=== PATIENT | male | born 1950 | race Caucasian/White ===

== ENCOUNTER → 2016-08-03 | Outpatient (CLI) | payer OTHER ==
[~2016-08-03] MED LIST: AMLO5TAB4 PO; ASCA500 PO; ASPI81TA28 PO; CEPH500C2 PO; CHOL1CAP57 PO; CHOLTAB3 PO; CITA-112 PO; COLE1TAB5 PO; FERR1TAB23 PO; HYDR25TA4 PO; INSPMPNVLG; METO-217 PO; MULT-506 PO; OMEP20TA PO; PRAV20TA PO
[2016-08-04 07:27] LABS: ESTIMATED AVERAGE GLUCOSE 163 mg/dl; HA1C FLAG Normal (Normal)
--- NOTE | 2016-08-07 08:46 | CODING QUERY MEDICAL NECESSITY ---
SUPPORTING DIAGNOSIS NEEDED A supporting diagnosis is required for the test/procedure performed on this patient in order for us to be reimbursed by the patient's insurance. Please provide a supporting diagnosis for the following test/procedure listed below next to the test name along with your signature. *If there is no additional diagnosis for this patient that would support the following test/procedure please document that below next to the test/procedure. Test(s)/Procedure(s) that require a supporting diagnosis: * GLYCATED HEMOGLOBIN DIAGNOSIS: * DOS: 08/03/16 Provider Signature: Date: Thank you Sophia Helms Health Information Management Once completed, please kindly fax back to [phone] For questions please call [phone]
== END | disposition home or self-care (01) ==
LOC: C.LAB1850 14:23
PROVIDERS: ATTEND Nurse Practitioner Adult Health
DX: K22.70 Barrett's esophagus without dysplasia (principal); E11.29 Type 2 diabetes mellitus with other diabetic kidney complication

== ENCOUNTER → 2016-08-31 | Outpatient (CLI) | payer OTHER ==
[2016-08-31 17:51] LABS: HEMATOCRIT 40.8 % (42-52); MEAN CELL VOLUME 88.7 fL (80-100); MEAN CORPUSCULAR HEMOGLOBIN 31.3 pg (25-34); MEAN CORPUSCULAR HGB CONC 35.3 g/dl (32-36); MEAN PLATELET VOLUME 10.1 fL (7.4-10.4); PLATELET COUNT 173 K/uL (130-400); WHITE BLOOD COUNT 7.41 K/uL (4.8-10.8)
[2016-08-31 18:02] LABS: URINE APPEARANCE CLEAR (CLEAR); URINE BILIRUBIN NEG (NEG); URINE COLOR YELLOW; URINE NITRITE NEG (NEG); URINE PH 6.5 (4.5-7.5); URINE SPECIFIC GRAVITY 1.016 (1.000-1.030); UROBILINOGEN NEG (NEG)
[2016-08-31 18:04] LABS: MANUAL MICROSCOPIC REQUIRED? NO; REVIEW REQ? NO
[2016-08-31 18:11] LABS: BLOOD UREA NITROGEN 39 mg/dl (7-18); BUN/CREATININE RATIO 12.5 (10-20); CALCIUM 8.9 mg/dl (8.5-10.1); CARBON DIOXIDE 24 mmol/L (21-32); CHLORIDE 110 mmol/L (98-107); GLUCOSE 89 mg/dl (70-99); PHOSPHORUS 3.1 mg/dl (2.5-4.9); POTASSIUM 4.8 mmol/L (3.5-5.1); SODIUM 143 mmol/L (136-145)
[2016-08-31 18:18] LABS: URINE PROTIEN/CREAT RATIO 1.4 (0-0.2); URINE TOTAL PROTEIN 162.6 mg/dl (0-11.9)
== END | disposition home or self-care (01) ==
LOC: C.LAB1850 17:08
PROVIDERS: ATTEND Internal Medicine Nephrology
DX: R80.9 Proteinuria, unspecified (principal); I12.9 Hypertensive chronic kidney disease with stage 1 through stage 4 chronic kidney disease, or unspecified chronic kidney disease; N18.3 Chronic kidney disease, stage 3 (moderate); N25.81 Secondary hyperparathyroidism of renal origin; D64.9 Anemia, unspecified

== ENCOUNTER → 2016-10-19 | Outpatient (CLI) | payer OTHER ==
[~2016-10-19] MED LIST changes: +ASCO1CAP3 PO; +CHOL20007 PO; +CITA40TA4 PO; +COLE1TAB PO; +ERGO500011 PO; +FLUO0.059 TOP; +FURO-85 PO; +MOME0.1O TOP; +RANI300T2 PO; +TPRSR25 PO
--- NOTE | 2016-10-19 19:55 | DIAGNOSTIC IMAGING REPORT ---
TWO VIEW CHEST CLINICAL HISTORY: Cough. FINDINGS: PA and lateral chest radiographs are compared to study dated 03/30/2013. Correlation is made with chest CT dated 01/15/2014. The patient is status post midline sternotomy. The heart is mildly enlarged and there is atherosclerotic calcification of the thoracic aorta. The lungs and pleural spaces are clear. There is no pneumothorax. The bony thorax appears intact. IMPRESSION: No active disease in the chest. Electronically signed by: Parth Davis M.D. 10/19/2016 7:53 PM Dictated Date/Time: 10/19/2016 7:52 PM
== END | disposition home or self-care (01) ==
LOC: C.RAD 17:28
PROVIDERS: ATTEND Internal Medicine
DX: R05 Cough (principal); Z11.59 Encounter for screening for other viral diseases

== ENCOUNTER → 2016-10-23 | Outpatient (CLI) | payer OTHER ==
--- NOTE | 2016-10-23 09:56 | DIAGNOSTIC IMAGING REPORT ---
MRI OF THE BRAIN WITHOUT CONTRAST CLINICAL HISTORY: Dizziness. Gait disturbance. Hypertension. COMPARISON STUDY: None. TECHNIQUE: Utilizing a 1.5 Mabel magnet and dedicated coil, multiplanar, multiecho imaging of the brain was performed without IV contrast. FINDINGS: There are no areas of restricted diffusion. No acute intracranial hemorrhage, midline shift or mass effect is present. Ventricular system is normal for age. Basilar cisterns are patent. There are no extra-axial collections. Flow-voids for the major intracranial vessels are present. No intracranial masses are identified on this unenhanced exam. There is mild atrophy. White matter T2 hyperintense foci suggest moderate small vessel disease. There is a suspected old lacunar infarct within the right cerebellar hemisphere. Calvarial signal is normal. There is mucosal thickening with secretions and a suspected air-fluid level within the right maxillary sinus. IMPRESSION: 1. No acute intracranial findings. 2. Mild atrophy and moderate small vessel disease. Old lacunar infarct within the right cerebellar hemisphere. 3. No intracranial mass on unenhanced exam. 4. Right maxillary sinusitis, possibly acute. Electronically signed by: Henri Mcclellan M.D. 10/23/2016 9:55 AM Dictated Date/Time: 10/23/2016 9:51 AM
== END | disposition home or self-care (01) ==
LOC: C.MRIBC 09:00
PROVIDERS: ATTEND Internal Medicine
DX: I10 Essential (primary) hypertension (principal); I25.10 Atherosclerotic heart disease of native coronary artery without angina pectoris; R55 Syncope and collapse; R42 Dizziness and giddiness; R26.9 Unspecified abnormalities of gait and mobility

== ENCOUNTER → 2017-03-11 | Outpatient (CLI) | payer OTHER ==
[~2017-03-11] MED LIST changes: -ASCO1CAP3 PO; -CHOL20007 PO; -CITA40TA4 PO; -COLE1TAB PO; -ERGO500011 PO; -FLUO0.059 TOP; -FURO-85 PO; -MOME0.1O TOP; -RANI300T2 PO; -TPRSR25 PO
--- NOTE | 2017-03-11 14:46 | DIAGNOSTIC IMAGING REPORT ---
MRI LUMBAR SPINE W/O CONTRAST CLINICAL HISTORY: M48.06 LOW BACK PAIN TECHNIQUE: Sagittal and axial T1, T2 and STIR images were obtained. COMPARISON STUDY: No previous studies for comparison. OBSERVATIONS: The vertebral bodies and posterior elements appear intact. There is no abnormal bony signal present to suggest a marrow replacement process. L1-2: No disc protrusions or extrusions. No evidence of spinal canal or neural foraminal compromise. L2-3: There is a mild circumferential disc bulge. There is no significant spinal or foraminal stenosis L3-4: There is a mild circumferential disc bulge. There is no significant spinal or foraminal stenosis L4-5: There is a mild circumferential disc bulge. There is no significant spinal or foraminal stenosis L5-S1: There is a right posterior lateral annular fissure with associated tiny disc protrusion. There is no significant spinal or foraminal stenosis. The conus medullaris and cauda equina appear normal. IMPRESSION: Annular fissure and tiny right posterior lateral disc protrusion at the L5-S1 level. Electronically signed by: Chris Estrada M.D. 03/11/2017 2:44 PM Dictated Date/Time: 03/11/2017 2:41 PM
== END | disposition home or self-care (01) ==
PROVIDERS: ATTEND Orthopaedic Surgery Orthopaedic Surgery of the Spine
DX: M48.06 Spinal stenosis, lumbar region (principal); M51.36 Other intervertebral disc degeneration, lumbar region; M51.27 Other intervertebral disc displacement, lumbosacral region

== ENCOUNTER → 2017-05-28 | Outpatient (CLI) | payer OTHER ==
[~2017-05-28] MED LIST changes: -AMLO5TAB4 PO; -ASCA500 PO; +ASCO1CAP3 PO; -CEPH500C2 PO; -CHOL1CAP57 PO; +CHOL20007 PO; -CHOLTAB3 PO; -CITA-112 PO; +CITA40TA4 PO; +COLE1TAB PO; -COLE1TAB5 PO; +ERGO500011 PO; +FLUO0.059 TOP; +FURO-85 PO; -HYDR25TA4 PO; -METO-217 PO; +MOME0.1O TOP; -MULT-506 PO; +RANI300T2 PO; +TPRSR25 PO
[2017-05-28 13:12] LABS: HEMATOCRIT 42.6 % (42-52); MEAN CELL VOLUME 91.8 fL (80-100); MEAN CORPUSCULAR HEMOGLOBIN 31.9 pg (25-34); MEAN CORPUSCULAR HGB CONC 34.7 g/dl (32-36); MEAN PLATELET VOLUME 10.1 fL (7.4-10.4); PLATELET COUNT 164 K/uL (130-400); RED BLOOD COUNT 4.64 M/uL (4.7-6.1)
[2017-05-28 13:14] LABS: URINE APPEARANCE CLEAR (CLEAR); URINE BILIRUBIN NEG (NEG); URINE COLOR YELLOW; URINE NITRITE NEG (NEG); URINE PH 5.5 (4.5-7.5); URINE SPECIFIC GRAVITY 1.018 (1.000-1.030); UROBILINOGEN NEG (NEG)
[2017-05-28 13:15] LABS: MANUAL MICROSCOPIC REQUIRED? NO; REVIEW REQ? NO
[2017-05-28 13:32] LABS: URINE PROTIEN/CREAT RATIO 1.3 (0-0.2)
[2017-05-28 13:33] LABS: ESTIMATED AVERAGE GLUCOSE 148 mg/dl; HA1C FLAG Normal (Normal)
[2017-05-28 13:38] LABS: ALT/SGPT 19 U/L (12-78); AST/SGOT 16 U/L (15-37); BLOOD UREA NITROGEN 38 mg/dl (7-18); CARBON DIOXIDE 26 mmol/L (21-32); CHLORIDE 110 mmol/L (98-107); CREATININE 2.93 mg/dl (0.60-1.40); GLUCOSE 59 mg/dl (70-99); POTASSIUM 4.5 mmol/L (3.5-5.1); SODIUM 139 mmol/L (136-145)
[2017-05-28 13:41] LABS: ALKALINE PHOSPHATASE 95 U/L (45-117)
== END | disposition home or self-care (01) ==
LOC: C.LAB1850 12:15
PROVIDERS: ATTEND Internal Medicine Nephrology
DX: R80.9 Proteinuria, unspecified (principal); I12.9 Hypertensive chronic kidney disease with stage 1 through stage 4 chronic kidney disease, or unspecified chronic kidney disease; R60.0 Localized edema; D64.9 Anemia, unspecified; E55.9 Vitamin D deficiency, unspecified; E11.22 Type 2 diabetes mellitus with diabetic chronic kidney disease; N18.4 Chronic kidney disease, stage 4 (severe); E11.49 Type 2 diabetes mellitus with other diabetic neurological complication

== ENCOUNTER → 2017-06-07 | Day surgery (SDC) | payer OTHER ==
[2017-05-27 13:26] VITALS: BMI 35.0
[~2017-06-07] VITALS: Ht 182.9 cm; Wt 118.2 kg
[~2017-06-07] MED LIST changes: +LIDOCAINE HCL 2% 2 ML VIAL (20MG/ML) ONE; +MIDAZOLAM HCL 1 MG/ML 2ML VIAL ONE; +ONDANSETRON INJ 2 MG/ML 2 ML VIAL ONE; +PROPOFOL IV EMULSION 10 MG/ML 20 ML VIAL IV ONE; +SODIUM CHLORIDE 0.9% 500ML 500 ML IV ONE
[2017-06-07 14:34] VITALS: Ht 182.9 cm; Wt 118.2 kg
--- NOTE | 2017-06-07 15:41 | Endo History and Physical ---
History & Physical Date of Service: Jun 07, 2017. Chief Complaint: BARRETTS Referring Physician: JAMIN History of Present Illness 66 yo CM who presents for EGD secondary to Lyons's Esophagus. Past Surgical History Hx Cardiac Surgery: Yes (CABG X 5 (2009)) Hx Internal Defibrillator: No Hx Pacemaker: No Hx Abdominal Surgery: No Hx of Implantable Prosthesis: No Hx Post-Op Nausea and Vomiting: No (DENIES ANY COMPLICATIONS WITH ANESTHESIA.) Hx Cancer Surgery: No Hx Thoracic Surgery: No Hx Orthopedic: Yes (LUMBAR LAMINECTOMY AND DECOMPRESSION (07/2013)) Hx Urinary Tract Surgery: No Family History None Social History Smoking Status: Never Smoker Hx Substance Use: No Hx Alcohol Use: No Allergies Coded Allergies: Adhesives (Verified Allergy, Unknown, itchy and rash, 06/07/17) NO KNOWN DRUG ALLERGIES (Verified Allergy, Unknown, NONE, 06/07/17) Current Medications Reported Home Medications Medications Dose Route/Sig Max Daily Dose Days Date Category Elocon (Mometasone Furoate) 0.1 % Oin 1 Appln TOP BID PRN 10 05/27/17 Reported Fluocinonide 0.05 % Gel 1 Dose TOP PRN 05/27/17 Reported Colestid (Colestipol Hcl) 1 Gm Tab 1 Gm PO QAM 05/27/17 Reported Vitamin D3 (Cholecalciferol) 2,000 Unit Tab 1 Tab PO QAM 90 05/27/17 Reported Vitamin D 15758 Unit (Ergocalciferol) 50,000 Unit Cap 1 Tab PO MONTHLY 05/27/17 Reported Vitamin C (Ascorbic Acid) 500 Mg Cap 500 Mg PO QAM 05/27/17 Reported Zantac (Ranitidine HCl) 300 Mg Tab 300 Mg PO HS 05/27/17 Reported Metoprolol Succinate ER (Metoprolol Succinate) 25 Mg Tabcr 12.5 Mg PO QAM 05/27/17 Reported Lasix (Furosemide) 20 Mg Tab 20 Mg PO QAM 05/27/17 Reported Citalopram Hydrobromide (Citalopram) 40 Mg Tab 1 Tab PO HS 90 05/27/17 Reported novoLOG INSULIN PUMP (Insulin Aspart) 1 Ea Inj 1 Ea N/A UD 06/06/13 Reported Aspirin Ec (Aspirin) 81 Mg Tab 81 Mg PO QAM 03/30/13 Reported Omeprazole 20 Mg Tab 20 Mg PO QAM 02/09/13 Reported Pravachol (Pravastatin Sodium) 20 Mg Tab 40 Mg PO HS 02/09/13 Reported Iron (Ferrous Sulfate) 325 Mg Tab 325 Mg PO QPM 02/09/13 Reported Vital Signs Weight (Kilograms): 118.18 Height (Feet): 6 Height (Inches): 0 Date Time Temp Pulse Resp B/P (MAP) Pulse Ox O2 Delivery O2 Flow Rate FiO2 06/07/17 14:42 36.4 67 20 167/72 (103) 97 Room Air Physical Exam General Appearance: WD/WN, no apparent distress Respiratory/Chest: Auscultation: breath sounds normal Cardiovascular: Heart Auscultation: RRR Abdomen: Bowel Sounds: normal Inspection & Palpation: soft, non-distended, no tenderness, guarding & rebound Assessment and Plan Assessment: 66 yo CM who presents for EGD secondary to Lyons's Esophagus. Plan: Proceed with EGD.
--- NOTE | 2017-06-07 16:33 | GI REPORT ---
Procedure Date: 06/07/2017 3:52 PM Procedure: Upper GI endoscopy Indications: Follow-up of Lyons's esophagus Medicines: Monitored Anesthesia Care Complications: No immediate complications. Estimated Blood Loss: Estimated blood loss: none. Procedure: Pre-Anesthesia Assessment: - Prior to the procedure, a History and Physical was performed, and patient medications and allergies were reviewed. The patient's tolerance of previous anesthesia was also reviewed. The risks and benefits of the procedure and the sedation options and risks were discussed with the patient. All questions were answered, and informed consent was obtained. Prior Anticoagulants: The patient has taken aspirin, last dose was 1 day prior to procedure. ASA Grade Assessment: III - A patient with severe systemic disease. After reviewing the risks and benefits, the patient was deemed in satisfactory condition to undergo the procedure. After obtaining informed consent, the endoscope was passed under direct vision. Throughout the procedure, the patient's blood pressure, pulse, and oxygen saturations were monitored continuously. The scope was introduced through the mouth, and advanced to the second part of duodenum. The upper GI endoscopy was accomplished without difficulty. The patient tolerated the procedure well. Findings: There were esophageal mucosal changes consistent with long-segment Lyons's esophagus present at the gastroesophageal junction. The maximum longitudinal extent of these mucosal changes was 4 cm in length. Mucosa was biopsied with a cold forceps for histology. One specimen bottle was sent to pathology. A small hiatus hernia was present. The examined duodenum was normal. Impression: - Esophageal mucosal changes consistent with long-segment Lyons's esophagus. Biopsied. - Small hiatus hernia. - Normal examined duodenum. Recommendation: - Resume previous diet. - Continue present medications. - Await pathology results. - Return to primary care physician as previously scheduled. Inocencio Salazar DO 06/07/2017 4:33:11 PM This report has been signed electronically. Note Initiated On: 06/07/2017 3:52 PM I attest to the content of the Intraoperative Record and orders documented therein, exceptions below
--- NOTE | 2017-06-07 16:40 | Anesthesiology Progress Note ---
Anesthesia Post Op Note Date & Time Jun 07, 2017 at 16:40 Vital Signs Pain Intensity: 0 Vital Signs Past 12 Hours Date Time Temp Pulse Resp B/P (MAP) Pulse Ox O2 Delivery O2 Flow Rate FiO2 06/07/17 16:30 49 12 130/52 (78) 99 Room Air 06/07/17 14:42 36.4 67 20 167/72 (103) 97 Room Air Notes Mental Status: alert / awake / arousable, participated in evaluation Pt Amnestic to Procedure: Yes Nausea / Vomiting: adequately controlled Pain: adequately controlled Airway Patency, RR, SpO2: stable & adequate BP & HR: stable & adequate Hydration State: stable & adequate Anesthetic Complications: no major complications apparent
[2017-06-07 17:00] VITALS: BP 156/72; PULSE 56; O2SAT 98
--- NOTE | 2017-06-07 17:29 | Discharge Instructions ---
Endoscopy Patient Instructions Date / Procedure(s) Performed Jun 07, 2017. EGD Allergy Information Coded Allergies: Adhesives (Verified Allergy, Unknown, itchy and rash, 06/07/17) NO KNOWN DRUG ALLERGIES (Verified Allergy, Unknown, NONE, 06/07/17) Discharge Date / Findings Jun 07, 2017. 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 today as prescribed Reported Home Medications Medications Dose Route/Sig Max Daily Dose Days Date Category Elocon (Mometasone Furoate) 0.1 % Oin 1 Appln TOP BID PRN 10 05/27/17 Reported Fluocinonide 0.05 % Gel 1 Dose TOP PRN 05/27/17 Reported Colestid (Colestipol Hcl) 1 Gm Tab 1 Gm PO QAM 05/27/17 Reported Vitamin D3 (Cholecalciferol) 2,000 Unit Tab 1 Tab PO QAM 90 05/27/17 Reported Vitamin D 64591 Unit (Ergocalciferol) 50,000 Unit Cap 1 Tab PO MONTHLY 05/27/17 Reported Vitamin C (Ascorbic Acid) 500 Mg Cap 500 Mg PO QAM 05/27/17 Reported Zantac (Ranitidine HCl) 300 Mg Tab 300 Mg PO HS 05/27/17 Reported Metoprolol Succinate ER (Metoprolol Succinate) 25 Mg Tabcr 12.5 Mg PO QAM 05/27/17 Reported Lasix (Furosemide) 20 Mg Tab 20 Mg PO QAM 05/27/17 Reported Citalopram Hydrobromide (Citalopram) 40 Mg Tab 1 Tab PO HS 90 05/27/17 Reported novoLOG INSULIN PUMP (Insulin Aspart) 1 Ea Inj 1 Ea N/A UD 06/06/13 Reported Aspirin Ec (Aspirin) 81 Mg Tab 81 Mg PO QAM 03/30/13 Reported Omeprazole 20 Mg Tab 20 Mg PO QAM 02/09/13 Reported Pravachol (Pravastatin Sodium) 20 Mg Tab 40 Mg PO HS 02/09/13 Reported Iron (Ferrous Sulfate) 325 Mg Tab 325 Mg PO QPM 02/09/13 Reported Provider Instructions Activity Restrictions - No exercising or heavy lifting for 24 hours. - Do not drink alcohol the day of the procedure. - Do not drive a car or operate machinery until the day after the procedure. - Do not make any important decisions or sign important papers in 24 hours after the procedure. Following Day: - Return to full activity which may include returning to work/school. Diet Start your diet with liquids and light foods (jello, soup, juice, toast). Then eat your usual diet if not nauseated. Treatment For Common After Affects For mild abdominal pain, bloating, or excessive gas: - Rest - Eat lightly - Lie on right side Follow-Up Information Follow-up with JAMIN as scheduled Anesthesia Information What You Should Know You have had a procedure that required some medicine to reduce anxiety and discomfort. This treatment is called moderate sedation. After receiving the treatment, you may be sleepy, but you will be able to breathe on your own. The effects of the treatment may last for several hours. Follow these instructions along with Activity/Diet recommendations noted above: * Do NOT do anything where dizziness or clumsiness would be dangerous. * Rest quietly at home today, then you can be up and about tomorrow. * Have a responsible person stay with you the rest of today. * You may have had an I.V. today. If so, you may take the dressing off later today. Recommendations Call your doctor if: * Trouble breathing * Continuous vomiting for more than 24 hours * Temperature above 101 degrees * Severe abdominal pain or bloating * Pain not relieved by pain medicine ordered * There is increased drainage or redness from any incision * A large amount of rectal bleeding greater than 2-3 tablespoons. (If you had a polyp/s removed or have hemorrhoids, a small amount of blood - from the rectum is to be expected.) * You have any unanswered questions or concerns. IN THE EVENT OF A SERIOUS EMERGENCY, GO TO THE NEAREST EMERGENCY ROOM Your discharge instructions were prepared by provider Inocencio Salazar. Patient Instructions Signature Page Yousif Walker Patient (or Guardian) Signature/Date: I have read and understand the instructions given to me by my caregivers. Caregiver/RN/Doctor Signature/Date: The above-named patient and/or guardian has received patient instructions on this date. + Original Patient Signature Page (only) stays with chart. Please make copy for patient.
== END | disposition home or self-care (01) ==
LOC: C.GI 13:40
PROVIDERS: ATTEND Internal Medicine
DX: Z09 Encounter for follow-up examination after completed treatment for conditions other than malignant neoplasm (principal); K44.9 Diaphragmatic hernia without obstruction or gangrene; K20.9 Esophagitis, unspecified; N18.3 Chronic kidney disease, stage 3 (moderate); E11.22 Type 2 diabetes mellitus with diabetic chronic kidney disease; M19.90 Unspecified osteoarthritis, unspecified site; G47.33 Obstructive sleep apnea (adult) (pediatric); Z98.890 Other specified postprocedural states; Z79.82 Long term (current) use of aspirin; Z79.4 Long term (current) use of insulin

== ENCOUNTER → 2017-09-17 | Outpatient (CLI) | payer OTHER ==
[~2017-09-17] MED LIST changes: -LIDOCAINE HCL 2% 2 ML VIAL (20MG/ML) ONE; -MIDAZOLAM HCL 1 MG/ML 2ML VIAL ONE; -ONDANSETRON INJ 2 MG/ML 2 ML VIAL ONE; -PROPOFOL IV EMULSION 10 MG/ML 20 ML VIAL IV ONE; -SODIUM CHLORIDE 0.9% 500ML 500 ML IV ONE
[2017-09-17 14:56] LABS: HEMATOCRIT 40.4 % (42-52); HEMOGLOBIN 13.5 g/dL (14.0-18.0); MEAN CELL VOLUME 92.2 fL (80-100); MEAN CORPUSCULAR HEMOGLOBIN 30.8 pg (25-34); MEAN CORPUSCULAR HGB CONC 33.4 g/dl (32-36); MEAN PLATELET VOLUME 9.9 fL (7.4-10.4); PLATELET COUNT 164 K/uL (130-400); RED CELL DISTRIBUTION WIDTH CV 12.4 % (11.5-14.5); RED CELL DISTRIBUTION WIDTH SD 42.1 fL (36.4-46.3); WHITE BLOOD COUNT 6.82 K/uL (4.8-10.8)
[2017-09-17 15:19] LABS: ALBUMIN 3.2 gm/dl (3.4-5.0); ALT/SGPT 17 U/L (12-78); BLOOD UREA NITROGEN 46 mg/dl (7-18); CARBON DIOXIDE 24 mmol/L (21-32); CHOLESTEROL 109 mg/dl (0-200); CREATININE 2.98 mg/dl (0.60-1.40); GLUCOSE 79 mg/dl (70-99); POTASSIUM 5.1 mmol/L (3.5-5.1); SODIUM 140 mmol/L (136-145)
[2017-09-17 15:22] LABS: ALKALINE PHOSPHATASE 115 U/L (45-117); AST/SGOT 14 U/L (15-37); LDL CHOLESTEROL CALCULATED 55 mg/dl; TOTAL PROTEIN 6.2 gm/dl (6.4-8.2)
[2017-09-18 07:28] LABS: HEMOGLOBIN A1C 6.5 % (4.5-5.6)
== END | disposition home or self-care (01) ==
LOC: C.LAB1850 14:02
PROVIDERS: ATTEND Internal Medicine Nephrology
DX: R80.9 Proteinuria, unspecified (principal); I12.9 Hypertensive chronic kidney disease with stage 1 through stage 4 chronic kidney disease, or unspecified chronic kidney disease; N25.81 Secondary hyperparathyroidism of renal origin; D64.9 Anemia, unspecified; E55.9 Vitamin D deficiency, unspecified; N18.4 Chronic kidney disease, stage 4 (severe); E11.21 Type 2 diabetes mellitus with diabetic nephropathy; Z79.4 Long term (current) use of insulin

== ENCOUNTER → 2017-09-21 | Outpatient (CLI) | payer OTHER ==
--- NOTE | 2017-09-21 11:56 | DIAGNOSTIC IMAGING REPORT ---
ANTERIOR ABDOMINAL WALL ULTRASOUND CLINICAL HISTORY: K42.9 Umbilical [id number] COMPARISON STUDY: No previous studies for comparison. FINDINGS: There is a fat-containing umbilical ultrasound. The neck measures 28 mm. The hernia was partially reducible. IMPRESSION: Partially reducible fat-containing umbilical hernia. The neck measured 28 mm. Electronically signed by: Chris Estrada M.D. 09/21/2017 11:54 AM Dictated Date/Time: 09/21/2017 11:53 AM
== END | disposition home or self-care (01) ==
LOC: C.ULTR 11:18
PROVIDERS: ATTEND Internal Medicine
DX: K42.9 Umbilical hernia without obstruction or gangrene (principal)

== ENCOUNTER → 2017-11-10 | Outpatient (CLI) | payer OTHER ==
[~2017-11-10] MED LIST changes: +CHOL100041 PO; -CHOL20007 PO; -PRAV20TA PO; +PRVC40 PO
--- NOTE | 2017-11-10 15:51 | DIAGNOSTIC IMAGING REPORT ---
CHEST 2 VIEWS ROUTINE HISTORY: 67 years-old Male UMBILICAL HERNIA preoperative exam. No acute chest complaints. COMPARISON: Chest radiograph 10/19/2016 TECHNIQUE: PA and lateral views of the chest FINDINGS: Cardiomediastinal and hilar silhouettes are within normal limits. Prior median sternotomy. There is no pneumothorax, pleural effusion, focal airspace consolidation or overt pulmonary edema. Degenerative changes of the spine and shoulders. IMPRESSION: No acute process. The above report was generated using voice recognition software. It may contain grammatical, syntax or spelling errors. Electronically signed by: Ezequiel Cevallos M.D. 11/10/2017 3:49 PM Dictated Date/Time: 11/10/2017 3:48 PM
[2017-11-10 16:33] LABS: BASO % 0.6 %; BASO ABS # 0.04 K/uL (0-0.2); EOS % 3.3 %; EOS ABS # 0.23 K/uL (0-0.5); HEMATOCRIT 39.6 % (42-52); HEMOGLOBIN 14.1 g/dL (14.0-18.0); IG# 0.03 K/uL (0.00-0.02); LYMPH % 23.9 %; LYMPH ABS # 1.66 K/uL (1.2-3.4); MEAN CELL VOLUME 92.5 fL (80-100); MEAN CORPUSCULAR HEMOGLOBIN 32.9 pg (25-34); MEAN CORPUSCULAR HGB CONC 35.6 g/dl (32-36); MEAN PLATELET VOLUME 10.3 fL (7.4-10.4); MONO % 6.8 %; MONO ABS # 0.47 K/uL (0.11-0.59); NEUT ABS # 4.53 K/uL (1.4-6.5); PLATELET COUNT 165 K/uL (130-400); RED CELL DISTRIBUTION WIDTH CV 12.8 % (11.5-14.5); RED CELL DISTRIBUTION WIDTH SD 43.3 fL (36.4-46.3); WHITE BLOOD COUNT 6.96 K/uL (4.8-10.8)
[2017-11-10 17:23] LABS: BLOOD UREA NITROGEN 51 mg/dl (7-18); CARBON DIOXIDE 26 mmol/L (21-32); CREATININE 3.64 mg/dl (0.60-1.40); GLUCOSE 38 mg/dl (70-99); POTASSIUM 4.9 mmol/L (3.5-5.1); SODIUM 141 mmol/L (136-145)
== END | disposition home or self-care (01) ==
LOC: C.RAD 14:57
PROVIDERS: ATTEND Surgery
DX: K42.9 Umbilical hernia without obstruction or gangrene (principal); I44.7 Left bundle-branch block, unspecified

== ENCOUNTER 2019-07-16 21:39 | Inpatient (IN) ==
[2019-07-16 22:11] LABS: Basophils # (auto) 0.04 K/uL (0-0.2); Basophils % (auto) 0.4 %; Eosinophils % (auto) 2.9 %; Hematocrit (blood only) 33.8 % (42-52); Hemoglobin 11.7 g/dL (14.0-18.0); Immature Granulocytes # (auto) 0.04 K/uL (0.00-0.02); Immature Granulocytes % (auto) 0.4 %; Lymphocytes # (auto) 1.46 K/uL (1.2-3.4); Mean Corpuscular Hemoglobin 32.6 pg (25-34); Mean Corpuscular Hgb Conc 34.6 g/dL (32-36); Mean Corpuscular Volume 94.2 fL (80-100); Mean Platelet Volume 9.8 fL (7.4-10.4); Monocytes # (auto) 0.65 K/uL (0.11-0.59); Monocytes % (auto) 6.2 %; Neutrophils # (auto) 7.93 K/uL (1.4-6.5); Neutrophils % (auto) 76.1 %; Platelet Count 160 K/uL (130-400); RDW Standard Deviation 44.7 fL (36.4-46.3); Red Blood Count 3.59 M/uL (4.7-6.1); White Blood Count 10.42 K/uL (4.8-10.8)
--- NOTE | 2019-07-16 22:15 | XRay Report ---
XR chest 1V portable HISTORY: 68 years-old Male Chest Pain acute atypical chest pain COMPARISON: Chest radiograph 07/10/2019 TECHNIQUE: Portable AP view of the chest FINDINGS: Cardiac silhouette is enlarged. Pulmonary vascular congestion. Prior median sternotomy. No pneumothor ax or large pleural effusion. Unchanged blunting of the costophrenic angles may reflect trace effusio ns. There are new right perihilar and medial right lung base airspace opacities. Linear left basilar densities suggest atelectasis/scarring. There is no pneumothorax. Degenerative changes of the shoulde rs and spine. IMPRESSION: 1. New right perihilar and medial right lung base airspace opacities are suggestive of pneumonia or a spiration pneumonitis. 2. Cardiomegaly with pulmonary vascular congestion. ACT 112: Negative or not required by law. The above report was generated using voice recognition software. It may contain grammatical, syntax o r spelling errors. Electronically signed by: Ezequiel Cevallos M.D. 07/16/2019 10:14 PM
[2019-07-16 22:23] LABS: Partial Thromboplastin Ratio 1.5; Partial Thromboplastin Time 41.3 Seconds (21.0-31.0); Prothrombin Time 10.7 Seconds (9.0-12.0)
[2019-07-16 22:40] LABS: Albumin Globulin Ratio 0.9 (0.9-2); Albumin Level 2.8 gm/dl (3.4-5.0); BUN Creatinine Ratio 10.7 (10-20); Bilirubin,Total 0.4 mg/dl (0.2-1); Calcium 7.6 mg/dl (8.5-10.1); Creatinine Clr Calc Pharmacy 14.1 ml/min; Est GFR (African American) 9.5; Est GFR (Non-African American) 8.2; Potassium 4.9 mmol/L (3.5-5.1); Total Protein 5.8 gm/dl (6.4-8.2); Troponin I 0.09 ng/ml (0-0.045)
[2019-07-16] MEDS ORDERED: cefTRIAXone SODIUM 2,000 MG/70 ML BAG IV STA (23:05)
[2019-07-16] MEDS ORDERED: AZITHROMYCIN 250 MG TAB PO STA (23:05)
[2019-07-16] MEDS ORDERED: METOCLOPRAMIDE HCL INJ 5 MG/ML 2 ML VIAL IV ONE (23:14)
[2019-07-16] MEDS ORDERED: ACETAMINOPHEN 325 MG TAB PO STA (23:14)
[2019-07-16] MEDS ORDERED: METOCLOPRAMIDE HCL INJ 5 MG/ML 2 ML VIAL ONE (23:14)
[2019-07-16] MEDS ORDERED: NITROGLYCERIN SL 0.4 MG/TAB TAB SL PRN (23:14)
[2019-07-17] MEDS ORDERED: ALBUT/IPRATROP 3MG/0.5MG NEB 3 ML VIAL NEB PRN (01:13)
[2019-07-17] MEDS ORDERED: DEXTROSE 50% 50 ML SYRINGE IV PRN (01:13)
[2019-07-17] MEDS ORDERED: GLUCAGON FOR INJ 1 MG VIAL SQ PRN (01:13)
[2019-07-17] MEDS ORDERED: PHARMACY GLYCEMIC MGMT CONSULT STA (01:13)
[2019-07-17] MEDS ORDERED: CARBOHYDRATES FOR HYPOGLYCEMIA PO PRN (01:13)
[2019-07-17] MEDS ORDERED: GLUCOSE 10 TABS/TUBE PO PRN (01:13)
[2019-07-17] MEDS ORDERED: GLUCOSE 40% GEL 15 GM TUBE PO PRN (01:13)
--- NOTE | 2019-07-17 01:19 | Emergency Department Note ---
Entered by Cha Mcgarry acting as a scribe for Fredy Tracey MD History of Present Illness General Chief complaint: Cardiac Assessment Stated complaint: SPITTING UP BLOOD, HEART RACING, HEAD PAIN Time Seen by Provider: 07/16/19 21:55 Source: patient History of Present Illness Onset (ago): hour(s) 4 Location: chest Pain Consistency: + constant Maximum Pain Intensity: 3 Current Pain Intensity: 3 Quality: + other (tightness) Relieved By: + none Exacerbated By: + none Associated symptoms: + chest pain and + cough; no diaphoresis and no nausea/vomiting Treatments prior to arrival: none The patient is a 68 year old male w/ PMHx of CABG who presents to the ED w/ CC of chest tightness beginning around 18:00 tonight. He also complains of coughing up blood. The patient had an ultrasound done last week at his cardiologists office which was normal. The patient complains of burping and coughing up yellow mucus. The patients notes that he wheezes a lot at bedtime. He takes baby aspirin regularly. The patient denies nausea, vomiting, and diaphoresis. He did not take any pain medication prior to arrival. The patient has a history of CABG and fistula. The fistula has been present for 8 months. The patient is scheduled to get dialysis in the near future. He denies a history of smoking. Home Medications Home Medications Medication Instructions Recorded Confirmed Type aspirin 81 mg tablet,delayed 81 mg PO DAILY 05/20/18 07/16/19 History release fluocinolone 0.025 % topical cream 1 appln TOP BID 05/20/18 07/16/19 History furosemide 20 mg tablet 20 mg PO DAILY 05/20/18 07/16/19 History ascorbic acid (vitamin C) 500 mg 500 mg PO DAILY cap 01/23/19 07/16/19 History capsule citalopram 40 mg tablet 40 mg PO DAILY tab 01/23/19 07/16/19 History ferrous sulfate 325 mg (65 mg 325 mg PO DAILY tab 01/23/19 07/16/19 History iron) tablet mometasone 0.1 % topical ointment 1 appln TOPICAL BID #1 gm 01/23/19 07/16/19 History cholecalciferol (vitamin D3) 1,250 50,000 units PO MONTHLY #3 cap 03/23/19 07/16/19 Rx mcg (50,000 unit) capsule famotidine 20 mg tablet 40 mg PO DAILY 42 Days #84 tab 03/28/19 07/16/19 Rx Novolog U-100 Insulin aspart 100 80 units SQ .COMPLEX #30 ml NS 04/19/19 07/16/19 Rx unit/mL subcutaneous solution blood sugar diagnostic #400 ea 04/19/19 07/10/19 Rx insulin syringe-needle U-100 0.3 #10 ea 04/19/19 07/10/19 Rx mL 31 gauge x 5/16" colestipol 1 gram tablet 1 gm PO Q2D tab 05/29/19 07/16/19 History glucagon (human recombinant) 1 mg 1 mg IM UD PRN ea 05/29/19 07/16/19 History solution for injection metoprolol succinate 25 mg 12.5 mg PO DAILY #45 tab 06/26/19 07/16/19 Rx tablet,extended release 24 hr pravastatin 40 mg tablet 40 mg PO DAILY #90 tab 07/10/19 07/16/19 Rx Allergies Allergy/AdvReac Type Severity Reaction Status Date / Time adhesive Allergy Mild itchy and Verified 07/16/19 22:13 rash Past Med/Surg History Medical History Acquired claw toe of left foot (Acute) Acquired claw toe of right foot (Acute) Acquired hallux valgus of right foot (Acute) Acquired hammer toe of right foot (Acute) Anemia (Chronic) Arteriosclerosis of carotid artery (Acute) Arthritis (Acute) Lyons's esophagus (Acute) CAD (coronary artery disease) Central sleep apnea (Acute) Cerebrovascular disease (Acute) Chronic kidney disease (Acute) Chronic kidney disease, stage IV (severe) (Chronic) Chronic reflux esophagitis (Acute) Controlled diabetes mellitus with neurologic complication, with long-term current use of insulin (Acute) Controlled diabetes mellitus with retinopathy, with long-term current use of insulin (Acute) Coronary artery disease (Acute) Depression (Acute) Diabetes (Chronic) Diabetic nephropathy (Acute) Diabetic neuropathy (Acute) GERD (gastroesophageal reflux disease) (Acute) H/O retinal detachment (Acute) Hallux valgus (acquired), left foot (Acute) Hammertoe of left foot (Acute) Hearing loss (Acute) Hiatal hernia (Acute) History of basal cell carcinoma (Resolved) Hypertension (Chronic) Left bundle-branch block (Acute) Low back pain (Acute) Neuropathic ulcer of toe of right foot (Acute) Obesity (BMI 30.0-34.9) (Acute) Peripheral vascular disease (Acute) Proliferative diabetic retinopathy (Acute) Proteinuria (Chronic) Right-sided lacunar infarction (Acute) Secondary hyperparathyroidism (Acute) Ulcer of right midfoot (Acute) Umbilical hernia (Acute) Vitamin D deficiency (Chronic) Surgical History Fistula H/O hernia repair (Acute) Hx of CABG (Acute) Previous back surgery (Acute) S/P CABG x 5 Family History Other No significant family history Social History Preferred Language: [place]ian Communication Ability: Effective Visual Impairment: Severely Limited Beliefs That Will Affect Care: None marital status: Current Living Situation: Spouse current occupational status: retired Feels Safe at Home: Yes Smoking Status: Never smoker Hx Alcohol Use: No Hx Substance Use: No Seatbelt Use: always Review of Systems See HPI for pertinent positives & negatives. and A total of 10 systems reviewed and were otherwise negative Physical Exam Vital Signs Vital Signs - 24 hr 07/16/19 21:41 07/16/19 21:50 07/16/19 21:53 Temperature 36.4 C L Temperature Source Oral Pulse Rate 81 73 73 Pulse Rate [Left Finger] Pulse Rate from SpO2 Sensor 74 Respiratory Rate 18 18 20 Respiratory Effort / Characteristics Non-Labored Respiratory Depth Normal Respiratory Pattern Regular Blood Pressure 199/70 H 192/83 H Blood Pressure [Right Arm] Blood Pressure Mean 113 141 Blood Pressure Mean [Right Arm] Blood Pressure Position [Right Arm] Pulse Oximetry 96 96 96 Oxygen Delivery Method Room Air Room Air Sepsis Recent Fever Within 48 Hours No Sepsis Action Taken by Nursing No Action Required 07/16/19 22:05 07/16/19 22:30 07/16/19 22:32 Temperature Temperature Source Pulse Rate 77 74 Pulse Rate [Left Finger] Pulse Rate from SpO2 Sensor 77 75 Respiratory Rate 20 20 Respiratory Effort / Characteristics Respiratory Depth Respiratory Pattern Blood Pressure 216/102 H 201/89 H Blood Pressure [Right Arm] Blood Pressure Mean 163 128 Blood Pressure Mean [Right Arm] Blood Pressure Position [Right Arm] Pulse Oximetry 97 96 96 Oxygen Delivery Method Room Air Sepsis Recent Fever Within 48 Hours Sepsis Action Taken by Nursing 07/16/19 23:00 07/16/19 23:31 07/16/19 23:46 Temperature Temperature Source Pulse Rate 74 87 Pulse Rate [Left Finger] Pulse Rate from SpO2 Sensor 73 87 Respiratory Rate 21 29 H Respiratory Effort / Characteristics Respiratory Depth Respiratory Pattern Blood Pressure 195/62 H 161/54 H 202/84 H Blood Pressure [Right Arm] Blood Pressure Mean 102 90 112 Blood Pressure Mean [Right Arm] Blood Pressure Position [Right Arm] Pulse Oximetry 95 95 Oxygen Delivery Method Room Air Room Air Sepsis Recent Fever Within 48 Hours Sepsis Action Taken by Nursing 07/16/19 23:47 07/16/19 23:48 07/17/19 00:00 Temperature Temperature Source Pulse Rate 85 78 Pulse Rate [Left Finger] 87 Pulse Rate from SpO2 Sensor 86 78 Respiratory Rate 19 20 Respiratory Effort / Characteristics Respiratory Depth Respiratory Pattern Blood Pressure 194/59 H 194/66 H Blood Pressure [Right Arm] 194/59 H Blood Pressure Mean 92 83 Blood Pressure Mean [Right Arm] 104 Blood Pressure Position [Right Arm] Sitting Pulse Oximetry 96 95 100 Oxygen Delivery Method Room Air Room Air Room Air Sepsis Recent Fever Within 48 Hours Sepsis Action Taken by Nursing 07/17/19 00:21 07/17/19 00:30 07/17/19 01:00 Temperature Temperature Source Pulse Rate 80 79 79 Pulse Rate [Left Finger] Pulse Rate from SpO2 Sensor 79 79 79 Respiratory Rate 17 14 15 Respiratory Effort / Characteristics Respiratory Depth Respiratory Pattern Blood Pressure 154/80 H 167/69 H 115/82 Blood Pressure [Right Arm] Blood Pressure Mean 102 85 93 Blood Pressure Mean [Right Arm] Blood Pressure Position [Right Arm] Pulse Oximetry 95 94 97 Oxygen Delivery Method Room Air Room Air Room Air Sepsis Recent Fever Within 48 Hours Sepsis Action Taken by Nursing GENERAL: Ill appearing, NAD, non-toxic. EYE EXAM: Normal conjunctiva. PERRL, no anisocoria and EOM's grossly intact w/o pain. OROPHARYNX: Moist mucous membranes. Grossly normal dentition. NECK: Supple, no nuchal rigidity, no adenopathy, non-tender. No signs of meningismus. LUNGS: Scant wheezes throughout. Normal chest wall mechanics. HEART: NSR, no MRG. ABDOMEN: Abdomen soft, non-tender, normo-active bowel sounds, no masses, no rebound or guarding. BACK: No CVA TTP. SKIN: No rashes and no bruising. UPPER EXTREMITIES: Left upper extremity AV fistula present with palpable thrill. LOWER EXTREMITIES: 1+ pretibial edema. Not asymmetric. Without calor or erythema. No calf pain. NEURO EXAM: A&O x3, cranial nerves II-XII grossly intact, normal speech, moves all 4 extremities on command w/o issue. Course Course 2211: Past medical records reviewed. The patient was evaluated in room B04B. A complete history and physical exam was performed. 2313: The patient is now vomiting. Medication will be ordered for the patient. 2341: I updated the patient. He has received nausea medication and is feeling somewhat better. The patient will go for CT. 0114: I spoke to Dr. Najera, [facility] hospitalist, who agreed to take over care of the patient. The patient understands the treatment plan and is agreeable to staying in the hospital. The patient will be further evaluated. Administered Medications Nitroglycerin (Nitrostat) 0.4 mg SL PRN PRN PRN Reason: Chest Pain Stop: 08/15/19 23:13 Last Admin: 07/16/19 23:19 Dose: 0.4 mg Documented by: [id number] Discontinued Medications Acetaminophen (Tylenol) 650 mg PO NOW STA Stop: 07/16/19 23:15 Last Admin: 07/17/19 00:04 Dose: 650 mg Documented by: [id number] Azithromycin (Zithromax) 500 mg PO QAM STA Stop: 07/16/19 23:06 Last Admin: 07/17/19 00:05 Dose: 500 mg Documented by: [id number] Ceftriaxone Sodium (Rocephin) 2,000 mg in 70 mls @ 140 mls/hr IV NOW STA Stop: 07/16/19 23:34 Last Infusion: 07/16/19 23:48 Dose: 0 mls/hr Documented by: [id number] Admin: 07/16/19 23:18 Dose: 140 mls/hr Documented by: [id number] Metoclopramide HCl (Reglan) Confirm Administered Dose 10 mg .ROUTE .STK-MED ONE Stop: 07/16/19 23:15 Last Admin: 07/16/19 23:19 Dose: Not Given Documented by: [id number] Metoclopramide HCl (Reglan) 5 mg IV ONE ONE Stop: 07/16/19 23:15 Last Admin: 07/16/19 23:18 Dose: 5 mg Documented by: [id number] Medical Decision Making Differential Diagnosis Differential diagnosis includes: cellulitis, abscess, MRSA infection, DVT, necrotizing fasciitis, dermatitis, drug eruption, as well as others were entertained. Medical Records Attestation: I reviewed the patient's medical records. Home Medications Current Medication List: was personally reviewed by me Laboratory Data Attestation: I reviewed the patient's lab results. Result diagrams: 07/16/19 22:02 07/16/19 22:02 Lab Results 07/16/19 07/16/19 07/16/19 Range/Units 21:44 22:02 22:02 WBC 10.42 (4.8-10.8) K/uL RBC 3.59 L (4.7-6.1) M/uL Hgb 11.7 L (14.0-18.0) g/dL Hct 33.8 L (42-52) % MCV 94.2 (80-100) fL MCH 32.6 (25-34) pg MCHC 34.6 (32-36) g/dL RDW Std Deviation 44.7 (36.4-46.3) fL RDW Coeff of Kyara 13.0 (11.5-14.5) % Plt Count 160 (130-400) K/uL MPV 9.8 (7.4-10.4) fL Immature Gran % (Auto) 0.4 % Neut % (Auto) 76.1 % Lymph % (Auto) 14.0 % [place] % (Auto) 6.2 % Eos % (Auto) 2.9 % Baso % (Auto) 0.4 % Immature Gran # (Auto) 0.04 H (0.00-0.02) K/uL Neut # (Auto) 7.93 H (1.4-6.5) K/uL Lymph # (Auto) 1.46 (1.2-3.4) K/uL [place] # (Auto) 0.65 H (0.11-0.59) K/uL Eos # (Auto) 0.30 (0-0.5) K/uL Baso # (Auto) 0.04 (0-0.2) K/uL PT 10.7 (9.0-12.0) Seconds INR 1.0 (0.9-1.1) APTT 41.3 H (21.0-31.0) Seconds PTT Ratio 1.5 Sodium (136-145) mmol/L Potassium (3.5-5.1) mmol/L Chloride (98-107) mmol/L Carbon Dioxide (21-32) mmol/L Anion Gap (3-11) BUN (7-18) mg/dl Creatinine (0.6-1.4) mg/dl Est Cr Clr Drug Dosing ml/min Est GFR ( Amer) Est GFR (Non-Af Amer) BUN/Creatinine Ratio (10-20) Glucose (70-99) mg/dl POC Glucose 126 H (70-99) mg/dl Calcium (8.5-10.1) mg/dl Total Bilirubin (0.2-1) mg/dl AST (15-37) U/L ALT (12-78) U/L Alkaline Phosphatase (45-117) U/L Troponin I (0-0.045) ng/ml NT-Pro-B Natriuret Pep (0-900) pg/ml Total Protein (6.4-8.2) gm/dl Albumin (3.4-5.0) gm/dl Globulin (2.5-4.0) gm/dl Albumin/Globulin Ratio (0.9-2) Lipase (73-393) U/L 07/16/19 Range/Units 22:02 WBC (4.8-10.8) K/uL RBC (4.7-6.1) M/uL Hgb (14.0-18.0) g/dL Hct (42-52) % MCV (80-100) fL MCH (25-34) pg MCHC (32-36) g/dL RDW Std Deviation (36.4-46.3) fL RDW Coeff of Kyara (11.5-14.5) % Plt Count (130-400) K/uL MPV (7.4-10.4) fL Immature Gran % (Auto) % Neut % (Auto) % Lymph % (Auto) % [place] % (Auto) % Eos % (Auto) % Baso % (Auto) % Immature Gran # (Auto) (0.00-0.02) K/uL Neut # (Auto) (1.4-6.5) K/uL Lymph # (Auto) (1.2-3.4) K/uL [place] # (Auto) (0.11-0.59) K/uL Eos # (Auto) (0-0.5) K/uL Baso # (Auto) (0-0.2) K/uL PT (9.0-12.0) Seconds INR (0.9-1.1) APTT (21.0-31.0) Seconds PTT Ratio Sodium 146 H (136-145) mmol/L Potassium 4.9 (3.5-5.1) mmol/L Chloride 114 H (98-107) mmol/L Carbon Dioxide 24 (21-32) mmol/L Anion Gap 8.0 (3-11) BUN 68 H (7-18) mg/dl Creatinine 6.33 H* (0.6-1.4) mg/dl Est Cr Clr Drug Dosing 14.1 ml/min Est GFR ( Amer) 9.5 Est GFR (Non-Af Amer) 8.2 BUN/Creatinine Ratio 10.7 (10-20) Glucose 122 H (70-99) mg/dl POC Glucose (70-99) mg/dl Calcium 7.6 L (8.5-10.1) mg/dl Total Bilirubin 0.4 (0.2-1) mg/dl AST 17 (15-37) U/L ALT 13 (12-78) U/L Alkaline Phosphatase 82 (45-117) U/L Troponin I 0.090 H* (0-0.045) ng/ml NT-Pro-B Natriuret Pep 57072 H (0-900) pg/ml Total Protein 5.8 L (6.4-8.2) gm/dl Albumin 2.8 L (3.4-5.0) gm/dl Globulin 3.0 (2.5-4.0) gm/dl Albumin/Globulin Ratio 0.9 (0.9-2) Lipase 173 (73-393) U/L Imaging Data Radiologist's Impression: Radiology results as stated below per my review and the radiologist's interpretation: XR chest 1V portable HISTORY: 68 years-old Male Chest Pain acute atypical chest pain COMPARISON: Chest radiograph 07/10/2019 TECHNIQUE: Portable AP view of the chest FINDINGS: Cardiac silhouette is enlarged. Pulmonary vascular congestion. Prior median sternotomy. No pneumothorax or large pleural effusion. Unchanged blunting of the costophrenic angles may reflect trace effusions. There are new right perihilar and medial right lung base airspace opacities. Linear left basilar densities suggest atelectasis/scarring. There is no pneumothorax. Degenerative changes of the shoulders and spine. IMPRESSION: 1. New right perihilar and medial right lung base airspace opacities are suggestive of pneumonia or aspiration pneumonitis. 2. Cardiomegaly with pulmonary vascular congestion. ACT 112: Negative or not required by law. The above report was generated using voice recognition software. It may contain grammatical, syntax or spelling errors. Electronically signed by: Ezequiel Cevallos M.D. 07/16/2019 10:[address] CHEST Without Contrast Groundglass opacities throughout the right lower lobe, aspiration versus infection. Small pleural effusions right greater than left Coronary artery calcifications status post CABG. radiologist: Suresh Carbajal MD Study ready at 23:48 and initial results transmitted at 00:03. ECG Data Attestation: I personally reviewed and interpreted this ECG as follows: Indication: + chest pain Rate (beats per minute): 73 Rhythm: + sinus rhythm ECG Intervals/blocks: + Left bundle branch block and + Normal MD ECG ST segments: + T-wave inversions (in AVL) ECG Findings: + PVCs (single PVC noted) and + Other (Wide QRS) Blood Pressure Blood Pressure Findings: Elevated blood pressure Blood Pressure Disposition: further management by hospitalist ADRIA Narrative The patient is a 68 year old male w/ PMHx of CABG who presents to the ED w/ CC of chest tightness beginning around 18:00 tonight. Patient was seen and evaluated the bedside. The patient was complained of some left-sided chest tightness. No diaphoresis but did have some nausea with associated vomiting. The patient does have chronic stable lower extremity swelling. The patient states he has been compliant with his medications. The patient does have a left upper extremity AV fistula. Good palpable thrill. The patient had been complaining some mild hemoptysis as well. Non-smoker. Patient does have scant wheezes throughout. Patient did a blood work completed along with a chest x-ray. Chest x-ray does show that patient may have a consolidation at the right base. Given the patient's history as well as the hemoptysis and Noncon CT was ordered. This was done without IV contrast as the patient is currently not on dialysis but has significant kidney disease. The patient was also given nitro and aspirin. The patient did feel improved thereafter. The patient also did require some antiemetics. Patient has a normal white count. Given the concern with the right lower lobe he was ordered antibiotics. The patient does have significant kidney dysfunction which is fairly unchanged from prior. Calcium is slightly low. Troponin is detectable but may be related due to the patient's chronic kidney disease. Patient's BNP may be related the patient's kidney dysfunction. Patient CT of the chest does show bilateral pleural effusions as well as groundglass opacities in the right lower lobe concerning for possible infection. Given the patient's medical comorbidities and associated hemoptysis with the right lower lobe opacities I do not think the patient suitable for outpatient treatment at this time. Patient was admitted to the medicine service. Impression & Plan Pneumonia, Chest pain, Hemoptysis, CKD (chronic kidney disease) stage 5, GFR less than 15 ml/min Discharge Plan Visit Data Chief Complaint: Cardiac Assessment Stated Complaint: SPITTING UP BLOOD, HEART RACING, HEAD PAIN ED Provider: Fredy Tracey Discharge Problem: Pneumonia, Chest pain, Hemoptysis, CKD (chronic kidney disease) stage 5, GFR less than 15 ml/min Forms Stand Alone Forms: [facility] [employer] Prescriptions Prescriptions: No Action aspirin [Adult Aspirin Regimen] 81 mg tablet,delayed release (DR/EC) 81 mg PO DAILY RF: 0 fluocinolone 0.025 % cream 1 appln TOP BID RF: 0 furosemide [Lasix] 20 mg tablet 20 mg PO DAILY RF: 0 ascorbic acid (vitamin C) 500 mg capsule 500 mg PO DAILY RF: 0 cholecalciferol (vitamin D3) 50,000 unit capsule 50,000 units PO MONTHLY Qty: 3 RF: 1 famotidine [Acid [employer]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 [employer] (famotidine)] 20 mg tablet 40 mg PO DAILY 42 Days Qty: 84 RF: 3 (DME) Contour Test Strips strip See Dose Instructions .ROUTE .MEDSUPPLY Qty: 400 RF: 3 (DME) insulin syringe-needle U-100 [BD Insulin Syringe Ultra-Fine] 0.3 mL 31 gauge x 5/16" syringe See Dose Instructions .ROUTE .MEDSUPPLY Qty: 10 RF: 2 Novolog U-100 Insulin aspart 100 unit/mL solution 80 units SQ .COMPLEX Qty: 30 RF: 5 metoprolol succinate 25 mg tablet extended release 24 hr 12.5 mg PO DAILY Qty: 45 RF: 3 citalopram 40 mg tablet 40 mg PO DAILY RF: 0 ferrous sulfate 325 mg (65 mg iron) tablet 325 mg PO DAILY RF: 0 mometasone 0.1 % ointment 1 appln topical BID Qty: 1 RF: 0 colestipol 1 gram tablet 1 gm PO Q2D RF: 0 Glucagon Emergency Kit (human) 1 mg recon soln 1 mg IM UD PRN (Reason: HYPOGLYCEMIC EMERGENCY) RF: 0 pravastatin 40 mg tablet 40 mg PO DAILY Qty: 90 RF: 3 Discharge Problem: Pneumonia Qualifiers: Pneumonia type: due to unspecified organism Laterality: unspecified laterality Lung location: unspecified part of lung Qualified Code(s): J18.9 - Pneumonia, unspecified organism Chest pain Qualifiers: Chest pain type: unspecified Qualified Code(s): R07.9 - Chest pain, unspecified The scribe's documentation has been prepared under my direction and personally reviewed by me in its entirety. I confirm that the note above accurately reflects all work, treatment, procedures, and medical decision making performed by me.
--- NOTE | 2019-07-17 01:25 | History & Physical Report ---
Date of Service July 17, 2019 Assessment & Plan (1) Pneumonia: Mr. Yousif Walker is a 68 y/o male with numerous co-morbidities including stage V CKD, IDDM, CAD s/p CABGx5, HTN, HLD, depression, non-compliant sleep apnea, right sided lacunar CVA who presented for with pneumonia that is believed to be HAP in patient with numerous co-morbidities as outlined above. He is ill appearing and now has worsening creatinine of 6.33 from his baseline. - started on Rocephin and Azithromycin here in ED - will switch to Linezolid and Zosyn, will avoid Vanc as he is still making urine to avoid total loss of kidney function - Infectious Disease consult placed since Linezolid ordered - Duonebs ordered PRN for dyspnea - pulmonary toilet - not currently requiring supplemental O2 - No significant elevated WBC, with value at 10.42 Code: Full Code FENGI: Heart healthy, diabetic 2 diet, no IVF at this time to prevent volume overload DVT ppx: SCDs, will avoid chemical since hemoptysis Dispo: Admit to PCU with cardiac monitoring (2) Hemoptysis: most likely from pneumonia process, no signs of significant blood loss (3) CKD (chronic kidney disease) stage 5, GFR less than 15 ml/min: Creatinine at 6.33 which is highest recording for patient He hasn't had HD yet but was set to get this as outpatient He has fistula present Nephrology consult placed for recs Potassium is stable at 4.9. Will trend electrolytes and kidney function Appears at his baseline weight (4) Controlled diabetes mellitus with retinopathy, with long-term current use of insulin: Pharm consult for glycemic management placed He notes he has had some hypoglycemic episodes in the AM, which readings in 30s and confusion per He is on an insulin pump, not sure if this is best option for patient and will need more investigation during stay (5) CAD (coronary artery disease): continue with Metoprolol succinate ER 12.5mg daily continue w/home Pravastatin 40mg PO and Colestipol 1gm q2day Slightly increased troponin but in setting of CKD stage 5 which is renally cleared and extensive CAD, no acute process likely Will continue to trend trops SL Nitro ordered (6) S/P CABG x 5: as noted in history, extensive CAD (7) Hypertension: Hypertensive while in ED, most recent vital within normal limtis 115/82 continue with Metoprolol succinate ER 12.5mg daily (8) Vitamin D deficiency: most likely from kidney disease receives Vit D supplementation monthly, no current indication for this during this visit (9) Right-sided lacunar infarction: Noted in history without noted residual deficits continue with home ASA 81mg po daily (10) Depression: continue with home Citalopram 40mg qday (11) Dyslipidemia: continue w/home Pravastatin 40mg PO and Colestipol 1gm q2day (12) Sleep apnea: States has home CPAP but is non-compliant refuses CPAP during this admission when offered (13) Anemia: Mild appears at baseline, most likely from underlying kidney disease History of Present Illness Chief Complaint: Hemoptysis, pneumonia Primary Care Provider: Ramo Uribe MD Caveat: History Limited by - Patient is a vague historian. Mr. Yousif Walker is a 68 y/o male with numerous co-morbidities including stage V CKD, IDDM, CAD s/p CABGx5, HTN, HLD, depression, non-compliant sleep apnea, right sided lacunar CVA who presented for CC of hemoptysis. He notes that he had onset of cough today with productive hemoptysis at 8pm. He denies any shortness of breath or diaphoresis and notes he was at his baseline state of health until this evening. He denies fevers/chills, recent cough or cold symptoms. He did get the influenza vaccination and notes that he has pneumonia vaccinations as well. He had some post-tussive dry heaving in ED treated with Reglan. He notes no current nausea. He notes he is getting set up for Dialysis for his End stage renal disease and that he was waiting for HD center to call him to set this up. He has seen [facility] in the past. He has a LUE AVF created on 01/19/19. Patient cannot have PD due to abdominal mesh. He had a prior AVF created 12/[address] Olivera has clotted. He notes he still produces urine. Currently, he notes right sided neck pain, his notes a history of buldging discs. He notes neck pain is most likely from awkward positioning in bed. He was treated with Reglan in the ED for his dry heaving. He was also given Zithromax 500mg PO x1 and Rocephin 2gm IV x1. Allergies Allergy/AdvReac Type Severity Reaction Status Date / Time adhesive Allergy Mild itchy and Verified 07/16/19 22:13 rash Home Medications Home Medications Medication Instructions Recorded Confirmed Type aspirin 81 mg tablet,delayed 81 mg PO DAILY 05/20/18 07/16/19 History release fluocinolone 0.025 % topical cream 1 appln TOP BID 05/20/18 07/16/19 History furosemide 20 mg tablet 20 mg PO DAILY 05/20/18 07/16/19 History ascorbic acid (vitamin C) 500 mg 500 mg PO DAILY cap 01/23/19 07/16/19 History capsule citalopram 40 mg tablet 40 mg PO DAILY tab 01/23/19 07/16/19 History ferrous sulfate 325 mg (65 mg 325 mg PO DAILY tab 01/23/19 07/16/19 History iron) tablet mometasone 0.1 % topical ointment 1 appln TOPICAL BID #1 gm 01/23/19 07/16/19 History cholecalciferol (vitamin D3) 1,250 50,000 units PO MONTHLY #3 cap 03/23/19 07/16/19 Rx mcg (50,000 unit) capsule famotidine 20 mg tablet 40 mg PO DAILY 42 Days #84 tab 03/28/19 07/16/19 Rx Novolog U-100 Insulin aspart 100 80 units SQ .COMPLEX #30 ml NS 04/19/19 07/16/19 Rx unit/mL subcutaneous solution blood sugar diagnostic #400 ea 04/19/19 07/10/19 Rx insulin syringe-needle U-100 0.3 #10 ea 04/19/19 07/10/19 Rx mL 31 gauge x 5/16" colestipol 1 gram tablet 1 gm PO Q2D tab 05/29/19 07/16/19 History glucagon (human recombinant) 1 mg 1 mg IM UD PRN ea 05/29/19 07/16/19 History solution for injection metoprolol succinate 25 mg 12.5 mg PO DAILY #45 tab 06/26/19 07/16/19 Rx tablet,extended release 24 hr pravastatin 40 mg tablet 40 mg PO DAILY #90 tab 07/10/19 07/16/19 Rx Past Med/Surg History Medical History Acquired claw toe of left foot (Acute) Acquired claw toe of right foot (Acute) Acquired hallux valgus of right foot (Acute) Acquired hammer toe of right foot (Acute) Anemia (Chronic) Arteriosclerosis of carotid artery (Acute) Arthritis (Acute) Lyons's esophagus (Acute) CAD (coronary artery disease) Central sleep apnea (Acute) Cerebrovascular disease (Acute) Chronic kidney disease (Acute) Chronic kidney disease, stage IV (severe) (Chronic) Chronic reflux esophagitis (Acute) Controlled diabetes mellitus with neurologic complication, with long-term current use of insulin (Acute) Controlled diabetes mellitus with retinopathy, with long-term current use of insulin (Acute) Coronary artery disease (Acute) Depression (Acute) Diabetes (Chronic) Diabetic nephropathy (Acute) Diabetic neuropathy (Acute) GERD (gastroesophageal reflux disease) (Acute) H/O retinal detachment (Acute) Hallux valgus (acquired), left foot (Acute) Hammertoe of left foot (Acute) Hearing loss (Acute) Hiatal hernia (Acute) History of basal cell carcinoma (Resolved) Hypertension (Chronic) Left bundle-branch block (Acute) Low back pain (Acute) Neuropathic ulcer of toe of right foot (Acute) Obesity (BMI 30.0-34.9) (Acute) Peripheral vascular disease (Acute) Proliferative diabetic retinopathy (Acute) Proteinuria (Chronic) Right-sided lacunar infarction (Acute) Secondary hyperparathyroidism (Acute) Ulcer of right midfoot (Acute) Umbilical hernia (Acute) Vitamin D deficiency (Chronic) Surgical History Fistula H/O hernia repair (Acute) Hx of CABG (Acute) Previous back surgery (Acute) S/P CABG x 5 Family History Other No significant family history Social History Preferred Language: Barb[place] Communication Ability: Effective Visual Impairment: Severely Limited Chair Maker Required: No Beliefs That Will Affect Care: None marital status: Current Living Situation: Spouse current occupational status: retired Other Information That Helps Us Care for You: No Feels Safe at Home: Yes Safety Concerns: Feels Safe At This Time Smoking Status: Never smoker Hx Alcohol Use: No Hx Substance Use: No Seatbelt Use: always Review of Systems Review of Systems: All systems reviewed & are unremarkable except as noted in HPI & below Constitutional: no fever, no chills and no sweats Eyes: no diplopia and no worsening vision Ear, Nose, Mouth, Throat: no nasal congestion and no sore throat Respiratory: + cough and + hemoptysis; no dyspnea Cardiovascular: + edema; no dyspnea at rest Gastrointestinal: no abdominal pain, no vomiting and no diarrhea/loose stools Genitourinary: no dysuria and no difficulty urinating Musculoskeletal: + back pain and + neck pain Neurologic: no generalized weakness, no headache(s) and no confusion Physical Exam Constitutional: + ill appearing, cooperative and comfortable Eyes: PERRL, conjunctivae normal, anicteric sclerae ENMT: external ear and nose normal, oropharynx normal Neck: normal visual inspection and trachea midline Respiratory: normal respiratory effort; no respiratory distress Auscultation: + crackles (bilateral diffuse posteriorly, worse at bases with right > left) Cardiovascular: Rate/Rhythm: regular rate and regular rhythm Extremities: + edema (2+ pitting to prox 1/3 of bilateral legs) Gastrointestinal (Abdomen): Inspection/Auscultation: normal bowel sounds Percussion/Palpation: abdomen nontender, no guarding and abdomen not rigid Musculoskeletal: Head/Neck/Chest: + head abnormal to inspection, normocephalic and head atraumatic Neurologic: moves all extremities and awake Psychiatric: A+Ox3, euthymic affect Results & Data Vital Signs (Past 12 Hours) Vital Signs Temp Pulse Pulse Resp BP BP Pulse Ox 07/17/19 01:00 79 15 115/82 97 07/17/19 00:30 79 14 167/69 H 94 07/17/19 00:21 80 17 154/80 H 95 07/17/19 00:00 78 194/66 H 100 07/16/19 23:48 87 20 194/59 H 95 07/16/19 23:47 85 19 194/59 H 96 07/16/19 23:46 87 29 H 202/84 H 95 07/16/19 23:31 161/54 H 07/16/19 23:00 74 21 195/62 H 95 07/16/19 22:32 74 20 201/89 H 96 07/16/19 22:30 77 20 216/102 H 96 07/16/19 22:05 97 07/16/19 21:53 73 20 192/83 H 96 07/16/19 21:50 73 18 96 07/16/19 21:41 36.4 C L 81 18 199/70 H 96 Laboratory Results Laboratory Results - last 24 hr 07/16/19 07/16/19 07/16/19 21:44 22:02 22:02 WBC 10.42 RBC 3.59 L Hgb 11.7 L Hct 33.8 L MCV 94.2 MCH 32.6 MCHC 34.6 RDW Std Deviation 44.7 RDW Coeff of Kyara 13.0 Plt Count 160 MPV 9.8 Immature Gran % (Auto) 0.4 Neut % (Auto) 76.1 Lymph % (Auto) 14.0 [place] % (Auto) 6.2 Eos % (Auto) 2.9 Baso % (Auto) 0.4 Immature Gran # (Auto) 0.04 H Neut # (Auto) 7.93 H Lymph # (Auto) 1.46 [place] # (Auto) 0.65 H Eos # (Auto) 0.30 Baso # (Auto) 0.04 PT 10.7 INR 1.0 APTT 41.3 H PTT Ratio 1.5 Sodium Potassium Chloride Carbon Dioxide Anion Gap BUN Creatinine Est Cr Clr Drug Dosing Est GFR ( Amer) Est GFR (Non-Af Amer) BUN/Creatinine Ratio Glucose POC Glucose 126 H Calcium Total Bilirubin AST ALT Alkaline Phosphatase Troponin I NT-Pro-B Natriuret Pep Total Protein Albumin Globulin Albumin/Globulin Ratio Lipase 07/16/19 22:02 WBC RBC Hgb Hct MCV MCH MCHC RDW Std Deviation RDW Coeff of [place] Plt Count MPV Immature Gran % (Auto) Neut % (Auto) Lymph % (Auto) [place] % (Auto) Eos % (Auto) Baso % (Auto) Immature Gran # (Auto) Neut # (Auto) Lymph # (Auto) [place] # (Auto) Eos # (Auto) Baso # (Auto) PT INR APTT PTT Ratio Sodium 146 H Potassium 4.9 Chloride 114 H Carbon Dioxide 24 Anion Gap 8.0 BUN 68 H Creatinine 6.33 H* Est Cr Clr Drug Dosing 14.1 Est GFR ( Amer) 9.5 Est GFR (Non-Af Amer) 8.2 BUN/Creatinine Ratio 10.7 Glucose 122 H POC Glucose Calcium 7.6 L Total Bilirubin 0.4 AST 17 ALT 13 Alkaline Phosphatase 82 Troponin I 0.090 H* NT-Pro-B Natriuret Pep 32582 H Total Protein 5.8 L Albumin 2.8 L Globulin 3.0 Albumin/Globulin Ratio 0.9 Lipase 173 Diagnostic Findings CXR 1V IMPRESSION: 1. New right perihilar and medial right lung base airspace opacities are suggestive of pneumonia or aspiration pneumonitis. 2. Cardiomegaly with pulmonary vascular congestion. CTA performed without current radiologist reading. Medications Administered Nitroglycerin (Nitrostat) 0.4 mg SL PRN PRN PRN Reason: Chest Pain Stop: 08/15/19 23:13 Last Admin: 07/16/19 23:19 Dose: 0.4 mg Documented by: [id number] Code Status & VTE Plan VTE Prophylaxis Plan VTE Prophylaxis will be ordered: Yes Supervising Physician Co-Signing Physician Notes Attending addendum: I have physically seen this patient, have supervised the medical residents activities, and agree with the H&P unless as otherwise noted. Assessment and Plan: Pneumonia involving right lung- Initially biotics in the ED were ceftriaxone and azithromycin IV. With history of diabetes and CKD stage IV, placed on Zyvox and Zosyn. Duonebs every 4 hours while awake and every 2 hours when necessary. Sputum Gram stain and culture. Low threshold to consult pulmonology if patient is not improving sufficiently for possible bronchoscopy. Elevated troponin- Troponin 0 0.09 upon admission. Follow serial troponins. Likely secondary to chronic kidney disease and/or supply demand mismatch Consult cardiology CKD stage IV- Creatinine has increased to 6.33. Consult Dr. Foster. Repeat laboratories in a.m. Remaining orders and notations as noted. Resident Activity Tracking Resident Involvement: Resident Care Provided Care Provided: Adult Hospital Medicine (1) Pneumonia Laterality: unspecified laterality Lung location: unspecified part of lung Pneumonia type: due to unspecified organism Qualified Code(s): J18.9 - Pneumonia, unspecified organism
[2019-07-17] MEDS ORDERED: LINEZOLID 600 MG/300 ML D5W IV SCH (01:43)
[2019-07-17] MEDS ORDERED: MAGNESIUM HYDROXIDE SUSP 30 ML UDC PO PRN (01:43)
[2019-07-17] MEDS ORDERED: PIPERACILLIN/TAZOBACTAM 3.375 GM in DEXTROSE 5% 100 ML IV SCH ×2 (01:43→10:00)
[2019-07-17] MEDS ORDERED: ALUMINUM/MAGNESIUM SUSP 30 ML UDC PO PRN (01:43)
[2019-07-17] MEDS ORDERED: ACETAMINOPHEN 325 MG TAB PO PRN (01:43)
[2019-07-17] MEDS ORDERED: ONDANSETRON INJ 2 MG/ML 2 ML VIAL IV PRN (01:43)
[2019-07-17] MEDS ORDERED: POLYETHYLENE (MIRALAX) 17 GM PACK PO PRN (01:43)
[2019-07-17] MEDS ORDERED: PIPERACILL/TAZOBAC CONSULT ACTIVE PRN (01:43)
[2019-07-17] MEDS ORDERED: NITROGLYCERIN SL 0.4 MG/TAB TAB SL PRN (01:43)
[2019-07-17] MEDS ORDERED: INSULIN ASPART PER UNIT SQ SCH (01:43)
[2019-07-17] MEDS ORDERED: PHARMACY GLYCEMIC MGMT CONSULT PRN (02:01)
[2019-07-17] MEDS: LINEZOLID 600 MG/300 ML BAG IV SCH ×2 (02:33→15:24)
[2019-07-17] MEDS ORDERED: INSULIN ASPART 100 UNITS/ML VIAL SC PRN (03:30)
--- NOTE | 2019-07-17 04:29 | Billing Data ---
Date of Service July 17, 2019 Coding Level of Care Code 53197 Initial Inpt Care Lvl 3
[2019-07-17 05:55] LABS: Estimated Average Glucose 134 mg/dl; Hemoglobin A1C 6.3 % (4.5-5.6)
[2019-07-17] MEDS ORDERED: PIPERACILLIN/TAZOBACTAM 3.375 GM in DEXTROSE 5% 100 ML IV ONE (06:00)
--- NOTE | 2019-07-17 06:50 | CT Scan Report ---
CT OF THE CHEST WITHOUT IV CONTRAST CLINICAL HISTORY: Cough. Right-sided opacities. COMPARISON STUDY: Chest CT January 07, 2014. Chest radiograph July 16, 2019. CT DOSE: 871.59 mGy.cm TECHNIQUE: Axial images of the chest were obtained without IV contrast. Images were reviewed in the axial, sagittal, and coronal planes. IV contrast was not administered for this examination. Automat ed exposure control was utilized for the study. A dose lowering technique was utilized adhering to t he principles of ALARA. FINDINGS: Small bilateral pleural effusions, right larger than left, are noted. There are median annemarie rnotomy wires and postoperative findings from bypass grafting. Mild cardiomegaly is noted. No pericar dial effusion. No enlarged thoracic lymph nodes are noted. Lungs are suboptimally assessed given resp iratory motion. Moderate right lower lobe airspace opacity is noted with interlobular septal thickeni ng. There is minimal opacity within the right middle lobe. There is no pneumothorax. Central airways are patent. No suspicious osseous lesions within the bony thorax are noted. Visualized portions of th e upper abdomen are unremarkable on this unenhanced examination. IMPRESSION: 1. Moderate right lower lobe airspace opacity. This favors pneumonia. Asymmetric pulmonary edema is c onsidered less likely but could appear similar. 2. Small bilateral pleural effusions, right larger than left. ACT 112: Negative or not required by law. Electronically signed by: Henri Mcclellan M.D. 07/17/2019 6:49 AM
[2019-07-17] MEDS: FERROUS SULFATE 325 MG TAB PO SCH (08:06)
[2019-07-17] MEDS: ASCORBIC ACID 500 MG TAB PO SCH (08:06)
[2019-07-17] MEDS: ASPIRIN 81 MG ECTAB PO SCH (08:06)
[2019-07-17] MEDS: NovoLOG INSULIN PUMP SCH ×2 (08:06→11:57)
[2019-07-17] MEDS: CITALOPRAM 40 MG TAB PO SCH (08:06)
[2019-07-17] MEDS: METOPROLOL SUCC 25MG EXT REL TAB PO SCH (08:07)
[2019-07-17] MEDS: FUROSEMIDE 20 MG TAB PO SCH (08:07)
[2019-07-17] MEDS: FAMOTIDINE 40 MG TABLET PO SCH (08:07)
[2019-07-17] MEDS: PRAVASTATIN SOD 40 MG TAB PO SCH (08:07)
--- NOTE | 2019-07-17 10:08 | Nephrology Consultation ---
Date of Consultation July 17, 2019 Assessment & Plan (1) CKD (chronic kidney disease) stage 5, GFR less than 15 ml/min: 68 yo gentleman with stage CKD hypertension and history coronary artery disease status CABG to the with right lower lobe, hemoptysis and hypertensive urgency. On empiric antibiotic. Renal function found to have worsened in between electrolyte acceptable. Status has been decent urine without change recently. Has mature AV fistula which can be used at any time if needed --no acute indication dialysis at this time as electrolyte acceptable, no significant uremic symptom or sign of volume overload. --monitor blood pressure with current antihypertensive medication as already started to improve however if blood pressure remained above goal, <130/80, increase metoprolol to 25 and consider starting on amlodipine --check iron study, phosphate, if phosphate elevated will start on binder --dose medications for GFR less than 10, left arm Nephrology precaution. will follow Thank you for allowing me to participate in your patient's care. It was a pleasure to see Yousif (2) Secondary hyperparathyroidism: (3) Pneumonia: (4) Hypertensive urgency: (5) Hemoptysis: (6) Proteinuria: History of Present Illness Reason for Consultation: Stage V CKD, hypertensive urgency, evaluation for need for emergency dialysis. Attending Physician: Emile Argueta DO History of Present Illness Yousif was admitted to the hospital 07/16/19 with right lobe pneumonia after he presented with episode cough and hemoptysis at home. CT chest without contrast showed right lobe and bilateral small pleural effusion. Was empirically started ceftriaxone azithromycin. On admission was to be in hypertensive urgency with systolic blood pressure at 216 and diastolic 12. At home he was on metoprolol 12.5 mg p.o. daily, patient reports his blood pressure otherwise has been in good control until then. Blood pressure started to improve with systolic blood pressure currently down to 160s diastolic 80s. Yousif stage 4/5 CKD baseline creatinine lately has been, secondary to diabetic nephropathy and microvascular disease. On admission creatinine was found to be 6.4 no hyperkalemia or metabolic acidosis. He reports decent urine output without any significant change recently. Volume status seems acceptable. Currently denies any shortness of breath or chest pain although he reports having 1 episode of vomiting this morning and having nausea. Denies abdominal pain or diarrhea. He has been otherwise feeling fine and appetite has been normal until yesterday evening. He has mature right brachiocephalic AV fistula ready to be used. Plan to start dialysis at [facility] when needed. Never Smoker , no family history of chronic kidney disease or end- stage renal disease. Retired lives at with spouse, has grown up children. History of coronary artery disease status post CABG several years ago. He is currently getting evaluated for transplant at [facility]. Allergies Allergy/AdvReac Type Severity Reaction Status Date / Time adhesive Allergy Mild itchy and Verified 07/16/19 22:13 rash Home Medications Home Medications Medication Instructions Recorded Confirmed Type aspirin 81 mg tablet,delayed 81 mg PO DAILY 05/20/18 07/16/19 History release fluocinolone 0.025 % topical cream 1 appln TOP BID 05/20/18 07/16/19 History furosemide 20 mg tablet 20 mg PO DAILY 05/20/18 07/16/19 History ascorbic acid (vitamin C) 500 mg 500 mg PO DAILY cap 01/23/19 07/16/19 History capsule citalopram 40 mg tablet 40 mg PO DAILY tab 01/23/19 07/16/19 History ferrous sulfate 325 mg (65 mg 325 mg PO DAILY tab 01/23/19 07/16/19 History iron) tablet mometasone 0.1 % topical ointment 1 appln TOPICAL BID #1 gm 01/23/19 07/16/19 History cholecalciferol (vitamin D3) 1,250 50,000 units PO MONTHLY #3 cap 03/23/19 07/16/19 Rx mcg (50,000 unit) capsule famotidine 20 mg tablet 40 mg PO DAILY 42 Days #84 tab 03/28/19 07/16/19 Rx Novolog U-100 Insulin aspart 100 80 units SQ .COMPLEX #30 ml NS 04/19/19 07/16/19 Rx unit/mL subcutaneous solution blood sugar diagnostic #400 ea 04/19/19 07/10/19 Rx insulin syringe-needle U-100 0.3 #10 ea 04/19/19 07/10/19 Rx mL 31 gauge x 5/16" colestipol 1 gram tablet 1 gm PO Q2D tab 05/29/19 07/16/19 History glucagon (human recombinant) 1 mg 1 mg IM UD PRN ea 05/29/19 07/16/19 History solution for injection metoprolol succinate 25 mg 12.5 mg PO DAILY #45 tab 06/26/19 07/16/19 Rx tablet,extended release 24 hr pravastatin 40 mg tablet 40 mg PO DAILY #90 tab 07/10/19 07/16/19 Rx Patient History Medical History Acquired claw toe of left foot (Acute) Acquired claw toe of right foot (Acute) Acquired hallux valgus of right foot (Acute) Acquired hammer toe of right foot (Acute) Anemia (Chronic) Arteriosclerosis of carotid artery (Acute) Arthritis (Acute) Lyons's esophagus (Acute) CAD (coronary artery disease) Central sleep apnea (Acute) Cerebrovascular disease (Acute) Chronic kidney disease (Acute) Chronic kidney disease, stage IV (severe) (Chronic) Chronic reflux esophagitis (Acute) Controlled diabetes mellitus with neurologic complication, with long-term current use of insulin (Acute) Controlled diabetes mellitus with retinopathy, with long-term current use of insulin (Acute) Coronary artery disease (Acute) Depression (Acute) Diabetes (Chronic) Diabetic nephropathy (Acute) Diabetic neuropathy (Acute) GERD (gastroesophageal reflux disease) (Acute) H/O retinal detachment (Acute) Hallux valgus (acquired), left foot (Acute) Hammertoe of left foot (Acute) Hearing loss (Acute) Hiatal hernia (Acute) History of basal cell carcinoma (Resolved) Hypertension (Chronic) Left bundle-branch block (Acute) Low back pain (Acute) Neuropathic ulcer of toe of right foot (Acute) Obesity (BMI 30.0-34.9) (Acute) Peripheral vascular disease (Acute) Proliferative diabetic retinopathy (Acute) Proteinuria (Chronic) Right-sided lacunar infarction (Acute) Secondary hyperparathyroidism (Acute) Ulcer of right midfoot (Acute) Umbilical hernia (Acute) Vitamin D deficiency (Chronic) Surgical History Fistula H/O hernia repair (Acute) Hx of CABG (Acute) Previous back surgery (Acute) S/P CABG x 5 Family History Other No significant family history Social History Preferred Language: [place]ymra[place] Communication Ability: Effective Visual Impairment: Severely Limited Construction Equipment Mechanic Required: No Beliefs That Will Affect Care: None marital status: Current Living Situation: Spouse current occupational status: retired Other Information That Helps Us Care for You: No Feels Safe at Home: Yes Safety Concerns: Feels Safe At This Time Smoking Status: Never smoker Hx Alcohol Use: No Hx Substance Use: No Seatbelt Use: always Review of Systems Review of Systems: All systems reviewed & are unremarkable except as noted in HPI & below Physical Exam Constitutional: WD/WN, vitals as above + ill appearing; no acute distress Neck: normal visual inspection Respiratory: Auscultation: + rales (at rt lower lobe.) Cardiovascular: RRR, no murmur, no edema Gastrointestinal (Abdomen): Inspection/Auscultation: normal bowel sounds Percussion/Palpation: abdomen soft; abdomen nontender, no guarding and abdomen not rigid Musculoskeletal: no cyanosis or clubbing, extremities motor strength 5/5 Skin: no rashes, warm and dry Neurologic: awake; no focal motor deficits and not confused Psychiatric: A+Ox3, euthymic affect Results & Data Vital Signs (Past 12 Hours) Vital Signs Temp Pulse Pulse Pulse Resp BP BP 07/17/19 07:05 37.4 C 69 19 163/61 H 07/17/19 03:20 37.1 C 71 18 155/61 H 07/17/19 01:50 77 07/17/19 01:35 37.2 C 80 20 198/85 H 07/17/19 01:29 78 18 115/82 07/17/19 01:00 79 15 115/82 07/17/19 00:30 79 14 167/69 H 07/17/19 00:21 80 17 154/80 H 07/17/19 00:00 78 194/66 H 07/16/19 23:48 87 20 194/59 H 07/16/19 23:47 85 19 194/59 H 07/16/19 23:46 87 29 H 202/84 H 07/16/19 23:31 161/54 H 07/16/19 23:00 74 21 195/62 H 07/16/19 22:32 74 20 201/89 H 07/16/19 22:30 77 20 216/102 H Pulse Ox 07/17/19 07:05 94 07/17/19 03:20 92 07/17/19 01:50 01/27/20 01:35 93 07/17/19 01:29 96 07/17/19 01:00 97 07/17/19 00:30 94 07/17/19 00:21 95 07/17/19 00:00 100 07/16/19 23:48 95 07/16/19 23:47 96 07/16/19 23:46 95 07/16/19 23:31 07/16/19 23:00 95 07/16/19 22:32 96 07/16/19 22:30 96 PG Care Time/CCT Total # of Minutes Spent Total Time Spent with Patient: Total time spent is greater than 50% in coordination of care (as documented) at patient's floor/unit and/or counseling patient: Coding Level of Care Code 08868 Inpt Consult Level 5 Diagnoses CKD (chronic kidney disease) stage 5, GFR less than 15 ml/min N18.5 Secondary hyperparathyroidism N25.81 Pneumonia J18.9 Laterality: unspecified laterality Lung location: unspecified part of lung Pneumonia type: due to unspecified organism Hypertensive urgency I16.0 Hemoptysis R04.2 Proteinuria R80.9 (1) Pneumonia Laterality: unspecified laterality Lung location: unspecified part of lung Pneumonia type: due to unspecified organism Qualified Code(s): J18.9 - Pneumonia, unspecified organism
--- NOTE | 2019-07-17 10:29 | Infectious Disease Consult ---
Date of Consultation July 17, 2019 Supervising Physician Co-Signing Physician Notes unable to place A/P in [employer] as chart is in use by other user A/P: PNA, can continue current abx for now. would provide atypical coverage - azithro or doxy. would check Flu swab. would check blood and sputum cultures. History of Present Illness Attending Physician: Emile Argueta, pt admitted with increased cough and sob, also admits to hemoptysis at home. due to multiple comorbidities he was placed on zyovx and zosyn for suspected HAP. Ct chest RLL infiltrate. no cultures done. afebrile since admission. wbc 10. creat elevated to 6.3. ID consulted for zyvox approval. states cough is better, states he vomited x 1 today. no abd pain, no cp, sob, roach. no wheeze. no pain with inspiration. Allergies Allergy/AdvReac Type Severity Reaction Status Date / Time adhesive Allergy Mild itchy and Verified 07/16/19 22:13 rash Home Medications Home Medications Medication Instructions Recorded Confirmed Type aspirin 81 mg tablet,delayed 81 mg PO DAILY 05/20/18 07/16/19 History release fluocinolone 0.025 % topical cream 1 appln TOP BID 05/20/18 07/16/19 History furosemide 20 mg tablet 20 mg PO DAILY 05/20/18 07/16/19 History ascorbic acid (vitamin C) 500 mg 500 mg PO DAILY cap 01/23/19 07/16/19 History capsule citalopram 40 mg tablet 40 mg PO DAILY tab 01/23/19 07/16/19 History ferrous sulfate 325 mg (65 mg 325 mg PO DAILY tab 01/23/19 07/16/19 History iron) tablet mometasone 0.1 % topical ointment 1 appln TOPICAL BID #1 gm 01/23/19 07/16/19 History cholecalciferol (vitamin D3) 1,250 50,000 units PO MONTHLY #3 cap 03/23/19 07/16/19 Rx mcg (50,000 unit) capsule famotidine 20 mg tablet 40 mg PO DAILY 42 Days #84 tab 03/28/19 07/16/19 Rx Novolog U-100 Insulin aspart 100 80 units SQ .COMPLEX #30 ml NS 04/19/19 07/16/19 Rx unit/mL subcutaneous solution blood sugar diagnostic #400 ea 04/19/19 07/10/19 Rx insulin syringe-needle U-100 0.3 #10 ea 04/19/19 07/10/19 Rx mL 31 gauge x 5/16" colestipol 1 gram tablet 1 gm PO Q2D tab 05/29/19 07/16/19 History glucagon (human recombinant) 1 mg 1 mg IM UD PRN ea 05/29/19 07/16/19 History solution for injection metoprolol succinate 25 mg 12.5 mg PO DAILY #45 tab 06/26/19 07/16/19 Rx tablet,extended release 24 hr pravastatin 40 mg tablet 40 mg PO DAILY #90 tab 07/10/19 07/16/19 Rx Patient History Medical History Acquired claw toe of left foot (Acute) Acquired claw toe of right foot (Acute) Acquired hallux valgus of right foot (Acute) Acquired hammer toe of right foot (Acute) Anemia (Chronic) Arteriosclerosis of carotid artery (Acute) Arthritis (Acute) Lyons's esophagus (Acute) CAD (coronary artery disease) Central sleep apnea (Acute) Cerebrovascular disease (Acute) Chronic kidney disease (Acute) Chronic kidney disease, stage IV (severe) (Chronic) Chronic reflux esophagitis (Acute) Controlled diabetes mellitus with neurologic complication, with long-term current use of insulin (Acute) Controlled diabetes mellitus with retinopathy, with long-term current use of insulin (Acute) Coronary artery disease (Acute) Depression (Acute) Diabetes (Chronic) Diabetic nephropathy (Acute) Diabetic neuropathy (Acute) GERD (gastroesophageal reflux disease) (Acute) H/O retinal detachment (Acute) Hallux valgus (acquired), left foot (Acute) Hammertoe of left foot (Acute) Hearing loss (Acute) Hiatal hernia (Acute) History of basal cell carcinoma (Resolved) Hypertension (Chronic) Left bundle-branch block (Acute) Low back pain (Acute) Neuropathic ulcer of toe of right foot (Acute) Obesity (BMI 30.0-34.9) (Acute) Peripheral vascular disease (Acute) Proliferative diabetic retinopathy (Acute) Proteinuria (Chronic) Right-sided lacunar infarction (Acute) Secondary hyperparathyroidism (Acute) Ulcer of right midfoot (Acute) Umbilical hernia (Acute) Vitamin D deficiency (Chronic) Surgical History Fistula H/O hernia repair (Acute) Hx of CABG (Acute) Previous back surgery (Acute) S/P CABG x 5 Family History Other No significant family history Social History Preferred Language: Citizen Of [place] Communication Ability: Effective Visual Impairment: Severely Limited Wood Router Hand Required: No Beliefs That Will Affect Care: None marital status: Current Living Situation: Spouse current occupational status: retired Other Information That Helps Us Care for You: No Feels Safe at Home: Yes Safety Concerns: Feels Safe At This Time Smoking Status: Never smoker Hx Alcohol Use: No Hx Substance Use: No Seatbelt Use: always Review of Systems Review of Systems: All systems reviewed & are unremarkable except as noted in HPI & below Physical Exam Constitutional: WD/WN, vitals as above Eyes: PERRL, conjunctivae normal, anicteric sclerae ENMT: external ear and nose normal, oropharynx normal Neck: normal visual inspection Respiratory: normal respiratory effort, lungs clear to auscultation Cardiovascular: RRR, no murmur, no edema Gastrointestinal (Abdomen): normal bowel sounds, soft, nontender, no hepatosplenomegaly Musculoskeletal: no cyanosis or clubbing, extremities motor strength 5/5 Skin: no rashes, warm and dry Psychiatric: A+Ox3, euthymic affect Results & Data Vital Signs (Past 12 Hours) Vital Signs Temp Pulse Pulse Pulse Resp BP BP 07/17/19 07:05 37.4 C 69 19 163/61 H 07/17/19 03:20 37.1 C 71 18 155/61 H 07/17/19 01:50 77 07/17/19 01:35 37.2 C 80 20 198/85 H 07/17/19 01:29 78 18 115/82 07/17/19 01:00 79 15 115/82 07/17/19 00:30 79 14 167/69 H 07/17/19 00:21 80 17 154/80 H 07/17/19 00:00 78 194/66 H 07/16/19 23:48 87 20 194/59 H 07/16/19 23:47 85 19 194/59 H 07/16/19 23:46 87 29 H 202/84 H 07/16/19 23:31 161/54 H 07/16/19 23:00 74 21 195/62 H 07/16/19 22:32 74 20 201/89 H 07/16/19 22:30 77 20 216/102 H Pulse Ox 07/17/19 07:05 94 07/17/19 03:20 92 07/17/19 01:50 07/17/19 01:35 93 07/17/19 01:29 96 07/17/19 01:00 97 07/17/19 00:30 94 07/17/19 00:21 95 07/17/19 00:00 100 07/16/19 23:48 95 07/16/19 23:47 96 07/16/19 23:46 95 07/16/19 23:31 07/16/19 23:00 95 07/16/19 22:32 96 07/16/19 22:30 96 PG Care Time/CCT Total # of Minutes Spent Total Time Spent with Patient: Total time spent is greater than 50% in coordination of care (as documented) at patient's floor/unit and/or counseling patient: Coding Level of Care Code 66052 Inpt Consult Level 4
[2019-07-17] MEDS: COLESTIPOL HCL 1 GM TAB PO SCH (11:28)
[2019-07-17] MEDS: PIPERACILLIN/TAZOBACTAM 3.375 GM in DEXTROSE 5% 100 ML IV SCH (11:59)
--- NOTE | 2019-07-17 12:27 | Hospitalist Progress Note ---
Date of Service July 17, 2019 Assessment & Plan (1) Pneumonia: Mr. Yousif Walker is a 68 y/o male with numerous co-morbidities including stage V CKD, IDDM, CAD s/p CABGx5, HTN, HLD, depression, non-compliant sleep apnea, right sided lacunar CVA who presented for with pneumonia in patient with numerous co-morbidities as outlined above. He has worsening creatinine of 6.33 from his baseline. - started on Rocephin and Azithromycin here in ED - will switch to Linezolid and Zosyn, will avoid Vanc as he is still making urine to avoid total loss of kidney function - Infectious Disease consulted w/ rec: start Azithromycin or Doxy for atypical coverage, get a flu swab, obtain blood and sputum cultures - Duonebs ordered PRN for dyspnea - pulmonary toilet - not currently requiring supplemental O2 - No significant elevated WBC, with value at 10.42 (07/17) - MRSA nares negative Code: Full Code FENGI: Heart healthy, diabetic 2 diet, no IVF at this time to prevent volume overload DVT ppx: SCDs, will avoid chemical since hemoptysis Dispo: Admit to PCU with cardiac monitoring (2) Hemoptysis: - most likely from pneumonia process, no signs of significant blood loss - no melena (3) CKD (chronic kidney disease) stage 5, GFR less than 15 ml/min: - Creatinine at 6.33 which is highest recording for patient - He hasn't had HD yet but was set to get this as outpatient - He has a mature fistula - Nephrology consulted w/ rec: no indication for dialysis, consider increasing to metoprolol 25 mg and consider starting Amlodipine, to obtain iron studies and to dose medication for GFR <10. - Potassium is stable at 4.9. - Will trend electrolytes and kidney function - Appears at his baseline weight (4) Controlled diabetes mellitus with retinopathy, with long-term current use of insulin: - Pharm consult for glycemic management placed - He notes he has had some hypoglycemic episodes on insulin pump, pharmacy switched him to basal bolus (5) CAD (coronary artery disease): - Troponin elevated 07/16 - 0.090 @ 22:02 ; 07/17 - 0.109 @ 3:55 ; 07/17 - 0.11 @ 10:32 in setting of CKD stage 5 which is renally cleared and extensive CAD, no acute process likely. Will recheck AM troponin. - TTE ordered today - continue with Metoprolol succinate ER 12.5mg daily - continue w/home Pravastatin 40mg PO and Colestipol 1gm q2day - SL Nitro ordered (6) S/P CABG x 5: - as noted in history, extensive CAD (7) Hypertension: - Hypertensive while in ED, most recent 140's systolic - continue with Metoprolol succinate ER 12.5mg daily - continue to monitor and could increase metoprolol if consistently hypertensive (8) Vitamin D deficiency: - most likely from kidney disease - receives Vit D supplementation monthly, no current indication for this during this visit (9) Right-sided lacunar infarction: - Noted in history without noted residual deficits - continue with home ASA 81mg po daily (10) Depression: - continue with home Citalopram 40mg qday (11) Dyslipidemia: - continue w/home Pravastatin 40mg PO and Colestipol 1gm q2day (12) Sleep apnea: - States has home CPAP but is non-compliant - refuses CPAP during this admission when offered (13) Anemia: - Mild appears at baseline, most likely from underlying kidney disease Supervising Physician Co-Signing Physician Notes I saw the patient with the resident physician and confirmed yao portions of the history and physical examination. I agree with the impression and plan as noted above. Admitted 07/16 with cough and hemoptysis and found to have a right sided pneumonia. He was noted to be hypertensive upon essential presentation of the is improved today, and continues to trend down. History of stage IV/V chronic kidney disease for which he follows with nephrology; his creatinine is worsened upon admission, his electrolytes are currently acceptable and there is no need for emergent hemodialysis. Appreciate nephrology recommendations. Patient was also seen by infectious disease this morning. We will check flu swab if not done in the emergency department. Subjective Overall Yousif Walker is doing well today. He is still having some blood in his spit. He did vomit blood in the ED but has not vomited since. He currently has no chest pain or palpitations. Review of Systems Constitutional: no fever and no chills Respiratory: + sputum production; no cough denies shortness of breath Cardiovascular: + chest pain (previously had pain, no current pain.); no palpitations Gastrointestinal: + nausea and + vomiting (in the ED 1X w/ blood); no melena Genitourinary: no dysuria, no difficulty urinating and no urinary frequency Physical Exam Constitutional: WD/WN, vitals as above Eyes: PERRL, conjunctivae normal, anicteric sclerae ENMT: external ear and nose normal, oropharynx normal Neck: trachea midline, no thyromegaly Respiratory: decreased breath sounds at the right base w/o appreciable wheeze, rhonchi, rales Cardiovascular: Rate/Rhythm: regular rate and regular rhythm Gastrointestinal (Abdomen): normal bowel sounds, soft, nontender, no hepatosplenomegaly Skin: no rashes, warm and dry Results & Data Vital Signs (Past 12 Hours) Vital Signs Temp Pulse Pulse Pulse Resp BP BP 07/17/19 11:34 74 07/17/19 11:04 36.6 C 66 19 167/73 H 07/17/19 07:05 37.4 C 69 19 163/61 H 07/17/19 03:20 37.1 C 71 18 155/61 H 07/17/19 01:50 77 07/17/19 01:35 37.2 C 80 20 198/85 H 07/17/19 01:29 78 18 115/82 07/17/19 01:00 79 15 115/82 07/17/19 00:30 79 14 167/69 H 07/17/19 00:21 80 17 154/80 H Pulse Ox 07/17/19 11:34 07/17/19 11:04 93 07/17/19 07:05 94 07/17/19 03:20 92 07/17/19 01:50 07/17/19 01:35 93 07/17/19 01:29 96 07/17/19 01:00 97 07/17/19 00:30 94 07/17/19 00:21 95 Resident Activity Tracking Resident Involvement: Resident Care Provided Care Provided: Adult Hospital Medicine (1) Pneumonia Laterality: unspecified laterality Lung location: unspecified part of lung Pneumonia type: due to unspecified organism Qualified Code(s): J18.9 - Pneumonia, unspecified organism
--- NOTE | 2019-07-17 12:50 | Pharmacy Report ---
Glycemic Control Consultation - Date of Service July 17, 2019 - Scope Scope: Glycemic Pharmacist consulted by Dr [] on [date] for glycemic control and to write orders per [facility] inpatient glycemic control protocol - Objective Weight: 108.8 kg Accuchecks BSG (last 24hrs): 07/16/19 07/16/19 07/17/19 21:44 22:02 07:28 Glucose 122 H POC Glucose 126 H 78 07/17/19 11:23 Glucose POC Glucose 86 Laboratory Data (last 24hrs): 07/16/19 22:02 Potassium 4.9 Carbon Dioxide 24 Anion Gap 8.0 Creatinine 6.33 H* Est Cr Clr Drug Dosing 14.1 HbA1c: Hemoglobin A1c 6.3 % (4.5-5.6) H 07/17/19 03:55 - Recent Pertinent Medications Outpatient Anti-diabetic Regimen: * Novolog pump * CF 30 when above 130 mg/dL * CR 10 * Basal rates are as follows: 00-04 1.4 units/hr; 04-11 1.25 units/hr; -00 1.4 units/hr (31.15 units/day) The patient is currently receiving: * Novolog pump Risk Factors for Insulin Resistance: * Infection: pneumonia on Zosyn and Zyvox * Diet: T2DM - Assessment & Plan Assessment & Plan: ASSESSMENT: * Mr Walker is a 68 y/o M with a PMH of well controlled T2DM on an insulin pump. He has had difficulties with hypoglycemia recently and doesn't have a good grasp on when his blood sugars are low. * He has not bolused himself since he has been here. BSGs are 78-86. * After conversation with patient, remove pump out of concern for hypoglycemia. Start Lantus 15 units. This is going to underdose the patient BUT would rather higher blood sugars at this point instead of hypoglycemia. Utilize home Novolog parameters. PLAN FOR INPATIENT GLYCEMIC CONTROL: * Basal insulin * Lantus 15 units SQ daily ---> stop pump 2 hours after starting * Bolus insulin * NovoLog per scale ACHS or Q6hrs while NPO * Goal Range: Low 120 mg/dL - High 160 mg/dL * Correction Factor: 30 mg/dL/unit * Nutritional / Prandial insulin per carb ratio of 1 unit per 10 grams CHO consumed * Please note that the plan above was derived based on current level of insulin resistance and hospital stress. These recommendations are appropriate for inpatient admission only. Plan of care upon discharge will need to be reassessed to avoid potential outpatient hypo/hyperglycemia. Thank you.
[2019-07-17] MEDS: INSULIN GLARGINE SOLOSTAR 100 UNITS/ML 3 ML PEN SC SCH (13:05)
[2019-07-17] MEDS ORDERED: PERFLUTREN LIPID MICROSPHERE (DEFINITY) IV ONE (14:44)
[2019-07-17] MEDS: INSULIN ASPART 100 UNITS/ML 3 ML PEN SC SCH ×2 (17:10→20:49)
[2019-07-17 19:26] LABS: Influenza A virus by PCR Neg for Influ A (Neg); Influenza B virus by PCR Neg for Influ B (Neg)
--- NOTE | 2019-07-17 19:56 | Electrocardiogram Report ---
Test Reason : Blood Pressure : / mmHG Vent. Rate : 073 BPM Atrial Rate : 073 BPM P-R Int : 170 ms QRS Dur : 144 ms QT Int : 430 ms P-R-T Axes : 029 -15 107 degrees QTc Int : 473 ms Sinus rhythm with occasional Premature ventricular complexes Left bundle branch block Abnormal ECG When compared with ECG of 10-NOV-2017 15:42, Premature ventricular complexes are now Present Confirmed by Vignesh Albert ([id number]) on 07/17/2019 7:56:23 PM Referred By: REFERRED SELF Confirmed By:Jonathan Albert
[2019-07-18] MEDS: PIPERACILLIN/TAZOBACTAM 3.375 GM in DEXTROSE 5% 100 ML IV SCH ×2 (00:07→12:17)
[2019-07-18] MEDS: INSULIN ASPART 100 UNITS/ML 3 ML PEN SC SCH ×6 (00:39→21:01)
[2019-07-18] MEDS: LINEZOLID 600 MG/300 ML BAG IV SCH (02:06)
--- NOTE | 2019-07-18 05:52 | Hospitalist Progress Note ---
Date of Service July 18, 2019 Assessment & Plan (1) Pneumonia: Mr. Yousif Walker is a 68 y/o male with numerous co-morbidities including stage V CKD, IDDM, CAD s/p CABGx5, HTN, HLD, depression, non-compliant sleep apnea, right sided lacunar CVA who presented for with pneumonia. He has wors ening creatinine of 6.24 currently. He continues to have blood in his sputum considering 2/2 pneumonia vs. posterior upper GI. Afebrile, labile BP and normal HR, overall appears to be improving. - initial CT w/ RLL opacity favoring pneumonia - will get a follow up CXR in the AM - given negative MRSA nares d/c Linezolid - Started Levaquin - Infectious Disease consulted, appreciate recs. - influenza negative - sputum gram stain showed many WBC's and rare gram + cocci and bacilli - blood cultures no growth at 24 hours - Duonebs ordered PRN for dyspnea - pulmonary toilet - not currently requiring supplemental O2 - No significant elevated WBC, with value at 8.83 (07/18), 10.42 (07/17) - MRSA nares negative Code: Full Code FENGI: Heart healthy, diabetic 2 diet, no IVF at this time to prevent volume overload DVT ppx: SCDs, will avoid chemical since hemoptysis Dispo: Admit to PCU with cardiac monitoring (2) Hemoptysis: - most likely from pneumonia process, no signs of significant blood loss - no melena (3) CKD (chronic kidney disease) stage 5, GFR less than 15 ml/min: - Creatinine at 6.24 stable/slightly downtrending from 07/17 - He hasn't had HD yet but was set to get this as outpatient w/ a mature fistula in his L arm - Nephrology consulted w/ rec: no indication for dialysis, consider increasing to metoprolol to 25 mg and consider starting Amlodipine, to obtain iron studies and to dose medication for GFR <10. - Potassium is 5.1 - Will trend electrolytes and kidney function - Appears at his baseline weight (4) Controlled diabetes mellitus with retinopathy, with long-term current use of insulin: - Pharm consult for glycemic management placed - He notes he has had some hypoglycemic episodes on insulin pump, pharmacy switched him to basal bolus (5) CAD (coronary artery disease): - Troponin elevated 07/16 - 0.090 @ 22:02 ; 07/17 - 0.109 @ 3:55 ; 07/17 - 0.11 @ 10:32 in setting of CKD stage 5 which is renally cleared and extensive CAD, no acute process likely. - TTE 07/17 - borderline concentric left ventricular hypertrophy, left ventricular systolic function normal 50-55%, L atrium moderately dilated, mild to moderate mitral regurgitation, IVC mildly dilated - Metoprolol increased to 50 mg and Amlodipine added at 5 mg QAM - continue w/home Pravastatin 40mg PO and Colestipol 1gm q2day - SL Nitro ordered (6) S/P CABG x 5: - as noted in history, extensive CAD (7) Hypertension: - Hypertensive while in ED, currently fluctuating from 120's to 180's systolic - continue with Metoprolol succinate and Amlodipine as above - continue to monitor and could increase metoprolol if consistently hypertensive (8) Vitamin D deficiency: - most likely from kidney disease - receives Vit D supplementation monthly, no current indication for this during this visit (9) Right-sided lacunar infarction: - Noted in history without noted residual deficits - continue with home ASA 81mg po daily (10) Depression: - continue with home Citalopram 40mg qday (11) Dyslipidemia: - continue w/home Pravastatin 40mg PO and Colestipol 1gm q2day (12) Sleep apnea: - States has home CPAP but is non-compliant (13) Anemia: - Mild appears at baseline, most likely from underlying kidney disease Supervising Physician Co-Signing Physician Notes I saw the patient with the resident physician and confirmed yao portions of the history and physical examination. I agree with the impression and plan as noted above, with the following notes and clarifications. Overall, appears improved. He describes a blood tinged mucus. I do not think this is true hemoptysis, nor is it gastric. Continue to monitor, but suspect more sinus or upper airway secondary to coughing and irritation. Change to renal dose of Levaquin. Repeat CXR in AM. BMP in AM. Subjective Doing okay this morning, he was still having some blood in his sputum but less than the day prior. He asked what could be causing the blood in his sputum and I discussed with him that the cause could be from his pneumonia but the blood seems to be thick and dark, not frothy or pink so it may be from the back of his throat, esophagus or stomach. he denies bloody or black stools. Review of Systems Constitutional: + chills; no fever Respiratory: + cough and + sputum production denies shortness of breath Cardiovascular: + chest pain (previously had pain, no current pain.); no palpitations Gastrointestinal: + nausea and + vomiting (in the ED 1X w/ blood); no melena Musculoskeletal: + back pain and + neck pain Physical Exam Constitutional: WD/WN, vitals as above Eyes: PERRL, conjunctivae normal, anicteric sclerae ENMT: external ear and nose normal, oropharynx normal Neck: trachea midline, no thyromegaly Cardiovascular: Rate/Rhythm: regular rate and regular rhythm - AV fistula present on the left arm w/ palpable pulse - no lower extremity edema appreciated Gastrointestinal (Abdomen): normal bowel sounds, soft, nontender, no hepatosp lenomegaly Skin: no rashes, warm and dry Results & Data Vital Signs (Past 12 Hours) Vital Signs Temp Pulse Pulse Pulse Resp BP Pulse Ox 07/18/19 04:07 36.7 C 70 20 126/50 L 90 07/18/19 00:00 64 07/17/19 23:31 36.6 C 64 18 153/70 H 93 07/17/19 19:25 36.7 C 66 18 182/67 H 97 Resident Activity Tracking Resident Involvement: Resident Care Provided Care Provided: Adult Hospital Medicine (1) Pneumonia Laterality: unspecified laterality Lung location: unspecified part of lung Pneumonia type: due to unspecified organism Qualified Code(s): J18.9 - Pneumonia, unspecified organism
[2019-07-18 06:52] LABS: Basophils # (auto) 0.03 K/uL (0-0.2); Basophils % (auto) 0.3 %; Eosinophils % (auto) 3.4 %; Hematocrit (blood only) 29.4 % (42-52); Immature Granulocytes # (auto) 0.02 K/uL (0.00-0.02); Immature Granulocytes % (auto) 0.2 %; Lymphocytes # (auto) 1.62 K/uL (1.2-3.4); Lymphocytes % (auto) 18.3 %; Mean Corpuscular Hemoglobin 32.3 pg (25-34); Mean Corpuscular Volume 94.8 fL (80-100); Mean Platelet Volume 9.4 fL (7.4-10.4); Monocytes # (auto) 0.82 K/uL (0.11-0.59); Monocytes % (auto) 9.3 %; Neutrophils # (auto) 6.04 K/uL (1.4-6.5); Neutrophils % (auto) 68.5 %; Platelet Count 131 K/uL (130-400); RDW Coefficient of Variation 13.1 % (11.5-14.5); RDW Standard Deviation 44.9 fL (36.4-46.3); White Blood Count 8.83 K/uL (4.8-10.8)
[2019-07-18 07:30] LABS: Albumin Globulin Ratio 0.9 (0.9-2); Albumin Level 2.3 gm/dl (3.4-5.0); BUN Creatinine Ratio 9.8 (10-20); Bilirubin,Total 0.5 mg/dl (0.2-1); Creatinine Clr Calc Pharmacy 14.3 ml/min; Est GFR (African American) 9.7; Est GFR (Non-African American) 8.4; Globulin 2.7 gm/dl (2.5-4.0); Magnesium 1.8 mg/dl (1.8-2.4); Phosphorus 4.3 mg/dl (2.5-4.9); Potassium 5.1 mmol/L (3.5-5.1)
[2019-07-18] MEDS: METOPROLOL SUCC 25MG EXT REL TAB PO SCH (07:46)
[2019-07-18] MEDS: CITALOPRAM 40 MG TAB PO SCH (07:46)
[2019-07-18] MEDS: PRAVASTATIN SOD 40 MG TAB PO SCH (07:47)
[2019-07-18] MEDS: ASCORBIC ACID 500 MG TAB PO SCH (07:48)
[2019-07-18] MEDS: FAMOTIDINE 40 MG TABLET PO SCH (07:48)
[2019-07-18] MEDS: ASPIRIN 81 MG ECTAB PO SCH (07:48)
[2019-07-18] MEDS: FERROUS SULFATE 325 MG TAB PO SCH (07:48)
[2019-07-18] MEDS: FUROSEMIDE 20 MG TAB PO SCH (07:48)
[2019-07-18] MEDS: INSULIN GLARGINE SOLOSTAR 100 UNITS/ML 3 ML PEN SC SCH (07:49)
[2019-07-18] MEDS ORDERED: METOPROLOL SUCC 25MG EXT REL TAB PO ONE (09:00)
[2019-07-18 09:31] LABS: Ferritin 489.2 ng/ml (8-388)
[2019-07-18] MEDS: AMLODIPINE BESYLATE 5 MG TAB PO SCH (09:31)
[2019-07-18] MEDS: CALCITRIOL 0.25 MCG CAPSULE PO SCH (09:31)
--- NOTE | 2019-07-18 10:36 | XCELERA ---
[id number] [email or web address]\[id number]
--- NOTE | 2019-07-18 11:31 | Pharmacy Report ---
Glycemic Control Progress Note - Date of Service July 18, 2019 - Scope Glycemic Pharmacist consulted for glycemic control to write orders per [facility] inpatient glycemic control protocol. - Objective Accuchecks BSG(last 24 hours):: 07/17/19 07/17/19 07/17/19 11:23 16:03 20:20 Glucose POC Glucose 86 231 H 178 H 07/18/19 07/18/19 07/18/19 00:10 04:15 06:35 Glucose 166 H POC Glucose 122 H 209 H 07/18/19 07/18/19 07:16 11:13 Glucose POC Glucose 147 H 158 H HbA1c:: Hemoglobin A1c 6.3 % (4.5-5.6) H 07/17/19 03:55 - Recent Pertinent Medications The patient is currently receiving: * Basal insulin: Lantus 15 units every 24 hours * Correctional Insulin: Novolog Correction per scale ACHS Goal Range: Low 120 mg/dL - High 160 mg/dL Correction Factor: 30 mg/dL/unit * Prandial insulin: Per carb ratio of 1 unit per 10 grams CHO consumed - Outpatient Anti-Diabetic Meds Novolog pump (see previous note for settings) - Assessment & Plan ASSESSMENT: * See progress note from 07/17/19 for more background info, in short: * Pt receiving SQ basal bolus insulin regimen for hyperglycemia secondary to baseline DM (outpatient regimen on hold) and pneumonia (currently on Zyvox and Zosyn) * Patient is currently receiving an average of 22 units of insulin per day * 15 units of basal insulin * 7 units of prandial/correctional insulin * BSGs ranging 78 - 231 mg/dl over the past 24hrs * Changes needed to insulin regimen: * AM Fasting BSG = 147 mg/dl. This is in goal range for patient based on inpatient targets and co-morbidities. Therefore Basal insulin will be co ntinued. Higher dose available for fasting greater than 140 mg/dL. * Post-prandial BSGs are in range therefore no changes needed to CF/CR. Lunch yesterday elevated due to no coverage at lunch (planned this way to ensure easy transition to basal/bolus). * Total daily dose = 30 units. PLAN FOR INPATIENT GLYCEMIC CONTROL: * Continuing Lantus 15 units SQ daily (18 units if blood sugar over 140 mg/dL) * Continuing correction factor of 30 mg/dl/unit * Continuing carb ratio of 1 unit per 10 grams CHO consumed * Continuing goal range of Low 120 mg/dL - High 160 mg/dL RECOMMENDATIONS FOR DISCHARGE: * Patient follows with outpatient diabetes clinic. They are aware of his hypoglycemia. * Recommend close follow-up as an outpatient. Thank you.
[2019-07-18] MEDS ORDERED: LEVOFLOXACIN/D5W 750 MG/150 ML BAG IV ONE (16:00)
[2019-07-19 06:57] LABS: Basophils # (auto) 0.02 K/uL (0-0.2); Basophils % (auto) 0.2 %; Eosinophils # (auto) 0.33 K/uL (0-0.5); Eosinophils % (auto) 3.9 %; Hematocrit (blood only) 29.5 % (42-52); Hemoglobin 10.3 g/dL (14.0-18.0); Immature Granulocytes # (auto) 0.01 K/uL (0.00-0.02); Immature Granulocytes % (auto) 0.1 %; Lymphocytes # (auto) 1.42 K/uL (1.2-3.4); Lymphocytes % (auto) 16.7 %; Mean Corpuscular Hemoglobin 32.9 pg (25-34); Mean Corpuscular Hgb Conc 34.9 g/dL (32-36); Mean Corpuscular Volume 94.2 fL (80-100); Mean Platelet Volume 10.1 fL (7.4-10.4); Monocytes # (auto) 0.74 K/uL (0.11-0.59); Monocytes % (auto) 8.7 %; Neutrophils # (auto) 5.96 K/uL (1.4-6.5); Neutrophils % (auto) 70.4 %; Platelet Count 154 K/uL (130-400); RDW Standard Deviation 44.5 fL (36.4-46.3); Red Blood Count 3.13 M/uL (4.7-6.1); White Blood Count 8.48 K/uL (4.8-10.8)
[2019-07-19 07:38] LABS: Albumin Globulin Ratio 0.8 (0.9-2); Albumin Level 2.4 gm/dl (3.4-5.0); BUN Creatinine Ratio 10.4 (10-20); Bilirubin,Total 0.5 mg/dl (0.2-1); Calcium 8.5 mg/dl (8.5-10.1); Creatinine Clr Calc Pharmacy 14.2 ml/min; Est GFR (African American) 9.7; Est GFR (Non-African American) 8.3; Globulin 2.9 gm/dl (2.5-4.0); Potassium 5.3 mmol/L (3.5-5.1); Total Protein 5.3 gm/dl (6.4-8.2)
--- NOTE | 2019-07-19 07:45 | XRay Report ---
XR chest 1V portable HISTORY: 68 years-old Male evaluate pna follow-up study in a patient with airspace disease COMPARISON: Chest CT and chest radiograph 07/16/2019 TECHNIQUE: Portable AP view of the chest FINDINGS: Cardiac silhouette is enlarged. Prior median sternotomy. Pulmonary vascular congestion. Progressively worsened right greater than left bibasilar opacities. Small pleural effusions have also increased in size. There is no pneumothorax. Degenerative changes of the shoulders and spine. IMPRESSION: 1. Progressively worsened right greater than left bibasilar airspace consolidation with slightly incr eased size of the small pleural effusions. 2. Cardiomegaly with pulmonary vascular congestion. ACT 112: Negative or not required by law. The above report was generated using voice recognition software. It may contain grammatical, syntax o r spelling errors. Electronically signed by: Ezequiel Cevallos M.D. 07/19/2019 7:44 AM
[2019-07-19] MEDS: INSULIN ASPART 100 UNITS/ML 3 ML PEN SC SCH ×4 (08:38→20:41)
[2019-07-19] MEDS: FERROUS SULFATE 325 MG TAB PO SCH (08:39)
[2019-07-19] MEDS: ASPIRIN 81 MG ECTAB PO SCH (08:39)
[2019-07-19] MEDS: CITALOPRAM 40 MG TAB PO SCH (08:39)
[2019-07-19] MEDS: FUROSEMIDE 20 MG TAB PO SCH (08:40)
[2019-07-19] MEDS: INSULIN GLARGINE SOLOSTAR 100 UNITS/ML 3 ML PEN SC SCH (08:40)
[2019-07-19] MEDS: AMLODIPINE BESYLATE 5 MG TAB PO SCH (08:40)
[2019-07-19] MEDS: ASCORBIC ACID 500 MG TAB PO SCH (08:41)
[2019-07-19] MEDS: PRAVASTATIN SOD 40 MG TAB PO SCH (08:41)
[2019-07-19] MEDS: FAMOTIDINE 40 MG TABLET PO SCH (08:41)
[2019-07-19] MEDS ORDERED: METOPROLOL SUCC 50MG EXT REL TAB PO SCH ×2 (09:00→10:00)
--- NOTE | 2019-07-19 09:32 | Nephrology Progress Note ---
Date of Service July 19, 2019 Assessment & Plan (1) CKD (chronic kidney disease) stage 5, GFR less than 15 ml/min: 68 yo gentleman with stage CKD hypertension and history coronary artery disease status CABG to the with right lower lobe, hemoptysis and hypertensive urgency. On empiric antibiotic. Renal function found to have worsened in between electrolyte acceptable. Status has been decent urine without change recently. Has mature AV fistula which can be used at any time if needed. Has adequate iron store. --increase amlodipine to 10 mg and metoprolol to 50 mg/d --low k diet, Kayexalate prn for K >5.5 --considering HTN urgency, progressive worsening of renal function , will check renal doppler --dose medications for GFR less than 10, left arm Nephrology precaution. will follow (2) Secondary hyperparathyroidism: (3) Pneumonia: (4) Hypertensive urgency: (5) Hemoptysis: (6) Proteinuria: Tanika Dodd was seen and examined this morning. Continues to have hemoptysis and BP remained elevated. Cr stable around 6.4, has hyperkalemia. Appetite remain poor. UO decent. Review of Systems Review of Systems: All systems reviewed & are unremarkable except as noted in HPI & below Physical Exam Constitutional: WD/WN, vitals as above no acute distress Neck: normal visual inspection Respiratory: Auscultation: + rales (at rt lower lobe.) Cardiovascular: RRR, no murmur, no edema Gastrointestinal (Abdomen): Inspection/Auscultation: normal bowel sounds Percussion/Palpation: abdomen soft; abdomen nontender, no guarding and abdomen not rigid Musculoskeletal: no cyanosis or clubbing, extremities motor strength 5/5 Skin: no rashes, warm and dry Neurologic: awake; no focal motor deficits and not confused Psychiatric: A+Ox3, euthymic affect Results & Data Vital Signs (Past 12 Hours) Vital Signs Temp Pulse Pulse Pulse Resp BP Pulse Ox 07/19/19 07:52 36.7 C 66 18 210/75 H 95 07/19/19 03:26 36.4 C L 64 22 173/77 H 93 07/19/19 00:00 78 07/18/19 23:30 36.7 C 67 20 181/65 H 92 PG Care Time/CCT Total # of Minutes Spent Total Time Spent with Patient: Total time spent is greater than 50% in coordination of care (as documented) at patient's floor/unit and/or counseling patient: Coding Level of Care Code 92456 Subseq Hosp Care Lvl 3 Diagnoses CKD (chronic kidney disease) stage 5, GFR less than 15 ml/min N18.5 Secondary hyperparathyroidism N25.81 Pneumonia J18.9 Laterality: unspecified laterality Lung location: unspecified part of lung Pneumonia type: due to unspecified organism Hypertensive urgency I16.0 Hemoptysis R04.2 Proteinuria R80.9 (1) Pneumonia Laterality: unspecified laterality Lung location: unspecified part of lung Pneumonia type: due to unspecified organism Qualified Code(s): J18.9 - Pneumonia, unspecified organism
--- NOTE | 2019-07-19 09:39 | Nephrology Progress Note ---
Date of Service July 18, 2019 Assessment & Plan (1) CKD (chronic kidney disease) stage 5, GFR less than 15 ml/min: 68 yo gentleman with stage CKD hypertension and history coronary artery disease status CABG to the with right lower lobe, hemoptysis and hypertensive urgency. On empiric antibiotic. Renal function found to have worsened in between electrolyte acceptable. Status has been decent urine without change recently. Has mature AV fistula which can be used at any time if needed. Has adequate iron store. --start on amlodipine 5 mg and increase to metoprolol to 25 mg/d --no indication for UPPER TRIMMER --check iron study --dose medications for GFR less than 10, left arm Nephrology precaution. will follow (2) Secondary hyperparathyroidism: (3) Pneumonia: (4) Hypertensive urgency: (5) Hemoptysis: (6) Proteinuria: Tanika Dodd was seen and examined this morning. Continues to have hemoptysis and BP remained elevated. Cr stable around 6.3. Appetite remain poor. UO decent. Review of Systems Review of Systems: All systems reviewed & are unremarkable except as noted in HPI & below Physical Exam Constitutional: WD/WN, vitals as above no acute distress Neck: normal visual inspection Respiratory: Auscultation: + rales (at rt lower lobe.) Cardiovascular: RRR, no murmur, no edema Gastrointestinal (Abdomen): Inspection/Auscultation: normal bowel sounds Percussion/Palpation: abdomen soft; abdomen nontender, no guarding and abdomen not rigid Musculoskeletal: no cyanosis or clubbing, extremities motor strength 5/5 Skin: no rashes, warm and dry Neurologic: awake; no focal motor deficits and not confused Psychiatric: A+Ox3, euthymic affect Results & Data Vital Signs (Past 12 Hours) Vital Signs Temp Pulse Pulse Pulse Resp BP Pulse Ox 07/19/19 07:52 36.7 C 66 18 210/75 H 95 07/19/19 03:26 36.4 C L 64 22 173/77 H 93 07/19/19 00:00 78 07/18/19 23:30 36.7 C 67 20 181/65 H 92 PG Care Time/CCT Total # of Minutes Spent Total Time Spent with Patient: Total time spent is greater than 50% in coordination of care (as documented) at patient's floor/unit and/or counseling patient: Coding Level of Care Code 39443 Subseq Hosp Care Lvl 3 Diagnoses CKD (chronic kidney disease) stage 5, GFR less than 15 ml/min N18.5 Secondary hyperparathyroidism N25.81 Pneumonia J18.9 Laterality: unspecified laterality Lung location: unspecified part of lung Pneumonia type: due to unspecified organism Hypertensive urgency I16.0 Hemoptysis R04.2 Proteinuria R80.9 (1) Pneumonia Laterality: unspecified laterality Lung location: unspecified part of lung Pneumonia type: due to unspecified organism Qualified Code(s): J18.9 - Pneumonia, unspecified organism
[2019-07-19] MEDS ORDERED: AMLODIPINE BESYLATE 5 MG TAB PO ONE (09:58)
[2019-07-19] MEDS ORDERED: METOPROLOL SUCC 50MG EXT REL TAB PO STA (09:59)
[2019-07-19] MEDS ORDERED: AMLODIPINE BESYLATE 5 MG TAB PO SCH (10:00)
[2019-07-19] MEDS: COLESTIPOL HCL 1 GM TAB PO SCH (10:00)
--- NOTE | 2019-07-19 11:38 | Pharmacy Report ---
Glycemic Control Progress Note - Date of Service July 19, 2019 - Scope Glycemic Pharmacist consulted for glycemic control to write orders per [facility] inpatient glycemic control protocol. - Objective Accuchecks BSG(last 24 hours):: 07/18/19 07/18/19 07/19/19 16:08 20:02 06:35 Glucose 103 H POC Glucose 113 H 175 H HbA1c:: Hemoglobin A1c 6.3 % (4.5-5.6) H 07/17/19 03:55 - Recent Pertinent Medications The patient is currently receiving: * Basal insulin: Lantus 15 units every 24 hours * Correctional Insulin: Novolog Correction per scale ACHS Goal Range: Low 120 mg/dL - High 160 mg/dL Correction Factor: 30 mg/dL/unit * Prandial insulin: Per carb ratio of 1 unit per 10 grams CHO consumed - Outpatient Anti-Diabetic Meds Novolog pump please see note from 07/17/2019 for settings - Assessment & Plan ASSESSMENT: * See progress note from 07/17/2019 for more background info, in short: * Pt receiving SQ basal bolus insulin regimen for hyperglycemia secondary to baseline DM (outpatient regimen on hold),stress/infection (pneumonia now on Levaquin). * Patient is currently receiving an average of 25 units of insulin per day * 15 units of basal insulin * 10 units of prandial/correctional insulin * BSGs ranging 113 - 175 mg/dl over the past 24hrs * Changes needed to insulin regimen: * AM Fasting BSG = 103 mg/dl. This is below goal range for patient based on inpatient targets and co-morbidities. Therefore Basal insulin will be continued with a reduced dose of Lantus 12 units available. * Post-prandial BSGs are relatively in range. Only one blood sugar above goal (most likely from subtracted carbohydrate coverage due to BSG of 113 mg/dL). Lower goal range. * Total daily dose = 25-30 units. This equals the patient's home basal regimen. PLAN FOR INPATIENT GLYCEMIC CONTROL: * Continuing Lantus 15 units SQ qAM (12 units if BSG less than 100 mg/dL and 18 units if BSG greater than 140 mg/dL) * Continuing correction factor of 30 mg/dl/unit * Continuing carb ratio of 1 unit per 10 grams CHO consumed * Changing goal range to Low 110 mg/dL - High 140 mg/dL RECOMMENDATIONS FOR DISCHARGE: * Patient follows with outpatient diabetes clinic - recommend close follow-up with them. * Will instruct patient later this afternoon that when he goes home, the next morning he should restart his pump. Prefer around 0700 but may be as late as 1100. * Please note that the plan above was derived based on current level of insulin resistance and hospital stress. These recommendations are appropriate for inpatient admission only. Plan of care upon discharge will need to be reassessed to avoid potential outpatient hypo/hyperglycemia. Thank you.
--- NOTE | 2019-07-19 12:02 | Ultrasound Report ---
DOPPLER ULTRASOUND OF THE RENAL ARTERIES CLINICAL HISTORY: Hypertension. COMPARISON STUDY: TECHNIQUE: Doppler sonography of the renal arteries was performed to assess renal artery stenosis. Im ages are reviewed in the transverse and longitudinal planes. FINDINGS: The kidneys appear normal in size and echotexture. Right kidney measures 10.8 cm. The left measures 1 2.5 cm. There is no hydronephrosis. On the right, velocities and resistive indices are within normal limits. The right renal vein is rose nt. On the left, velocities and resistive indices are within normal limits. The abdominal aorta is pa tent. Velocities within the abdominal aorta measure up to 100 cm/s. IMPRESSION: There is no sonographic evidence of renal artery stenosis. ACT 112: Negative or not required by law. The above report was generated using voice recognition software. It may contain grammatical, syntax or spelling errors. Electronically signed by: Meek Hannon M.D. 07/19/2019 12:01 PM
--- NOTE | 2019-07-19 12:17 | Hospitalist Progress Note ---
Date of Service July 19, 2019 Assessment & Plan (1) Pneumonia: Mr. Yousif Walker is a 68 y/o male with numerous co-morbidities including stage V CKD, IDDM, CAD s/p CABGx5, HTN, HLD, depression, non-compliant sleep apnea, right sided lacunar CVA who presented for with pneumonia. He has wors ening creatinine of 6.25 currently. He continues to have blood in his sputum considering 2/2 pneumonia vs. posterior upper GI. Afebrile, labile BP and normal HR, overall appears to be improving. - initial CT w/ RLL opacity favoring pneumonia - f/u CXR showed worsening of right sided opacity, unclear if this represents worsening pneumonia vs. inflammatory response to the pneumonia. He is afebrile and has a normal heart rate which are reassuring. - pulmonology consulted appreciate recs - given negative MRSA nares d/c Linezolid - continue with Levaquin - Infectious Disease consulted, appreciate recs. - influenza negative - sputum scant normal rosie - blood cultures no growth at 24 hours - Duonebs ordered PRN for dyspnea - pulmonary toilet - not currently requiring supplemental O2 - No significant elevated WBC, with value at 8.48 (07/19), 8.83 (07/18), 10.42 (07/17) Code: Full Code FENGI: Heart healthy, diabetic 2 diet, no IVF at this time to prevent volume overload DVT ppx: SCDs, will avoid chemical since hemoptysis Dispo: Admit to PCU with cardiac monitoring (2) Hemoptysis: - from pneumonia process vs. sinus or upper GI, no signs of significant blood loss - no melena (3) CKD (chronic kidney disease) stage 5, GFR less than 15 ml/min: - Creatinine at 6.25 stable - He hasn't had HD yet but was set to get this as outpatient w/ a mature fistula in his L arm - Nephrology consulted w/ rec: no indication for dialysis, consider increasing to metoprolol to 25 mg and consider starting Amlodipine, to obtain iron studies and to dose medication for GFR <10. - Potassium is 5.3 - Will trend electrolytes and kidney function - Appears at his baseline weight (4) Controlled diabetes mellitus with retinopathy, with long-term current use of insulin: - Pharm consult for glycemic management placed - He notes he has had some hypoglycemic episodes on insulin pump, pharmacy switched him to basal bolus (5) CAD (coronary artery disease): - Troponin elevated 07/16 - 0.090 @ 22:02 ; 07/17 - 0.109 @ 3:55 ; 07/17 - 0.11 @ 10:32 in setting of CKD stage 5 which is renally cleared and extensive CAD, no acute process likely. - TTE 07/17 - borderline concentric left ventricular hypertrophy, left ventricular systolic function normal 50-55%, L atrium moderately dilated, mild to moderate mitral regurgitation, IVC mildly dilated - Metoprolol increased to 100 mg and Amlodipine added at 10 mg QAM - continue w/home Pravastatin 40mg PO and Colestipol 1gm q2day - SL Nitro ordered (6) S/P CABG x 5: - as noted in history, extensive CAD (7) Hypertension: - Hypertensive while in ED, most recent BP 210 systolic - continue with Metoprolol succinate and Amlodipine as above - continue to monitor and could increase metoprolol if consistently hypertensive (8) Vitamin D deficiency: - most likely from kidney disease - receives Vit D supplementation monthly, no current indication for this during this visit (9) Right-sided lacunar infarction: - Noted in history without noted residual deficits - continue with home ASA 81mg po daily (10) Depression: - continue with home Citalopram 40mg qday (11) Dyslipidemia: - continue w/home Pravastatin 40mg PO and Colestipol 1gm q2day (12) Sleep apnea: - States has home CPAP but is non-compliant (13) Anemia: - Mild appears at baseline, most likely from underlying kidney disease Supervising Physician Co-Signing Physician Notes I saw the patient with the resident physician and confirmed yao portions of the history and physical examination. I agree with the impression and plan as noted above, with the following notes and clarifications. Overall, appears improved; however he continues to have intermittent hemoptysis and his blood pressures are markedly elevated this morning. Chest x-ray shows some progression, although clinically this could just represent inflammatory reaction rather than true progression of the consolidation. Continue Levaquin Consult pulmonary medicine Increase Norvasc and metoprolol Renal ultrasound Subjective Doing well this morning with no complaints of dizziness or headache. He was concerned about his elevated blood pressure and that he was still coughing up a small amount of blood. We discussed that his CXR looked worse than prior, but he is stating that he feels better and has no shortness of breath, a slight cough and some sputum production. We discussed that we are getting pulmonology to look at him given his worsening chest XR and the continued blood in his sputum. Review of Systems Constitutional: no fever and no chills Eyes: no problem reported Respiratory: + cough (slight) and + sputum production (some bright red blood in sputum) Cardiovascular: no chest pain, no palpitations and no edema Gastrointestinal: no abdominal pain, no nausea and no vomiting Genitourinary: no dysuria, no difficulty urinating and no urinary frequency Neurologic: no headache(s) Physical Exam Constitutional: WD/WN, vitals as above Eyes: PERRL, conjunctivae normal, anicteric sclerae ENMT: external ear and nose normal, oropharynx normal Neck: trachea midline, no thyromegaly Respiratory: right side with slight wheeze on expiration right mid lung egophany, with slight dullness to percussion Cardiovascular: Rate/Rhythm: regular rate and regular rhythm Gastrointestinal (Abdomen): normal bowel sounds, soft, nontender, no hepatosplenomegaly Skin: no rashes, warm and dry Results & Data Vital Signs (Past 12 Hours) Vital Signs Temp Pulse Pulse Resp BP Pulse Ox 07/19/19 07:52 36.7 C 66 18 210/75 H 95 07/19/19 03:26 36.4 C L 64 22 173/77 H 93 Resident Activity Tracking Resident Involvement: Resident Care Provided Care Provided: Adult Hospital Medicine (1) Pneumonia Laterality: unspecified laterality Lung location: unspecified part of lung Pneumonia type: due to unspecified organism Qualified Code(s): J18.9 - Pneumonia, unspecified organism
[2019-07-19] MEDS ORDERED: BENZONATATE 100 MG CAPSULE PO PRN (18:47)
--- NOTE | 2019-07-19 19:56 | Pulmonary Consultation ---
Date of Consultation July 19, 2019 Assessment & Plan (1) Pleural effusion: --Bilateral pleural effusion Patient is in no acute distress, talking in full sentences, saturating 98% on room air No indication for thoracentesis I think the pleural effusion are secondary to his underlying CKD --> continue with diuretics as tolerated to keep negative balance Patient has no signs or symptoms of pneumonia. Will order ESR and CRP to see if they are elevated. --Hemoptysis ? Patient and family unsure whether it is hemoptysis or hematemesis Patient no blood in the phlegm since the hospital stay. Hemoglobin has been stable. Patient does have some cough, Recommend antitussive medications. Patient does have moderately dilated left atrium with moderate MR. Left atrium enlargement and hypertensive patient has been associated with hemoptysis as well. Better control of his blood pressure might help as well with hemoptysis if he is having it. --Obstructive sleep apnea Continue with CPAP --Patient has history of CKD No history of autoimmune disease No history of bronchiectasis Noted urinalysis from multiple admissions patient never had hematuria or any casts (2) Hemoptysis: (3) DAVINA (obstructive sleep apnea): History of Present Illness Attending Physician: Emile Argueta DO History of Present Illness 68-year-old male with past medical history of CKD stage V insulin-dependent diabetes mellitus type 2, coronary artery disease s/p CABG, hypertension, dep ression sleep apnea noncompliant with CPAP, CVA was admitted to the hospital with complaints of questionable hemoptysis versus hematemesis. Patient said he has been coughing since last Wednesday which was aggressive in the beginning and more frequent but while being in the hospital it has gone down gra dually. Does not bring up any blood-tinged phlegm right now. The cough is decreased in intensity. Patient denies any fever or chills at home. No chest pain, mild shortness of breath on exertion, no nausea or vomiting. No dysuria, no diarrhea, no hematuria, no hematochezia. No night sweats. No recent travel history. No contacts with known TB patients. Has never been incarcerated. Social history: Non-smoker, no illicit drug use, no alcohol. 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 No direct exposure of any chemicals. No family history of lung cancer. There is leukemia in 1 of the cousins. No personal history of any cancer. Allergies Allergy/AdvReac Type Severity Reaction Status Date / Time adhesive Allergy Mild itchy and Verified 07/16/19 22:13 rash Home Medications Home Medications Medication Instructions Recorded Confirmed Type aspirin 81 mg tablet,delayed 81 mg PO DAILY 05/20/18 07/16/19 History release fluocinolone 0.025 % topical cream 1 appln TOP BID 05/20/18 07/16/19 History furosemide 20 mg tablet 20 mg PO DAILY 05/20/18 07/16/19 History ascorbic acid (vitamin C) 500 mg 500 mg PO DAILY cap 01/23/19 07/16/19 History capsule citalopram 40 mg tablet 40 mg PO DAILY tab 01/23/19 07/16/19 History ferrous sulfate 325 mg (65 mg 325 mg PO DAILY tab 01/23/19 07/16/19 History iron) tablet mometasone 0.1 % topical ointment 1 appln TOPICAL BID #1 gm 01/23/19 07/16/19 History cholecalciferol (vitamin D3) 1,250 50,000 units PO MONTHLY #3 cap 03/23/19 0 07/16/19 Rx mcg (50,000 unit) capsule famotidine 20 mg tablet 40 mg PO DAILY 42 Days #84 tab 03/28/19 07/16/19 Rx Novolog U-100 Insulin aspart 100 80 units SQ .COMPLEX #30 ml NS 04/19/1907/16 Rx unit/mL subcutaneous solution blood sugar diagnostic #400 ea 04/19/19 07/10/19 Rx insulin syringe-needle U-100 0.3 #10 ea 04/19/19 07/10/19 Rx mL 31 gauge x 5/16" colestipol 1 gram tablet 1 gm PO Q2D tab 05/29/19 07/16/19 History glucagon (human recombinant) 1 mg 1 mg IM UD PRN ea 05/29/19 07/16/19 History solution for injection metoprolol succinate 25 mg 12.5 mg PO DAILY #45 tab 06/26/19 07/16/19 Rx tablet,extended release 24 hr pravastatin 40 mg tablet 40 mg PO DAILY #90 tab 07/10/19 07/16/19 Rx Patient History Medical History Acquired claw toe of left foot (Acute) Acquired claw toe of right foot (Acute) Acquired hallux valgus of right foot (Acute) Acquired hammer toe of right foot (Acute) Anemia (Chronic) Arteriosclerosis of carotid artery (Acute) Arthritis (Acute) Lyons's esophagus (Acute) CAD (coronary artery disease) Central sleep apnea (Acute) Cerebrovascular disease (Acute) Chronic kidney disease (Acute) Chronic kidney disease, stage IV (severe) (Chronic) Chronic reflux esophagitis (Acute) Controlled diabetes mellitus with neurologic complication, with long-term current use of insulin (Acute) Controlled diabetes mellitus with retinopathy, with long-term current use of insulin (Acute) Coronary artery disease (Acute) Depression (Acute) Diabetes (Chronic) Diabetic nephropathy (Acute) Diabetic neuropathy (Acute) GERD (gastroesophageal reflux disease) (Acute) H/O retinal detachment (Acute) Hallux valgus (acquired), left foot (Acute) Hammertoe of left foot (Acute) Hearing loss (Acute) Hiatal hernia (Acute) History of basal cell carcinoma (Resolved) Hypertension (Chronic) Left bundle-branch block (Acute) Low back pain (Acute) Neuropathic ulcer of toe of right foot (Acute) Obesity (BMI 30.0-34.9) (Acute) Peripheral vascular disease (Acute) Proliferative diabetic retinopathy (Acute) Proteinuria (Chronic) Right-sided lacunar infarction (Acute) Secondary hyperparathyroidism (Acute) Ulcer of right midfoot (Acute) Umbilical hernia (Acute) Vitamin D deficiency (Chronic) Surgical History Fistula H/O hernia repair (Acute) Hx of CABG (Acute) Previous back surgery (Acute) S/P CABG x 5 Family History Other No significant family history Social History Preferred Language: Chinese Communication Ability: Effective Visual Impairment: Severely Limited Health Informatics Specialist Required: No Beliefs That Will Affect Care: None marital status: Current Living Situation: Spouse current occupational status: retired Other Information That Helps Us Care for You: No Feels Safe at Home: Yes Safety Concerns: Feels Safe At This Time Smoking Status: Never smoker Hx Alcohol Use: No Hx Substance Use: No Seatbelt Use: always Review of Systems Review of Systems: All systems reviewed & are unremarkable except as noted in HPI & below Physical Exam Physical Exam: Constitutional: No acute distress HEENT: EOMI, PERRLA, moist mucous membranes, Mallampati 3 Respiratory system: Decreased air entry bilaterally, positive bilateral lower l obe crackles, no wheeze, no rhonchi CVS: S1-S2 positive, no murmurs or gallops Abdomen: Soft, nontender, nondistended, positive bowel sounds x4 Extremities: +2 pulses bilaterally radialis/ dorsalis pedis, no cyanosis, +2 pitting edema bilateral lower extremity Neuro: Awake alert oriented x3 Psych: Normal mood and affect G/U: No Freire Saturation 98% on room air with heart rate of 68 at rest. Skin: no rashes, warm and dry Lymphatic: no cervical or axillary lymphadenopathy Results & Data ([facility]) Vital Signs (Past 12 Hours) Vital Signs Temp Pulse Pulse Pulse Resp BP Pulse Ox 07/19/19 19:10 36.4 C L 59 L 17 161/71 H 96 07/19/19 16:00 57 L 07/19/19 15:27 36.4 C L 57 L 17 177/78 H 96 07/19/19 12:12 36.6 C 60 20 191/76 H 97 07/19/19 06:42 07/19/19 06:35 PG Care Time/CCT Total # of Minutes Spent Total Time Spent with Patient: Total time spent is greater than 50% in coordination of care (as documented) at patient's floor/unit and/or counseling patient: [place] [address] Initial Inpt Care Lvl 3 Patient Type New Diagnoses Pleural effusion J90 Hemoptysis R04.2 DAVINA (obstructive sleep apnea) G47.33
[2019-07-19] MEDS ORDERED: GUAIFENESIN/DEXTROM SYRUP 100MG/10MG 5ML UDC PO PRN (20:43)
[2019-07-19] MEDS: BENZONATATE 100 MG CAPSULE PO SCH (20:53)
[2019-07-20 06:51] LABS: Basophils # (auto) 0.03 K/uL (0-0.2); Basophils % (auto) 0.4 %; Eosinophils # (auto) 0.35 K/uL (0-0.5); Eosinophils % (auto) 5.2 %; Hematocrit (blood only) 30.9 % (42-52); Hemoglobin 10.7 g/dL (14.0-18.0); Immature Granulocytes # (auto) 0.01 K/uL (0.00-0.02); Immature Granulocytes % (auto) 0.1 %; Lymphocytes # (auto) 1.55 K/uL (1.2-3.4); Lymphocytes % (auto) 22.9 %; Mean Corpuscular Hemoglobin 32.4 pg (25-34); Mean Corpuscular Hgb Conc 34.6 g/dL (32-36); Mean Corpuscular Volume 93.6 fL (80-100); Monocytes # (auto) 0.58 K/uL (0.11-0.59); Monocytes % (auto) 8.6 %; Neutrophils # (auto) 4.24 K/uL (1.4-6.5); Neutrophils % (auto) 62.8 %; Platelet Count 162 K/uL (130-400); RDW Standard Deviation 44.8 fL (36.4-46.3); White Blood Count 6.76 K/uL (4.8-10.8)
[2019-07-20 07:38] LABS: Albumin Globulin Ratio 0.8 (0.9-2); Albumin Level 2.5 gm/dl (3.4-5.0); Bilirubin,Total 0.4 mg/dl (0.2-1); Calcium 8.5 mg/dl (8.5-10.1); Creatinine Clr Calc Pharmacy 13.6 ml/min; Est GFR (African American) 9.2; Est GFR (Non-African American) 7.9; Globulin 3.1 gm/dl (2.5-4.0); Potassium 4.9 mmol/L (3.5-5.1); Total Protein 5.6 gm/dl (6.4-8.2)
[2019-07-20] MEDS: CITALOPRAM 40 MG TAB PO SCH (08:05)
[2019-07-20] MEDS: CALCITRIOL 0.25 MCG CAPSULE PO SCH (08:05)
[2019-07-20] MEDS: ASCORBIC ACID 500 MG TAB PO SCH (08:05)
[2019-07-20] MEDS: FAMOTIDINE 40 MG TABLET PO SCH (08:05)
[2019-07-20] MEDS: METOPROLOL SUCC 50MG EXT REL TAB PO SCH (08:05)
[2019-07-20] MEDS: ASPIRIN 81 MG ECTAB PO SCH (08:05)
[2019-07-20] MEDS: PRAVASTATIN SOD 40 MG TAB PO SCH (08:06)
[2019-07-20] MEDS: AMLODIPINE BESYLATE 5 MG TAB PO SCH (08:06)
[2019-07-20] MEDS: FERROUS SULFATE 325 MG TAB PO SCH (08:06)
[2019-07-20] MEDS: INSULIN ASPART 100 UNITS/ML 3 ML PEN SC SCH ×4 (08:07→21:59)
[2019-07-20] MEDS: INSULIN GLARGINE SOLOSTAR 100 UNITS/ML 3 ML PEN SC SCH (08:08)
--- NOTE | 2019-07-20 08:36 | Pharmacy Report ---
Pharmacy Glycemic Short Note 2 - Date of Service July 20, 2019 - Glycemic Short BSG Results (Last 24 hours): 07/19/19 07/19/19 07/19/19 12:03 16:30 20:31 Glucose POC Glucose 112 H 75 148 H 07/20/19 07/20/19 06:26 07:38 Glucose 81 POC Glucose 90 Outpatient Anti-Diabetic Meds * Novolog pump (please see note from 07/17/2019 for settings) The patient is currently receiving: * Basal insulin: Lantus 15 units every 24 hours * Correctional Insulin: Novolog Correction per scale ACHS Goal Range: Low 110 mg/dL - High 140 mg/dL Correction Factor: 30 mg/dL/unit * Prandial insulin: Per carb ratio of 1 unit per 10 grams CHO consumed ASSESSMENT: * No hypoglycemic episodes yesterday, but two BSG's below goal range (AM fasting and pre-dinner checks) * Will loosen Novolog CHO ratio * Will decrease Lantus * Insulin requirements may substantially change if HD is initiated. Per nephrology note 07/19: no indication for HD at that time but AV fistula is mature and available for use RECOMMENDATIONS FOR DISCHARGE: * Dependent on plan for HD * Of note, patient follows with outpatient diabetes clinic
--- NOTE | 2019-07-20 08:41 | Nephrology Progress Note ---
Date of Service July 20, 2019 Assessment & Plan (1) CKD (chronic kidney disease) stage 5, GFR less than 15 ml/min: 68 yo gentleman with stage CKD hypertension and history coronary artery disease status CABG to the with right lower lobe, hemoptysis and hypertensive urgency. On empiric antibiotic. Renal function found to have worsened compared to outpt lab, but somewhat stable last few days, Hb stable. Mild hyperkalemia and metabolic acidosis. Has mature AV fistula which can be used at any time if needed. Has adequate iron store. BP remained elevated, Renal artery Doppler negative. --increase lasix to 80 BID, start Hydralazine 25 TID, continue amlodipine 10 mg and metoprolol to 100 mg/d --start on NaHCO3 650 mg BID --no indication for SENIOR ACCOUNT CLERK --dose medications for GFR less than 10, left arm Nephrology precaution. --if BP improves and renal function and electrolyte relatively stable, can be discharged tomorrow with close outpt lab monitoring. If further worsening, will start on HD hear and then DC with out pt schedule. Spoke with [facility], they are waiting on hepatitis B serology. Will order those and send for their evaluation and set up pt on TTS schedule. will follow (2) Secondary hyperparathyroidism: (3) Pneumonia: (4) Hypertensive urgency: (5) Hemoptysis: (6) Proteinuria: Subjective Yousif was seen and examined this morning. Overall feeling better, po intake decent. Hemoptysis resolved. BP remained elevated. Renal function stable. UO decent. Review of Systems Review of Systems: All systems reviewed & are unremarkable except as noted in HPI & below Physical Exam Constitutional: WD/WN, vitals as above no acute distress Neck: normal visual inspection Respiratory: Auscultation: + rales (at rt lower lobe.) Cardiovascular: RRR, no murmur, no edema Gastrointestinal (Abdomen): Inspection/Auscultation: normal bowel sounds Percussion/Palpation: abdomen soft; abdomen nontender, no guarding and abdomen not rigid Musculoskeletal: no cyanosis or clubbing, extremities motor strength 5/5 Skin: no rashes, warm and dry Neurologic: awake; no focal motor deficits and not confused Psychiatric: A+Ox3, euthymic affect Results & Data Vital Signs (Past 12 Hours) Vital Signs Temp Pulse Pulse Pulse Resp BP Pulse Ox 07/20/19 07:58 36.3 C L 63 19 188/74 H 96 07/20/19 07:51 61 07/20/19 03:42 36.5 C 63 18 170/75 H 97 07/19/19 23:19 36.8 C 58 L 18 149/81 H 94 PG Care Time/CCT Total # of Minutes Spent Total Time Spent with Patient: Total time spent is greater than 50% in coordi nation of care (as documented) at patient's floor/unit and/or counseling patient: Coding Level of Care Code 03320 Subseq Hosp Care Lvl 3 Diagnoses CKD (chronic kidney disease) stage 5, GFR less than 15 ml/min N18.5 Secondary hyperparathyroidism N25.81 Pneumonia J18.9 Laterality: unspecified laterality Lung location: unspecified part of lung Pneumonia type: due to unspecified organism Hypertensive urgency I16.0 Hemoptysis R04.2 Proteinuria R80.9 (1) Pneumonia Laterality: unspecified laterality Lung location: unspecified part of lung Pneumonia type: due to unspecified organism Qualified Code(s): J18.9 - Pneumonia, unspecified organism
[2019-07-20] MEDS: BENZONATATE 100 MG CAPSULE PO SCH ×3 (08:59→20:01)
[2019-07-20] MEDS: SODIUM BICARBONATE 650 MG TAB PO SCH ×2 (08:59→19:57)
[2019-07-20] MEDS: FUROSEMIDE 80 MG TAB PO SCH ×2 (09:00→17:01)
[2019-07-20] MEDS ORDERED: FUROSEMIDE 40 MG TAB PO SCH ×2 (09:00)
[2019-07-20 10:24] LABS: Hepatitis B Surface Ab Quant < 3.10 mIU/mL (>or=10mIU/mL Immune); Hepatitis B Surface Antibody Non-Immune
[2019-07-20 10:35] LABS: Hepatitis B Surface Antigen Neg (Neg)
--- NOTE | 2019-07-20 15:53 | Hospitalist Progress Note ---
Date of Service July 20, 2019 Assessment & Plan (1) Pneumonia: Mr. Yousif Walker is a 68 y/o male with numerous co-morbidities including stage V CKD, IDDM, CAD s/p CABGx5, HTN, HLD, depression, non-compliant sleep apnea, right sided lacunar CVA who presented with RLL pneumonia. He has wors ening creatinine of 6.51 currently. He has resolution of bloody sputum that was likely 2/2 pneumonia vs. upper GI. Afebrile, labile improving BP and normal HR, overall appears to be improving from a pulmonary standpoint and awaiting improved BP control prior to DC. - initial CT w/ RLL opacity favoring pneumonia - f/u CXR showed worsening of right sided opacity, unclear if this represents worsening pneumonia vs. inflammatory response to the pneumonia. He has remained afebrile and has a normal heart rate which are reassuring. - given negative MRSA nares d/c'd Linezolid - continue with Levaquin, second dose today - influenza negative - sputum scant normal rosie - blood cultures no growth at 48 hours - Duonebs ordered PRN for dyspnea - pulmonary toilet - not currently requiring supplemental O2 - No significant elevated WBC, with value at 6.76 (07/20), 8.48 (07/19), 8.83 (07/18), 10.42 (07/17) - Infectious Disease consulted, appreciate recs - Pulmonology consulted appreciate recs Code: Full Code FENGI: Heart healthy, diabetic 2 diet, no IVF at this time to prevent volume overload DVT ppx: SCDs, will avoid chemical since hemoptysis Dispo: Admit to PCU with cardiac monitoring (2) Hemoptysis: - resolved - from pneumonia process vs. sinus or upper GI, no signs of significant blood loss - no melena (3) CKD (chronic kidney disease) stage 5, GFR less than 15 ml/min: - Creatinine at 6.51 stable - He hasn't had HD yet but was set to get this as outpatient w/ a mature fistula in his L arm - Nephrology consulted w/ rec: Lasix 80 mg BID, Hydralazine 25 TID, NaHCO3 650 BID and medication renally dosed for GFR< 10 and if stable could DC tomorrow vs. inpatient dialysis prior to DC w/ schedule outpatient TTS at [facility]. - Potassium is 4.9 - Will trend electrolytes and kidney function - Appears at his baseline weight (4) Controlled diabetes mellitus with retinopathy, with long-term current use of insulin: - Pharm consult for glycemic management placed - He notes he has had some hypoglycemic episodes on insulin pump, pharmacy switched him to basal bolus (5) CAD (coronary artery disease): - Troponin elevated 07/16 - 0.090 @ 22:02 ; 07/17 - 0.109 @ 3:55 ; 07/17 - 0.11 @ 10:32 in setting of CKD stage 5 which is renally cleared and extensive CAD, no acute process likely. - TTE 07/17 - borderline concentric left ventricular hypertrophy, left ventricular systolic function normal 50-55%, L atrium moderately dilated, mild to moderate mitral regurgitation, IVC mildly dilated - Metoprolol increased to 100 mg and Amlodipine added at 10 mg QAM - Hydralazine 25 mg TID started - continue w/home Pravastatin 40mg PO and Colestipol 1gm q2day - SL Nitro ordered (6) S/P CABG x 5: - as noted in history, extensive CAD (7) Hypertension: - Hypertensive while in ED, most recent BP 130 systolic - continue with Metoprolol succinate, Amlodipine, and Hydralazine as above - continue to monitor (8) Vitamin D deficiency: - most likely from kidney disease - receives Vit D supplementation monthly, no current indication for this during this visit (9) Right-sided lacunar infarction: - Noted in history without noted residual deficits - continue with home ASA 81mg po daily (10) Depression: - continue with home Citalopram 40mg qday (11) Dyslipidemia: - continue w/home Pravastatin 40mg PO and Colestipol 1gm q2day (12) Sleep apnea: - States has home CPAP but is non-compliant (13) Anemia: - Mild appears at baseline, most likely from underlying kidney disease Supervising Physician Co-Signing Physician Notes I saw the patient with the resident physician and confirmed yao portions of the history and physical examination. I agree with the impression and plan as noted above, with the following notes and clarifications. He feels well without complaints. Blood pressure remains elevated; appreciate recommendations from nephrology Continue Levaquin Lasix been increased to 80 mg twice daily, hydralazine 25 mg 3 times daily Continue amlodipine 10 mg and metoprolol 100 mg daily If blood pressures improved, can be discharged tomorrow. If blood pressure is uncontrolled or there is a decline in renal function/electrolyte regulation, may need inpatient dialysis Subjective Doing well today. He has been breathing without oxygen without any difficulty. He is anxious to go home tomorrow for his son's birthday and to watch [employer]. Review of Systems Constitutional: no fever and no chills Respiratory: no cough (slight) and no sputum production Cardiovascular: no chest pain and no palpitations Gastrointestinal: no nausea and no vomiting Genitourinary: no dysuria, no difficulty urinating and no urinary frequency Musculoskeletal: + back pain and + neck pain Neurologic: no headache(s) Physical Exam Constitutional: WD/WN, vitals as above Eyes: PERRL, conjunctivae normal, anicteric sclerae ENMT: external ear and nose normal, oropharynx normal Neck: trachea midline, no thyromegaly Cardiovascular: Rate/Rhythm: regular rate and regular rhythm Gastrointestinal (Abdomen): normal bowel sounds, soft, nontender, no hepatosplenomegaly Skin: no rashes, warm and dry Results & Data ([facility]) Vital Signs (Past 12 Hours) Vital Signs Temp Pulse Pulse Pulse Resp BP Pulse Ox 07/20/19 15:10 56 L 07/20/19 14:14 57 L 130/57 L 07/20/19 11:19 36.4 C L 57 L 16 168/79 H 95 07/20/19 07:58 36.3 C L 63 19 188/74 H 96 07/20/19 07:51 61 Resident Activity Tracking Resident Involvement: Resident Care Provided Care Provided: Adult Hospital Medicine (1) Pneumonia Laterality: unspecified laterality Lung location: unspecified part of lung Pneumonia type: due to unspecified organism Qualified Code(s): J18.9 - Pneumonia, unspecified organism
[2019-07-20] MEDS ORDERED: LEVOFLOXACIN/D5W 500 MG/100 ML BAG IV SCH (16:00)
--- NOTE | 2019-07-20 18:16 | Pulmonology Progress Note ---
Date of Service July 20, 2019 Assessment & Plan (1) Pleural effusion: --Bilateral pleural effusion Patient is in no acute distress, talking in full sentences, saturating 98% on room air No indication for thoracentesis I think the pleural effusion are secondary to his underlying CKD --> continue with diuretics as tolerated to keep negative balance Patient has no signs or symptoms of pneumonia. ESR 17, CRP 1.91 --Hemoptysis ? Patient and family unsure whether it is hemoptysis or hematemesis Patient no blood in the phlegm since the hospital stay. Hemoglobin has been stable. Patient does have some cough, Recommend antitussive medications. Patient does have moderately dilated left atrium with moderate MR. Left atrium enlargement and hypertensive patient has been associated with hemoptysis as well. Better control of his blood pressure might help as well with hemoptysis if he is having it. -- RLL PNA vs Atypical pulmonary edema patient on antibiotics ESR: 17, CRP:1.91. Very mildy elevated to be PNA --Obstructive sleep apnea Continue with CPAP --Patient has history of CKD No history of autoimmune disease No history of bronchiectasis Noted urinalysis from multiple admissions patient never had hematuria or any casts No further recommendation from pulmonary perspective. Will sign off. Please note the above document was generated using voice recognition software. It may contain grammatical, syntax or spelling errors. (2) Hemoptysis: (3) DAVINA (obstructive sleep apnea): Subjective Patient seen and examined at bedside. No acute distress, no adverse events overnight. No chest pain, no hemoptysis, no cough, no shortness of breath. No headache, no dizziness, no palpitations. Good appetite. Urinating well. Review of Systems Review of Systems: All systems reviewed & are unremarkable except as noted in HPI & below Physical Exam Physical Exam: Constitutional: No acute distress HEENT: EOMI, PERRLA, moist mucous membranes, Mallampati 3 Respiratory system: Decreased air entry bilaterally, positive bilateral lower lobe crackles, no wheeze, no rhonchi CVS: S1-S2 positive, no murmurs or gallops Abdomen: Soft, nontender, nondistended, positive bowel sounds x4 Extremities: +2 pulses bilaterally radialis/ dorsalis pedis, no cyanosis, +2 pitting edema bilateral lower extremity Neuro: Awake alert oriented x3 Psych: Normal mood and affect G/U: No Freire Skin: no rashes, warm and dry Lymphatic: no cervical or axillary lymphadenopathy Results & Data ([facility]) Vital Signs (Past 12 Hours) Vital Signs Temp Pulse Pulse Pulse Resp BP Pulse Ox 07/20/19 16:09 36.2 C L 56 L 18 166/76 H 97 07/20/19 15:10 56 L 07/20/19 14:14 57 L 130/57 L 07/20/19 11:19 36.4 C L 57 L 16 168/79 H 95 07/20/19 07:58 36.3 C L 63 19 188/74 H 96 07/20/19 07:51 61 07/20/19 06:26 07/20/19 06:26 PG Care Time/CCT Total # of Minutes Spent Total Time Spent with Patient: Total time spent is greater than 50% in coordination of care (as documented) at patient's floor/unit and/or counseling patient: Coding Level of Care Code 78042 Subseq Hosp Care Lvl 3 Diagnoses Pleural effusion J90 Hemoptysis R04.2 DAVINA (obstructive sleep apnea) G47.33
[2019-07-21 07:11] LABS: Hematocrit (blood only) 28.1 % (42-52); Hemoglobin 9.9 g/dL (14.0-18.0); Mean Corpuscular Hemoglobin 32.7 pg (25-34); Mean Corpuscular Hgb Conc 35.2 g/dL (32-36); Mean Corpuscular Volume 92.7 fL (80-100); Mean Platelet Volume 9.4 fL (7.4-10.4); Platelet Count 159 K/uL (130-400); RDW Coefficient of Variation 12.8 % (11.5-14.5); RDW Standard Deviation 43.8 fL (36.4-46.3); Red Blood Count 3.03 M/uL (4.7-6.1); White Blood Count 5.92 K/uL (4.8-10.8)
[2019-07-21 07:54] LABS: BUN Creatinine Ratio 11.2 (10-20); Calcium 8.4 mg/dl (8.5-10.1); Creatinine Clr Calc Pharmacy 12.9 ml/min; Est GFR (African American) 8.7; Est GFR (Non-African American) 7.5; Potassium 4.7 mmol/L (3.5-5.1)
[2019-07-21] MEDS: AMLODIPINE BESYLATE 5 MG TAB PO SCH (08:32)
[2019-07-21] MEDS: INSULIN ASPART 100 UNITS/ML 3 ML PEN SC SCH ×2 (08:32→14:26)
[2019-07-21] MEDS: FAMOTIDINE 40 MG TABLET PO SCH (08:33)
[2019-07-21] MEDS: ASPIRIN 81 MG ECTAB PO SCH (08:33)
[2019-07-21] MEDS: METOPROLOL SUCC 50MG EXT REL TAB PO SCH (08:33)
[2019-07-21] MEDS: FUROSEMIDE 80 MG TAB PO SCH (08:33)
[2019-07-21] MEDS: PRAVASTATIN SOD 40 MG TAB PO SCH (08:33)
[2019-07-21] MEDS: CITALOPRAM 40 MG TAB PO SCH (08:34)
[2019-07-21] MEDS: COLESTIPOL HCL 1 GM TAB PO SCH (08:34)
[2019-07-21] MEDS: FERROUS SULFATE 325 MG TAB PO SCH (08:34)
[2019-07-21] MEDS: SODIUM BICARBONATE 650 MG TAB PO SCH (08:34)
[2019-07-21] MEDS: ASCORBIC ACID 500 MG TAB PO SCH (08:34)
[2019-07-21] MEDS ORDERED: SODIUM CHLORIDE 0.9% 1000ML 1,000 ML IV PRN (09:22)
[2019-07-21] MEDS ORDERED: EPOETIN ALFA 20,000 UNITS/ML VIAL IV ONE (09:22)
[2019-07-21] MEDS: BENZONATATE 100 MG CAPSULE PO SCH ×2 (09:45→15:18)
--- NOTE | 2019-07-21 10:02 | Nephrology Progress Note ---
Date of Service July 21, 2019 Assessment & Plan (1) CKD (chronic kidney disease) stage 5, GFR less than 15 ml/min: 68 yo gentleman with stage CKD hypertension and history coronary artery disease status CABG to the with right lower lobe, hemoptysis and hypertensive urgency. On empiric antibiotic. Renal function found to have worsened compared to outpt lab, but somewhat stable last few days, Hb stable. Mild hyperkalemia and metabolic acidosis. Has mature AV fistula which can be used at any time if needed. Has adequate iron store. BP remained elevated, Renal artery Doppler negative. Renal function worsened with creatinine up to 6.9 and BUN 77. Blood pressure remains slightly elevated. --will do 1st dialysis treatment inpatient to make sure that AV fistula is functioning well as it was never used. If patient tolerates the dialysis and otherwise doing well can be discharged this afternoon. Outpatient dialysis set up at [facility], they will contact the patient regarding chair time possibly next Wednesday or as per TTS schedule. --Epogen 18185 units x1 dose today --dose medications for GFR less than 10, left arm Nephrology precaution. --continue on amlodipine 10, metoprolol, hydralazine 25 t.i.d. and Lasix 40 twice a day. Advised patient to check blood pressure at home, if blood pressure drop significantly advised to discontinue hydralazine.. will follow (2) Secondary hyperparathyroidism: (3) Pneumonia: (4) Hypertensive urgency: (5) Hemoptysis: (6) Proteinuria: Subjective Yousif was seen and examined this morning. Overall feeling better, po intake decent. Hemoptysis resolved. BP remained elevated. Renal function slightly worsened however electrolyte remain acceptable making urine. Physical Exam Constitutional: WD/WN, vitals as above no acute distress Neck: normal visual inspection Respiratory: Auscultation: + rales (at rt lower lobe.) Cardiovascular: RRR, no murmur, no edema Gastrointestinal (Abdomen): Inspection/Auscultation: normal bowel sounds Percussion/Palpation: abdomen soft; abdomen nontender, no guarding and abdomen not rigid Musculoskeletal: no cyanosis or clubbing, extremities motor strength 5/5 Skin: no rashes, warm and dry Neurologic: awake; no focal motor deficits and not confused Psychiatric: A+Ox3, euthymic affect Results & Data Vital Signs (Past 12 Hours) Vital Signs Temp Pulse Pulse Pulse Resp BP Pulse Ox 07/21/19 07:37 36.4 C L 56 L 19 169/72 H 96 07/21/19 07:21 55 L 07/21/19 04:02 36.6 C 54 L 18 149/64 H 95 07/20/19 23:59 58 L 07/20/19 23:07 36.4 C L 55 L 20 161/65 H 96 PG Care Time/CCT Total # of Minutes Spent Total Time Spent with Patient: Total time spent is greater than 50% in coordination of care (as documented) at patient's floor/unit and/or counseling patient: Coding Level of Care Code 56381 Subseq Hosp Care Lvl 3 Diagnoses CKD (chronic kidney disease) stage 5, GFR less than 15 ml/min N18.5 Secondary hyperparathyroidism N25.81 Pneumonia J18.9 Laterality: unspecified laterality Lung location: unspecified part of lung Pneumonia type: due to unspecified organism Hypertensive urgency I16.0 Hemoptysis R04.2 Proteinuria R80.9 (1) Pneumonia Laterality: unspecified laterality Lung location: unspecified part of lung Pneumonia type: due to unspecified organism Qualified Code(s): J18.9 - Pneumonia, unspecified organism
--- NOTE | 2019-07-21 15:13 | Pharmacy Report ---
Pharmacy Glycemic Short Note 2 - Date of Service July 21, 2019 - Glycemic Short BSG Results (Last 24 hours): 07/20/19 07/20/19 07/21/19 16:36 21:09 06:48 Glucose 110 H POC Glucose 92 175 H 07/21/19 07/21/19 07:29 13:17 Glucose POC Glucose 111 H 195 H Outpatient Anti-Diabetic Meds Novolog pump Per SHABNAM Sabillon: Basal rates 7627-3862 1.40 units/hr 8943-0646 1.25 units/hr 7631-6189 1.40 units/hr Total: 32.55 units Bolus: Pt reports using 1 unit/~15g carbs CF:30 (most likely is only getting correctional insulin when not eating carbs) BSG target: 100-130 The patient is currently receiving: * Basal insulin: Lantus 12 units every 24 hours * Correctional Insulin: Novolog Correction per scale ACHS Goal Range: Low 110 mg/dL - High 140 mg/dL Correction Factor: 30 mg/dL/unit * Prandial insulin: Per carb ratio of 1 unit per 12 grams CHO consumed ASSESSMENT: * HD initiated today. Insulin requirements may substantially change when HD is initiated due to removal of accumulated compounds that cause insulin resistance. Therefore initiation of HD has the potential to increase insulin sensitivity * Franck held this AM to assess trend in BSG post-HD. Patient to be discharged after HD therefore OK to use pump instead * Patient is to be discharged after 1st HD session today. Spoke with Dolly Duque CDE - will decrease outpatient basal rates (Dolly to help patient do this on the pump). Also recommended frequent BSG checks, especially if patient feels hypoglycemic. [place]rier that BSG's may not be well controlled (highs and lows possible) therefore frequent BSG checks will be essential. Also to monitor for s/sx hypoglycemia. RECOMMENDATIONS FOR DISCHARGE: Resume Novolog pump prior to discharge, but with settings adjusted as follows: Basal: 8388-5903 0.4 units/hr 9479-7078 0.3 units/hr 7932-0213 0.4 units/hr Bolus: CR 1:15 CF: 40 BG target: 100-130
--- NOTE | 2019-07-21 20:44 | Discharge Summary ---
Date of Service July 21, 2019 Admission HPI Per Admitting Provider Caveat: History Limited by - Patient is a vague historian. Mr. Yousif Walker is a 68 y/o male with numerous co-morbidities including stage V CKD, IDDM, CAD s/p CABGx5, HTN, HLD, depression, non-compliant sleep apnea, r ight sided lacunar CVA who presented for CC of hemoptysis. He notes that he had onset of cough today with productive hemoptysis at 8pm. He denies any shortness of breath or diaphoresis and notes he was at his baseline state of health until this evening. He denies fevers/chills, recent cough or cold symptoms. He did get the influenza vaccination and notes that he has pneumonia vaccinations as w ell. He had some post-tussive dry heaving in ED treated with Reglan. He notes no current nausea. He notes he is getting set up for Dialysis for his End stage renal disease and that he was waiting for HD center to call him to set this up. He has seen [facility] Nephro in the past. He has a LUE AVF created on 01/19/19. Patient cannot have PD due to abdominal mesh. He had a prior AVF created 12/[address] Olivera has clotted. He notes he still produces urine. Currently, he notes right sided neck pain, his notes a history of buldging discs. He notes neck pain is most likely from awkward positioning in bed. He was treated with Reglan in the ED for his dry heaving. He was also given Zithromax 500mg PO x1 and Rocephin 2gm IV x1. Admission Exam Per Admitting Provider Constitutional: + ill appearing, cooperative and comfortable Eyes: PERRL, conjunctivae normal, anicteric sclerae ENMT: external ear and nose normal, oropharynx normal Neck: normal visual inspection and trachea midline Respiratory: normal respiratory effort; no respiratory distress Auscultation: + crackles (bilateral diffuse posteriorly, worse at bases with right > left) Cardiovascular: Rate/Rhythm: regular rate and regular rhythm Extremities: + edema (2+ pitting to prox 1/3 of bilateral legs) Gastrointestinal (Abdomen): Inspection/Auscultation: normal bowel sounds Percussion/Palpation: abdomen nontender, no guarding and abdomen not rigid Musculoskeletal: Head/Neck/Chest: + head abnormal to inspection, normocephalic and head atraumatic Neurologic: moves all extremities and awake Psychiatric: A+Ox3, euthymic affect Principal Diagnosis CKD Pneumonia DM CAD Hypertension Anemia Discharge Exam Constitutional WD/WN, vitals as above Eyes PERRL, conjunctivae normal, anicteric sclerae ENMT external ear and nose normal, oropharynx normal Neck trachea midline, no thyromegaly Cardiovascular Rate/Rhythm: regular rate and regular rhythm Gastrointestinal (Abdomen) normal bowel sounds, soft, nontender, no hepatosplenomegaly Skin no rashes, warm and dry Discharge Data Allergies Allergy/AdvReac Type Severity Reaction Status Date / Time adhesive Allergy Mild itchy and Verified 07/16/19 22:13 rash Consultations 07/17/19 00:13 ED Decision to Admit Stat 07/17/19 01:43 Consult Case Management - Discharge Planning Routine Consult Nephrology Routine 07/17/19 01:49 Consult Infectious Diseases Routine 07/19/19 08:52 Consult Pulmonology Routine 07/21/19 09:22 Consult Case Management - Discharge Planning Routine Ordered Studies 07/16/19 22:59 CT chest wo con Urgent 07/19/19 08:46 US duplex renal artery Routine Hospital Course (1) Pneumonia: Mr. Yousif Walker is a 68 y/o male with numerous co-morbidities including stage V CKD, IDDM, CAD s/p CABGx5, HTN, HLD, depression, non-compliant sleep apnea, right sided lacunar CVA who presented with RLL pneumonia. He had worsening creatinine to 6.51 prior to dialysis. He has resolution of bloody sputum that was likely 2/2 pneumonia vs. upper GI source. Afebrile, labile improving BP and normal HR, overall improved from a pulmonary standpoint, but required dialysis while hospitalized and was set up with dialysis outpatient in [place] scheduled for TTS. - initial CT w/ RLL opacity favoring pneumonia - continue with Levaquin - influenza negative - sputum scant normal rosie - blood cultures no growth at 48 hours - Duonebs ordered PRN for dyspnea - did not require oxygen for the 48 hours prior to discharge - No significant elevated WBC, with value at 6.76 (07/20), 8.48 (07/19), 8.83 (06/22 8), 10.42 (07/17) - Infectious Disease consulted, and gave recommendations during hospitalization (2) Hemoptysis: - resolved - from pneumonia process vs. sinus or upper GI, no signs of significant blood loss - no melena (3) CKD (chronic kidney disease) stage 5, GFR less than 15 ml/min: - Creatinine at 6.51, prior to dialysis - He 2 hours of dialysis on day of discharge w/ fistula in his L arm - Nephrology consulted w/ rec: Lasix 40 mg BID, Hydralazine 25 TID, medication renally dosed for GFR< 10 - scheduled outpatient TTS at [place], first day will be either Wednesday or (4) Controlled diabetes mellitus with retinopathy, with long-term current use of insulin: - He notes he has had some hypoglycemic episodes on insulin pump, pharmacy switched him to basal bolus - was switched back to pump prior to discharge with instructions to monitor blood sugar frequently due to the initiation of dialysis potentially affecting insulin. - basal rate of 10U, recommended frequent BSG checks, especially if patient feels hypoglycemic. Actuarial Manager that BSG's may not be well controlled (highs and lows possible) therefore frequent BSG checks will be essential. Also to monitor for s/sx hypoglycemia. (5) CAD (coronary artery disease): - Troponin elevated 07/16 - 0.090 @ 22:02 ; 07/17 - 0.109 @ 3:55 ; 07/17 - 0.11 @ 10:32 in setting of CKD stage 5 which is renally cleared and extensive CAD, no acute process likely. - TTE 07/17 - borderline concentric left ventricular hypertrophy, left ventricular systolic function normal 50-55%, L atrium moderately dilated, mild to moderate mitral regurgitation, IVC mildly dilated - Metoprolol increased to 100 mg and Amlodipine added at 10 mg QAM - Hydralazine 25 mg TID started - continue w/home Pravastatin 40mg PO and Colestipol 1gm q2day (6) S/P CABG x 5: - as noted in history, extensive CAD (7) Hypertension: - Hypertensive while hospitalized - continue with Metoprolol succinate, Amlodipine, and Hydralazine as above (8) Vitamin D deficiency: - most likely from kidney disease - receives Vit D supplementation monthly, no current indication for this during this visit (9) Right-sided lacunar infarction: - Noted in history without noted residual deficits - continue with home ASA 81mg po daily (10) Depression: - continue with home Citalopram 40mg qday (11) Dyslipidemia: - continue w/home Pravastatin 40mg PO and Colestipol 1gm q2day (12) Sleep apnea: - States has home CPAP but is non-compliant (13) Anemia: - Mild appears at baseline, most likely from underlying kidney disease Total Time Total Time Spent Total Time Spent (In Minutes): Discharge Plan Discharge Items Patient Disposition: Home - Self-Care Reason For Visit: PNEUMONIA Discharge Diagnosis: pneumonia Activity: Per Instructions section Non-emergency contact: Primary Care Provider and Computer Network Specialist Call non-emergency contact if: your temperature is above 101.5 Follow-up/Referrals: Ramo Uribe MD [Primary Care Provider] - Diet: Carb Consistent or DM2 and Heart Healthy Addtl Attending Provider Instructions: You were admitted to the hospital for pneumonia and were noted to have worsening of your kidney function. You were started on dialysis prior to leaving the hospital and were set up with outpatient Dialysis for Wednesday, and Wednesday in [place]. You will have your first outpatient dialysis ap pointment on either Wednesday or of next week. While you were here we made some changes to your medications which include. - continue Levaquin 500 mg every other day - for pneumonia - continue with Lasix at 40 mg twice a day - for excess fluid - continue taking Metoprolol 100 mg - for blood pressure - start taking Amlodipine 10 mg - for blood pressure - start taking Hydralazine 25 mg three times a day - for blood pressure If your systolic blood pressure is below 100 stop taking your Hydralazine and call your primary doctor. If your systolic blood pressure is above 200 call your primary doctor and come in to the clinic or ER if you are experience any of the following: - Severe chest pain - Severe headache, accompanied by confusion and blurred vision - Nausea and vomiting - Severe anxiety - Shortness of breath - Seizures - Unresponsiveness You will need to follow up with your primary care doctor Wednesday or Wednesday of next week. We will restart your insulin pump. Since we started you on dialysis today this may effect your blood sugar. You will need to monitor your blood sugar closely. The symptoms of low blood sugar vary from person to person and can waste/materials exchange specialist time. During the early stages of low blood sugar, you may: Sweat Tremble Feel hungry Feel anxious If untreated, your symptoms can become more severe, and can include: Difficulty walking Weakness Difficulty seeing clearly Bizarre behavior or personality changes Confusion Unconsciousness or seizure Pending Studies at Discharge: Yes Studies:: - blood cultures negative after 48 hours prelim Stand-Alone Forms: [facility], Smoking Cessation Medications and DC Order Prescriptions: New hydralazine 25 mg Tablet 25 mg PO TID PRN (Reason: HTN) 30 Days Qty: 90 RF: 0 amlodipine [Norvasc] 5 mg Tablet 10 mg PO QAM 30 Days Qty: 60 RF: 0 furosemide [Lasix] 40 mg tablet 40 mg PO BID 30 Days Qty: 60 RF: 0 levofloxacin [Levaquin] 500 mg tablet See Rx Instructions .ROUTE .COMPLEX 3 Days Qty: 2 RF: 0 Continued aspirin [Adult Aspirin Regimen] 81 mg tablet,delayed release (DR/EC) 81 mg PO DAILY RF: 0 fluocinolone 0.025 % cream 1 appln TOP BID RF: 0 ascorbic acid (vitamin C) 500 mg capsule 500 mg PO DAILY RF: 0 cholecalciferol (vitamin D3) 50,000 unit capsule 50,000 units PO MONTHLY Qty: 3 RF: 1 famotidine [Acid Exhibitions Curator (famotidine)] 20 mg tablet 40 mg PO DAILY 42 Days Qty: 84 RF: 3 (DME) Contour Test Strips strip See Dose Instructions .ROUTE .MEDSUPPLY Qty: 400 RF: 3 (DME) insulin syringe-needle U-100 [BD Insulin Syringe Ultra-Fine] 0.3 mL 31 gauge x 5/16" syringe See Dose Instructions .ROUTE .MEDSUPPLY Qty: 10 RF: 2 Novolog U-100 Insulin aspart 100 unit/mL solution 80 units SQ .COMPLEX Qty: 30 RF: 5 metoprolol succinate 25 mg tablet extended release 24 hr 12.5 mg PO DAILY Qty: 45 RF: 3 citalopram 40 mg tablet 40 mg PO DAILY RF: 0 ferrous sulfate 325 mg (65 mg iron) tablet 325 mg PO DAILY RF: 0 mometasone 0.1 % ointment 1 appln topical BID Qty: 1 RF: 0 colestipol 1 gram tablet 1 gm PO Q2D RF: 0 Glucagon Emergency Kit (human) 1 mg recon soln 1 mg IM UD PRN (Reason: HYPOGLYCEMIC EMERGENCY) RF: 0 pravastatin 40 mg tablet 40 mg PO DAILY Qty: 90 RF: 3 Discontinued furosemide [Lasix] 20 mg tablet 20 mg PO DAILY RF: 0 Discharge Orders: Discharge Order (Routine); Ordered 07/21/19 Ordered By: Dileep Uriostegui/Other Patient Handouts: Hypertension Control, Hypoglycemia, Beta Sage, Amlodipine, Hypertension Dc, Blood Pressure Dc, Blood Sugar Low Ch, BP Check Steps Admission Data Admit Date/Time: 07/17/19 01:10 Attending Provider: Jean Pierre Armendariz Admit Provider: Jose Angel Quiñones Primary Care Provider: Ramo Uribe V. Other Providers: Butch Najera ; Chioma Becerril ; Mikala Simpson ; Medhat Suazo Other Interventions: Discharge Summary Assessment (RN) Last Done: 07/21/19 14:52 DC Date/Time DO NOT enter until pt leaves facility: 07/21/19 16:26 Supervising Physician Co-Signing Physician Notes Patient seen and examined with PGY-1 Dr. Aragon. Agree with history, exam findings, assessment and plan of care as outlined. Mr. Walker is a 68 year old male with history of CKD admitted for pneumonia and also found to have worsening renal function. Pneumonia treated with levaquin QOD (renal dosing). He will complete a 7 day course of antibiotics. His blood pressure was a bit elevated. BP medications adjusted--increased metoprolol, added hydralazine. On discharge, his lasix dose was increased as well. Prior to discharge, he did undergo UF at dialysis. No issues. He is set up to continue HD as an outpatient in [place]. Discharge home today. I personally spent 25 minutes discharge planning for this patient. Resident Activity Tracking Resident Involvement: Resident Care Provided Care Provided: Adult Hospital Medicine
== END 2019-07-21 16:26 | disposition home or self-care (01) | DRG 194 ==
LOC: ED 21:39 → 2S 07-17 01:10 → SUATTDRO 07-17 01:10 → 2S 07-17 01:29

== ENCOUNTER 2020-05-24 07:36 | Inpatient (IN) ==
[2020-05-24] MEDS ORDERED: ONDANSETRON INJ 2 MG/ML 2 ML VIAL IV STA (07:55)
[2020-05-24 08:45] LABS: Basophils # (auto) 0.02 K/uL (0-0.2); Basophils % (auto) 0.4 %; Eosinophils # (auto) 0.09 K/uL (0-0.5); Eosinophils % (auto) 1.7 %; Hematocrit (blood only) 33.6 % (42-52); Hemoglobin 11.4 g/dL (14.0-18.0); Immature Granulocytes # (auto) 0.03 K/uL (0.00-0.02); Immature Granulocytes % (auto) 0.6 %; Lymphocytes # (auto) 1.19 K/uL (1.2-3.4); Lymphocytes % (auto) 22.9 %; Mean Corpuscular Hemoglobin 33.2 pg (25-34); Mean Corpuscular Hgb Conc 33.9 g/dL (32-36); Mean Platelet Volume 9.9 fL (7.4-10.4); Monocytes # (auto) 0.47 K/uL (0.11-0.59); Monocytes % (auto) 9.1 %; Neutrophils # (auto) 3.39 K/uL (1.4-6.5); Neutrophils % (auto) 65.3 %; Platelet Count 156 K/uL (130-400); RDW Coefficient of Variation 12.3 % (11.5-14.5); RDW Standard Deviation 43.7 fL (36.4-46.3); Red Blood Count 3.43 M/uL (4.7-6.1); White Blood Count 5.19 K/uL (4.8-10.8)
[2020-05-24] MEDS: HYDROmorphone INJ 0.5 MG/0.5 ML SYR IV PRN ×3 (08:45→21:44)
[2020-05-24 08:57] LABS: INR 1.1 (0.9-1.1); Partial Thromboplastin Ratio 1.2; Partial Thromboplastin Time 34.6 Seconds (21.0-31.0); Prothrombin Time 11.1 Seconds (9.0-12.0)
[2020-05-24 09:15] LABS: BUN Creatinine Ratio 7.5 (10-20); Calcium 9.5 mg/dl (8.5-10.1); Creatinine Clr Calc Pharmacy 16.6 ml/min; Est GFR (African American) 12.1; Est GFR (Non-African American) 10.4
--- NOTE | 2020-05-24 09:17 | XRay Report ---
SINGLE VIEW PELVIS; 2 VIEWS RIGHT FEMUR CLINICAL HISTORY: Fall. Right hip injury. FINDINGS: An AP, portable, supine view of the pelvis with AP and crosstable lateral views of the righ t femur are correlated with pelvic x-ray dated 12/01/2012. The skeletal structures are osteopenic. No fracture is identified involving the left hip or the bony pelvis. There is a minimally displaced frac ture through the right femoral neck with overlying soft tissue edema. The distal right femur appears intact. Mild to moderate degenerative joint space narrowing is seen in the hips. Mild sclerotic saba e is noted in the sacroiliac joints. Advanced atherosclerotic calcification is noted in the femoral a rteries. IMPRESSION: 1. Minimally displaced right femoral neck fracture. 2. No fracture is seen involving the left hip or the bony pelvis. Electronically signed by: Parth Davis M.D. 05/24/2020 9:16 AM
--- NOTE | 2020-05-24 09:17 | XRay Report ---
XR chest 1V portable HISTORY: 69 years-old Male Pt c/o Rt hip pain . Acute right-sided hip pain COMPARISON: Chest radiograph 07/19/2019, 07/10/2019. TECHNIQUE: Portable AP view of the chest FINDINGS: Cardiomediastinal and hilar silhouettes are within normal limits. Prior median sternotomy and CABG. N o pneumothorax, pleural effusion or overt pulmonary edema. Ill-defined right infrahilar opacity. Dege nerative changes of the shoulders and spine. IMPRESSION: Ill-defined right infrahilar opacity may reflect postinflammatory scarring. A subtle nons pecific pneumonitis could appear similarly. ACT 112: Negative or not required by law. The above report was generated using voice recognition software. It may contain grammatical, syntax o r spelling errors. Electronically signed by: Ezequiel Cevallos M.D. 05/24/2020 9:16 AM
--- NOTE | 2020-05-24 10:18 | History & Physical Report ---
Date of Service May 24, 2020 Assessment & Plan (1) Fall: Mechanical related to walking cast Planning for OR with Dr. Moya today PT/OT when able NPO COVID testing neg (done only as pre-op screening, pt without s/sx of COVID) (2) Diabetic peripheral neuropathy: (3) Dyslipidemia: continue home meds (4) History of diabetic ulcer of foot: Was to have MRI of L foot today to r/o osteo No current abx MRI L foot pending (5) PVD (peripheral vascular disease): (6) Hypertension: continue home meds (7) Central sleep apnea: Noncompliant with CPAP (8) S/P CABG x 5: Last aspirin dose was 12/3 in the afternoon Will hold further aspirin (9) ESRD on dialysis: with [facility] Renal c/s pending (10) Depression: continue home meds (11) Anemia: Baseline appears to be 10-12 Hb on admission 11.4 Holding iron (12) CKD (chronic kidney disease) stage 5, GFR less than 15 ml/min: As above (13) DVT prophylaxis: SCDs given pending OR status History of Present Illness Primary Care Provider: Ramo Uribe MD 69 y/o M who was brought to [facility] via ambulance after a fall. Pt was walking into a building for an MRI when he fell and landed on his R side. He did not hit his head. He states he has issues walking with his new cast and he feels it was related to this, but he may have also been a bit lightheaded prior. He did not pass out. He remembers falling. He has felt his usual otherwise. He has pain related to his R hip. He gets intermittent LE swelling. Pt denies fever, SOB, chest pain, abd pain, n/v/c/d. Pt has been working with [facility] for ongoing nonhealing L cellulitis. He was being sent for MRI of this to r/o osteomyelitis. He is not currently on abx. He also has more superficial R sided foot ulcerations. Allergies Allergy/AdvReac Type Severity Reaction Status Date / Time adhesive Allergy Mild itchy and Verified 05/24/20 08:47 rash Home Medications Medication Instructions Recorded Confirmed Type aspirin 81 mg tablet,delayed 81 mg PO DAILY 05/20/18 05/24/20 History release fluocinolone 0.025 % topical cream 1 appln TOP BID PRN 05/20/18 05/24/20 History ascorbic acid (vitamin C) 500 mg 500 mg PO DAILY cap 01/23/19 05/24/20 History capsule ferrous sulfate 325 mg (65 mg 325 mg PO DAILY tab 01/23/19 05/24/20 History iron) tablet mometasone 0.1 % topical ointment 1 appln TOPICAL BID PRN #1 gm 01/23/19 05/24/20 History insulin syringe-needle U-100 0.3 #10 ea 04/19/19 05/09/20 Rx mL 31 gauge x 11/03" glucagon (human recombinant) 1 mg 1 mg IM UD PRN ea 05/29/19 05/24/20 History solution for injection omeprazole 20 mg capsule,delayed 20 mg PO BID #60 cap 07/26/19 05/24/20 Rx release multivitamin 1 tab PO QAM 07/28/19 05/24/20 History pravastatin 40 mg PO QPM 07/28/19 05/24/20 History cholecalciferol (vitamin D3) 1,250 50,000 units PO MONTHLY #3 cap 09/04/19 05/24/20 Rx mcg (50,000 unit) capsule Contour Next Test Strips #400 ea NS 11/20/19 05/09/20 Rx vitamin B complex and vitamin C 1 cap PO DAILY 11/27/19 05/24/20 History no.20-folic acid 1 mg capsule insulin aspart U-100 100 unit/mL 80 units SQ UD ml 01/08/20 05/24/20 History subcutaneous solution citalopram 40 mg tablet 40 mg PO QAM #90 tab 01/22/20 05/24/20 Rx furosemide 40 mg tablet 40 mg PO BID #90 tab 02/06/20 05/24/20 Rx cadexomer iodine 1 applic TOPICAL DIRECTED PRN 03/06/20 05/24/20 History calcium acetate 667 mg tablet 667 mg PO BID tab 03/18/20 05/24/20 History colestipol 1 gram tablet 1 g PO Q2D #45 tab 05/06/20 05/24/20 Rx metoprolol succinate 25 mg 25 mg PO DAILY 11/19/20 12/04/20 History tablet,extended release 24 hr nortriptyline 10 mg capsule 10 mg PO HS #40 cap 05/10/20 05/24/20 Rx Past Med/Surg History Medical History (Updated 05/24/20 @ 11:30 by Matthew Moya DO) Abnormal echocardiogram reports abnormality detected upon evaluation for kidney transplant at [facility]. Renal transplant team wishes for pt to have cardiac cath before proceeding with transplant. plans to have a cath but cardio requiring dialysis before scheduling. pt started dialysis 1 week ago. recent echo at [place] 07/17/19 Anemia Arteriosclerosis of carotid artery ultrasound 06/2019 - no surgical intervention - monitoring - annual ultrasounds Arthritis Lyons's esophagus Lyons's esophagus CAD (coronary artery disease) Cerebrovascular disease Chest pain Degenerative disc disease Depression Diabetic nephropathy Dialysis patient started dialysis 1 week ago - fistula [facility] - [place], [place], [facility] - [facility] - FOLLOWS W/ DR. JACOB DM type 2 (diabetes mellitus, type 2) IDDM ESRD (end stage renal disease) [place] GERD (gastroesophageal reflux disease) Glaucoma Hemodialysis patient Hemoptysis Hemoptysis Herniated cervical disc Herniated intervertebral disc of lumbar spine Hiatal hernia History of basal cell carcinoma History of recent hospitalization [facility] - PNEUMONIA, PLEURAL EFFUSIONS, HEMOPTYSIS [place] (hard of hearing) HTN (hypertension) (07/25/13) Hyperlipidemia Hypertension Hypertensive urgency Insulin pump in place Left bundle-branch block Loss of sensation of skin Low back pain Macular degeneration Melena Melena Melena Osteoarthritis Peripheral vascular disease Pleural effusion Pneumonia Postural lightheadedness Proliferative diabetic retinopathy Right-sided lacunar infarction "old" per brain MRI 10/23/2016 - [place] Secondary hyperparathyroidism Sensorineural hearing loss (SNHL) of both ears Sleep apnea non compliant w/ CPAP Surgical History Fistula functioning LUE; non functioning Lt wrist History of cardiac cath 2013 [place] - ABN STRESS TEST - NO STENTS 2009 --> CABG History of cataract surgery History of colonoscopy History of coronary artery bypass graft 5 vessels - 2009 - [facility] - follows w/ Dr. Martinez History of detached retina repair History of esophagogastroduodenoscopy (EGD) History of eye surgery laser, injections History of hernia repair History of rotator cuff surgery History of spinal surgery lumbar History of tooth extraction Surgically constructed arteriovenous fistula Family History Family/Other Diabetes Coronary heart disease Brother Coronary heart disease Mother Diabetes Cardiac disorder Hypertension Aunt Breast cancer Other No family history of adverse response to anesthesia Denies family history of Crohn's disease Colorectal cancer Ulcerative colitis Social History Smoking Status: Never smoker Second Hand Exposure: No; Hx Alcohol Use: No Hx Substance Use: No Preferred Language: [place] Communication Ability: Effective Visual Impairment: Severely Limited Hearing Ability: Normal Cnc Programmer Required: No Beliefs That Will Affect Care: None marital status: Current Living Situation: Spouse current occupational status: retired Feels Safe at Home: Yes Seatbelt Use: always Assistive Devices: None Review of Systems Review of Systems: Pertinent positives and negatives reviewed in HPI--all others negative Physical Exam Constitutional: WD/WN, vitals as above + obese Eyes: normal visual grider by confrontation and + anicteric sclerae Neck: normal visual inspection and trachea midline Respiratory: normal respiratory effort, lungs clear to auscultation Cardiovascular: Rate/Rhythm: regular rate and regular rhythm Gastrointestinal (Abdomen): Inspection/Auscultation: abdomen not distended Percussion/Palpation: abdomen soft; abdomen nontender Musculoskeletal: Head/Neck/Chest: normocephalic and head atraumatic L LE is wrapped with a walking cast R LE is in a velcro cast Skin: no rashes, warm and dry Neurologic: awake; not confused Speech / Cognition: normal speech Psychiatric: A+Ox3, euthymic affect Results & Data Results & Data ([facility]) Vital Signs (Past 12 Hours) Vital Signs Temp Pulse Pulse Resp BP BP Pulse Ox 05/24/20 09:30 62 16 145/65 H 90 05/24/20 09:00 63 16 133/67 94 05/24/20 08:47 64 13 165/72 H 05/24/20 08:42 62 18 165/72 H 95 05/24/20 07:50 36.8 C 62 14 165/91 H 05/24/20 07:49 76 21 165/91 H Diagnostic Findings CXR: Ill-defined right infrahilar opacity may reflect postinflammatory scarring. A subtle nonspecific pneumonitis could appear similarly. R femur/pelvis XR: R femoral neck fx ECG Additional Comments: NSR Code Status & VTE Plan Code Status Full code VTE Prophylaxis Plan VTE Prophylaxis will be ordered: Yes PG Care Time/CCT Total # of Minutes Spent Total Time Spent with Patient: Total time spent is greater than 50% in coordination of care (as documented) at patient's floor/unit and/or counseling patient: Coding Level of Care Code 40707 Initial Inpt Care Lvl 3 Diagnoses Fall W19.XXXA Diabetic peripheral neuropathy E11.42 Dyslipidemia E78.5 History of diabetic ulcer of foot Z86.31 PVD (peripheral vascular disease) I73.9 Hypertension I10 Central sleep apnea G47.31 S/P CABG x 5 Z95.1 ESRD on dialysis N18.6; Z99.2 Depression F32.9 Anemia D64.9 CKD (chronic kidney disease) stage 5, GFR less than 15 ml/min N18.5 DVT prophylaxis Z29.9
--- NOTE | 2020-05-24 10:38 | Emergency Department Note ---
History of Present Illness General Chief complaint: Fall Time Seen by Provider: 05/24/20 07:39 Source: patient, EMS, RN notes reviewed and old records reviewed Mode of arrival: EMS Limitations: no limitations History of Present Illness Provider complaint: Right hip pain Onset (ago): hour(s) less than 1 Location: pelvis Radiation: extremity Severity: moderate Pain Consistency: + constant Maximum Pain Intensity: 8 Current Pain Intensity: 8 Quality: + aching Relieved By: + immobilization and + rest Exacerbated By: + movement Associated symptoms: + denies other symptoms; no chest pain, no diaphoresis, no fever/chills, no headaches, no loss of appetite, no malaise, no nausea/vomiting and no shortness of breath Treatments prior to arrival: none This is a 69-year-old male who presents emergency department complaining of right hip pain. The patient felt dizzy as he was getting an MRI for his foot. He stood up and fell hitting his left side on a wall. He then landed on his right hip. He is unable to move the right hip without severe pain. He describes the pain as a burning sensation radiating into his extremity. He reports moving the hip makes it worse however immobilization makes it better. He has not taken anything prior to arrival. Home Medications Medication Instructions Recorded Confirmed Type aspirin 81 mg tablet,delayed 81 mg PO DAILY 05/20/18 05/24/20 History release fluocinolone 0.025 % topical cream 1 appln TOP BID PRN 05/20/18 05/24/20 History ascorbic acid (vitamin C) 500 mg 500 mg PO DAILY cap 01/23/19 05/24/20 History capsule ferrous sulfate 325 mg (65 mg 325 mg PO DAILY tab 01/23/19 05/24/20 History iron) tablet mometasone 0.1 % topical ointment 1 appln TOPICAL BID PRN #1 gm 01/23/19 05/24/20 History insulin syringe-needle U-100 0.3 #10 ea 04/19/19 05/09/20 Rx mL 31 gauge x /16" glucagon (human recombinant) 1 mg 1 mg IM UD PRN ea 05/29/19 05/24/20 History solution for injection omeprazole 20 mg capsule,delayed 20 mg PO BID #60 cap 07/26/19 05/24/20 Rx release multivitamin 1 tab PO QAM 07/28/19 05/24/20 History pravastatin 40 mg PO QPM 07/28/19 05/24/20 History cholecalciferol (vitamin D3) 1,250 50,000 units PO MONTHLY #3 cap 09/04/19 05/24/20 Rx mcg (50,000 unit) capsule Contour Next Test Strips #400 ea NS 11/20/19 05/09/20 Rx vitamin B complex and vitamin C 1 cap PO DAILY 11/27/19 05/24/20 History no.20-folic acid 1 mg capsule insulin aspart U-100 100 unit/mL 80 units SQ UD ml 01/08/20 05/24/20 History subcutaneous solution citalopram 40 mg tablet 40 mg PO QAM #90 tab 01/22/20 05/24/20 Rx furosemide 40 mg tablet 40 mg PO BID #90 tab 02/06/20 05/24/20 Rx cadexomer iodine 1 applic TOPICAL DIRECTED PRN 03/06/20 05/24/20 History calcium acetate 667 mg tablet 667 mg PO BID tab 03/18/20 05/24/20 History colestipol 1 gram tablet 1 g PO Q2D #45 tab 05/06/20 05/24/20 Rx metoprolol succinate 25 mg 25 mg PO DAILY 05/09/20 05/24/20 History tablet,extended release 24 hr nortriptyline 10 mg capsule 10 mg PO HS #40 cap 05/10/20 05/24/20 Rx Allergies Allergy/AdvReac Type Severity Reaction Status Date / Time adhesive Allergy Mild itchy and Verified 05/24/20 08:47 rash Past Med/Surg History Medical History (Updated 05/24/20 @ 15:31 by Corey Padilla MD) Abnormal echocardiogram reports abnormality detected upon evaluation for kidney transplant at [facility]. Renal transplant team wishes for pt to have cardiac cath before proceeding with transplant. plans to have a cath but cardio requiring dialysis before scheduling. pt started dialysis 1 week ago. recent echo at [place] 07/17/19 Anemia Arteriosclerosis of carotid artery ultrasound 06/2019 - no surgical intervention - monitoring - annual ultrasounds Arthritis Lyons's esophagus Lyons's esophagus CAD (coronary artery disease) Cerebrovascular disease Chest pain Degenerative disc disease Depression Diabetic nephropathy Dialysis patient started dialysis 1 week ago - fistula [facility] - FOLLOWS W/ DR. JACOB DM type 2 (diabetes mellitus, type 2) IDDM ESRD (end stage renal disease) [place] GERD (gastroesophageal reflux disease) Glaucoma Hemodialysis patient Hemoptysis Hemoptysis Herniated cervical disc Herniated intervertebral disc of lumbar spine Hiatal hernia History of basal cell carcinoma History of recent hospitalization [facility] - PNEUMONIA, PLEURAL EFFUSIONS, HEMOPTYSIS [place] (hard of hearing) HTN (hypertension) (07/25/13) Hyperlipidemia Hypertension Hypertensive urgency Insulin pump in place Left bundle-branch block Loss of sensation of skin Low back pain Macular degeneration Melena Melena Melena Osteoarthritis Peripheral vascular disease Pleural effusion Pneumonia Postural lightheadedness Proliferative diabetic retinopathy Right-sided lacunar infarction "old" per brain MRI 10/23/2016 - [place] Secondary hyperparathyroidism Sensorineural hearing loss (SNHL) of both ears Sleep apnea non compliant w/ CPAP Surgical History Fistula functioning LUE; non functioning Lt wrist History of cardiac cath 2013 [place] - ABN STRESS TEST - NO STENTS 2009 - [place] --> CABG History of cataract surgery History of colonoscopy History of coronary artery bypass graft 5 vessels - 2009 - [facility] - follows w/ Dr. Martinez History of detached retina repair History of esophagogastroduodenoscopy (EGD) History of eye surgery laser, injections History of hernia repair History of rotator cuff surgery History of spinal surgery lumbar History of tooth extraction Surgically constructed arteriovenous fistula Family History Family/Other Diabetes Coronary heart disease Brother Coronary heart disease Mother Diabetes Cardiac disorder Hypertension Aunt Breast cancer Other No family history of adverse response to anesthesia Denies family history of Crohn's disease Colorectal cancer Ulcerative colitis Social History Smoking Status: Never smoker Second Hand Exposure: No; Do You Dip or Chew Tobacco: No; Tobacco Cessation Education Requested by Patient: No Hx Alcohol Use: No Hx Substance Use: No Preferred Language: Greek Communication Ability: Effective Visual Impairment: Severely Limited Hearing Ability: Normal Compliance Advisor Required: No Beliefs That Will Affect Care: None marital status: Current Living Situation: Spouse current occupational status: retired Other Information That Helps Us Care for You: No Feels Safe at Home: Yes Safety Concerns: Feels Safe At This Time Seatbelt Use: always Assistive Devices: None Review of Systems A total of 10 systems reviewed and were otherwise negative Physical Exam Vital Signs Vital Signs - 24 hr 05/24/20 07:49 05/24/20 07:50 05/24/20 08:42 Temperature 36.8 C Temperature Source Oral Pulse Rate 76 62 Pulse Rate [Left Finger] 62 Pulse Rate from SpO2 Sensor Pulse Rhythm Regular Pulse Rhythm [Left Finger] Regular Pulse Strength Normal Pulse Strength [Left Finger] Normal Respiratory Rate 21 14 18 Respiratory Effort / Characteristics Non-Labored Spontaneous Non-Labored Spontaneous Respiratory Depth Normal Normal Respiratory Pattern Regular Regular Blood Pressure 165/91 H 165/91 H Blood Pressure [Right Arm] 165/72 H Blood Pressure Mean 134 115 Blood Pressure Mean [Right Arm] 103 Blood Pressure Position Lying Blood Pressure Position [Right Arm] Lying Pulse Oximetry 95 Oxygen Delivery Method Room Air Sepsis Recent Fever Within 48 Hours Yes Sepsis New/Unexplained Change in Mental Status No Sepsis Action Taken by Nursing No Action Required 05/24/20 08:47 05/24/20 09:00 05/24/20 09:30 Temperature Temperature Source Pulse Rate 64 63 62 Pulse Rate [Left Finger] Pulse Rate from SpO2 Sensor 63 63 Pulse Rhythm Pulse Rhythm [Left Finger] Pulse Strength Pulse Strength [Left Finger] Respiratory Rate 13 16 16 Respiratory Effort / Characteristics Respiratory Depth Respiratory Pattern Blood Pressure 165/72 H 133/67 145/65 H Blood Pressure [Right Arm] Blood Pressure Mean 120 91 96 Blood Pressure Mean [Right Arm] Blood Pressure Position Blood Pressure Position [Right Arm] Pulse Oximetry 94 90 Oxygen Delivery Method Sepsis Recent Fever Within 48 Hours Sepsis New/Unexplained Change in Mental Status Sepsis Action Taken by Nursing 05/24/20 10:00 05/24/20 10:30 Temperature Temperature Source Pulse Rate 64 61 Pulse Rate [Left Finger] Pulse Rate from SpO2 Sensor 64 62 Pulse Rhythm Pulse Rhythm [Left Finger] Pulse Strength Pulse Strength [Left Finger] Respiratory Rate 20 16 Respiratory Effort / Characteristics Respiratory Depth Respiratory Pattern Blood Pressure 150/73 H 138/72 Blood Pressure [Right Arm] Blood Pressure Mean 114 98 Blood Pressure Mean [Right Arm] Blood Pressure Position Blood Pressure Position [Right Arm] Pulse Oximetry 95 94 Oxygen Delivery Method Sepsis Recent Fever Within 48 Hours Sepsis New/Unexplained Change in Mental Status Sepsis Action Taken by Nursing VITAL SIGNS - Vital signs and nursing notes were reviewed. GENERAL - 69-year-old male appearing stated age who is in no acute distress. Communicates well with provider and answers questions appropriately. SKIN - Without rashes. HEAD - NC/AT. EYES - PERRL with EOMI bilaterally. Sclera anicteric. Palpebral conjunctiva pink and moist with no injection noted. EARS - No deformities of external structures noted on gross examination bilaterally. No pain elicited with palpation of the tragus bilaterally. External auditory canals without discharge or otorrhea. Tympanic membranes pearly fraser without retraction or bulging. No fluid or purulent material visualized behind the TM. Handle of malleus, umbo, cone of light, pars tensa/flaccid all easily visualized. NOSE - Midline and without cyanosis. No epistaxis or purulent drainage noted. Septum midline without deviation or septal hematoma noted. MOUTH/OROPHARYNX - Without perioral cyanosis. Buccal mucosa pink and moist and without leukoplakia. Tongue midline with equal elevation of palate bilaterally. No tonsillar hypertrophy, erythema, or exudates noted. dentition noted. NECK - Neck with FROM. Supple to palpation. lymphadenopathy noted. No nuchal rigidity. LUNGS - Chest wall symmetric without accessory muscle use, intercostals retractions, or central cyanosis. Normal vesicular breath sounds CTA B/L. No wheezes, rales, or rhonchi appreciated. CARDIAC - RRR with S1/S2. No murmur, rubs, or gallops appreciated. ABDOMEN - Abdominal contour without pulsations or visible masses. BS normoactive all four quadrants. No tenderness, palpable masses, hepatosplenomegaly, or ascites noted. EXTREMITIES - Pt Rt leg in position of comfort. Neurovascularly intact at rt foot NEUROLOGIC - Cranial nerves II through XII grossly intact. Sensory intact to light touch throughout. Patellar reflexes +2/4. PSYCH - A&Ox3 and cooperates fully with examiner. Pt is very pleasant and interacts well with examiner. Course Administered Medications Hydromorphone HCl (Hydromorphone Inj 0.5 Mg/0.5 Ml Syr) 0.5 mg IV Q20M PRN PRN Reason: Severe Pain (Rating 7,8,9,10) Stop: 06/07/20 07:53 Last Admin: 05/24/20 10:44 Dose: 0.5 mg Documented by: [id number] Admin: 05/24/20 08:45 Dose: 0.5 mg Documented by: [id number] Insulin Aspart (Insulin Aspart 100 Units/Ml 3 Ml Pen) 0 units SC ACHS MARYJO Stop: 06/23/20 12:59 Last Admin: 05/24/20 13:30 Dose: Not Given Documented by: [id number] Cosigned by: [id number] Discontinued Medications Epinephrine HCl (Epinephrine Inj 1 Mg/Ml Amp) Confirm Administered Dose 1 mg .ROUTE .STK-MED ONE Stop: 05/24/20 12:25 Last Admin: 05/24/20 15:02 Dose: 0.15 mg Documented by: [id number] Cefazolin Sodium (Ancef 2000mg) 2,000 mg in 15 mls @ 3.75 mls/min IV ONCE ONE Stop: 05/24/20 15:02 Last Admin: 05/24/20 14:30 Dose: 3.75 mls/min Documented by: [id number] Ondansetron HCl (Ondansetron Inj 2 Mg/Ml 2 Ml Vial) 4 mg IV NOW STA Stop: 05/24/20 07:56 Last Admin: 05/24/20 08:45 Dose: 4 mg Documented by: [id number] Thrombin (Thrombin For Soln 76259 Unit Kit) Confirm Administered Dose 20,000 units .ROUTE .STK-MED ONE Stop: 05/24/20 12:26 Last Admin: 05/24/20 15:02 Dose: Not Given Documented by: [id number] Vancomycin HCl (Vancomycin Hcl 1000mg/20ml Vial) Confirm Administered Dose 50 mg .ROUTE .STK-MED ONE Stop: 05/24/20 14:31 Last Admin: 05/24/20 15:01 Dose: 1,000 mg Documented by: [id number] Medical Decision Making Differential Diagnosis Fracture, dislocation, contusion, intra-abdominal, pneumothorax, intrathoracic, intracranial, neurologic, compartment syndrome, rhabdomyolysis, as well as other pathologies. Medical Records Attestation: I reviewed the patient's medical records. Home Medications Current Medication List: was personally reviewed by me Laboratory Data Attestation: I reviewed the patient's lab results. Result diagrams: 05/24/20 08:11 05/24/20 08:11 Lab Results 05/24/20 05/24/20 05/24/20 Range/Units 08:11 08:11 08:11 WBC 5.19 (4.8-10.8) K/uL RBC 3.43 L (4.7-6.1) M/uL Hgb 11.4 L (14.0-18.0) g/dL Hct 33.6 L (42-52) % MCV 98.0 (80-100) fL MCH 33.2 (25-34) pg MCHC 33.9 (32-36) g/dL RDW Std Deviation 43.7 (36.4-46.3) fL RDW Coeff of Kyara 12.3 (11.5-14.5) % Plt Count 156 (130-400) K/uL MPV 9.9 (7.4-10.4) fL Immature Gran % (Auto) 0.6 % Neut % (Auto) 65.3 % Lymph % (Auto) 22.9 % Travis % (Auto) 9.1 % Eos % (Auto) 1.7 % Baso % (Auto) 0.4 % Neut # (Auto) 3.39 (1.4-6.5) K/uL Lymph # (Auto) 1.19 L (1.2-3.4) K/uL Travis # (Auto) 0.47 (0.11-0.59) K/uL Eos # (Auto) 0.09 (0-0.5) K/uL Baso # (Auto) 0.02 (0-0.2) K/uL Immature Gran # (Auto) 0.03 H (0.00-0.02) K/uL PT 11.1 (9.0-12.0) Seconds INR 1.1 (0.9-1.1) APTT 34.6 H (21.0-31.0) Seconds PTT Ratio 1.2 Sodium 139 (136-145) mmol/L Potassium 5.0 (3.5-5.1) mmol/L Chloride 101 (98-107) mmol/L Carbon Dioxide 32 (21-32) mmol/L Anion Gap 6.0 (3-11) BUN 39 H (7-18) mg/dl Creatinine 5.17 H* (0.6-1.4) mg/dl Est Cr Clr Drug Dosing 16.6 ml/min Est GFR ( Amer) 12.1 Est GFR (Non-Af Amer) 10.4 BUN/Creatinine Ratio 7.5 L (10-20) Glucose 125 H (70-99) mg/dl Calcium 9.5 (8.5-10.1) mg/dl SARS-CoV-2 Ag (Rapid) (Negative) 05/24/20 Range/Units 09:50 WBC (4.8-10.8) K/uL RBC (4.7-6.1) M/uL Hgb (14.0-18.0) g/dL Hct (42-52) % MCV (80-100) fL MCH (25-34) pg MCHC (32-36) g/dL RDW Std Deviation (36.4-46.3) fL RDW Coeff of Kyara (11.5-14.5) % Plt Count (130-400) K/uL MPV (7.4-10.4) fL Immature Gran % (Auto) % Neut % (Auto) % Lymph % (Auto) % Travis % (Auto) % Eos % (Auto) % Baso % (Auto) % Neut # (Auto) (1.4-6.5) K/uL Lymph # (Auto) (1.2-3.4) K/uL Travis # (Auto) (0.11-0.59) K/uL Eos # (Auto) (0-0.5) K/uL Baso # (Auto) (0-0.2) K/uL Immature Gran # (Auto) (0.00-0.02) K/uL PT (9.0-12.0) Seconds INR (0.9-1.1) APTT (21.0-31.0) Seconds PTT Ratio Sodium (136-145) mmol/L Potassium (3.5-5.1) mmol/L Chloride (98-107) mmol/L Carbon Dioxide (21-32) mmol/L Anion Gap (3-11) BUN (7-18) mg/dl Creatinine (0.6-1.4) mg/dl Est Cr Clr Drug Dosing ml/min Est GFR ( Amer) Est GFR (Non-Af Amer) BUN/Creatinine Ratio (10-20) Glucose (70-99) mg/dl Calcium (8.5-10.1) mg/dl SARS-CoV-2 Ag (Rapid) Negative (Negative) Imaging Data Radiologist's Impression: [facility], [id number] XRay Report Patient: JORDAN TAYLOR Date: 05/24/20MR#: [id number]: [address]Acct ID:[id number]: [id number] Date: 1950 Zip: [place] [id number]: 69Location: EDSex: MRoom/Bed:Att Phy:Diagnosis: FALLPri Phy: RV. Elizabeth, MDService Date: 05/24/20Fa Phy:Interpreting Phy: Parth Davis MDAdmit Phy: Ordering Phy: Corey Padilla MD cc: ~ SINGLE VIEW PELVIS; 2 VIEWS RIGHT FEMUR CLINICAL HISTORY: Fall. Right hip injury. FINDINGS: An AP, portable, supine view of the pelvis with AP and crosstable lateral views of the right femur are correlated with pelvic x-ray dated 12/01/2012. The skeletal structures are osteopenic. No fracture is identified involving the left hip or the bony pelvis. There is a minimally displaced fracture through the right femoral neck with overlying soft tissue edema. The distal right femur appears intact. Mild to moderate degenerative joint space narrowing is seen in the hips. Mild sclerotic change is noted in the sacroiliac joints. Advanced atherosclerotic calcification is noted in the femoral arteries. IMPRESSION: 1. Minimally displaced right femoral neck fracture. 2. No fracture is seen involving the left hip or the bony pelvis. Electronically signed by: Parth Davis M.D. 05/24/2020 9:16 AM Dictated: 05/24/20 0914Transcribed: 05/24/20 0914 [facility], [id number] XRay Report Patient: JORDAN TAYLOR Date: 05/24/20MR#: [id number]: [address]Acct ID:[id number]: [id number] RDB[address] Date: 1950Ci Zip: [place] [id number]: 69Location: EDSex: MRoom/Bed:Att Phy:Diagnosis: FALLPri Phy: RV. Elizabeth, MDService Date: 05/24/20Fam Phy:Interpreting Phy: Parth Davis MDAit Phy: Ordering Phy: Corey Padilla MD cc: ~ SINGLE VIEW PELVIS; 2 VIEWS RIGHT FEMUR CLINICAL HISTORY: Fall. Right hip injury. FINDINGS: An AP, portable, supine view of the pelvis with AP and crosstable lateral views of the right femur are correlated with pelvic x-ray dated 12/01/2012. The skeletal structures are osteopenic. No fracture is identified involving the left hip or the bony pelvis. There is a minimally displaced fracture through the right femoral neck with overlying soft tissue edema. The distal right femur appears intact. Mild to moderate degenerative joint space narrowing is seen in the hips. Mild sclerotic change is noted in the sacroiliac joints. Advanced atherosclerotic calcification is noted in the femoral arteries. IMPRESSION: 1. Minimally displaced right femoral neck fracture. 2. No fracture is seen involving the left hip or the bony pelvis. Electronically signed by: Parth Davis M.D. 05/24/2020 9:16 AM Dictated: 05/24/20913Transcribed: 05/24/20913 [facility], [id number] XRay Report Patient: JORDAN TAYLOR Date: 05/24/20#: [id number]: [address] Acct ID:[id number]: [id number] RDB[address] Date: 1950[facility] Zip: [place], [place] [address]Zcz: 69Location: EDSex: MRoom/Bed:Att Phy:Diagnosis: FALLPri Phy: Elizabeth RV., MDService Date: 05/24/20Fam Phy:Interpreting Phy: Darryl CevallosAdm Phy: Ordering Phy: Corey Padilla MD cc: ~ XR chest 1V portable HISTORY: 69 years-old Male Pt c/o Rt hip pain . Acute right-sided hip pain COMPARISON: Chest radiograph 07/19/2019, 07/10/2019. TECHNIQUE: Portable AP view of the chest FINDINGS: Cardiomediastinal and hilar silhouettes are within normal limits. Prior median sternotomy and CABG. No pneumothorax, pleural effusion or overt pulmonary edema. Ill-defined right infrahilar opacity. Degenerative changes of the shoulders and spine. IMPRESSION: Ill-defined right infrahilar opacity may reflect postinflammatory scarring. A subtle nonspecific pneumonitis could appear similarly. ACT 112: Negative or not required by law. The above report was generated using voice recognition software. It may contain grammatical, syntax or spelling errors. Electronically signed by: Ezequiel Cevallos M.D. 05/24/2020 9:16 AM Dictated: 05/24/20913Transcribed: 05/24/20913 ECG Data Attestation: I personally reviewed and interpreted this ECG as follows: Indication: + other Rate (beats per minute): 63 Rhythm: + normal sinus ECG Intervals/blocks: + Normal QT-c (487) ECG [place]: + Left axis deviation ECG ST segments: no ST depression and no ST elevation Comparison ECG Date: from (07/16/2019) Change: the following changes noted (PVCs no longer present) MDM Narrative Patient was seen and evaluated as above in room C3. Review was performed of nursing notes and vital signs. I did review pertinent previous visits and patient history. After obtaining a thorough history and physical examination the above work up was performed. This is a 69-year-old male who presents emergency department complaining of right hip pain. Patient was sent for x-ray and does have a right hip fracture. Because of this I did discuss the case with orthopedics. Patient has significant comorbidities including the fact that he is on dialysis based on this I did discuss the case with the hospitalist service who did agree to admit the patient. Patient was given Dilaudid here for his pain. Repeat examination revealed improvement the patient's symptoms. An order was placed for continuous cardiac monitoring. The monitor shows a rate of 62 with Normal SInus rhythm. The patient was evaluated during a period of high volume and high acuity while the hospital was at overcapacity during the global COVID-19 pandemic, and that diagnosis was suspected/considered upon their initial presentation. Their evaluation, treatment and testing was consistent with current guidelines for patients who present with complaints or symptoms that may be related to COVID- 19. Impression & Plan Fall, Displaced fracture of right femoral neck, ESRD on dialysis Discharge Plan Visit Data Chief Complaint: Fall ED Provider: Corey Padilla ED Midlevel Provider: Rosendo Pierce Discharge Problem: Fall, Displaced fracture of right femoral neck, ESRD on dialysis Patient Disposition: Admitted As Inpatient Discharge Instructions Interventions: ED Discharge Assessment Last Done: 05/24/20 12:20 Discharge Problem: Fall Qualifiers: Encounter type: initial encounter Qualified Code(s): W19.XXXA - Unspecified fall, initial encounter
--- NOTE | 2020-05-24 11:31 | Orthopedic Consultation ---
Date of Consultation May 24, 2020 Assessment & Plan (1) Displaced fracture of right femoral neck: He is currently n.p.o. We plan to take him to the operating room later today for a right hip hemiarthroplasty. He understands the risks, benefits, and alternatives procedure is elected to proceed. He is a high risk for joint replacement surgery due to his diabetes and dialysis treatment. Present on Admission?: Yes History of Present Illness Reason for Consultation: Right femoral neck fracture Attending Physician: Dr. Matthew Moya History of Present Illness Yousif is a pleasant 69-year-old male who is currently on dialysis. He is a diabetic and he has a small nonhealing ulcer on his left foot. He has been treated at wound care. He was going to get an MRI of his left foot to make sure that it was not extending towards the bone. While he was going to get the MRI deion e tripped and fell and landed on his right hip. He had immediate pain. He came to the hospital. Radiographs demonstrated a minimally displaced right femoral neck fracture. He is being admitted to the medical service. Because his dialysis regimen requires 4 hours of dialysis tomorrow, we would like to fix his hip today if possible. Allergies Allergy/AdvReac Type Severity Reaction Status Date / Time adhesive Allergy Mild itchy and Verified 05/24/20 08:47 rash Home Medications Medication Instructions Recorded Confirmed Type aspirin 81 mg tablet,delayed 81 mg PO DAILY 05/20/18 05/24/20 History release fluocinolone 0.025 % topical cream 1 appln TOP BID PRN 05/20/18 05/24/20 History ascorbic acid (vitamin C) 500 mg 500 mg PO DAILY cap 01/23/19 05/24/20 History capsule ferrous sulfate 325 mg (65 mg 325 mg PO DAILY tab 01/23/19 05/24/20 History iron) tablet mometasone 0.1 % topical ointment 1 appln TOPICAL BID PRN #1 gm 01/23/19 05/24/20 History insulin syringe-needle U-100 0.3 #10 ea 04/19/19 05/09/20 Rx mL 31 gauge x 5/16" glucagon (human recombinant) 1 mg 1 mg IM UD PRN ea 05/29/19 05/24/20 History solution for injection omeprazole 20 mg capsule,delayed 20 mg PO BID #60 cap 07/26/19 05/24/20 Rx release multivitamin 1 tab PO QAM 07/28/19 05/24/20 History pravastatin 40 mg PO QPM 07/28/19 05/24/20 History cholecalciferol (vitamin D3) 1,250 50,000 units PO MONTHLY #3 cap 09/04/19 05/24/20 Rx mcg (50,000 unit) capsule Contour Next Test Strips #400 ea NS 11/20/19 05/09/20 Rx vitamin B complex and vitamin C 1 cap PO DAILY 11/27/19 05/24/20 History no.20-folic acid 1 mg capsule insulin aspart U-100 100 unit/mL 80 units SQ UD ml 01/08/20 05/24/20 History subcutaneous solution citalopram 40 mg tablet 40 mg PO QAM #90 tab 01/22/20 05/24/20 Rx furosemide 40 mg tablet 40 mg PO BID #90 tab 02/06/20 05/24/20 Rx cadexomer iodine 1 applic TOPICAL DIRECTED PRN 03/06/20 05/24/20 History calcium acetate 667 mg tablet 667 mg PO BID tab 03/18/20 05/24/20 History colestipol 1 gram tablet 1 g PO Q2D #45 tab 05/06/20 05/24/20 Rx metoprolol succinate 25 mg 25 mg PO DAILY 05/09/20 05/24/20 History tablet,extended release 24 hr nortriptyline 10 mg capsule 10 mg PO HS #40 cap 05/10/20 05/24/20 Rx Patient History Medical History (Updated 05/24/20 @ 11:30 by Matthew Moya DO) Abnormal echocardiogram reports abnormality detected upon evaluation for kidney transplant at [facility]. Renal transplant team wishes for pt to have cardiac cath before proceeding with transplant. plans to have a cath but cardio requiring dialysis before scheduling. pt started dialysis 1 week ago. recent echo at [place] 07/17/19 Anemia Arteriosclerosis of carotid artery ultrasound 06/2019 - no surgical intervention - monitoring - annual ultrasounds Arthritis Lyons's esophagus Lyons's esophagus CAD (coronary artery disease) Cerebrovascular disease Chest pain Degenerative disc disease Depression Diabetic nephropathy Dialysis patient started dialysis 1 week ago - fistula [facility] QUE[facility], [facility] - [facility] - FOLLOWS W/ DR. JACOB DM type 2 (diabetes mellitus, type 2) IDDM ESRD (end stage renal disease) Frostbite GERD (gastroesophageal reflux disease) Glaucoma Hemodialysis patient Hemoptysis Hemoptysis Herniated cervical disc Herniated intervertebral disc of lumbar spine Hiatal hernia History of basal cell carcinoma History of recent hospitalization [facility] - PNEUMONIA, PLEURAL EFFUSIONS, HEMOPTYSIS [place] [facility] [place] (hard of hearing) HTN (hypertension) (07/25/13) Hyperlipidemia Hypertension Hypertensive urgency Insulin pump in place Left bundle-branch block Loss of sensation of skin Low back pain Macular degeneration Melena Melena Melena Osteoarthritis Peripheral vascular disease Pleural effusion Pneumonia Postural lightheadedness Proliferative diabetic retinopathy Right-sided lacunar infarction "old" per brain MRI 10/23/2016 - [place] Secondary hyperparathyroidism Sensorineural hearing loss (SNHL) of both ears Sleep apnea non compliant w/ CPAP Surgical History Fistula functioning LUE; non functioning Lt wrist History of cardiac cath 2013 [place] - ABN STRESS TEST - NO STENTS 2009 - [place] --> CABG History of cataract surgery History of colonoscopy History of coronary artery bypass graft 5 vessels - 2009 - [facility] - follows w/ Dr. Martinez History of detached retina repair History of esophagogastroduodenoscopy (EGD) History of eye surgery laser, injections History of hernia repair History of rotator cuff surgery History of spinal surgery lumbar History of tooth extraction Surgically constructed arteriovenous fistula Family History Family/Other Diabetes Coronary heart disease Brother Coronary heart disease Mother Diabetes Cardiac disorder Hypertension Aunt Breast cancer Other No family history of adverse response to anesthesia Denies family history of Crohn's disease Colorectal cancer Ulcerative colitis Social History Smoking Status: Never smoker Second Hand Exposure: No; Hx Alcohol Use: No Hx Substance Use: No Preferred Language: Kiswahili Communication Ability: Effective Visual Impairment: Severely Limited Hearing Ability: Normal Train Control Technician Required: No Beliefs That Will Affect Care: None marital status: Current Living Situation: Spouse current occupational status: retired Feels Safe at Home: Yes Seatbelt Use: always Assistive Devices: None Review of Systems Review of Systems: All systems reviewed & are unremarkable except as noted in HPI & below Physical Exam Constitutional: WD/WN, vitals as above Eyes: PERRL, conjunctivae normal, anicteric sclerae ENMT: external ear and nose normal, oropharynx normal Neck: trachea midline, no thyromegaly Respiratory: normal respiratory effort Cardiovascular: RRR, no murmur, no edema Gastrointestinal (Abdomen): normal bowel sounds, soft, nontender, no hepatosplenomegaly Musculoskeletal: Physical examination of the right hip, he has significant pain with logroll the right hip. The skin looks good. There are no abrasions lesions or lacerations of the skin. Psychiatric: A+Ox3, euthymic affect Results & Data ([facility]) Vital Signs (Past 12 Hours) Vital Signs Temp Pulse Pulse Resp BP BP Pulse Ox 05/24/20 09:30 62 16 145/65 H 90 05/24/20 09:00 63 16 133/67 94 05/24/20 08:47 64 13 165/72 H 05/24/20 08:42 62 18 165/72 H 95 05/24/20 07:50 36.8 C 62 14 165/91 H 05/24/20 07:49 76 21 165/91 H Diagnostic Findings X-rays of the right hip do show a moderately displaced fracture of the right femoral neck. PG Care Time/CCT Total # of Minutes Spent Total Time Spent with Patient: Total time spent is greater than 50% in coordination of care (as documented) at patient's floor/unit and/or counseling patient: Coding Level of Care Code 95719 Inpt Consult Level 5 Diagnoses Displaced fracture of right femoral neck S72.001A
--- NOTE | 2020-05-24 12:03 | Emergency Department Note ---
ED Visit Note I saw this patient today and discussed my findings w/ Dr. Padilla who has examined the patient independently. Please see his documentation for assessment and plan. .
[2020-05-24] MEDS ORDERED: BUPIVACAINE 0.5 % 5 MG/1 ML MPF 30ML VIAL ONE (12:24)
[2020-05-24] MEDS ORDERED: EPINEPHrine INJ 1 MG/ML AMP ONE (12:24)
[2020-05-24] MEDS ORDERED: BACITRACIN INJ 50,000 UNIT VIAL ONE (12:25)
[2020-05-24] MEDS ORDERED: THROMBIN FOR SOLN 20000 UNIT KIT ONE (12:25)
[2020-05-24] MEDS ORDERED: LIDOCAINE HCL 2% 2 ML VIAL/AMP(20MG/ML) INFIL ONE ×2 (12:32→12:33)
[2020-05-24] MEDS ORDERED: PROPOFOL IV EMULSION 10 MG/ML 20 ML VIAL IV ONE ×2 (12:32→12:33)
[2020-05-24] MEDS ORDERED: ONDANSETRON INJ 2 MG/ML 2 ML VIAL ONE ×2 (12:32→16:05)
[2020-05-24] MEDS ORDERED: KETAMINE 50 MG/5 ML SYRINGE ONE ×3 (12:32→14:13)
[2020-05-24] MEDS ORDERED: MIDAZOLAM HCL 1 MG/ML 2ML VIAL ONE ×2 (12:32→12:33)
[2020-05-24] MEDS ORDERED: fentaNYL citrate 100 MCG/2 ML VIAL ONE (12:33)
[2020-05-24] MEDS ORDERED: GLUCOSE 40% GEL 15 GM TUBE PO PRN (12:36)
[2020-05-24] MEDS ORDERED: GLUCOSE 10 TABS/TUBE PO PRN (12:36)
[2020-05-24] MEDS ORDERED: GLUCAGON FOR INJ 1 MG VIAL SQ PRN (12:36)
[2020-05-24] MEDS ORDERED: MOMETASONE FUROATE 0.1% OINT 15 GM TUBE EXT PRN (12:36)
[2020-05-24] MEDS ORDERED: CARBOHYDRATES FOR HYPOGLYCEMIA PO PRN (12:36)
[2020-05-24] MEDS ORDERED: DEXTROSE 50% 50 ML SYRINGE IV PRN (12:36)
--- NOTE | 2020-05-24 12:59 | Electrocardiogram Report ---
Test Reason : Blood Pressure : / mmHG Vent. Rate : 063 BPM Atrial Rate : 063 BPM P-R Int : 192 ms QRS Dur : 150 ms QT Int : 476 ms P-R-T Axes : 049 -65 099 degrees QTc Int : 487 ms Normal sinus rhythm Left axis deviation Non-specific intra-ventricular conduction block Abnormal ECG When compared with ECG of 16-JUL-2019 21:49, Premature ventricular complexes are no longer Present QRS axis Shifted left Confirmed by Vignesh Albert ([id number]) on 05/24/2020 12:59:30 PM Referred By: Confirmed By:Jonathan Albert
[2020-05-24] MEDS ORDERED: PROMETHAZINE HCL 12.5 MG in SODIUM CHLORIDE 0.9% 50 ML IV PRN (13:17)
[2020-05-24] MEDS ORDERED: METOCLOPRAMIDE HCL INJ 5 MG/ML 2 ML VIAL IV PRN (13:17)
[2020-05-24] MEDS ORDERED: ONDANSETRON INJ 2 MG/ML 2 ML VIAL IV PRN (13:17)
[2020-05-24] MEDS ORDERED: ATROPINE SULFATE 0.1 MG/ML 10ML SYR IV PRN (13:17)
[2020-05-24] MEDS ORDERED: HYDROmorphone INJ 2 MG/ML SYR/VIAL IV PRN (13:17)
[2020-05-24] MEDS ORDERED: ePHEDrine sulfate 50 MG/ML AMP IV PRN (13:17)
[2020-05-24] MEDS ORDERED: fentaNYL citrate 100 MCG/2 ML VIAL IV PRN (13:17)
--- NOTE | 2020-05-24 13:17 | Anesthesiology Consultation ---
Date of Service May 24, 2020 Assessment & Plan Chart Review Chart Review: Acceptable Risk for Surgery Consults Requested none ASA ASA4 Proposed Anesthesia Anesthesia Type: MAC Spinal History Surgery Operation Date: 05/24/20 14:00 Proposed Procedures p Right Hip Hemiarthroplasty - Cedrick Carr MD Height/Weight Height: 6 ft Weight: 104.1 kg Allergies Allergy/AdvReac Type Severity Reaction Status Date / Time adhesive Allergy Mild itchy and Verified 05/24/20 08:47 rash Medications Home Medications Medication Instructions Recorded Confirmed Last Taken aspirin 81 mg tablet,delayed 81 mg PO DAILY 05/20/18 05/24/20 05/23/20 release fluocinolone 0.025 % topical cream 1 appln TOP BID PRN 05/20/18 05/24/20 05/23/20 ascorbic acid (vitamin C) 500 mg 500 mg PO DAILY cap 01/23/19 05/24/20 05/23/20 capsule ferrous sulfate 325 mg (65 mg 325 mg PO DAILY tab 01/23/19 05/24/20 05/23/20 iron) tablet mometasone 0.1 % topical ointment 1 appln TOPICAL BID PRN #1 gm 01/23/19 05/24/20 05/23/20 insulin syringe-needle U-100 0.3 #10 ea 04/19/19 05/09/20 Unknown mL 31 gauge x 5/16" glucagon (human recombinant) 1 mg 1 mg IM UD PRN ea 05/29/19 05/24/20 Unknown solution for injection omeprazole 20 mg capsule,delayed 20 mg PO BID #60 cap 07/26/19 05/24/20 05/23/20 release multivitamin 1 tab PO QAM 07/28/19 05/24/20 05/23/20 pravastatin 40 mg PO QPM 07/28/19 05/24/20 05/23/20 cholecalciferol (vitamin D3) 1,250 50,000 units PO MONTHLY #3 cap 09/04/19 05/24/20 05/17/20 mcg (50,000 unit) capsule Contour Next Test Strips #400 ea NS 11/20/19 05/09/20 Unknown vitamin B complex and vitamin C 1 cap PO DAILY 11/27/19 05/24/20 05/23/20 no.20-folic acid 1 mg capsule insulin aspart U-100 100 unit/mL 80 units SQ UD ml 07/20/20 12/04/20 12/04/20 subcutaneous solution citalopram 40 mg tablet 40 mg PO QAM #90 tab 01/22/20 05/24/20 05/23/20 furosemide 40 mg tablet 40 mg PO BID #90 tab 02/06/20 05/24/20 05/23/20 cadexomer iodine 1 applic TOPICAL DIRECTED PRN 03/06/20 05/24/20 Unknown calcium acetate 667 mg tablet 667 mg PO BID tab 03/18/20 05/24/20 05/23/20 colestipol 1 gram tablet 1 g PO Q2D #45 tab 05/06/20 05/24/20 05/23/20 metoprolol succinate 25 mg 25 mg PO DAILY 05/09/20 05/24/20 05/23/20 tablet,extended release 24 hr nortriptyline 10 mg capsule 10 mg PO HS #40 cap 05/10/20 05/24/20 05/23/20 Active Medications Generic Name Dose Route Start Last Admin Trade Name Freq PRN Reason Stop Dose Admin Hydromorphone HCl 0.5 mg 05/24/20 07:54 05/24/20 10:44 Hydromorphone Inj 0.5 Mg/0.5 Ml Syr IV 06/07/20 07:53 0.5 mg Q20M PRN Administration Severe Pain (Rating 7,8,9,10) NPO Date Last Intake of Fluids: 05/24/20 Time Last Intake of Fluids: 18:00 Date Last Intake of Solids: 05/24/20 Time Last Intake of Solids: 18:00 Past Medical History Medical History Abnormal echocardiogram reports abnormality detected upon evaluation for kidney transplant at [facility]. Renal transplant team wishes for pt to have cardiac cath before proceeding with transplant. plans to have a cath but cardio requiring dialysis before scheduling. pt started dialysis 1 week ago. recent echo at [place] 07/17/19 Anemia Arteriosclerosis of carotid artery ultrasound 06/2019 - no surgical intervention - monitoring - annual ultrasounds Arthritis Lyons's esophagus Lyons's esophagus CAD (coronary artery disease) Cerebrovascular disease Chest pain Degenerative disc disease Depression Diabetic nephropathy Dialysis patient started dialysis 1 week ago - fistula [facility] - [facility] - [facility] - FOLLOWS W/ DR. JACOB DM type 2 (diabetes mellitus, type 2) IDDM ESRD (end stage renal disease) Frostbite GERD (gastroesophageal reflux disease) Glaucoma Hemodialysis patient Hemoptysis Hemoptysis Herniated cervical disc Herniated intervertebral disc of lumbar spine Hiatal hernia History of basal cell carcinoma History of recent hospitalization [facility] - PNEUMONIA, PLEURAL EFFUSIONS, [place]OPTYSIS [place] (hard of hearing) HTN (hypertension) (07/25/13) Hyperlipidemia Hypertension Hypertensive urgency Insulin pump in place Left bundle-branch block Loss of sensation of skin Low back pain Macular degeneration Melena Melena Melena Osteoarthritis Peripheral vascular disease Pleural effusion Pneumonia Postural lightheadedness Proliferative diabetic retinopathy Right-sided lacunar infarction "old" per brain MRI 10/23/2016 [place] Secondary hyperparathyroidism Sensorineural hearing loss (SNHL) of both ears Sleep apnea non compliant w/ CPAP Past Family History Family History Family/Other Diabetes Coronary heart disease Brother Coronary heart disease Mother Diabetes Cardiac disorder Hypertension Aunt Breast cancer Other No family history of adverse response to anesthesia Denies family history of Crohn's disease Colorectal cancer Ulcerative colitis Past Surgical History Surgical History Fistula functioning LUE; non functioning Lt wrist History of cardiac cath 2013 [place] ABN STRESS TEST - NO STENTS 2009 [place] CABG History of cataract surgery History of colonoscopy History of coronary artery bypass graft 5 vessels - 2009 - [facility] - follows w/ Dr. Martinez History of detached retina repair History of esophagogastroduodenoscopy (EGD) History of eye surgery laser, injections History of hernia repair History of rotator cuff surgery History of spinal surgery lumbar History of tooth extraction Surgically constructed arteriovenous fistula Social History Smoking Status: Never smoker Do You Dip or Chew Tobacco: No Hx Alcohol Use: No Hx Substance Use: No substance use type: does not use Physical Exam Vital Signs Last Vital Signs Temp 36.3 C L 05/24/20 12:59 Pulse 66 05/24/20 12:59 Resp 20 05/24/20 12:59 BP 168/69 H 05/24/20 12:59 Pulse Ox 95 05/24/20 12:59 Testing Laboratory Results 05/24/20 08:11 05/24/20 08:11 PT 11.1 Seconds (9.0-12.0) 05/24/20 08:11 INR 1.1 (0.9-1.1) 05/24/20 08:11 APTT 34.6 Seconds (21.0-31.0) H 05/24/20 08:11 05/24/20 12:33 POC Glucose 140 H
[2020-05-24] MEDS: INSULIN ASPART 100 UNITS/ML 3 ML PEN SC SCH ×3 (13:30→21:23)
--- NOTE | 2020-05-24 13:56 | History & Physical Bridge Note ---
Date of Service May 24, 2020 History & Physical Bridge Note I have examined the patient, reviewed the History & Physical and in the interval since the performance of the History & Physical I have noted the following changes of clinical significance: no changes noted
[2020-05-24] MEDS ORDERED: BUPIVACAINE 0.5 % 5 MG/1 ML PF 10ML VIAL ONE (14:02)
[2020-05-24] MEDS ORDERED: PHARMACY GLYCEMIC MGMT CONSULT PRN (14:03)
[2020-05-24] MEDS ORDERED: BUPIVACAINE/EPINEPHRINE 0.5% MPF 1:200,000 30 ML VIAL ONE (14:19)
[2020-05-24] MEDS ORDERED: VANCOMYCIN HCL 1000MG/20ML VIAL ONE (14:30)
[2020-05-24] MEDS ORDERED: ceFAZolin 2000MG 2,000 MG/15 ML SYR IV ONE (14:59)
[2020-05-24] MEDS ORDERED: ePHEDrine sulfate 50 MG/ML SYR ONE (16:05)
[2020-05-24] MEDS ORDERED: PHENYLEPHRINE HCL 10 MG/ML VIAL ONE (16:05)
--- NOTE | 2020-05-24 16:15 | Post Operative Brief Note ---
PG Immediate Post Op with CF Date of Surgery May 24, 2020 Pre & Post Diagnosis Operation Date: 05/24/20 14:00 Pre-Op Diagnosis: Right displaced femoral neck/hip fracture Post-Op Diagnosis: Right displaced femoral neck/hip fracture I identified the patient and participated in the time-out.: Yes Procedure Operation Date: 05/24/20 14:00 Actual Procedures p Right Hip Hemiarthroplasty(Right) - Cedrick Carr MD Surgeon Cedrick Carr MD Bacteriology Research Assistant CALLUM Cantrell Estimated Blood Loss 200 Findings Consistent with Post-Op Diagnosis Fluids 250 cc Specimens Specimen Description: A: Right Femoral Head Drains Freire Catheter Complications none Disposition Accompanied Patient To Recovery: Yes Disposition: Recovery Room
--- NOTE | 2020-05-24 17:09 | XRay Report ---
XR hip RT min 2V CLINICAL HISTORY: Post-Operative implant position COMPARISON STUDY: Right hip 05/24/2020. FINDINGS: Status post right hip hemiarthroplasty. Hardware is intact. No fracture or dislocation. Ski n clark are in place. IMPRESSION: Status post right hip hemiarthroplasty. No evidence for hardware complication. ACT 112: Negative or not required by law. Electronically signed by: Aditya Hernandez M.D. 05/24/2020 5:08 PM
[2020-05-24] MEDS ORDERED: NALOXONE HCL 0.4 MG/1 ML VIAL/CARP IV PRN (17:28)
[2020-05-24] MEDS ORDERED: SODIUM CHLORIDE 0.9% 500 ML IV SCH (18:00)
--- NOTE | 2020-05-24 18:00 | Operative Report ---
Post Operative Report Pre & Post Diagnosis Operation Date: 05/24/20 14:00 Pre-Op Diagnosis: Right displaced femoral neck/hip fracture Post-Op Diagnosis: Right displaced femoral neck/hip fracture I identified the patient and participated in the time-out.: Yes Procedure Operation Date: 05/24/20 14:00 Actual Procedures p Right Hip Hemiarthroplasty(Right) - Cedrick Carr MD Surgeon Cedrick Carr MD Drag Seiner CALLUM Cantrell Estimated Blood Loss 200 Findings Consistent with Post-Op Diagnosis Operative findings revealed a displaced femoral neck fracture. There was extensive trauma and hematoma to the hip joint area including the bursa. There was comminution of the fracture itself. There was a very vertical letter neck fracture angle with comminution. Fluids 250 cc Specimens Right femoral head sent for pathology Drains None Complications none Disposition Accompanied Patient To Recovery: Yes Disposition: Recovery Room Indications Patient is a 69-year-old gent with multiple medical comorbidities including dialysis and significant diabetes with some ulceration of his left foot who sustained a fall earlier today. He was apparently going to get an MRI of his foot and he tripped and fell and landed on his right hip. Brought to emergency room where x-rays with a slightly displaced femoral neck fracture. Based on the displacement, and his underlying medical comorbidities, poor bone stock, and the high fracture angle of this injury we elected proceed with cemented bipolar hip arthroplasty as the best option. Description of Procedure Operative implants consisted of: 1. Serafin size 14 advocate extended offset femoral stem. 2. 12 mm distal centralizer. 3. Large cement restrictor. 4. 28 mm +7 metal articular ball. 5. 54 mm bipolar shell and liner. The patient was taken to the operating identified placed in the operating table supine position but all contact areas were properly padded. IV antibiotics 5 by anesthesia team. A spinal anesthetic was employed by anesthesia team. The patient was then placed in the left lateral decubitus position. Axillary roll was placed. The right hip and leg were then scrubbed with Hibiclens followed by ChloraPrep and then draped in usual sterile fashion. A posterior lateral approach to the right hip was then performed to a curvilinear incision centered over the greater trochanter. Sharp dissection got through subcutaneous is down to level the IT band gluteal fascia the IT band gluteal fascia were incised longitudinally in line with skin incision. The underlying greater bursa was excised. The piriformis and external rotators were tagged and taken off the posterior aspect hip joint capsule. Great care was taken throughout the procedure protect the sciatic nerve at all times. I then internally rotated the hip as we are already at the fracture site. Femoral neck osteotomy cut was made just at the base of the fracture which was only about 5 mm above the lesser trochanter. Femoral neck was removed. I then remove the femoral head. There was a fairly large segment. I then trialed the acetabulum and a 54 acetabular shell was selected. Attention drawn the femur. The proximal femur was entered with a cookie-cutter followed by canal finder and lateralizing reamer. I then broached begin the size 8 and progressing up to a 14. We got good fit at this. We trialed this. The extended offset seemed most appropriate with a longer neck to do the short cuts on the neck do the fracture. We will place these implants and the hip was fully stable. We elect to place these implants. All trial implants were removed. A large cement restrictor was placed distally. A double batch Palacos G cement was mixed with initial gram of vancomycin due to his increased risk of infection with the diabetes and foot ulceration. We injected the canal. A size 14 extended offset femoral stem was then placed in maximum anteversion. Once the cement hardened, a +720 mm articular ball with a 54 mm by bipolar shell and liner were placed. To hip was located once again found to be stable. Attention drawn toward closing. Nupathe wounds irrigated cups ounce of normal saline. I did inject locally with 60 cc of half percent Marcaine with epinephrine. The capsule was fairly damaged and I then did the best I could repair this with #2 Tycron suture. The external rotators were repaired to the posterior aspect of the hip abductors with #2 Tycron suture. The IT band and gluteal fascia then closed in 1 PDS suture running fashion for subcutaneous tissue then closed with 2 layers of the deep layer #1 Vicryl suture subcutaneous tissues with 2 Dexon suture in a buried interrupted fashion. Skin was closed with skin clark. Legs then cleaned dried and sterile dressed composed Xeroform, 4 fours, sterile ABD pad, foam tape was applied. The patient and answered to the recovery room in stable condition. Patient tolerated procedure well complications. Jimenez Cantrell, my physician grooming assistant, was present for the entire procedure. His assistance was essential and required for appropriate patient positioning, prepping and draping, surgical exposure, performing the technical details of the operation, placement the implants, closure of the wound, and placement of the sterile bandage. I attest to the content of the Intraoperative Record and any orders documented therein. Any exceptions are noted below.
[2020-05-24] MEDS: CITALOPRAM 40 MG TAB PO SCH (18:03)
[2020-05-24] MEDS: METOPROLOL SUCC 25MG EXT REL TAB PO SCH (18:03)
[2020-05-24] MEDS: FUROSEMIDE 40 MG TAB PO SCH (18:03)
--- NOTE | 2020-05-24 18:13 | Anesthesiology Progress Note ---
Date of Service May 24, 2020 Anesthesia Post Procedure Vital Signs Vital Signs: Temp Pulse Pulse Pulse Pulse Resp BP 05/24/20 17:05 36.7 C 75 17 05/24/20 16:55 36.7 C 82 18 05/24/20 16:45 74 17 05/24/20 16:35 75 14 05/24/20 16:25 92 H 17 05/24/20 16:17 36.8 C 81 17 05/24/20 12:59 36.3 C L 66 20 05/24/20 12:38 36.3 C L 65 20 05/24/20 12:00 62 18 149/64 H 05/24/20 11:30 62 19 148/65 H 05/24/20 11:00 61 18 127/59 L 05/24/20 10:30 61 16 138/72 05/24/20 10:00 64 20 150/73 H 05/24/20 09:30 62 16 145/65 H 05/24/20 09:00 63 16 133/67 05/24/20 08:47 64 13 165/72 H 05/24/20 08:42 62 18 05/24/20 07:50 36.8 C 62 14 165/91 H 05/24/20 07:49 76 21 165/91 H BP Pulse Ox 05/24/20 17:05 124/62 94 05/24/20 16:55 116/48 L 96 05/24/20 16:45 138/59 L 100 05/24/20 16:35 135/57 L 100 05/24/20 16:25 137/53 L 100 05/24/20 16:17 167/70 H 100 05/24/20 12:59 168/69 H 95 05/24/20 12:38 179/92 H 94 05/24/20 12:00 91 05/24/20 11:30 90 05/24/20 11:00 90 05/24/20 10:30 94 05/24/20 10:00 95 05/24/20 09:30 90 05/24/20 09:00 94 05/24/20 08:47 05/24/20 08:42 165/72 H 95 05/24/20 07:50 05/24/20 07:49 Pain Intensity Right Hip: Pain Intensity: 0 Transfer of Care Handoff Completed per policy Notes Mental Status: alert / awake / arousable and participated in evaluation Patient Amnestic to Procedure: Yes Nausea / Vomiting: adequately controlled Pain: adequately controlled Airway Patency, RR, SpO2: stable & adequate BP & HR: stable & adequate Hydration State: stable & adequate Neuraxial Anesthesia: was administered and sensory block is resolving Anesthetic Complications: no major complications apparent and Pt Satisfied with anesthetic care
--- NOTE | 2020-05-24 19:10 | Nephrology Consultation ---
Date of Consultation May 24, 2020 Assessment & Plan (1) ESRD on dialysis: for routine HD tomorrow 4 h. BP and volume status on higher side>will aim for 3L as sbp tolerates -will not resume FR today but will need FR 1.2 L to start in am -ordered binders; cont renal tosin -ordered dialysis diet and protein supplements -no heparin w/ tx tomorrow; not likely to need DARRELL but will await labs Present on Admission?: Yes (2) Displaced fracture of right femoral neck: per ortho and primary service Present on Admission?: Yes History of Present Illness Reason for Consultation: esrd on HD Requesting Physician: Dr Fair Attending Physician: Jerri Fair, DO History of Present Illness 69 y/o M admitted for repair of R hip fracture after a fall as he was walking into a facility for MRI of chronic foot wound; he underwent R hip hemiarthrop lasty today. PMH includes chronic L diabetic foot wound currently in a cast, IDDM, HTN w/ hx HTN urgency 07/2019, HL, chronic R cerebral infarcts and moderate R ICA stenosis, Barretts esophagus. He dialyzes at [facility] via [facility] for 4 h; states he si on a 32 oz fluid limit daily. He tolerated today's surgery well and denies n/v, sob, uncontrolled hip or other pain when I evaluated him at approx 1800 today. Allergies Allergy/AdvReac Type Severity Reaction Status Date / Time adhesive Allergy Mild itchy and Verified 05/24/20 08:47 rash Home Medications Medication Instructions Recorded Confirmed Type aspirin 81 mg tablet,delayed 81 mg PO DAILY 05/20/18 05/24/20 History release fluocinolone 0.025 % topical cream 1 appln TOP BID PRN 05/20/18 05/24/20 History ascorbic acid (vitamin C) 500 mg 500 mg PO DAILY cap 01/23/19 05/24/20 History capsule ferrous sulfate 325 mg (65 mg 325 mg PO DAILY tab 01/23/19 05/24/20 History iron) tablet mometasone 0.1 % topical ointment 1 appln TOPICAL BID PRN #1 gm 01/23/19 05/24/20 History insulin syringe-needle U-100 0.3 #10 ea 04/19/19 05/09/20 Rx mL 31 gauge x 11/03" glucagon (human recombinant) 1 mg 1 mg IM UD PRN ea 05/29/19 05/24/20 History solution for injection omeprazole 20 mg capsule,delayed 20 mg PO BID #60 cap 07/26/19 05/24/20 Rx release multivitamin 1 tab PO QAM 07/28/19 05/24/20 History pravastatin 40 mg PO QPM 07/28/19 05/24/20 History cholecalciferol (vitamin D3) 1,250 50,000 units PO MONTHLY #3 cap 09/04/19 05/24/20 Rx mcg (50,000 unit) capsule Contour Next Test Strips #400 ea NS 11/20/19 05/09/20 Rx vitamin B complex and vitamin C 1 cap PO DAILY 11/27/19 05/24/20 History no.20-folic acid 1 mg capsule insulin aspart U-100 100 unit/mL 80 units SQ UD ml 01/08/20 05/24/20 History subcutaneous solution citalopram 40 mg tablet 40 mg PO QAM #90 tab 01/22/20 05/24/20 Rx furosemide 40 mg tablet 40 mg PO BID #90 tab 02/06/20 05/24/20 Rx cadexomer iodine 1 applic TOPICAL DIRECTED PRN 03/06/20 05/24/20 History calcium acetate 667 mg tablet 667 mg PO BID tab 03/18/20 05/24/20 History colestipol 1 gram tablet 1 g PO Q2D #45 tab 05/06/20 05/24/20 Rx metoprolol succinate 25 mg 25 mg PO DAILY 05/09/20 05/24/20 History tablet,extended release 24 hr nortriptyline 10 mg capsule 10 mg PO HS #40 cap 05/10/20 05/24/20 Rx Patient History Medical History Abnormal echocardiogram reports abnormality detected upon evaluation for kidney transplant at [facility]. Renal transplant team wishes for pt to have cardiac cath before proceeding with transplant. plans to have a cath but cardio requiring dialysis before scheduling. pt started dialysis 1 week ago. recent echo at [facility] 07/17/19 Anemia Arteriosclerosis of carotid artery ultrasound 06/2019 - no surgical intervention - monitoring - annual ultrasounds Arthritis Lyons's esophagus Lyons's esophagus CAD (coronary artery disease) Cerebrovascular disease Chest pain Degenerative disc disease Depression Diabetic nephropathy Dialysis patient fistula [facility] - [place] [place], [facility] - [facility] - FOLLOWS W/ Rico DM type 2 (diabetes mellitus, type 2) IDDM ESRD (end stage renal disease) [place] GERD (gastroesophageal reflux disease) Glaucoma Hemodialysis patient Hemoptysis Hemoptysis Herniated cervical disc Herniated intervertebral disc of lumbar spine Hiatal hernia History of basal cell carcinoma History of recent hospitalization [facility], [place] - PNEUMONIA, PLEURAL EFFUSIONS, HEMOPTYSIS [place] (hard of hearing) HTN (hypertension) (07/25/13) Hyperlipidemia Hypertension Hypertensive urgency Insulin pump in place Left bundle-branch block Loss of sensation of skin Low back pain Macular degeneration Melena Melena Melena Osteoarthritis Peripheral vascular disease Pleural effusion Pneumonia Postural lightheadedness Proliferative diabetic retinopathy Right-sided lacunar infarction "old" per brain MRI 10/23/2016 - [place] Secondary hyperparathyroidism Sensorineural hearing loss (SNHL) of both ears Sleep apnea non compliant w/ CPAP Surgical History Fistula functioning LUE; non functioning Lt wrist History of cardiac cath 2013 - [place] - ABN STRESS TEST - NO STENTS 2009 - [place] --> CABG History of cataract surgery History of colonoscopy History of coronary artery bypass graft 5 vessels - 2009 - [facility] - follows w/ Dr. Martinez History of detached retina repair History of esophagogastroduodenoscopy (EGD) History of eye surgery laser, injections History of hernia repair History of rotator cuff surgery History of spinal surgery lumbar History of tooth extraction Surgically constructed arteriovenous fistula Family History Family/Other Diabetes Coronary heart disease Brother Coronary heart disease Mother Diabetes Cardiac disorder Hypertension Aunt Breast cancer Other No family history of adverse response to anesthesia Denies family history of Crohn's disease Colorectal cancer Ulcerative colitis Social History Smoking Status: Never smoker Second Hand Exposure: No; Do You Dip or Chew Tobacco: No; Tobacco Cessation Education Requested by Patient: No Hx Alcohol Use: No Hx Substance Use: No Preferred Language: Setswana Communication Ability: Effective Visual Impairment: Severely Limited Hearing Ability: Normal 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 Required: No Beliefs That Will Affect Care: None marital status: Current Living Situation: Spouse current occupational status: retired Other Information That Helps Us Care for You: No Feels Safe at Home: Yes Safety Concerns: Feels Safe At This Time Seatbelt Use: always Assistive Devices: None Review of Systems Review of Systems: All systems reviewed & are unremarkable except as noted in HPI & below Physical Exam Constitutional: well developed, well nourished and cooperative; no acute distress Eyes: EOM intact bilaterally ENMT: Ears: no external ear abnormality Nose: no external nose abnormality Mouth: + dry oral mucous membranes Neck: no nuchal rigidity Respiratory: normal respiratory effort Auscultation: lungs clear to auscultation bilaterally and + diminished lung sounds (on 2L) Cardiovascular: RRR, no murmur, no edema Extremities: + AV fistula (LUT + t/b) Gastrointestinal (Abdomen): Inspection/Auscultation: normal bowel sounds Percussion/Palpation: abdomen soft; abdomen nontender Musculoskeletal: Extremities: strength 5/5 throughout Skin: no rashes, warm and dry + ulcer (LLE; casted) Neurologic: flannery, fluent speech, no tremor Psychiatric: A+Ox3, euthymic affect Genitourinary: voids daily; no changes to chronic voiding habits Results & Data ([facility]) Vital Signs (Past 12 Hours) Vital Signs Temp Pulse Pulse Pulse Pulse Resp BP 05/24/20 18:20 36.3 C L 79 16 05/24/20 17:50 37.1 C 79 16 05/24/20 17:05 36.7 C 75 17 05/24/20 16:55 36.7 C 82 18 05/24/20 16:45 74 17 05/24/20 16:35 75 14 05/24/20 16:25 92 H 17 05/24/20 16:17 36.8 C 81 17 05/24/20 12:59 36.3 C L 66 20 05/24/20 12:38 36.3 C L 65 20 05/24/20 12:00 62 18 149/64 H 05/24/20 11:30 62 19 148/65 H 05/24/20 11:00 61 18 127/59 L 05/24/20 10:30 61 16 138/72 05/24/20 10:00 64 20 150/73 H 05/24/20 09:30 62 16 145/65 H 12/04/20 09:00 63 16 133/67 05/24/20 08:47 64 13 165/72 H 05/24/20 08:42 62 18 05/24/20 07:50 36.8 C 62 14 165/91 H 05/24/20 07:49 76 21 165/91 H BP Pulse Ox 05/24/20 18:20 146/70 H 97 05/24/20 17:50 143/73 H 97 05/24/20 17:05 124/62 94 05/24/20 16:55 116/48 L 96 05/24/20 16:45 138/59 L 100 05/24/20 16:35 135/57 L 100 05/24/20 16:25 137/53 L 100 05/24/20 16:17 167/70 H 100 05/24/20 12:59 168/69 H 95 05/24/20 12:38 179/92 H 94 05/24/20 12:00 91 05/24/20 11:30 90 05/24/20 11:00 90 05/24/20 10:30 94 05/24/20 10:00 95 05/24/20 09:30 90 05/24/20 09:00 94 05/24/20 08:47 05/24/20 08:42 165/72 H 95 05/24/20 07:50 05/24/20 07:49 Laboratory Results 05/24/20 08:11 05/24/20 08:11 Diagnostic Findings cxr IMPRESSION: Ill-defined right infrahilar opacity may reflect postinflammatory scarring. A subtle nonspecific pneumonitis could appear similarly.
[2020-05-24] MEDS: NORTRIPTYLINE HCL 10 MG CAP PO SCH (21:18)
[2020-05-24] MEDS: PANTOprazole 40 MG TAB PO SCH (21:18)
[2020-05-24] MEDS: PRAVASTATIN SOD 40 MG TAB PO SCH (21:19)
[2020-05-24] MEDS: ASPIRIN 81 MG ECTAB PO SCH (21:20)
[2020-05-24 22:29] LABS: Appearance Urine Cloudy (Clear); Bacteria Urine Automated Negative (Negative); Bilirubin Urine Negative (Negative); Blood Urine 3+ (Negative); Color Urine Dark Yellow; Epithelial Cell Urine Auto >30 /lpf (0-5); Glucose Urine UA Trace (Negative); Ketones Urine Trace (Negative); Leukocyte Esterase Urine 1+ (Negative); Nitrite Urine Negative (Negative); Specific Gravity Urine 1.015 (1.000-1.030); Urobilinogen Urine Negative (Negative); pH Urine 7.5 (4.5-7.5)
[2020-05-24 23:03] LABS: Protein Urine 3+ (Negative); Sulfosalicylic Acid Urine Positive (Negative)
[2020-05-24 23:05] LABS: RBC Urine Automated >30 /hpf (0-4)
[2020-05-25] MEDS: ACETAMINOPHEN 325 MG TAB PO PRN (01:45)
[2020-05-25] MEDS: HYDROmorphone INJ 0.5 MG/0.5 ML SYR IV PRN (01:46)
[2020-05-25] MEDS: ONDANSETRON INJ 2 MG/ML 2 ML VIAL IV PRN (01:58)
[2020-05-25] MEDS ORDERED: INSULIN ASPART 100 UNITS/ML 3 ML PEN SC ONE (02:00)
[2020-05-25] MEDS ORDERED: INSULIN GLARGINE SOLOSTAR 100 UNITS/ML 3 ML PEN SC ONE (03:00)
[2020-05-25 04:52] LABS: Basophils # (auto) 0.02 K/uL (0-0.2); Basophils % (auto) 0.3 %; Eosinophils # (auto) 0.16 K/uL (0-0.5); Eosinophils % (auto) 2.1 %; Hematocrit (blood only) 28.8 % (42-52); Hemoglobin 9.6 g/dL (14.0-18.0); Immature Granulocytes # (auto) 0.03 K/uL (0.00-0.02); Immature Granulocytes % (auto) 0.4 %; Lymphocytes # (auto) 1.13 K/uL (1.2-3.4); Lymphocytes % (auto) 14.8 %; Mean Corpuscular Hemoglobin 32.9 pg (25-34); Mean Corpuscular Hgb Conc 33.3 g/dL (32-36); Mean Corpuscular Volume 98.6 fL (80-100); Mean Platelet Volume 9.6 fL (7.4-10.4); Monocytes # (auto) 0.39 K/uL (0.11-0.59); Monocytes % (auto) 5.1 %; Neutrophils # (auto) 5.92 K/uL (1.4-6.5); Neutrophils % (auto) 77.3 %; Platelet Count 121 K/uL (130-400); RDW Coefficient of Variation 12.4 % (11.5-14.5); RDW Standard Deviation 44.4 fL (36.4-46.3); Red Blood Count 2.92 M/uL (4.7-6.1); White Blood Count 7.65 K/uL (4.8-10.8)
[2020-05-25] MEDS ORDERED: SODIUM CHLORIDE 0.9% 1000ML 1,000 ML IV PRN (07:00)
[2020-05-25] MEDS: FUROSEMIDE 40 MG TAB PO SCH ×2 (09:00→17:00)
[2020-05-25] MEDS: PANTOprazole 40 MG TAB PO SCH ×2 (09:00→21:45)
--- NOTE | 2020-05-25 13:40 | Progress Notes ---
DATE: 05/25/2020 SUBJECTIVE: A 69-year-old gentleman postop day 1 from a right cemented bipolar hip arthroplasty for fracture. He is doing much better this morning. Pain is much improved, but some pain. No chest pain or shortness of breath. No new complaints. OBJECTIVE: GENERAL: Physical examination reveals a pleasant, middle-aged male. He is sitting up in bed eating breakfast. Looks pretty comfortable. EXTREMITIES: Examination of the right hip and leg reveals the leg lengths to be equal. His dressing is clean, dry and intact. Thigh is soft and supple. He can dorsiflex and plantarflex his foot appropriately. X-RAYS: X-rays of the right hip from recovery room reviewed. It shows right cemented bipolar hip arthroplasty. Components looked to be in good position. No signs of problems. ASSESSMENT: A 69-year-old gentleman with multiple medical comorbidities postop day 1 from right cemented bipolar hip arthroplasty for fracture. He is doing quite a bit better pain melvin. Hip is located. He is neurologically intact. PLAN: 1. DVT prophylaxis including thigh-high TEDs, SCDs, and we would recommend a baby aspirin twice a day as long as that is okay from the renal standpoint. 2. PT/OT. He can weightbear as tolerated. Right total hip protocol. 3. Pain control, doing okay with current pain regimen. 4. Disposition: He is orthopedically okay for discharge any time medically stable. I need to see him back 2 weeks out from surgery date. I will need to obey hip precautions. Any orthopedic questions can be directed to me at [phone].
[2020-05-25] MEDS: COLESTIPOL HCL 1 GM TAB PO SCH (14:00)
[2020-05-25] MEDS: CITALOPRAM 40 MG TAB PO SCH (16:00)
[2020-05-25] MEDS: METOPROLOL SUCC 25MG EXT REL TAB PO SCH (16:00)
[2020-05-25] MEDS ORDERED: INSULIN GLARGINE SOLOSTAR 100 UNITS/ML 3 ML PEN SC SCH (16:30)
[2020-05-25 17:41] LABS: BUN Creatinine Ratio 8.1 (10-20); Calcium 8.6 mg/dl (8.5-10.1); Creatinine Clr Calc Pharmacy 12.4 ml/min; Est GFR (African American) 8.5; Est GFR (Non-African American) 7.3
[2020-05-25 18:22] LABS: Hepatitis B Surface Ab Quant 28.72 mIU/mL (>or=10mIU/mL Immune); Hepatitis B Surface Antibody Immune
[2020-05-25 18:33] LABS: Hepatitis B Surface Antigen Neg (Neg)
[2020-05-25 18:39] LABS: Potassium 5.8 mmol/L (3.5-5.1)
[2020-05-25] MEDS: INSULIN ASPART 100 UNITS/ML 3 ML PEN SC SCH ×4 (20:09→22:04)
[2020-05-25] MEDS: CALCIUM ACETATE 667 MG CAP/TAB PO SCH ×2 (20:30→22:02)
[2020-05-25] MEDS: ASPIRIN 81 MG ECTAB PO SCH ×2 (20:31→21:46)
[2020-05-25] MEDS: PRAVASTATIN SOD 40 MG TAB PO SCH (21:45)
[2020-05-25] MEDS: NORTRIPTYLINE HCL 10 MG CAP PO SCH (21:46)
[2020-05-26] MEDS: oxyCODONE HCL IR 5 MG TAB (IMMEDIATE RELEASE) PO PRN ×3 (01:15→20:15)
[2020-05-26] MEDS: ACETAMINOPHEN 325 MG TAB PO PRN (05:34)
[2020-05-26] MEDS: MAGNESIUM HYDROXIDE SUSP 30 ML UDC PO PRN (05:34)
[2020-05-26 06:14] LABS: Hematocrit (blood only) 26.8 % (42-52); Hemoglobin 8.9 g/dL (14.0-18.0); Mean Corpuscular Hemoglobin 32.8 pg (25-34); Mean Corpuscular Hgb Conc 33.2 g/dL (32-36); Mean Corpuscular Volume 98.9 fL (80-100); Mean Platelet Volume 9.6 fL (7.4-10.4); Platelet Count 122 K/uL (130-400); RDW Coefficient of Variation 12.3 % (11.5-14.5); RDW Standard Deviation 44.4 fL (36.4-46.3); Red Blood Count 2.71 M/uL (4.7-6.1); White Blood Count 7.53 K/uL (4.8-10.8)
[2020-05-26 06:29] LABS: Estimated Average Glucose 148 mg/dl; Hemoglobin A1C 6.8 % (4.5-5.6)
[2020-05-26 06:57] LABS: BUN Creatinine Ratio 7.3 (10-20); Calcium 8.6 mg/dl (8.5-10.1); Creatinine Clr Calc Pharmacy 13.8 ml/min; Est GFR (African American) 9.7; Est GFR (Non-African American) 8.3; Magnesium 2.1 mg/dl (1.8-2.4); Potassium 4.6 mmol/L (3.5-5.1)
[2020-05-26] MEDS: CALCIUM ACETATE 667 MG CAP/TAB PO SCH ×4 (08:27→16:33)
[2020-05-26] MEDS: PANTOprazole 40 MG TAB PO SCH ×2 (08:27→20:05)
[2020-05-26] MEDS: INSULIN ASPART 100 UNITS/ML 3 ML PEN SC SCH ×4 (08:28→21:05)
[2020-05-26] MEDS: FUROSEMIDE 40 MG TAB PO SCH ×2 (08:28→16:30)
[2020-05-26] MEDS: ASPIRIN 81 MG ECTAB PO SCH ×2 (08:28→20:04)
[2020-05-26] MEDS: INSULIN GLARGINE SOLOSTAR 100 UNITS/ML 3 ML PEN SC SCH (08:29)
--- NOTE | 2020-05-26 08:51 | Progress Notes ---
DATE: 05/26/2020 SUBJECTIVE: A 69-year-old gentleman postop day 2 from right cemented bipolar hip arthroplasty for fracture. He is doing okay. Pain is controlled. He is struggling getting around a bit and frustrated by that. No new complaints. No chest pain or shortness of breath. OBJECTIVE: VITAL SIGNS: Temperature 36.9. Vital signs stable. GENERAL: Shows a pleasant, middle-aged male. He is sitting up in bed, looks pretty comfortable this morning. EXTREMITIES: Examination of the right hip and leg reveals the leg lengths to be equal. Dressing is clean, dry and intact. Thigh is soft and supple. He is neurologically intact. LABORATORY DATA: Hemoglobin 8.9. Hematocrit 26.8. ASSESSMENT: A 69-year-old gentleman postop day 2 from right cemented bipolar hip arthroplasty for fracture. Orthopedically, he is doing pretty well. His pain is controlled. He is having trouble lifting his right leg, which is a bit normal at this point. PLAN: 1. DVT prophylaxis including thigh-high TEDs, SCDs, and we would recommend a baby aspirin twice a day if okay from the kidney standpoint and medicine standpoint. 2. PT/OT. He can fully weightbear on this right leg. Needs to obey hip precautions. 3. Pain control, doing okay with current pain regimen. 4. Disposition: He is orthopedically okay for discharge any time. I need to see him back in 2-3 weeks out from surgery date. Any orthopedic questions can be directed to me at [phone].
--- NOTE | 2020-05-26 09:06 | Pharmacy Report ---
Pharmacy Glycemic Short Note 2 - Date of Service May 26, 2020 - Glycemic Short BSG Results (Last 24 hours): 05/25/20 05/25/20 05/25/20 04:22 08:18 13:46 Glucose 214 H POC Glucose 201 H 112 H 05/25/20 05/25/20 05/26/20 16:31 21:04 05:38 Glucose 216 H POC Glucose 114 H 149 H 05/26/20 08:12 Glucose POC Glucose 268 H OUTPATIENT ANTIDIABETIC REGIMEN: * Novolog pump * Basal: 13 units/24 hours * TDD: 29 units * Average BSG at home: 196 mg/dL * HbA1c: 6.8% (05/25/20) * However, this result is likely somewhat unreliable in ESRD patients d/t interactions between the A1c analyzing technique and high levels of urea in ESRD, reduced RBC life span, iron deficiency anemia, and EPO administration. HbA1c > 7.5% in ESRD patient may overestimate the extent of hyperglycemia in ESRD patients. ASSESSMENT: * DP is a 69 year old male admitted on 05/24 with right femoral neck fracture secondary to fall * POD #2 s/p right hemiarthroplasty * Patient with ESRD requiring HD - HD session yesterday * Insulin pump removed on admission and has been managed with SC basal/bolus * BSGs yesterday of 201, 112, 114, and 149 mg/dL * Patient received ~28 units of insulin (18 units of basal, 10+ units of prandial/correctional) * Fasting BSG of 268 mg/dL this morning * Will increase Lantus to 20 units SC daily * Discussed with RN, patient attempting to call to bring in pump supplies * Unlikely to be discharged today PLAN FOR INPATIENT GLYCEMIC CONTROL: * Hold outpatient oral diabetes medications * Basal insulin * Lantus 20 units SQ daily * Lantus scale to provide 0-5 units this evening (see EHR for details) * Bolus insulin * NovoLog per scale ACHS or Q6hrs while NPO * Goal Range: Low 110 mg/dL - High 140 mg/dL * Correction Factor: 20 mg/dL/unit * Nutritional / Prandial insulin per carb ratio of 1 unit per 7 grams CHO consumed * 0200 check this evening with same parameters PLAN FOR DISCHARGE: * Will require transition back to Novolog pump prior to discharge * Waiting on patient's to bring in pump supplies
--- NOTE | 2020-05-26 11:15 | Magnetic Resonance Report ---
MR foot LT w/o con CLINICAL HISTORY: Nonhealing left foot ulcer. Evaluate for osteomyelitis. COMPARISON STUDY: Left foot radiographs January 16, 2020. TECHNIQUE: Utilizing a 1.5 Mabel magnet and dedicated coil, multiplanar, multi echo imaging of the le ft forefoot was performed without intravenous contrast. FINDINGS: This exam is significantly compromised by motion artifact. Tarsometatarsal joints are intac t. Note is made of increased T2 signal along the flexor musculature and tendons. Note is made of subc utaneous increased T2 signal along the plantar aspect of the left fifth metatarsal head. This suggest s an ulcer with mild associated cellulitis. No associated fluid collection is identified to suggest a n abscess. There is mild increased T2 signal within the left fifth metatarsal head. T1 signal appears to be preserved. There is no convincing evidence for osteomyelitis on this examination within the le ft forefoot. No mass is noted. IMPRESSION: 1. Exam significantly compromised by motion artifact. 2. Wound overlying the plantar aspect of the left fifth metatarsal head with subcutaneous increased T 2 signal consistent with cellulitis. Mild increased T2 signal within the adjacent left fifth metatars al head with preserved T1 signal. This is suboptimally assessed on this exam but favors osteitis. No MR evidence for osteomyelitis within the left forefoot. ACT 112: Negative or not required by law. Electronically signed by: Henri Mcclellan M.D. 05/26/2020 11:13 AM
[2020-05-26] MEDS: CITALOPRAM 40 MG TAB PO SCH (16:30)
[2020-05-26] MEDS: METOPROLOL SUCC 25MG EXT REL TAB PO SCH (16:30)
--- NOTE | 2020-05-26 17:14 | Hospitalist Progress Note ---
Date of Service May 26, 2020 Assessment & Plan (1) History of diabetic ulcer of foot: O[facility] through [facility] and [facility]. - MRI foot on 05/25 shows osteitis without MR evidence for osteomyelitis within the left forefoot. - Deep wound culture done on 05/26 from the ulcer. - Hold abx at present; no clinical indication of surrounding cellulitis. No vital sign changes or lab changes to indicate acute infection. - Will get ABIs and ID consult. (2) Displaced fracture of right femoral neck: From a mechanical fall. - S/p right hip hemiarthroplasty on 05/[address] Carr - Doing well post-op; cleared by ortho for discharge. (3) Fall: Mechanical related to walking cast. - PT/OT (4) PVD (peripheral vascular disease): Normal neurovascular exam today. - ABIs as above - Continue ASA 81 mg PO BID (for DVT ppx per ortho) (5) Dyslipidemia: - Continue home meds (6) Hypertension: BP is 140/65 today. - Continue home meds: Lasix, metoprolol (7) Central sleep apnea: Noncompliant with CPAP (8) S/P CABG x 5: Last aspirin dose was 12/3 in the afternoon. - Continue ASA, beta-baljinder, statin (9) ESRD on dialysis: with [facility]. - Nephrology following; HD per team (10) Depression: No depression noted today. - Continue home meds: citalopram & nortriptyline (11) Anemia: Baseline appears to be 10-12. Hb on admission 11.4. - Holding iron for now (12) DVT prophylaxis: ASA 81 mg PO BID per orthopedics Admission and Anticipated Discharge Date Admission Date: May 24, 2020 Subjective Feeling better today. No major pain in the hip or leg. Reports no fevers/chills, chest pain, shortness of breath, abdominal pain, nausea, or vomiting. Physical Exam Constitutional: WD/WN, vitals as above Eyes: EOM intact bilaterally; no conjunctival abnormality ENMT: external ear and nose normal, oropharynx normal Neck: trachea midline, no thyromegaly normal visual inspection Respiratory: normal respiratory effort, lungs clear to auscultation no respiratory distress Cardiovascular: RRR, no murmur, no edema Gastrointestinal (Abdomen): Inspection/Auscultation: abdomen normal to inspection; abdomen not distended Musculoskeletal: no cyanosis or clubbing, extremities motor strength 5/5 Skin: no rashes, warm and dry + ulcer (Ulcer on left foot) Neurologic: moves all extremities and awake Psychiatric: Orientation: alert, oriented to person and cooperative Results & Data Results & Data ([facility]) Vital Signs (Past 12 Hours) Vital Signs Temp Pulse Pulse Resp BP Pulse Ox Pulse Ox 05/26/20 15:30 36.9 C 70 18 138/65 91 05/26/20 12:11 98 05/26/20 12:06 92 05/26/20 07:35 36.9 C 76 16 92 PG Care Time/CCT Total # of Minutes Spent Total Time Spent with Patient: Total time spent is greater than 50% in coordination of care (as documented) at patient's floor/unit and/or counseling patient: Coding Level of Care Code 32442 Subseq Hosp Care Lvl 3 Diagnoses History of diabetic ulcer of foot Z86.31 Displaced fracture of right femoral neck S72.001A Fall W19.XXXA Encounter type: initial encounter PVD (peripheral vascular disease) I73.9 Dyslipidemia E78.5 Hypertension I10 Central sleep apnea G47.31 S/P CABG x 5 Z95.1 ESRD on dialysis N18.6; Z99.2 Depression F32.9 Anemia D64.9 DVT prophylaxis Z29.9 (1) Fall Encounter type: initial encounter Qualified Code(s): W19.XXXA - Unspecified fall, initial encounter
--- NOTE | 2020-05-26 18:34 | Ultrasound Report ---
US ankle/brachial index comp CLINICAL HISTORY: Diabetic wound COMPARISON STUDY: No previous studies for comparison. TECHNIQUE: Bilateral ankle to brachial indices were obtained. FINDINGS: The right ankle-brachial index measured 1.41 when using the posterior tibial artery and 1.3 2 when using the dorsalis pedis. The left ankle to brachial index measured 1.91 using posterior tibia l artery. The left dorsalis pedis was noncompressible. IMPRESSION: 1. Artifactually elevated left ankle-brachial index, likely due to noncompressibility related to athe rosclerotic calcification. 2. Elevated right ankle-brachial index which is also likely artifactually elevated. ACT 112: Negative or not required by law. Electronically signed by: Henri Mcclellan M.D. 05/26/2020 6:33 PM
[2020-05-26] MEDS: PRAVASTATIN SOD 40 MG TAB PO SCH (20:05)
[2020-05-26] MEDS: NORTRIPTYLINE HCL 10 MG CAP PO SCH (20:05)
[2020-05-26] MEDS ORDERED: INSULIN GLARGINE SOLOSTAR 100 UNITS/ML 3 ML PEN SC SCH (21:00)
[2020-05-27] MEDS ORDERED: INSULIN ASPART 100 UNITS/ML 3 ML PEN SC SCH (02:00)
[2020-05-27] MEDS ORDERED: COUGH DROP (SUGAR FREE) LOZ 24 LOZ/1 BOX BUCCAL ONE (06:11)
[2020-05-27 06:32] LABS: Hemoglobin 8.8 g/dL (14.0-18.0); Mean Corpuscular Hemoglobin 32.6 pg (25-34); Mean Corpuscular Hgb Conc 33.8 g/dL (32-36); Mean Corpuscular Volume 96.3 fL (80-100); Mean Platelet Volume 9.3 fL (7.4-10.4); Platelet Count 122 K/uL (130-400); RDW Coefficient of Variation 12.4 % (11.5-14.5); RDW Standard Deviation 43.4 fL (36.4-46.3); White Blood Count 6.96 K/uL (4.8-10.8)
[2020-05-27 07:18] LABS: Calcium 9.1 mg/dl (8.5-10.1); Creatinine Clr Calc Pharmacy 11.4 ml/min; Est GFR (African American) 7.7; Est GFR (Non-African American) 6.7; Magnesium 2.3 mg/dl (1.8-2.4)
[2020-05-27] MEDS ORDERED: CHLORASEPTIC 1.4% SOLN 180 ML BTL MT PRN (07:38)
[2020-05-27] MEDS: CALCIUM ACETATE 667 MG CAP/TAB PO SCH ×3 (08:43→16:27)
[2020-05-27] MEDS: FUROSEMIDE 40 MG TAB PO SCH ×2 (08:43→16:27)
[2020-05-27] MEDS: PANTOprazole 40 MG TAB PO SCH ×2 (08:44→19:37)
[2020-05-27] MEDS: ASPIRIN 81 MG ECTAB PO SCH ×2 (08:44→19:36)
[2020-05-27] MEDS: INSULIN GLARGINE SOLOSTAR 100 UNITS/ML 3 ML PEN SC SCH (08:48)
[2020-05-27] MEDS: INSULIN ASPART 100 UNITS/ML 3 ML PEN SC SCH ×4 (08:55→21:49)
--- NOTE | 2020-05-27 12:51 | Hospitalist Progress Note ---
Date of Service May 27, 2020 Assessment & Plan (1) History of diabetic ulcer of foot: Ongoing care through [facility] and [facility]. - MRI foot on 05/25 shows osteitis without MR evidence for osteomyelitis within the left forefoot. - Deep wound culture done on 05/26 from the ulcer -> Growing Staph spc. - Hold abx at present; no clinical indication of surrounding cellulitis. No vital sign changes or lab changes to indicate acute infection. - Will get ABIs and ID consult today. (2) Displaced fracture of right femoral neck: From a mechanical fall. - S/p right hip hemiarthroplasty on 05/[address] Carr. - Doing well post-op; cleared by ortho for discharge. (3) Fall: Mechanical related to walking cast. - PT/OT (4) PVD (peripheral vascular disease): Normal neurovascular exam today. - Arterial ultrasound as above - Continue ASA 81 mg PO BID (for DVT ppx per ortho) (5) Dyslipidemia: - Continue home meds (6) Hypertension: BP is 140/65 today. - Continue home meds: Lasix, metoprolol (7) Central sleep apnea: Noncompliant with CPAP (8) S/P CABG x 5: Last aspirin dose was 12/3 in the afternoon. - Continue ASA, beta-baljinder, statin (9) ESRD on dialysis: with [facility]. - Nephrology following; HD per team (10) Depression: No depression noted today. - Continue home meds: citalopram & nortriptyline (11) Anemia: Baseline appears to be 10-12. Hb on admission 11.4. Acute blood loss anemia likely due to surgery. - Holding oral iron for now; will give Venofer x 3 doses. (12) DVT prophylaxis: ASA 81 mg PO BID per orthopedics Admission and Anticipated Discharge Date Admission Date: May 24, 2020 Subjective Reports having a sore throat. No foot pain. Reports no fevers/chills, chest pain, shortness of breath, abdominal pain, nausea, or vomiting. Physical Exam Constitutional: WD/WN, vitals as above Eyes: EOM intact bilaterally; no conjunctival abnormality ENMT: external ear and nose normal, oropharynx normal Neck: trachea midline, no thyromegaly normal visual inspection Respiratory: normal respiratory effort, lungs clear to auscultation no respiratory distress Cardiovascular: RRR, no murmur, no edema Gastrointestinal (Abdomen): Inspection/Auscultation: abdomen normal to inspection; abdomen not distended Musculoskeletal: no cyanosis or clubbing, extremities motor strength 5/5 Skin: no rashes, warm and dry + ulcer (Ulcer on left foot) Neurologic: moves all extremities and awake Psychiatric: Orientation: alert, oriented to person and cooperative Results & Data Results & Data ([facility]) Vital Signs (Past 12 Hours) Vital Signs Temp Pulse Resp BP Pulse Ox 05/27/20 07:26 36.8 C 75 18 172/73 H 92 PG Care Time/CCT Total # of Minutes Spent Total Time Spent with Patient: Total time spent is greater than 50% in coordination of care (as documented) at patient's floor/unit and/or counseling patient: Coding Level of Care Code 17341 Subseq Hosp Care Lvl 3 Diagnoses History of diabetic ulcer of foot Z86.31 Displaced fracture of right femoral neck S72.001A Fall W19.XXXA Encounter type: initial encounter PVD (peripheral vascular disease) I73.9 Dyslipidemia E78.5 Hypertension I10 Central sleep apnea G47.31 S/P CABG x 5 Z95.1 ESRD on dialysis N18.6; Z99.2 Depression F32.9 Anemia D64.9 DVT prophylaxis Z29.9 (1) Fall Encounter type: initial encounter Qualified Code(s): W19.XXXA - Unspecified fall, initial encounter
--- NOTE | 2020-05-27 12:57 | Nephrology Progress Note ---
Date of Service May 27, 2020 Assessment & Plan (1) ESRD on dialysis: for routine HD tomorrow 4 h. BP and volume status on higher side>will aim again for 3L as sbp tolerates -ordered 1.2L FR -cont binders; cont renal tosin -cont dialysis diet and protein supplements -unless he has procedure today / tomorrow for mini heparin on tx and DARRELL > t stn ordered for am (2) Displaced fracture of right femoral neck: per ortho and primary service Admission and Anticipated Discharge Date Admission Date: May 24, 2020 Subjective MRI equivocal for osteo L foot; to consider wound/surgical eval per ID. no interval events. no sob, CRUZ improved; no n/v; no uncontrolled musculoskeletal pain or any chest pain Review of Systems Review of Systems: All systems reviewed & are unremarkable except as noted in HPI & below Physical Exam Constitutional: well developed, well nourished and cooperative; no acute distress Eyes: EOM intact bilaterally ENMT: Ears: no external ear abnormality Nose: no external nose abnormality Mouth: + dry oral mucous membranes Neck: no nuchal rigidity Respiratory: normal respiratory effort Auscultation: lungs clear to auscultation bilaterally and + diminished lung sounds (on RA) Cardiovascular: RRR, no murmur, no edema Extremities: + AV fistula (LUT + t/b) Gastrointestinal (Abdomen): Inspection/Auscultation: normal bowel sounds Percussion/Palpation: abdomen soft; abdomen nontender Musculoskeletal: Extremities: strength 5/5 throughout Skin: no rashes, warm and dry + ulcer (LLE) Neurologic: flannery, fluent speech, no tremor Psychiatric: A+Ox3, euthymic affect Results & Data ([facility]) Vital Signs (Past 12 Hours) Vital Signs Temp Pulse Resp BP Pulse Ox 05/27/20 07:26 36.8 C 75 18 172/73 H 92 Laboratory Results 05/27/20 06:00 05/27/20 06:00
--- NOTE | 2020-05-27 13:20 | Pharmacy Report ---
Pharmacy Glycemic Short Note 2 - Date of Service May 27, 2020 - Glycemic Short BSG Results (Last 24 hours): 05/26/20 05/26/20 05/27/20 16:58 20:37 02:08 Glucose POC Glucose 90 129 H 151 H 05/27/20 05/27/20 05/27/20 06:00 08:24 12:17 Glucose 158 H POC Glucose 160 H 220 H OUTPATIENT ANTIDIABETIC REGIMEN: * Novolog pump * Basal: 13 units/24 hours * TDD: 29 units * Average BSG at home: 196 mg/dL * HbA1c: 6.8% (05/25/20) * However, this result is likely somewhat unreliable in ESRD patients d/t interactions between the A1c analyzing technique and high levels of urea in ESRD, reduced RBC life span, iron deficiency anemia, and EPO administration. HbA1c > 7.5% in ESRD patient may overestimate the extent of hyperglycemia in ESRD patients. ASSESSMENT: 05/27 * BSGs [phone] mg/dL yesterday, fasting improved this AM 160 mg/dL * Loosened parameters novolog parameters from 07/01 to 12/02 after BSG went from 229 mg/dL to 90 mg/dL at dinner, however may need to tighten again if BSGs trend elevated. * Patient to be evaluated by ID today, HD scheduled for tomorrow. * Discussed with nurse patient to have bring in insulin pump supplies- could possibly restart tomorrow AM depending on plans for discharge/OR 05/26 * DP is a 69 year old male admitted on 05/24 with right femoral neck fracture secondary to fall * POD #2 s/p right hemiarthroplasty * Patient with ESRD requiring HD - HD session yesterday * Insulin pump removed on admission and has been managed with SC basal/bolus * BSGs yesterday of 201, 112, 114, and 149 mg/dL * Patient received ~28 units of insulin (18 units of basal, 10+ units of prandial/correctional) * Fasting BSG of 268 mg/dL this morning * Will increase Lantus to 20 units SC daily * Discussed with RN, patient attempting to call to bring in pump supplies * Unlikely to be discharged today PLAN FOR INPATIENT GLYCEMIC CONTROL: * Hold outpatient oral diabetes medications * Basal insulin * Lantus 20 units SQ daily * Lantus scale to provide 0-5 units this evening * Bolus insulin * NovoLog per scale ACHS or Q6hrs while NPO * Goal Range: Low 110 mg/dL - High 140 mg/dL * Correction Factor: 25 mg/dL/unit * Nutritional / Prandial insulin per carb ratio of 1 unit per 8 grams CHO consumed * 0200 check this evening with same parameters PLAN FOR DISCHARGE: * Will require transition back to Novolog pump prior to discharge * Waiting on patient's to bring in pump supplies; if patient discharged this evening and has pump supplies to reconnect would have patient do a t emporary basal of 0 units until tomorrow ~ 7 AM (2 hours prior to dose of lantus was given today).
[2020-05-27] MEDS: COLESTIPOL HCL 1 GM TAB PO SCH (13:29)
[2020-05-27] MEDS: oxyCODONE HCL IR 5 MG TAB (IMMEDIATE RELEASE) PO PRN (13:41)
[2020-05-27] MEDS: CITALOPRAM 40 MG TAB PO SCH (16:24)
[2020-05-27] MEDS: METOPROLOL SUCC 25MG EXT REL TAB PO SCH (16:26)
[2020-05-27] MEDS: ONDANSETRON INJ 2 MG/ML 2 ML VIAL IV PRN (18:12)
--- NOTE | 2020-05-27 18:14 | Ultrasound Report ---
US arterial duplex LE BI CLINICAL HISTORY: PVD, diabetic foot ulcer COMPARISON STUDY: None. FINDINGS: Scattered calcified plaque seen throughout the bilateral lower extremity arterial systems. Normal biphasic to triphasic waveforms and velocities seen throughout the bilateral common femoral, s uperficial femoral, and popliteal arteries. Primarily monophasic waveforms seen throughout the bilate ral calf arteries. Elevated peak systolic velocity within the distal left peroneal artery of 247 cm/s consistent with an area of stenosis. No areas of arterial occlusion identified. IMPRESSION: 1. No areas of arterial occlusion identified within the bilateral lower extremities. 2. Primarily monophasic waveforms seen throughout the bilateral calf arteries consistent with diffuse atherosclerotic disease. 3. Focal area of hemodynamically significant stenosis within the distal left peroneal artery. ACT 112: Negative or not required by law. Electronically signed by: Aditya Hernandez M.D. 05/27/2020 6:13 PM
[2020-05-27] MEDS: NORTRIPTYLINE HCL 10 MG CAP PO SCH (19:36)
[2020-05-27] MEDS: PRAVASTATIN SOD 40 MG TAB PO SCH (19:37)
[2020-05-28] MEDS: ACETAMINOPHEN 325 MG TAB PO PRN ×2 (00:08→15:36)
[2020-05-28] MEDS: oxyCODONE HCL IR 5 MG TAB (IMMEDIATE RELEASE) PO PRN ×2 (00:09→15:35)
[2020-05-28 06:01] LABS: Hematocrit (blood only) 24.1 % (42-52); Hemoglobin 8.4 g/dL (14.0-18.0); Mean Corpuscular Hemoglobin 33.3 pg (25-34); Mean Corpuscular Hgb Conc 34.9 g/dL (32-36); Mean Corpuscular Volume 95.6 fL (80-100); Mean Platelet Volume 9.2 fL (7.4-10.4); Platelet Count 147 K/uL (130-400); RDW Coefficient of Variation 12.4 % (11.5-14.5); RDW Standard Deviation 43.2 fL (36.4-46.3); Red Blood Count 2.52 M/uL (4.7-6.1); White Blood Count 5.35 K/uL (4.8-10.8)
[2020-05-28 06:51] LABS: BUN Creatinine Ratio 9.9 (10-20); Calcium 8.7 mg/dl (8.5-10.1); Est GFR (African American) 6.6; Est GFR (Non-African American) 5.7; Magnesium 2.5 mg/dl (1.8-2.4); Potassium 4.8 mmol/L (3.5-5.1)
[2020-05-28] MEDS ORDERED: INSULIN ASPART 100 UNITS/ML VIAL SC PRN (07:30)
[2020-05-28] MEDS: CALCIUM ACETATE 667 MG CAP/TAB PO SCH ×3 (08:17→18:22)
[2020-05-28] MEDS: ASPIRIN 81 MG ECTAB PO SCH ×2 (08:17→20:23)
[2020-05-28] MEDS: PANTOprazole 40 MG TAB PO SCH ×2 (08:17→20:23)
[2020-05-28] MEDS: NovoLOG INSULIN PUMP SCH ×4 (08:18→20:41)
[2020-05-28] MEDS ORDERED: HEPARIN SOD (PORCINE) 1000 UNIT/ML 10 ML VIAL IV ONE (08:49)
[2020-05-28] MEDS ORDERED: EPOETIN ALFA 20,000 UNITS/ML VIAL IV ONE (08:49)
[2020-05-28] MEDS ORDERED: SODIUM CHLORIDE 0.9% 1000ML 1,000 ML IV PRN (08:49)
[2020-05-28] MEDS ORDERED: INSULIN GLARGINE SOLOSTAR 100 UNITS/ML 3 ML PEN SC ONE (09:00)
[2020-05-28] MEDS ORDERED: IRON SUCROSE 100 MG in SYRINGE 0 ML IV ONE (09:15)
--- NOTE | 2020-05-28 10:07 | Progress Notes ---
DATE: 05/28/2020 SUBJECTIVE: A 69-year-old diabetic patient postoperative day 4 from a right cemented bipolar hip arthroplasty for fracture. He also has a left foot ulcer. He is doing reasonably well. Pain seems to be controlled. Feels a little bit wiped out today. No particular pain. OBJECTIVE: VITAL SIGNS: Temperature 36.2. Vital signs stable. GENERAL: Shows a pleasant elderly male. He is lying in bed, looks comfortable. He does look a little wiped out today. EXTREMITIES: Examination of the right hip reveals the dressing to be clean, dry and intact. Leg lengths were equal. Hip is located. He is neurologically intact. Examination of the left foot reveals a full-thickness ulcer over the plantar aspect of his fifth metatarsal head. There is no real surrounding redness, erythema or significant drainage. No redness. MRI: MRI is reviewed. It shows a little bit of edema in the area of the ulcer. No obvious clear osteomyelitis. ASSESSMENT: This is a 69-year-old gentleman; 1. Postoperative day 4 from a right cemented bipolar hip arthroplasty for fracture, doing reasonably well. 2. Left full thickness fifth metatarsal head diabetic foot ulcer. No obvious signs of deep infection, but he has got a full thickness ulcer. PLAN: 1. With respect to his hip, he can weightbear as tolerated. I need to see him back in 2 weeks. He is orthopedically okay for discharge any time. 2. With respect to the left foot, I would recommend continued debridement of the ulcer just at bedside to get rid of the rind. I think he needs to be back in a total contact cast. I think that is the only chance of getting this to heal and I think likely it is probably 50:50 at best. Alternative option would be resection of the metatarsal. I would recommend further total contact casting at this point. 3. As far as discharge plans, he is orthopedically okay for discharge any time. I need to see him back in 2-3 weeks out from his surgery date. Any orthopedic questions can be directed to me at [phone].
[2020-05-28] MEDS: HEPARIN SOD (PORCINE) 1000 UNIT/ML 10 ML VIAL IV SCH ×2 (10:47→18:51)
--- NOTE | 2020-05-28 14:17 | Pharmacy Report ---
Pharmacy Glycemic Short Note 2 - Date of Service May 28, 2020 - Glycemic Short BSG Results (Last 24 hours): 05/27/20 05/27/20 05/28/20 17:50 20:21 05:21 Glucose 175 H POC Glucose 173 H 187 H 05/28/20 05/28/20 08:06 14:04 Glucose POC Glucose 177 H 110 H OUTPATIENT ANTIDIABETIC REGIMEN: * Novolog pump * Basal: 13 units/24 hours * TDD: 29 units * Average BSG at home: 196 mg/dL * HbA1c: 6.8% (05/25/20) * However, this result is likely somewhat unreliable in ESRD patients d/t interactions between the A1c analyzing technique and high levels of urea in ESRD, reduced RBC life span, iron deficiency anemia, and EPO administrat ion. HbA1c > 7.5% in ESRD patient may overestimate the extent of hyperglycemia in ESRD patients. ASSESSMENT: 05/27 * BSGs [phone] mg/dL * Restarted insulin pump this morning with patient's outpatient parameters * Fasting this AM 177 mg/dL- entered an additional 7 units of lantus outside of pump as pump basal~13 units/day and patient has required 20 units to achieve this fasting, patient did not want the additional 7 units. * Patient does have HD today, lunch BSG 110 mg/dL 05/27 * BSGs [phone] mg/dL yesterday, fasting improved this AM 160 mg/dL * Loosened parameters novolog parameters from 07/01 to /8 after BSG went from 229 mg/dL to 90 mg/dL at dinner, however may need to tighten again if BSGs trend elevated. * Patient to be evaluated by ID today, HD scheduled for tomorrow. * Discussed with nurse patient to have bring in insulin pump supplies- could possibly restart tomorrow AM depending on plans for discharge/OR 05/26 * DP is a 69 year old male admitted on 05/24 with right femoral neck fracture secondary to fall * POD #2 s/p right hemiarthroplasty * Patient with ESRD requiring HD - HD session yesterday * Insulin pump removed on admission and has been managed with SC basal/bolus * BSGs yesterday of 201, 112, 114, and 149 mg/dL * Patient received ~28 units of insulin (18 units of basal, 10+ units of prandial/correctional) * Fasting BSG of 268 mg/dL this morning * Will increase Lantus to 20 units SC daily * Discussed with RN, patient attempting to call to bring in pump supplies * Unlikely to be discharged today PLAN FOR INPATIENT GLYCEMIC CONTROL: * Hold outpatient oral diabetes medications * Basal insulin * Lantus 20 units SQ daily * Lantus scale to provide 0-5 units this evening * Bolus insulin * NovoLog per scale ACHS or Q6hrs while NPO * Goal Range: Low 110 mg/dL - High 140 mg/dL * Correction Factor: 25 mg/dL/unit * Nutritional / Prandial insulin per carb ratio of 1 unit per 8 grams CHO consumed * 0200 check this evening with same parameters PLAN FOR DISCHARGE: * Patient transitioned to insulin pump this morning. Patient should follow with outpatient/rehab providers for any pump adjustments needed.
[2020-05-28] MEDS: FUROSEMIDE 40 MG TAB PO SCH ×2 (14:20→17:07)
--- NOTE | 2020-05-28 14:36 | Dialysis Progress Note ---
Date of Service May 28, 2020 Assessment & Plan (1) ESRD on dialysis: for routine HD today 4 h. He tolerated 2 L fluid removal -Continue 1.2L FR -cont binders; cont renal tosin -cont dialysis diet and protein supplements Next dialysis for May 30 as inpatient or at rehab (2) Displaced fracture of right femoral neck: per ortho and primary service (3) Diabetic ulcer of left foot associated with type 2 diabetes mellitus: Per primary service with infectious diseases and orthopedics following --continue debridement and contact casting recommended Present on Admission?: Yes Admission and Anticipated Discharge Date Admission Date: May 24, 2020 Subjective Coming off of dialysis 10 minutes early today due to uncontrolled musculoskeletal pain particularly left foot, right hip, back pain. Also complains of ongoing sore throat. States that sore throat limits his ability to take p.o. no shortness of breath, no nausea vomiting. Left foot was recasted this morning Review of Systems Review of Systems: All systems reviewed & are unremarkable except as noted in HPI & below Physical Exam Constitutional: well developed, well nourished, + acute distress (Uncomfortable and fatigued states from pain) and cooperative Eyes: EOM intact bilaterally ENMT: Ears: no external ear abnormality Nose: no external nose abnormality Mouth: + dry oral mucous membranes Neck: no nuchal rigidity Respiratory: normal respiratory effort Auscultation: lungs clear to ausc ultation bilaterally and + diminished lung sounds (on RA) Cardiovascular: RRR, no murmur, no edema Extremities: + AV fistula (LUT + t/b) Gastrointestinal (Abdomen): Inspection/Auscultation: normal bowel sounds Percussion/Palpation: abdomen soft; abdomen nontender Musculoskeletal: Extremities: strength 5/5 throughout Skin: no rashes, warm and dry + ulcer (LLE now in cast) Neurologic: Moves all extremities, fluent speech, no tremor Psychiatric: Orientation: alert and oriented x 3 Affect: + depressed affect Results & Data ([facility]) Vital Signs (Past 12 Hours) Vital Signs Temp Pulse Pulse Pulse Resp BP BP 05/28/20 13:40 36.6 C 75 160/65 H 05/28/20 13:20 77 145/60 H 05/28/20 13:00 77 118/52 L 05/28/20 12:40 71 117/50 L 05/28/20 12:20 73 131/58 L 05/28/20 12:00 70 134/57 L 05/28/20 11:40 70 88/72 L 05/28/20 11:20 68 134/68 05/28/20 11:00 68 124/54 L 05/28/20 10:40 69 133/54 L 05/28/20 10:20 68 128/49 L 05/28/20 10:00 69 109/51 L 05/28/20 09:40 69 119/52 L 05/28/20 09:29 36.6 C 69 05/28/20 08:09 36.2 C L 74 18 143/62 H Pulse Ox 05/28/20 13:40 05/28/20 13:20 05/28/20 13:00 05/28/20 12:40 05/28/20 12:20 05/28/20 12:00 05/28/20 11:40 05/28/20 11:20 05/28/20 11:00 05/28/20 10:40 05/28/20 10:20 05/28/20 10:00 05/28/20 09:40 05/28/20 09:29 05/28/20 08:09 96 Laboratory Results 05/28/20 05:21 05/28/20 05:21 (1) Diabetic ulcer of left foot associated with type 2 diabetes mellitus Diabetic foot ulcer location: midfoot Non-pressure ulcer stage: with fat lay er exposed Qualified Code(s): E11.621 - Type 2 diabetes mellitus with foot ulcer; L97.422 - Non-pressure chronic ulcer of left heel and midfoot with fat layer exposed
[2020-05-28] MEDS: CITALOPRAM 40 MG TAB PO SCH (17:07)
[2020-05-28] MEDS: METOPROLOL SUCC 25MG EXT REL TAB PO SCH (17:07)
[2020-05-28] MEDS: PRAVASTATIN SOD 40 MG TAB PO SCH (20:23)
[2020-05-28] MEDS: NORTRIPTYLINE HCL 10 MG CAP PO SCH (20:23)
--- NOTE | 2020-05-28 20:55 | Hospitalist Progress Note ---
Date of Service May 28, 2020 Assessment & Plan (1) History of diabetic ulcer of foot: Ongo[facility] and PT. - MRI foot on 05/25 shows osteitis without MR evidence for osteomyelitis within the left forefoot. - Deep wound culture done on 05/26 from the ulcer -> Growing Staph spc. - Hold abx at present; no clinical indication of surrounding cellulitis. No vital sign changes or lab changes to indicate acute infection. - Appreciate input from ID. Needs orthotics, will likely discharge in AM. (2) Displaced fracture of right femoral neck: From a mechanical fall. - S/p right hip hemiarthroplasty on 05/[address] Carr. - Doing well post-op; cleared by ortho for discharge. (3) Fall: Mechanical related to walking cast. - PT/OT (4) PVD (peripheral vascular disease): Normal neurovascular exam today. - Arterial ultrasound as above - Continue ASA 81 mg PO BID (for DVT ppx per ortho) (5) Dyslipidemia: - Continue home meds (6) Hypertension: BP is 140/65 today. - Continue home meds: Lasix, metoprolol (7) Central sleep apnea: Noncompliant with CPAP (8) S/P CABG x 5: Last aspirin dose was 12/3 in the afternoon. - Continue ASA, beta-baljinder, statin (9) ESRD on dialysis: with [facility]. - Nephrology following; HD per team (10) Depression: No depression noted today. - Continue home meds: citalopram & nortriptyline (11) Anemia: Baseline appears to be 10-12. Hb on admission 11.4. Acute blood loss anemia likely due to surgery. - Holding oral iron for now; will give Venofer x 3 doses. (12) DVT prophylaxis: ASA 81 mg PO BID per orthopedics Admission and Anticipated Discharge Date Admission Date: May 24, 2020 Subjective Patient reports feeling well. No new complaint. Review of Systems Review of Systems: All systems reviewed & are unremarkable except as noted in HPI & below Physical Exam Physical Exam: Constitutional: WD/WN, vitals as above Eyes: EOM intact bilaterally; no conjunctival abnormality ENMT: external ear and nose normal, oropharynx normal Neck: trachea midline, no thyromegaly normal visual inspection Respiratory: normal respiratory effort, lungs clear to auscultation no respiratory distress Cardiovascular: RRR, no murmur, no edema Gastrointestinal (Abdomen): Inspection/Auscultation: abdomen normal to inspection; abdomen not distended Musculoskeletal: no cyanosis or clubbing, extremities motor strength 5/5 Skin: no rashes, warm and dry + ulcer (Ulcer on left foot) Neurologic: moves all extremities and awake Psychiatric: Orientation: alert, oriented to person and cooperative Results & Data Results & Data ([facility]) Vital Signs (Past 12 Hours) Vital Signs Temp Pulse Pulse Resp BP BP Pulse Ox 05/28/20 15:13 36.4 C L 78 16 133/62 92 05/28/20 13:40 36.6 C 75 160/65 H 05/28/20 13:20 77 145/60 H 05/28/20 13:00 77 118/52 L 05/28/20 12:40 71 117/50 L 05/28/20 12:20 73 131/58 L 05/28/20 12:00 70 134/57 L 05/28/20 11:40 70 88/72 L 05/28/20 11:20 68 134/68 05/28/20 11:00 68 124/54 L 05/28/20 10:40 69 133/54 L 05/28/20 10:20 68 128/49 L 05/28/20 10:00 69 109/51 L 05/28/20 09:40 69 119/52 L 05/28/20 09:29 36.6 C 69 PG Care Time/CCT Total # of Minutes Spent Total Time Spent with Patient: Total time spent is greater than 50% in coordination of care (as documented) at patient's floor/unit and/or counseling patient: Coding Level of Care Code 07717 Subseq Hosp Care Lvl 3 Diagnoses History of diabetic ulcer of foot Z86.31 Displaced fracture of right femoral neck S72.001A Fall W19.XXXA Encounter type: initial encounter PVD (peripheral vascular disease) I73.9 Dyslipidemia E78.5 Hypertension I10 Central sleep apnea G47.31 S/P CABG x 5 Z95.1 ESRD on dialysis N18.6; Z99.2 Depression F32.9 Anemia D64.9 DVT prophylaxis Z29.9 Time Spent (min) 35 (1) Fall Encounter type: initial encounter Qualified Code(s): W19.XXXA - Unspecified fall, initial encounter
[2020-05-29] MEDS: ACETAMINOPHEN 325 MG TAB PO PRN (00:59)
[2020-05-29] MEDS: oxyCODONE HCL IR 5 MG TAB (IMMEDIATE RELEASE) PO PRN ×2 (04:20→13:50)
[2020-05-29 06:09] LABS: Basophils # (auto) 0.01 K/uL (0-0.2); Basophils % (auto) 0.2 %; Eosinophils # (auto) 0.25 K/uL (0-0.5); Eosinophils % (auto) 5.1 %; Hematocrit (blood only) 25.3 % (42-52); Hemoglobin 8.7 g/dL (14.0-18.0); Immature Granulocytes # (auto) 0.02 K/uL (0.00-0.02); Immature Granulocytes % (auto) 0.4 %; Lymphocytes % (auto) 14.4 %; Mean Corpuscular Hemoglobin 33.5 pg (25-34); Mean Corpuscular Hgb Conc 34.4 g/dL (32-36); Mean Corpuscular Volume 97.3 fL (80-100); Monocytes # (auto) 0.64 K/uL (0.11-0.59); Monocytes % (auto) 13.1 %; Neutrophils # (auto) 3.25 K/uL (1.4-6.5); Neutrophils % (auto) 66.8 %; Platelet Count 182 K/uL (130-400); RDW Coefficient of Variation 12.5 % (11.5-14.5); RDW Standard Deviation 44.1 fL (36.4-46.3); White Blood Count 4.87 K/uL (4.8-10.8)
--- NOTE | 2020-05-29 08:21 | Progress Notes ---
DATE: 05/29/2020 SUBJECTIVE: A 69-year-old gentleman now postop day 5 from a right cemented bipolar hip arthroplasty for fracture. His hip is doing well. He continues to feel it is kind of wiped out. He did get his total contact cast replaced yesterday. No new complaints. OBJECTIVE: VITAL SIGNS: Temperature 36.7. Vital signs stable. GENERAL: Shows a pleasant, middle-aged male. I had to wake him this morning. EXTREMITIES: Examination of the right hip and leg reveals the dressing to be clean, dry and intact. His thigh is soft and supple. He can dorsiflex and plantarflex his foot appropriately. Leg lengths are equal. Examination of the left leg reveals the total contact cast to be in place. No signs of problems. ASSESSMENT: A 69-year-old gentleman postop day 5 from a right cement bipolar hip arthroplasty for fracture. He has got multiple medical comorbidities. He is slowly improving. PLAN: 1. DVT prophylaxis including thigh-high TEDs, SCDs, and we recommend a baby aspirin twice a day for 6 weeks. 2. PT/OT. He can weightbear as tolerated. He does need to obey hip precautions for the next 6 weeks. 3. Pain control, doing okay with current pain regimen. 4. Medical management as per the medicine service. 5. Left foot ulcer. He is back in his total contact cast. Follow up with a diabetic foot clinic. 6. Disposition: He is orthopedically okay for discharge any time. I need to see him back in 2-3 weeks out from surgery date. Any orthopedic questions can be directed to me at [phone].
[2020-05-29] MEDS: FUROSEMIDE 40 MG TAB PO SCH (08:40)
[2020-05-29] MEDS: ASPIRIN 81 MG ECTAB PO SCH (08:40)
[2020-05-29] MEDS: PANTOprazole 40 MG TAB PO SCH (08:40)
[2020-05-29] MEDS: NovoLOG INSULIN PUMP SCH ×2 (08:49→13:34)
[2020-05-29] MEDS: CALCIUM ACETATE 667 MG CAP/TAB PO SCH ×2 (08:49→11:50)
--- NOTE | 2020-05-29 09:22 | Nephrology Progress Note ---
Date of Service May 29, 2020 Assessment & Plan (1) ESRD on dialysis: for routine HD tomorrow here or at rehab 4 h. He tolerated 2 L fluid removal - may try for more depending on status, though chemistries and volume status today acceptable -Continue 1.2L FR -cont binders; cont renal tosin -cont dialysis diet and protein supplements will add on t stn to labs from this am >> t stn 23% and so once weekly venofer and already dosed yesterday; cont DARRELL w/ txs (2) Displaced fracture of right femoral neck: per ortho and primary service (3) Diabetic ulcer of left foot associated with type 2 diabetes mellitus: Per primary service with infectious diseases and orthopedics following --continue debridement and contact casting recommended Admission and Anticipated Discharge Date Admission Date: May 24, 2020 Subjective for d/c to [facility] when bed avail; no IV abtx needed; tolerated 2L UF yesterday; no n/v, no uncontrolled pain, no sob; tolerating po and HD txs Review of Systems Review of Systems: All systems reviewed & are unremarkable except as noted in HPI & below Physical Exam Constitutional: well developed, well nourished and cooperative; no acute distress Eyes: EOM intact bilaterally ENMT: Ears: no external ear abnormality Nose: no external nose abnormality Mouth: + dry oral mucous membranes Neck: no nuchal rigidity Respiratory: normal respiratory effort Auscultation: lungs clear to auscultation bilaterally and + diminished lung sounds (on RA) Cardiovascular: RRR, no murmur, no edema Extremities: + AV fistula (LUT + t/b) Gastrointestinal (Abdomen): Inspection/Auscultation: normal bowel sounds Percussion/Palpation: abdomen soft; abdomen nontender Musculoskeletal: Extremities: strength 5/5 throughout Skin: no rashes, warm and dry + ulcer (LLE now in cast) Neurologic: flannery, fluent speech, no tremor Psychiatric: A+Ox3, euthymic affect Orientation: alert and oriented x 3 Affect: + depressed affect Results & Data ([facility]) Vital Signs (Past 12 Hours) Vital Signs Temp Pulse Resp BP Pulse Ox 05/28/20 23:35 36.7 C 67 18 137/64 91 Laboratory Results 05/29/20 05:20 05/28/20 05:21 (1) Diabetic ulcer of left foot associated with type 2 diabetes mellitus Diabetic foot ulcer location: midfoot Non-pressure ulcer stage: with fat layer exposed Qualified Code(s): E11.621 - Type 2 diabetes mellitus with foot ulcer; L97.422 - Non-pressure chronic ulcer of left heel and midfoot with fat layer exposed
[2020-05-29 10:11] LABS: Iron 38 mcg/dl (35-175); Transferrin 117 mg/dl (200-360); Transferrin Percent Saturation 23 % (20-50)
[2020-05-29] MEDS: COLESTIPOL HCL 1 GM TAB PO SCH (11:43)
[2020-05-29] MEDS: MAGNESIUM HYDROXIDE SUSP 30 ML UDC PO PRN (11:43)
--- NOTE | 2020-05-30 12:35 | Discharge Summary ---
Date of Service May 29, 2020 Admission HPI Per Admitting Provider 69 y/o M who was brought to [facility] via ambulance after a fall. Pt was walking into a building for an MRI when he fell and landed on his R side. He did not hit his head. He states he has issues walking with his new cast and he feels it was related to this, but he may have also been a bit lightheaded prior. He did not pass out. He remembers falling. He has felt his usual otherwise. He has pain related to his R hip. He gets intermittent LE swelling. Pt denies fever, SOB, chest pain, abd pain, n/v/c/d. Pt has been working with [facility] for ongoing nonhealing L cellulitis. He was being sent for MRI of this to r/o osteomyelitis. He is not currently on abx. He also has more superficial R sided foot ulcerations. Principal Diagnosis diabetic foot ulcer Discharge Exam Constitutional: WD/WN, vitals as above Eyes: EOM intact bilaterally; no conjunctival abnormality ENMT: external ear and nose normal, oropharynx normal Neck: trachea midline, no thyromegaly normal visual inspection Respiratory: normal respiratory effort, lungs clear to auscultation no respiratory distress Cardiovascular: RRR, no murmur, no edema Gastrointestinal (Abdomen): Inspection/Auscultation: abdomen normal to inspection; abdomen not distended Musculoskeletal: no cyanosis or clubbing, extremities motor strength 5/5 Skin: no rashes, warm and dry + ulcer (Ulcer on left foot) Neurologic: moves all extremities and awake Psychiatric: Orientation: alert, oriented to person and cooperative Discharge Data Allergies Allergy/AdvReac Type Severity Reaction Status Date / Time adhesive Allergy Mild itchy and Verified 05/24/20 08:47 rash Consultations 05/24/20 09:29 Consult Orthopedic Surgery Stat 05/24/20 09:43 ED Decision to Admit Stat 05/24/20 12:36 Consult Case Management - Discharge Planning Routine Consult Nephrology Routine Consult Orthopedic Surgery Routine 05/24/20 17:28 Consult Case Management - Discharge Planning Routine 05/26/20 17:29 Consult Infectious Diseases Routine Procedures Performed Operation Date: 05/24/20 14:00 Actual Procedures p Right Hip Hemiarthroplasty(Right) - Cedrick Carr MD Ordered Studies 05/26/20 09:00 MR foot LT w/o con Routine 05/26/20 17:29 US ankle/brachial index comp Routine 05/27/20 14:00 US arterial duplex LE BI Routine Hospital Course (1) History of diabetic ulcer of foot: [facility] and [facility]. - MRI foot on 05/25 shows osteitis without MR evidence for osteomyelitis within the left forefoot. - Deep wound culture done on 05/26 from the ulcer -> Growing Staph spc. - Hold abx at present; no clinical indication of surrounding cellulitis. No vital sign changes or lab changes to indicate acute infection. - Appreciate input from ID. Needs orthotics, instructions given to patient. noted belwo. (2) Displaced fracture of right femoral neck: From a mechanical fall. - S/p right hip hemiarthroplasty on 05/[address] Carr. - Doing well post-op; cleared by ortho for discharge. (3) Fall: Mechanical related to walking cast. - PT/OT (4) PVD (peripheral vascular disease): Normal neurovascular exam today. - Arterial ultrasound as above - Continue ASA 81 mg PO BID (for DVT ppx per ortho) (5) Dyslipidemia: - Continue home meds (6) Hypertension: BP is 140/65 today. - Continue home meds: Lasix, metoprolol (7) Central sleep apnea: Noncompliant with CPAP (8) S/P CABG x 5: Last aspirin dose was 12/3 in the afternoon. - Continue ASA, beta-baljinder, statin (9) ESRD on dialysis: with [facility]. - Nephrology following; HD per team (10) Depression: No depression noted today. - Continue home meds: citalopram & nortriptyline (11) Anemia: Baseline appears to be 10-12. Hb on admission 11.4. Acute blood loss anemia likely due to surgery. - Held oral iron during stay. gave Venofer x 3 doses. will resume home iron tab (12) DVT prophylaxis: ASA 81 mg PO BID per orthopedics Total Time Total Time Spent Total Time Spent (In Minutes): 32 Discharge Plan Discharge Items Patient Disposition: Transfer Inpatient Rehab Fac Reason For Visit: RT HIP FRACTURE Discharge Diagnosis: Right Hip Arthroplasty for fracture Activity: Per Instructions section Activity Comment: Obey/Follow hip precautions at all times. Weightbearing: Full weightbearing Weightbearing Comment: Weightbear as tolerated obeying hip precautions at all times. Non-emergency contact: Primary Care Provider Call non-emergency contact if: you have any medication questions Follow-up/Referrals: Ramo Uribe MD [Primary Care Provider] - Cedrick Carr MD [Physician] - (Orthopedic follow-up 2-3 weeks from surgery date.) Diet: Carb Consistent or DM2 and Dialysis Renal Fluids: 1200ml (5 cups) Addtl Attending Provider Instructions: 1. DVT prophylaxis: we recommend a baby aspirin twice a day for 6 weeks. 2. PT/OT: He can weightbear as tolerated. He does need to obey hip precautions for the next 6 weeks. 3. Left foot ulcer: Back in his total contact cast. Follow up with a diabetic foot clinic. ACTIVITY RECOMMENDATIONS: Physical Therapy: * Aggressive physical therapy is not usually needed. You will learn to take care of yourself safely and walk. * Follow the "Hip Precautions Instructions." * In some cases, the social worker psychiatric at the hospital will arrange to have a therapist come to your house for the first couple of weeks to help you learn these skills. * You need to practice on your own or with the help of a family member as needed. * When you learn these skills, most of the therapy can be done on your own. Home Exercise: * You were shown a series of exercises in the hospital. Do these exercises three to four times each day including the exercises you were shown in physical therapy. Walking: * Get up and walk several times each day. For the first four weeks, try not to stand or walk for more than one hour at a time. If you do stand or walk for more than one hour, you will not hurt anything, but your leg will likely swell. * As you feel comfortable, you may change from the walker or crutches to a cane and then to independent walking. MEDICATIONS: New Medicine: * You will likely be taking one or more of these medicines: 1. Tramadol - Take, as directed, when you need it, every six hours to control your pain. 2. Iron Sulfate - Take two times each day for the month after surgery to help you replace the blood lost during surgery. 3. Aspirin - Thins your blood to lessen the chance of forming a blood clot. * The most common side effects of pain medicine and iron are nausea and constipation. If nausea or constipation is too much of a problem or if you have any qu estions about your new medicines or doses, call [facility] at [phone]. We will try to help you manage these issues. "VERY IMPORTANT TO READ AND REVIEW" Pain: * The immediate post-operative period after hip replacement surgery is often quite painful. * You are given a prescription for pain medicine. You should take it, as directed, when you need it, especially before physical therapy and before going to bed. Pain that interferes with sleep is very common and can last several months. * You will likely need pain medicine for the first two to four weeks. It will not stop all of the pain. The pain will lessen and as you feel better, you may change to milder pain medicine such as Tylenol. * The most common side effects of pain medicine are nausea and constipation, so don't take more than you need. SPECIAL CARE INSTRUCTIONS: TEDs/Elastic Stockings: * The white elastic stockings help limit swelling and prevent blood clots from forming in your legs. The more you wear them, the more they work. * Wear them for six weeks. Prevention of Infection: * Take antibiotics one hour before any dental cleaning, dental work, urological procedure, gastrointestinal procedure or any invasive surgery in order to prevent your new joint from getting infected. * You may get the antibiotics from the doctor performing the procedure or you may call our office at before and we will call in a prescription to the pharmacy of your choice. Things to Watch For: * Drainage from the incision site that occurs more than one week after your surgery. * Severely increased leg pain or swelling. * Increased redness at the incision site. * Fever above 102 degrees Fahrenheit. * Unusual chest pain or shortness of breath. * Unusual pain or burning with urination. Call [facility] at with any of the above problems or if you have any questions about your medicines or recovery. FOLLOW UP VISIT: Make an appointment to see your doctor for approximately two weeks after surgery for a progress check and staple removal by calling the office at . Pending Studies at Discharge: No Stand-Alone Forms: My [facility] Skilled Items Patient informed of condition?: No DNR: No Discharge Level of Care: Acute rehab Communicable Disease: No Discharge Prognosis: Stable Lines: None Urinary Catheter: No Medications and DC Order Prescriptions: New aspirin 81 mg Tablet,Delayed Release (Dr/Ec) 81 mg PO BID Qty: 60 RF: 0 acetaminophen 325 mg Tablet 650 mg PO Q4H PRNQty: 0 RF: 0 Continued calcium acetate 667 mg tablet 667 mg PO BID RF: 0 fluocinolone 0.025 % cream 1 appln TOP BID PRN (Reason: ud) RF: 0 ascorbic acid (vitamin C) 500 mg capsule 500 mg PO DAILY RF: 0 (DME) insulin syringe-needle U-100 [BD Insulin Syringe Ultra-Fine] 0.3 mL 31 gauge x 5/16" syringe See Dose Instructions .ROUTE .MEDSUPPLY Qty: 10 RF: 2 cholecalciferol (vitamin D3) 1,250 mcg (50,000 unit) capsule 50,000 units PO MONTHLY Qty: 3 RF: 3 (DME) blood sugar diagnostic [Contour Next Test Strips] Strip See Rx Instructions .ROUTE .MEDSUPPLY Qty: 400 RF: 3 citalopram 40 mg tablet 40 mg PO QAM Qty: 90 RF: 3 colestipol 1 gram tablet 1 g PO Q2D Qty: 45 RF: 3 nortriptyline 10 mg capsule 10 mg PO HS Qty: 40 RF: 0 cadexomer iodine 1 applic topical DIRECTED PRN (Reason: for wound) RF: 0 metoprolol succinate 25 mg tablet extended release 24 hr 25 mg PO DAILY RF: 0 omeprazole 20 mg capsule,delayed release(DR/EC) 20 mg PO BID Qty: 60 RF: 11 ferrous sulfate 325 mg (65 mg iron) tablet 325 mg PO DAILY RF: 0 mometasone 0.1 % ointment 1 appln topical BID PRN (Reason: ud) Qty: 1 RF: 0 Glucagon Emergency Kit (human) 1 mg recon soln 1 mg IM UD PRN (Reason: HYPOGLYCEMIC EMERGENCY) RF: 0 Triphrocaps 1 mg capsule 1 cap PO DAILY RF: 0 furosemide 40 mg tablet 40 mg PO BID Qty: 90 RF: 3 multivitamin Tablet 1 tab PO QAM RF: 0 pravastatin 40 mg tablet 40 mg PO QPM RF: 0 insulin aspart U-100 [Novolog U-100 Insulin aspart] 100 unit/mL solution 80 units SQ UD RF: 0 Discontinued aspirin [Adult Aspirin Regimen] 81 mg tablet,delayed release (DR/EC) 81 mg PO DAILY RF: 0 Discharge Orders: Discharge Order (Routine); Ordered 05/29/20 Ordered By: Randall Uriostegui/Other Patient Handouts: Managing Type 2 Diabetes Admission Data Admit Date/Time: 05/24/20 10:33 Attending Provider: Randall Gordon Admit Provider: Jerri Fair Primary Care Provider: Ramo Uribe V. Other Providers: Matthew Moya ; [employer] ; Rebeca Wisdom ; Kristofer Gomez ; Dashawn Anna ; Paula Paniagua ; Bobby Carr I. ; Fabio Teran II ; Sanjuanita Pederson ; Meek Sher Other Interventions: Discharge Summary Assessment (RN) Last Done: 05/29/20 14:05 Coding Level of Care Code D/C Day Management >30 mins Diagnoses History of diabetic ulcer of foot Z86.31 Displaced fracture of right femoral neck S72.001A Fall W19.XXXA Encounter type: initial encounter PVD (peripheral vascular disease) I73.9 Dyslipidemia E78.5 Hypertension I10 Central sleep apnea G47.31 S/P CABG x 5 Z95.1 ESRD on dialysis N18.6; Z99.2 Depression F32.9 Anemia D64.9 DVT prophylaxis Z29.9
== END 2020-05-29 14:54 | DRG 521 ==
LOC: ED 07:36 → SUATTDRO 10:33 → 3W 10:33

== ENCOUNTER 2020-06-02 15:18 | Inpatient (IN) ==
[2020-06-02 15:46] LABS: Basophils # (auto) 0.02 K/uL (0-0.2); Basophils % (auto) 0.3 %; Eosinophils # (auto) 0.09 K/uL (0-0.5); Eosinophils % (auto) 1.5 %; Hematocrit (blood only) 27.2 % (42-52); Hemoglobin 9.3 g/dL (14.0-18.0); Immature Granulocytes # (auto) 0.07 K/uL (0.00-0.02); Immature Granulocytes % (auto) 1.2 %; Lymphocytes # (auto) 0.95 K/uL (1.2-3.4); Lymphocytes % (auto) 16.4 %; Mean Corpuscular Hgb Conc 34.2 g/dL (32-36); Mean Corpuscular Volume 96.5 fL (80-100); Mean Platelet Volume 8.7 fL (7.4-10.4); Monocytes # (auto) 0.75 K/uL (0.11-0.59); Monocytes % (auto) 12.9 %; Neutrophils # (auto) 3.93 K/uL (1.4-6.5); Neutrophils % (auto) 67.7 %; Platelet Count 270 K/uL (130-400); RDW Standard Deviation 43.5 fL (36.4-46.3); Red Blood Count 2.82 M/uL (4.7-6.1); White Blood Count 5.81 K/uL (4.8-10.8)
[2020-06-02 15:54] LABS: INR 1.1 (0.9-1.1); Prothrombin Time 11.6 Seconds (9.0-12.0)
[2020-06-02 16:15] LABS: Albumin Globulin Ratio 0.7 (0.9-2); Albumin Level 2.8 gm/dl (3.4-5.0); BUN Creatinine Ratio 9.8 (10-20); Bilirubin,Total 0.6 mg/dl (0.2-1); Calcium 10.1 mg/dl (8.5-10.1); Creatinine Clr Calc Pharmacy 13.1 ml/min; Est GFR (African American) 9.3; Globulin 4.1 gm/dl (2.5-4.0); Magnesium 2.6 mg/dl (1.8-2.4); Potassium 4.6 mmol/L (3.5-5.1); Thyroid Stimulating Hormone 1.87 uIu/ml (0.300-4.500); Total Protein 6.9 gm/dl (6.4-8.2); Troponin I 0.048 ng/ml (0-0.045)
--- NOTE | 2020-06-02 16:21 | XRay Report ---
XR chest 1V portable HISTORY: weakness COMPARISON: Chest 05/24/2020 FINDINGS: There are poststernotomy changes. The lungs are clear. The heart is normal in size. No pleu ral effusions. No pneumothorax. IMPRESSION: No acute process. ACT 112: Negative or not required by law. Electronically signed by: Aditya Hernandez M.D. 06/02/2020 4:20 PM
--- NOTE | 2020-06-02 16:57 | CT Scan Report ---
HEAD CT NONCONTRAST CT DOSE: 537.48 mGy.cm HISTORY: Altered mental status. Confusion. TECHNIQUE: Multiaxial CT images of the head were performed without the use of intravenous contrast. A utomated exposure control was utilized for this study. A dose lowering technique was utilized adheri ng to the principles of ALARA. Comparison: None. Findings: The paranasal sinuses and mastoid air cells are clear. The calvarium and skull base are int act. There is no mass, hematoma, midline shift, acute infarct. White matter hypodensity is nonspecifi c but suggestive of microvascular ischemic change. The ventricles and sulci demonstrate mild age-rela erma involutional changes. Small focal areas of encephalomalacia within the right high convexity and r ight frontal lobe anteriorly consistent with old infarcts. Impression: No acute intracranial abnormality. 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 ACT 112: Negative or not required by law. Electronically signed by: Aditya Hernandez M.D. 06/02/2020 4:56 PM
--- NOTE | 2020-06-02 19:56 | History & Physical Report ---
Date of Service June 02, 2020 Assessment & Plan (1) Seizure-like activity: Shaking of upper extremities and decreased responsiveness lasting for seconds in the ER. Postictal state consistent with prior witnessed altered mental state. Suspect lowered seizure threshold due to tramadol given. Additional chronic lower seizure threshold due to Discussed with Dr Watts - given offending medication tramadol likely responsible will hold off Keppra or further imaging currently Seizure precautions (2) Altered mental state: Ativan 1mg PRN for agitation if at risk to self or others as possibly could lead to increased hallucinations (3) Hallucinations: Avoid anti-psychotics as will also lower seizure threshold. (4) Coronary arteriosclerosis: Continue aspirin, metoprolol, pravastatin (5) ESRD on dialysis: Next due on Wednesday. Will need nephrology consult if staying beyond tomorrow. (6) Controlled diabetes mellitus with kidney complication, with long-term current use of insulin: HbA1C 6.8 [05/25/2020] Consult pharmacy for glycemic control with basal bolus insulin Admission and Anticipated Discharge Date Admission Date: 06/02/2020 History of Present Illness Chief Complaint: Altered mental state Primary Care Provider: Ramo Uribe MD Yousif Walker is a 69 year old male with ESRD on dialysis and who presents to the ER from [facility] due to altered mental state, increased aggressiveness and hallucinations. The patient continues to insist everything he saw was real although changes his story frequently when I mention the inconsistencies. On occasion appears to understand that having hallucinations can be a side effect of the tramadol he had been getting (last dose 11/05, 7% dialyzable) however this thought process resets easily. Specific examples at [facility] was that he told me about construction that was going on and setting up fans which caused dust to go everywhere in his room that he couldn't breath - this appears to be his interpretation of a [employer] machine went past and he felt dust went everywhere including on his food and he pointed to the wall thinking there was someone there but saying "he had also seen everything". He also mentions the kids of the man and woman person who run [facility] were there not wearing masks and climbing up the schmidt (this story changes every time he says it). This is on a background of recent hospitalization from May 24 to due to a right sided hip fracture. He was started on oxycodone initially but was having hallucinations at [facility] with this. It was subsequently changed to tramadol and dialysis improved his symptoms. However today he continued to have hallucinations above despite not having tramadol since 05/31 and has been more aggressive and combative with staff which is out of character for him therefore was sent to the ER for further evaluation and treatment. In the ER he insisted several times he did not wish to return to [facility] because of how they treated him and he could manage himself at home but could not tell me how he would manage his dizziness etc... Initially he appeared to have reasonable capacity however was unable to remember potential risks of going home rather than back to [facility]. His initially was willing to sign him out against medical advice however in the ER the patient had a 3-5 second episode of seizure-like activity. This was after getting himself very worked up after I told him he did not demonstrate capacity to make his own decisions. While sitting on the edge of the bed he sudden had sudden decreased responsiveness with shaking of his both upper limbs, no lower limb activity was witnessed. He had a postictal state similar to what was described at [facility] with confusion, confabulation and hallucinations. Specifically he thought he had been putting on his boot and dragging the chair (he was sitting on his bed). Given this I advised his strongly he should stay in hospital for observation overnight to which she agreed. Allergies Allergy/AdvReac Type Severity Reaction Status Date / Time adhesive Allergy Mild itchy and Verified 06/02/20 16:52 rash Home Medications Medication Instructions Recorded Confirmed Type ascorbic acid (vitamin C) 500 mg 500 mg PO QAM cap 01/23/19 06/02/20 History capsule ferrous sulfate 325 mg (65 mg 325 mg PO DAILY tab 01/23/19 06/02/20 History iron) tablet mometasone 0.1 % topical ointment 1 appln TOPICAL BID PRN #1 gm 01/23/19 06/02/20 History insulin syringe-needle U-100 0.3 #10 ea 04/19/19 05/09/20 Rx mL 31 gauge x 11/03" multivitamin 1 tab PO QDD 07/28/19 06/02/20 History pravastatin 40 mg PO HS 07/28/19 06/02/20 History cholecalciferol (vitamin D3) 1,250 50,000 units PO MONTHLY #3 cap 09/04/19 06/02/20 Rx mcg (50,000 unit) capsule Contour Next Test Strips #400 ea NS 11/20/19 05/09/20 Rx citalopram 40 mg tablet 40 mg PO QAM #90 tab 01/22/20 06/02/20 Rx furosemide 40 mg tablet 40 mg PO BID #90 tab 02/06/20 06/02/20 Rx cadexomer iodine 1 applic TOPICAL DIRECTED PRN 03/06/20 06/02/20 History metoprolol succinate 25 mg 50 mg PO DAILY 05/09/20 06/02/20 History tablet,extended release 24 hr aspirin 81 mg PO BID #60 tab 05/29/20 06/02/20 Rx acetaminophen 650 mg PO Q4H PRN 06/02/20 06/02/20 History colestipol 1 g PO Q OTHER DAY 06/02/20 06/02/20 History darbepoetin abe in polysorbat 100 mcg SUBCUT WK 06/02/20 06/02/20 History docusate sodium 100 mg PO BID 06/02/20 06/02/20 History famotidine 20 mg PO 3XWK 06/02/20 06/02/20 History insulin regular human [Humulin R 1 sliding scale dose SUBCUT 06/02/20 06/02/20 History Regular U-100 Insuln] USEASDIRECTD iron sucrose [Venofer] 100 mg IV ONCE 06/02/20 06/02/20 History melatonin 3 mg PO HS 06/02/20 06/02/20 History multivitamin with minerals 1 tab PO QAM 06/02/20 06/02/20 History ondansetron [Zofran ODT] 4 mg PO Q4H PRN 06/02/20 06/02/20 History pantoprazole 40 mg PO DAILYBB 06/02/20 06/02/20 History sodium chloride 0.9 % 1,000 ml IV DIRECTED PRN 06/02/20 06/02/20 History tramadol 50 mg PO Q4H PRN 06/02/20 06/02/20 History zinc sulfate 220 mg PO QAM 06/02/20 06/02/20 History Past Med/Surg History Medical History Abnormal echocardiogram reports abnormality detected upon evaluation for kidney transplant at [facility]. Renal transplant team wishes for pt to have cardiac cath before proceeding with transplant. plans to have a cath but cardio requiring dialysis before scheduling. pt started dialysis 1 week ago. recent echo at [place] 07/17/19 Anemia Arteriosclerosis of carotid artery ultrasound 06/2019 - no surgical intervention - monitoring - annual ultrasounds Arthritis Lyons's esophagus Lyons's esophagus CAD (coronary artery disease) Cerebrovascular disease Chest pain Degenerative disc disease Depression Diabetic nephropathy Dialysis patient fistula [facility] - [place], [place], [place] - [facility] - FOLLOWS W/ [place] DM type 2 (diabetes mellitus, type 2) IDDM ESRD (end stage renal disease) [place] GERD (gastroesophageal reflux disease) Glaucoma Hemodialysis patient Hemoptysis Hemoptysis Herniated cervical disc Herniated intervertebral disc of lumbar spine Hiatal hernia History of basal cell carcinoma History of recent hospitalization [facility] - PNEUMONIA, PLEURAL EFFUSIONS, HEMOPTYSIS IONE (hard of hearing) HTN (hypertension) (07/25/13) Hyperlipidemia Hypertension Hypertensive urgency Insulin pump in place Left bundle-branch block Loss of sensation of skin Low back pain Macular degeneration Melena Melena Melena Osteoarthritis Peripheral vascular disease Pleural effusion Pneumonia Postural lightheadedness Proliferative diabetic retinopathy Right-sided lacunar infarction "old" per brain MRI 10/23/2016 - [place] Secondary hyperparathyroidism Sensorineural hearing loss (SNHL) of both ears Sleep apnea non compliant w/ CPAP Surgical History Fistula functioning LUE; non functioning Lt wrist History of cardiac cath 2013 [place] - ABN STRESS TEST - NO STENTS 2009 - --> CABG History of cataract surgery History of colonoscopy History of coronary artery bypass graft 5 vessels - 2009 - [facility] - follows w/ Dr. Martinez History of detached retina repair History of esophagogastroduodenoscopy (EGD) History of eye surgery laser, injections History of hernia repair History of rotator cuff surgery History of spinal surgery lumbar History of tooth extraction Surgically constructed arteriovenous fistula Family History Family/Other Diabetes Coronary heart disease Brother Coronary heart disease Mother Diabetes Cardiac disorder Hypertension Aunt Breast cancer Other No family history of adverse response to anesthesia Denies family history of Crohn's disease Colorectal cancer Ulcerative colitis Social History Smoking Status: Never smoker Second Hand Exposure: No; Hx Alcohol Use: No Hx Substance Use: No Preferred Language: Tajik Communication Ability: Effective Visual Impairment: Severely Limited Hearing Ability: Normal Framing 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 Required: No Beliefs That Will Affect Care: None marital status: Current Living Situation: Spouse current occupational status: retired Feels Safe at Home: Yes Seatbelt Use: always Assistive Devices: None Review of Systems Review of Systems: All systems reviewed & are unremarkable except as noted in HPI & below Physical Exam Constitutional: well developed and well nourished; no acute distress Eyes: PERRL, conjunctivae normal, anicteric sclerae ENMT: external ear and nose normal, oropharynx normal Neck: trachea midline, no thyromegaly Respiratory: normal respiratory effort, lungs clear to auscultation Cardiovascular: Rate/Rhythm: regular rate and regular rhythm Heart Sounds: no murmur Extremities: normal capillary refill and + pedal edema (1+ equal b/l to mid shins); no calf tenderness Gastrointestinal (Abdomen): normal bowel sounds, soft, nontender, no hepatosplenomegaly Musculoskeletal: no cyanosis or clubbing, extremities motor strength 5/5 Skin: no rashes, warm and dry + ulcer (bottom of left lower extremity healing) Neurologic: moves all extremities, awake and + confused; no focal motor deficits Speech / Cognition: normal speech Motor/Sensory: no tremor and no pronator drift Psychiatric: Orientation: alert, oriented to person, oriented to place and oriented to time Eye Contact: good eye contact Affect: + labile affect Mood: + irritable mood Thought Process: + confabulations Thought Content: + preoccupation, reality based without delusions and + persecution Genitourinary: no CVA tenderness Results & Data Results & Data ([facility]) Vital Signs (Past 12 Hours) Vital Signs Temp Pulse Resp BP Pulse Ox 06/02/20 16:22 97 06/02/20 15:29 37.0 C 78 20 147/60 H 96 Code Status & VTE Plan Code Status Full VTE Prophylaxis Plan VTE Prophylaxis will be ordered: Yes PG Care Time/CCT Total # of Minutes Spent Total Time Spent with Patient: Total time spent is greater than 50% in coord ination of care (as documented) at patient's floor/unit and/or counseling patient: Coding Level of Care Code 58000 OBS Care - Level 3 Diagnoses Seizure-like activity R56.9 Altered mental state R41.82 Hallucinations R44.3 Coronary arteriosclerosis I25.10 ESRD on dialysis N18.6; Z99.2 Controlled diabetes mellitus with kidney complication, with long-term current use of insulin E11.21; Z79.4
[2020-06-02] MEDS ORDERED: LORazepam 1 MG/2 ML VIAL IV STA (20:40)
--- NOTE | 2020-06-02 22:07 | Emergency Department Note ---
Impression & Plan AMS (altered mental status), Elevated troponin, End stage renal disease ED Provider Note INFORMANT: Patient ED PROVIDER(S): Storm Abebe MD CHIEF COMPLAINT: Altered mental status PLAN: Disposition: Admit Condition: Good MEDICAL DECISION MAKING: Patient presented to the emergency department from the rehab due to concerns about hallucinations and altered mental status. He clinically looks well and does follow commands. He answers questions relatively appropriately however his perception is off. He appears to be having some hallucinations. His does confirm his misinterpretation of events. His timing is off. The patient was sent for CT imaging which did not reveal any acute findings. His CBC shows a mild anemia. No leukocytosis. Coags negative. His glucose is mildly elevated at 281. His creatinine is elevated consistent with end-stage renal disease. His troponin is mildly elevated as well. The patient had an ECG performed and it showed an old left bundle branch block. Covid testing was negative. I discussed the patient's findings with him and his . The patient and stated that he wanted to go home and that I promised he would go home after his test. I did not promise him that at all. He then stated that he would have to stay in the hospital for 3 to 4 weeks and again that was not discussed. The agrees that he is somewhat off. This may be related to his medications that is been on. Further management in the hospital is necessary to prevent any significant problems. was in agreement. Patient finally agreed. I consulted with Dr. Lock of internal medicine. He evaluated the patient in the ER. After a long evaluation he noticed that the patient was having confusion and admitted him. Triage Nursing notes reviewed and agree them. Additional history obtained from patient's Vital Signs: reviewed and remarkable for no significant abnormalities Differential diagnosis: Infection, hypoglycemia, electrolyte abnormalities, overdose, toxicologic, cardiac sources, intracerebral event, neurologic, trauma, as well as other pathologies. Diagnostics interpreted by me: ECG: Twelve-lead ECG reveals a normal sinus rhythm at 73 bpm. Left axis deviation. Left bundle branch block present. Left bundle branch block is old. No ST elevation or depression. No PVCs. Cardiac Monitoring:Cardiac monitoring ordered by me: The patient was placed on continuous cardiac monitoring and observed. It revealed a normal sinus rhythm at 75 beats per minute without ectopy or evidence of dysrhythmia. Imaging studies: Chest x-ray. Findings: A chest x-ray was performed and revealed no pneumothorax, effusion, infiltrate, pulmonary edema, free air under the diaphragm, or wide mediastinum. Impression: No acute disease. CT scan of the head is negative for acute process. Old CVA noted. [facility] HPI: The patient is a 69 year old male who presents to the [facility] secondary to a change in mental status. The treating physician there was concern that the patient was having hallucinations and confusion. Initially the patient declined coming to the emergency department. He described having his room torn apart and being covered in dust. He felt like he was not being treated well there. Reportedly the episode he described as fans blowing and construction in his room was the cleaning crew cleaning the floors per the . The patient also feels like he has been there for several weeks but is only 9 days postop. The notes that he does seem confused. She states he got confused after being prescribed oxycodone for back pain previously. He was prescribed that for his hip surgery. He was also transitioned to tramadol. Pt denies LOC, headache, fevers, chills, diaphoresis, visual changes, neck pain, chest pain, breathing difficulties, nausea, vomiting, abdominal pain, back pain, melena, hematochezia, urinary symptoms, numbness, weakness, lymphadenopathy, rash, or other complaints. ROS: See above HPI for pertinent positives & negatives. A total of 10 systems reviewed and were otherwise negative. PAST MEDICAL HISTORY:See Below, CAD, CVA, diabetes PAST SURGICAL HISTORY:See Below, FAMILY HISTORY:See Below SOCIAL HISTORY:See Below, [ HOME MEDICATIONS:See Below ALLERGIES:See Below VITALS:See Below PHYSICAL EXAMINATION: GENERAL: Awake, alert, well-appearing, in no distress HENT: Normocephalic, atraumatic. Oropharynx unremarkable. EYES: Normal conjunctiva. Sclera non-icteric. NECK: Inspection normal. Non-tender. Supple. No nuchal rigidity. FROM. No masses. RESPIRATORY: Clear to auscultation. No wheezes. No rales. Normal respiratory effort. CARDIAC: Normal rate. Normal rhythm. No murmurs. No rubs. Extremities warm and well perfused. Pulses equal. No JVD. GI: Soft, non-distended. No tenderness to palpation. No rebound or guarding. No masses. RECTAL: Deferred. MUSCULOSKELETAL: Examination of the right hip operative site reveals clark in place. There is no evidence of cellulitis or dehiscence. No drainage. Tenderness to palpation. Chest examination reveals no tenderness. The back is symmetrical on inspection without obvious abnormality. There is no CVA tenderness to palpation. No joint edema. Calves are equal size bilaterally and non-tender. No edema. No discoloration. There is a healing diabetic ulcer noted on the left plantar surface of the foot. NEURO: Mildly altered sensorium. No focal sensory or motor deficits noted. SKIN: No rash or jaundice noted. Storm Abebe MD Past Med/Surg History Medical History Abnormal echocardiogram reports abnormality detected upon evaluation for kidney transplant at [facility]. Renal transplant team wishes for pt to have cardiac cath before proceeding with transplant. plans to have a cath but cardio requiring dialysis before scheduling. pt started dialysis 1 week ago. recent echo at [place] 07/17/19 Anemia Arteriosclerosis of carotid artery ultrasound 06/2019 - no surgical intervention - monitoring - annual ultrasounds Arthritis Lyons's esophagus Lyons's esophagus CAD (coronary artery disease) Cerebrovascular disease Chest pain Degenerative disc disease Depression Diabetic nephropathy Dialysis patient fistula [facility] - FOLLOWS W/ [place] DM type 2 (diabetes mellitus, type 2) IDDM ESRD (end stage renal disease) [place] GERD (gastroesophageal reflux disease) Glaucoma Hemodialysis patient Hemoptysis Hemoptysis Herniated cervical disc Herniated intervertebral disc of lumbar spine Hiatal hernia History of basal cell carcinoma History of recent hospitalization [facility] - PNEUMONIA, PLEURAL EFFUSIONS, HEMOPTYSIS [place] (hard of hearing) HTN (hypertension) (07/25/13) Hyperlipidemia Hypertension Hypertensive urgency Insulin pump in place Left bundle-branch block Loss of sensation of skin Low back pain Macular degeneration Melena Melena Melena Osteoarthritis Peripheral vascular disease Pleural effusion Pneumonia Postural lightheadedness Proliferative diabetic retinopathy Right-sided lacunar infarction "old" per brain MRI 10/23/2016 - [place] Secondary hyperparathyroidism Sensorineural hearing loss (SNHL) of both ears Sleep apnea non compliant w/ CPAP Surgical History Fistula functioning LUE; non functioning Lt wrist History of cardiac cath 2013 - [place] - ABN STRESS TEST - NO STENTS 2009 - [place] --> CABG History of cataract surgery History of colonoscopy History of coronary artery bypass graft 5 vessels - 2009 - [place] - follows w/ Dr. Martinez History of detached retina repair History of esophagogastroduodenoscopy (EGD) History of eye surgery laser, injections History of hernia repair History of rotator cuff surgery History of spinal surgery lumbar History of tooth extraction Surgically constructed arteriovenous fistula Family History Family/Other Diabetes Coronary heart disease Brother Coronary heart disease Mother Diabetes Cardiac disorder Hypertension Aunt Breast cancer Other No family history of adverse response to anesthesia Denies family history of Crohn's disease Colorectal cancer Ulcerative colitis Social History Smoking Status: Never smoker Second Hand Exposure: No; Hx Alcohol Use: No Hx Substance Use: No Preferred Language: British Communication Ability: Effective Visual Impairment: Severely Limited Hearing Ability: Normal [employer] Restorer Required: No Beliefs That Will Affect Care: None marital status: Current Living Situation: Spouse current occupational status: retired Feels Safe at Home: Yes Seatbelt Use: always Assistive Devices: Walker Allergies Allergies Allergy/AdvReac Type Severity Reaction Status Date / Time adhesive Allergy Mild itchy and Verified 06/02/20 16:52 rash Home Meds Home Medications Medication Instructions Recorded Confirmed ascorbic acid (vitamin C) 500 mg 500 mg PO QAM cap 01/23/19 06/02/20 capsule ferrous sulfate 325 mg (65 mg 325 mg PO DAILY tab 01/23/19 06/02/20 iron) tablet mometasone 0.1 % topical ointment 1 appln TOPICAL BID PRN #1 gm 01/23/19 06/02/20 multivitamin 1 tab PO QDD 07/28/19 06/02/20 pravastatin 40 mg PO HS 07/28/19 06/02/20 cadexomer iodine 1 applic TOPICAL DIRECTED PRN 03/06/20 06/02/20 metoprolol succinate 25 mg 50 mg PO DAILY 05/09/20 06/02/20 tablet,extended release 24 hr acetaminophen 650 mg PO Q4H PRN 06/02/20 06/02/20 colestipol 1 g PO Q OTHER DAY 06/02/20 06/02/20 darbepoetin abe in polysorbat 100 mcg SUBCUT WK 06/02/20 06/02/20 docusate sodium 100 mg PO BID 06/02/20 06/02/20 famotidine 20 mg PO 3XWK 06/02/20 06/02/20 insulin regular human [Humulin R 1 sliding scale dose SUBCUT 06/02/20 06/02/20 Regular U-100 Insuln] USEASDIRECTD iron sucrose [Venofer] 100 mg IV ONCE 06/02/20 06/02/20 melatonin 3 mg PO HS 06/02/20 06/02/20 multivitamin with minerals 1 tab PO QAM 06/02/20 06/02/20 ondansetron [Zofran ODT] 4 mg PO Q4H PRN 06/02/20 06/02/20 pantoprazole 40 mg PO DAILYBB 06/02/20 06/02/20 sodium chloride 0.9 % 1,000 ml IV DIRECTED PRN 06/02/20 06/02/20 tramadol 50 mg PO Q4H PRN 06/02/20 06/02/20 zinc sulfate 220 mg PO QAM 06/02/20 06/02/20 Previous Rx's Medication Instructions Recorded insulin syringe-needle U-100 0.3 #10 ea 04/19/19 mL 31 gauge x 5/16" cholecalciferol (vitamin D3) 1,250 50,000 units PO MONTHLY #3 cap 09/04/19 mcg (50,000 unit) capsule Contour Next Test Strips #400 ea NS 11/20/19 citalopram 40 mg tablet 40 mg PO QAM #90 tab 01/22/20 furosemide 40 mg tablet 40 mg PO BID #90 tab 02/06/20 aspirin 81 mg PO BID #60 tab 05/29/20 Results & Data (ED) Vital Signs Vital Signs - 24 hr 06/02/20 15:29 06/02/20 16:22 06/02/20 21:00 Temperature 37.0 C Temperature Source Oral Pulse Rate 78 Pulse Rate [Apical] 75 Respiratory Rate 20 18 Blood Pressure 147/60 H Blood Pressure [Right Arm] 145/54 H Blood Pressure Mean 89 Blood Pressure Mean [Right Arm] 84 Pulse Oximetry 96 97 95 Oxygen Delivery Method Room Air Room Air Sepsis Recent Fever Within 48 Hours No Sepsis New/Unexplained Change in Mental Status No Sepsis Action Taken by Nursing No Action Required Laboratory Data Result diagrams: 06/02/20 15:34 06/02/20 15:34 Lab Results 06/02/20 06/02/20 06/02/20 Range/Units 15:34 15:34 15:34 WBC 5.81 (4.8-10.8) K/uL RBC 2.82 L (4.7-6.1) M/uL Hgb 9.3 L (14.0-18.0) g/dL Hct 27.2 L (42-52) % MCV 96.5 (80-100) fL MCH 33.0 (25-34) pg MCHC 34.2 (32-36) g/dL RDW Std Deviation 43.5 (36.4-46.3) fL RDW Coeff of Kyara 13.0 (11.5-14.5) % Plt Count 270 (130-400) K/uL MPV 8.7 (7.4-10.4) fL Immature Gran % (Auto) 1.2 % Neut % (Auto) 67.7 % Lymph % (Auto) 16.4 % [place] % (Auto) 12.9 % Eos % (Auto) 1.5 % Baso % (Auto) 0.3 % Neut # (Auto) 3.93 (1.4-6.5) K/uL Lymph # (Auto) 0.95 L (1.2-3.4) K/uL [place] # (Auto) 0.75 H (0.11-0.59) K/uL Eos # (Auto) 0.09 (0-0.5) K/uL Baso # (Auto) 0.02 (0-0.2) K/uL Immature Gran # (Auto) 0.07 H (0.00-0.02) K/uL PT 11.6 (9.0-12.0) Seconds INR 1.1 (0.9-1.1) Sodium 132 L (136-145) mmol/L Potassium 4.6 (3.5-5.1) mmol/L Chloride 94 L (98-107) mmol/L Carbon Dioxide 30 (21-32) mmol/L Anion Gap 8.0 (3-11) BUN 62 H (7-18) mg/dl Creatinine 6.42 H* (0.6-1.4) mg/dl Est Cr Clr Drug Dosing 13.1 ml/min Est GFR ( Amer) 9.3 Est GFR (Non-Af Amer) 8.0 BUN/Creatinine Ratio 9.8 L (10-20) Glucose 281 H (70-99) mg/dl Calcium 10.1 (8.5-10.1) mg/dl Magnesium 2.6 H (1.8-2.4) mg/dl Total Bilirubin 0.6 (0.2-1) mg/dl AST 45 H (15-37) U/L ALT 27 (12-78) U/L Alkaline Phosphatase 84 (45-117) U/L Troponin I 0.048 H* (0-0.045) ng/ml Total Protein 6.9 (6.4-8.2) gm/dl Albumin 2.8 L (3.4-5.0) gm/dl Globulin 4.1 H (2.5-4.0) gm/dl Albumin/Globulin Ratio 0.7 L (0.9-2) TSH 1.870 (0.300-4.500) uIu/ml SARS-CoV-2 Ag (Rapid) (Negative) 06/02/20 Range/Units 16:24 WBC (4.8-10.8) K/uL RBC (4.7-6.1) M/uL Hgb (14.0-18.0) g/dL Hct (42-52) % MCV (80-100) fL MCH (25-34) pg MCHC (32-36) g/dL RDW Std Deviation (36.4-46.3) fL RDW Coeff of Kyara (11.5-14.5) % Plt Count (130-400) K/uL MPV (7.4-10.4) fL Immature Gran % (Auto) % Neut % (Auto) % Lymph % (Auto) % [place] % (Auto) % Eos % (Auto) % Baso % (Auto) % Neut # (Auto) (1.4-6.5) K/uL Lymph # (Auto) (1.2-3.4) K/uL [place] # (Auto) (0.11-0.59) K/uL Eos # (Auto) (0-0.5) K/uL Baso # (Auto) (0-0.2) K/uL Immature Gran # (Auto) (0.00-0.02) K/uL PT (9.0-12.0) Seconds INR (0.9-1.1) Sodium (136-145) mmol/L Potassium (3.5-5.1) mmol/L Chloride (98-107) mmol/L Carbon Dioxide (21-32) mmol/L Anion Gap (3-11) BUN (7-18) mg/dl Creatinine (0.6-1.4) mg/dl Est Cr Clr Drug Dosing ml/min Est GFR ( Amer) Est GFR (Non-Af Amer) BUN/Creatinine Ratio (10-20) Glucose (70-99) mg/dl Calcium (8.5-10.1) mg/dl Magnesium (1.8-2.4) mg/dl Total Bilirubin (0.2-1) mg/dl AST (15-37) U/L ALT (12-78) U/L Alkaline Phosphatase (45-117) U/L Troponin I (0-0.045) ng/ml Total Protein (6.4-8.2) gm/dl Albumin (3.4-5.0) gm/dl Globulin (2.5-4.0) gm/dl Albumin/Globulin Ratio (0.9-2) TSH (0.300-4.500) uIu/ml SARS-CoV-2 Ag (Rapid) Negative (Negative) Discharge Plan Visit Data Chief Complaint: Illness Stated Complaint: CONFUSION ED Provider: Storm Abebe Discharge Problem: AMS (altered mental status), Elevated troponin, End stage renal disease Forms Stand Alone Forms: My [facility] Regenerate Prescriptions Prescriptions: No Action ascorbic acid (vitamin C) 500 mg capsule 500 mg PO QAM RF: 0 (DME) insulin syringe-needle U-100 [BD Insulin Syringe Ultra-Fine] 0.3 mL 31 gauge x 5/16" syringe See Dose Instructions .ROUTE .MEDSUPPLY Qty: 10 RF: 2 cholecalciferol (vitamin D3) 1,250 mcg (50,000 unit) capsule 50,000 units PO MONTHLY Qty: 3 RF: 3 (DME) blood sugar diagnostic [Contour Next Test Strips] Strip See Rx Instructions .ROUTE .MEDSUPPLY Qty: 400 RF: 3 citalopram 40 mg tablet 40 mg PO QAM Qty: 90 RF: 3 cadexomer iodine 1 applic topical DIRECTED PRN (Reason: for wound) RF: 0 metoprolol succinate 25 mg tablet extended release 24 hr 50 mg PO DAILY RF: 0 ferrous sulfate 325 mg (65 mg iron) tablet 325 mg PO DAILY RF: 0 mometasone 0.1 % ointment 1 appln topical BID PRN (Reason: Rash) Qty: 1 RF: 0 furosemide 40 mg tablet 40 mg PO BID Qty: 90 RF: 3 melatonin 3 mg Tablet 3 mg PO HS RF: 0 tramadol 50 mg Tablet 50 mg PO Q4H PRN (Reason: Pain) RF: 0 zinc sulfate 220 mg Tablet 220 mg PO QAM RF: 0 famotidine 20 mg Tablet 20 mg PO 3XWK RF: 0 sodium chloride 0.9 % Solution 1,000 ml IV DIRECTED PRN (Reason: DIALYSIS) RF: 0 pantoprazole 40 mg Tablet,Delayed Release (Dr/Ec) 40 mg PO DAILYBB RF: 0 Humulin R Regular U-100 Insuln 100 unit/mL Solution 1 sliding scale dose SUBCUT USEASDIRECTD RF: 0 Venofer 100 mg iron/5 mL Solution 100 mg IV ONCE RF: 0 docusate sodium 100 mg Capsule 100 mg PO BID RF: 0 multivitamin with minerals Tablet 1 tab PO QAM RF: 0 ondansetron [Zofran ODT] 4 mg Tablet,Disintegrating 4 mg PO Q4H PRN (Reason: Nausea) RF: 0 darbepoetin abe in polysorbat 100 mcg/0.5 mL Syringe 100 mcg subcut WK RF: 0 acetaminophen 325 mg tablet 650 mg PO Q4H PRN (Reason: FEVER/PAIN) RF: 0 colestipol 1 gram tablet 1 g PO Q OTHER DAY RF: 0 multivitamin Tablet 1 tab PO QDD RF: 0 pravastatin 40 mg tablet 40 mg PO HS RF: 0 aspirin 81 mg Tablet,Delayed Release (Dr/Ec) 81 mg PO BID Qty: 60 RF: 0 Referrals Referrals: Ramo Uribe MD [Primary Care Provider] -
[2020-06-02 22:12] LABS: Appearance Urine Clear (Clear); Bacteria Urine Automated Negative (Negative); Bilirubin Urine Negative (Negative); Blood Urine Negative (Negative); Color Urine Dark Yellow; Glucose Urine UA Trace (Negative); Ketones Urine Trace (Negative); Leukocyte Esterase Urine Trace (Negative); Nitrite Urine Negative (Negative); Protein Urine 2+ (Negative); Specific Gravity Urine 1.017 (1.000-1.030); Urobilinogen Urine Negative (Negative)
[2020-06-02] MEDS ORDERED: ACETAMINOPHEN 325 MG TAB PO PRN (22:32)
[2020-06-02] MEDS ORDERED: ONDANSETRON 4 MG OD TAB PO PRN (22:45)
[2020-06-02] MEDS ORDERED: PHARMACY GLYCEMIC MGMT CONSULT PRN (23:32)
[2020-06-03] MEDS: FUROSEMIDE 40 MG TAB PO SCH ×3 (00:01→16:59)
[2020-06-03] MEDS: ASPIRIN 81 MG ECTAB PO SCH ×3 (00:01→22:37)
[2020-06-03] MEDS: hydrALAZINE HCL 20 MG/ML VIAL IV PRN (02:48)
[2020-06-03] MEDS: LORazepam 1 MG/2 ML VIAL IV PRN ×2 (04:12→14:46)
[2020-06-03] MEDS: PANTOprazole 40 MG TAB PO SCH (05:51)
[2020-06-03] MEDS: DOCUSATE SODIUM 100 MG CAP PO SCH ×3 (07:40→22:37)
[2020-06-03] MEDS: METOPROLOL SUCC 50MG EXT REL TAB PO SCH (07:41)
[2020-06-03] MEDS: FERROUS SULFATE 325 MG TAB PO SCH (07:41)
[2020-06-03] MEDS: CEROVITE ADV FORMULA TAB PO SCH (07:41)
[2020-06-03] MEDS: INSULIN ASPART 100 UNITS/ML 3 ML PEN SC SCH ×4 (07:48→22:16)
--- NOTE | 2020-06-03 08:27 | Neurology Consultation ---
Date of Consultation June 03, 2020 Assessment & Plan (1) Altered mental state: (2) Seizure-like activity: Multifactorial encephalopathy, likely toxic/metabolic etiology, tramadol may have been a factor. Possible interaction with citalopram in the context of end-stage renal disease/hemodialysis. Possible tramadol induced convulsive episode. Would not restart tramadol. I will order a bedside EEG. Would not start an anticonvulsant for seizures at this point in time, however. If patient were to have another clinical episode would consider loading with Keppra in that context. Would also recommend a brain MRI and carotid ultrasound, I will order these tests as well. Continue supportive medical care. If patient's delirium does not improve would need to consider lumbar puncture to exclude [employer] infection. History of Present Illness Reason for Consultation: Seizure-like activity Requesting Physician: Enrique Lock MD Attending Physician: Viral Langford MD History of Present Illness The patient is a 69-year-old male who presented to the emergency department yesterday from [facility] with altered mental status characterized by hallucinations, delusions, 9 days postop/mechanical fall/displaced fracture right femoral neck/right hip arthroplasty. Past medical history notable for left foot diabetic ulcer/osteomyelitis, sleep apnea/noncompliant with CPAP, end- stage renal disease on hemodialysis, insulin-dependent diabetes mellitus, cor onary artery disease status post CABG x5, peripheral vascular disease, dyslipidemia, hypertension, anemia and depression. The admission history reports an episode of shaking of the upper extremities with associated decreased responsiveness lasting a few seconds while the patient was in the emergency department. Concern for post ictal state as potential explanation for patient's change in mental status. Tramadol discontinued. Dr. Lock had discussed the case with Dr. Watts last night. Decision was made not to proceed with anticonvulsants acutely. Ordering additional neuro imaging was discussed. A CT of the head did reveal small focal areas of encephalomalacia within the right high convexity and right frontal lobe anteriorly consistent with old infarcts, right MCA territory. There are changes suggestive of chronic microvascular ischemic disease. No hemorrhage or obvious acute process. These findings were identified by the interpreting radiologist. I did review the images as well and agree. This morning, the patient remains considerably confused. He is mildly agitated and is unable to provide any meaningful details pertaining to his present illness. Allergies Allergy/AdvReac Type Severity Reaction Status Date / Time adhesive Allergy Mild itchy and Verified 06/02/20 16:52 rash Home Medications Medication Instructions Recorded Confirmed Type ascorbic acid (vitamin C) 500 mg 500 mg PO QAM cap 01/23/19 06/02/20 History capsule ferrous sulfate 325 mg (65 mg 325 mg PO DAILY tab 01/23/19 06/02/20 History iron) tablet mometasone 0.1 % topical ointment 1 appln TOPICAL BID PRN #1 gm 01/23/19 06/02/20 History insulin syringe-needle U-100 0.3 #10 ea 04/19/19 05/09/20 Rx mL 31 gauge x 11/03" multivitamin 1 tab PO QDD 07/28/19 06/02/20 History pravastatin 40 mg PO HS 07/28/19 06/02/20 History cholecalciferol (vitamin D3) 1,250 50,000 units PO MONTHLY #3 cap 09/04/19 06/02/20 Rx mcg (50,000 unit) capsule Contour Next Test Strips #400 ea NS 11/20/19 05/09/20 Rx citalopram 40 mg tablet 40 mg PO QAM #90 tab 01/22/20 06/02/20 Rx furosemide 40 mg tablet 40 mg PO BID #90 tab 02/06/20 06/02/20 Rx cadexomer iodine 1 applic TOPICAL DIRECTED PRN 03/06/20 06/02/20 History metoprolol succinate 25 mg 50 mg PO DAILY 05/09/20 06/02/20 History tablet,extended release 24 hr aspirin 81 mg PO BID #60 tab 05/29/20 06/02/20 Rx acetaminophen 650 mg PO Q4H PRN 06/02/20 06/02/20 History colestipol 1 g PO Q OTHER DAY 06/02/20 06/02/20 History darbepoetin abe in polysorbat 100 mcg SUBCUT WK 06/02/20 06/02/20 History docusate sodium 100 mg PO BID 06/02/20 06/02/20 History famotidine 20 mg PO 3XWK 06/02/20 06/02/20 History insulin regular human [Humulin R 1 sliding scale dose SUBCUT 06/02/20 06/02/20 History Regular U-100 Insuln] USEASDIRECTD iron sucrose [Venofer] 100 mg IV ONCE 06/02/20 06/02/20 History melatonin 3 mg PO HS 06/02/20 06/02/20 History multivitamin with minerals 1 tab PO QAM 06/02/20 06/02/20 History ondansetron [Zofran ODT] 4 mg PO Q4H PRN 06/02/20 06/02/20 History pantoprazole 40 mg PO DAILYBB 06/02/20 06/02/20 History sodium chloride 0.9 % 1,000 ml IV DIRECTED PRN 06/02/20 06/02/20 History tramadol 50 mg PO Q4H PRN 06/02/20 06/02/20 History zinc sulfate 220 mg PO QAM 06/02/20 06/02/20 History Patient History Medical History Abnormal echocardiogram reports abnormality detected upon evaluation for kidney transplant at [facility]. Renal transplant team wishes for pt to have cardiac cath before proceeding with transplant. plans to have a cath but cardio requiring dialysis before scheduling. pt started dialysis 1 week ago. recent echo at [place] 07/17/19 Anemia Arteriosclerosis of carotid artery ultrasound 06/2019 - no surgical intervention - monitoring - annual ultrasounds Arthritis Lyons's esophagus Lyons's esophagus CAD (coronary artery disease) Cerebrovascular disease Chest pain Degenerative disc disease Depression Diabetic nephropathy Dialysis patient fistula [facility], [facility] - [facility] - FOLLOWS W/ [facility] DM type 2 (diabetes mellitus, type 2) IDDM ESRD (end stage renal disease) [place] GERD (gastroesophageal reflux disease) Glaucoma Hemodialysis patient Hemoptysis Hemoptysis Herniated cervical disc Herniated intervertebral disc of lumbar spine Hiatal hernia History of basal cell carcinoma History of recent hospitalization [facility] - PNEUMONIA, PLEURAL EFFUSIONS, HEMOPTYSIS [place] (hard of hearing) HTN (hypertension) (07/25/13) Hyperlipidemia Hypertension Hypertensive urgency Insulin pump in place Left bundle-branch block Loss of sensation of skin Low back pain Macular degeneration Melena Melena Melena Osteoarthritis Peripheral vascular disease Pleural effusion Pneumonia Postural lightheadedness Proliferative diabetic retinopathy Right-sided lacunar infarction "old" per brain MRI 10/23/2016 - [place] Secondary hyperparathyroidism Sensorineural hearing loss (SNHL) of both ears Sleep apnea non compliant w/ CPAP Surgical History Fistula functioning LUE; non functioning Lt wrist History of cardiac cath 2013 - [place] - ABN STRESS TEST - NO STENTS 2009 - [place] --> CABG History of cataract surgery History of colonoscopy History of coronary artery bypass graft 5 vessels - 2009 - [facility] - follows w/ Dr. Martinez History of detached retina repair History of esophagogastroduodenoscopy (EGD) History of eye surgery laser, injections History of hernia repair History of rotator cuff surgery History of spinal surgery lumbar History of tooth extraction Surgically constructed arteriovenous fistula Family History Family/Other Diabetes Coronary heart disease Brother Coronary heart disease Mother Diabetes Cardiac disorder Hypertension Aunt Breast cancer Other No family history of adverse response to anesthesia Denies family history of Crohn's disease Colorectal cancer Ulcerative colitis Social History Smoking Status: Never smoker Second Hand Exposure: No; Hx Alcohol Use: No Hx Substance Use: No Preferred Language: Swedish Communication Ability: Effective Visual Impairment: Severely Limited Hearing Ability: Normal Superintendent Measurement Required: No Beliefs That Will Affect Care: None marital status: Current Living Situation: Spouse current occupational status: retired Feels Safe at Home: Yes Safety Concerns: Feels Safe At This Time Seatbelt Use: always Assistive Devices: None Review of Systems Review of Systems: Unobtainable due to cognitive status Exam (Neuro) Constitutional: + altered mental status and + disheveled Eyes: PERRL Ocular movements cannot be fully assessed due to poor patient cooperation. Direct ophthalmoscopic examination cannot be completed due to poor patient cooperation. Cardiovascular: Vessels: normal carotid upstroke; no carotid bruit Neurologic: Oriented to:: negative Person, Place and Time Memory: negative Short Term Intact and Remote Intact Attention: negative Span Intact and Concentration Intact Language: negative Naming Objects and Repeating Phrases Speech Fluency: Dysfluency Fund of Knowledge: negative Current Events, Past History and Vocabulary Details: Cranial nerves cannot be fully assessed due to poor patient cooperation. Forced eyelid closure. Pupils equal round reactive to light. No gaze preference. No nystagmus. No gross ophthalmoplegia. No gross facial droop. Motor examination cannot be fully assessed due to poor patient cooperation. Patient does move all 4 limbs to tactile stimulation. Muscle tone seems to be normal. No gross hemiparesis or paraparesis. No posturing. No obvious tremors at this point in time. Sensory examination cannot be reliably evaluated due to patient's altered mental status. Coordination cannot be reliably evaluated due to poor patient cooperation. Deep tendon reflexes are diffusely diminished. Plantar responses withdrawal. Gait cannot be safely evaluated in the context of patient's altered mental status. Results & Data ([facility]) Vital Signs (Past 12 Hours) Vital Signs Temp Pulse Pulse Resp BP Pulse Ox 06/03/20 07:13 36.7 C 80 22 166/65 H 93 06/03/20 02:41 36.5 C 78 18 177/68 H 98 06/03/20 00:00 81 06/02/20 23:38 36.5 C 80 18 184/52 H 96 06/02/20 23:08 36.7 C 75 19 169/63 H 99 06/02/20 22:03 76 18 118/42 L 97 06/02/20 21:00 75 18 145/54 H 95 Laboratory Results WBC 5.81, hemoglobin 9.3, hematocrit 27.2, platelet count 270, sodium 132, potassium 4.6, BUN 62, creatinine 6.42, glucose 281, calcium 10.1, magnesium 2.6, AST 45, ALT 27, troponin 0 0.048, albumin 2.8, TSH 1.[address] of the head is as described in the HPI. An electrocardiogram reveals a normal sinus rhythm, left axis deviation, left bundle branch block, 73 bpm. Coding Level of Care Code 35886 Initial Inpt Care Lvl 3 Diagnoses Altered mental state R41.82 Seizure-like activity R56.9
[2020-06-03] MEDS ORDERED: INSULIN GLARGINE SOLOSTAR 100 UNITS/ML 3 ML PEN SC SCH (09:00)
[2020-06-03] MEDS ORDERED: CITALOPRAM 40 MG TAB PO SCH (09:00)
--- NOTE | 2020-06-03 10:45 | Hospitalist Progress Note ---
Date of Service June 03, 2020 Assessment & Plan (1) Seizure-like activity: Shaking of upper extremities and decreased responsiveness lasting for seconds in the ER. Postictal state consistent with prior witnessed altered mental state. Suspect lowered seizure threshold due to tramadol given. Additional chronic lower seizure threshold due to Discussed with Neurology acquisition analyst - given offending medication tramadol likely responsible will hold off Keppra or further imaging currently Seizure precautions, pending EEG interpretation (2) Altered mental state: Ativan 1mg PRN for agitation if at risk to self or others as possibly could lead to increased hallucinations MRI brain 06/03 IMPRESSION: 1. No evidence of acute or subacute infarction 2. No evidence of intracranial mass given the limitations of a noncontrast study 3. Foci of prior right hemispheric ischemic infarction. Moderate foci of increased T2 and FLAIR signal within the white matter, likely small vessel ischemic basis. carotid Doppler negative 06/03/20 for stenosis blood cultures are pending, urine will be obtained checked during last stay and negative, leg wound appears typical, is tender but not fluctuant, will check ESR only with concern if markedly elevated, stopping tramadol and celexa (3) Displaced fracture of right femoral neck: discharged 05/29 after a fall and right hip arthroplasty 05/24, this resulted from fall for evaluation of non heaing foot ulcers and the pt did have ID consult during that stay , MRI of foot 05/25 did not confirm osteomyelitis, no antibiotics were recommeneded (4) Hallucinations: Avoid anti-psychotics as will also lower seizure threshold. (5) Coronary arteriosclerosis: Continue aspirin, metoprolol, pravastatin (6) ESRD on dialysis: Next due on Wednesday. Will need nephrology consult if staying beyond tomorrow. (7) Controlled diabetes mellitus with kidney complication, with long-term current use of insulin: HbA1C 6.8 [05/25/2020] Consult pharmacy for glycemic control with basal bolus insulin Admission and Anticipated Discharge Date Admission Date: June 02, 2020 Subjective Patient is awake he is confused he says his name is Enrike he cannot tell me where he is he is no focal complaints was markedly delirious Review of Systems Review of Systems: Unobtainable due to cognitive status Physical Exam Physical Exam: The patient appeared confused and obtunded at times Vital signs as documented. Head exam is normocephalic atraumatic no scleral icterus Neck is without JVD, thyromegaly, or carotid bruits. Lungs are clear to auscultation, no focal loss of breath sounds Cardiac exam, Rhythm is regular.. No murmurs, rubs or gallops. Abdominal exam reveals normal bowel sounds, soft non tender, no masses Extremities right hip is tender wound appears to be typical healing Neurologic exam is alert and follows commands Skin is without bruises or rashes exception of the surgical site Psychologically is with concerns for delirium Results & Data Results & Data ([facility]) Vital Signs (Past 12 Hours) Vital Signs Temp Pulse Pulse Resp BP Pulse Ox 06/03/20 08:00 80 06/03/20 07:13 98.1 F 80 22 166/65 H 93 06/03/20 02:41 97.7 F 78 18 177/68 H 98 06/03/20 00:00 81 06/02/20 23:38 97.7 F 80 18 184/52 H 96 06/02/20 23:08 98.1 F 75 19 169/63 H 99 PG Care Time/CCT Total # of Minutes Spent Total Time Spent with Patient: Total time spent is greater than 50% in coordination of care (as documented) at patient's floor/unit and/or counseling patient: Coding Level of Care Code 19399 Subseq Hosp Care Lvl 3 Diagnoses Seizure-like activity R56.9 Altered mental state R41.82 Displaced fracture of right femoral neck S72.001A Hallucinations R44.3 Coronary arteriosclerosis I25.10 ESRD on dialysis N18.6; Z99.2 Controlled diabetes mellitus with kidney complication, with long-term current use of insulin E11.21; Z79.4
--- NOTE | 2020-06-03 11:44 | Ultrasound Report ---
CAROTID ARTERY ULTRASOUND CLINICAL HISTORY: History of stroke, altered mental status COMPARISON STUDY: Carotid ultrasound September 17, 2009. TECHNIQUE: Real-time, grayscale, and color Doppler sonography of the carotid and vertebral arteries w as performed. Images were viewed in the transverse and longitudinal planes. FINDINGS: There is moderate atherosclerotic plaque. Velocity measurements are listed below. COMMON CAROTID PEAK SYSTOLIC VELOCITY (CM/S): RIGHT 104 LEFT 146 ICA PEAK SYSTOLIC VELOCITY (CM/S): RIGHT 186 LEFT 71 Systolic ratio between the right internal carotid to common carotid artery is at the upper limits of normal, measuring 1.8. Antegrade flow is seen in the vertebral arteries. The external carotid arteries are patent. Due to limb restriction, blood pressure was not be obtained in this patient. IMPRESSION: Moderate atherosclerotic plaque with suspected 50-69% stenosis of the proximal right int ernal carotid artery. ACT 112: Negative or not required by law. Electronically signed by: Henri Mcclellan M.D. 06/03/2020 11:42 AM
--- NOTE | 2020-06-03 12:25 | Pharmacy Report ---
Pharmacy Glycemic Short Note 2 - Date of Service June 03, 2020 - Glycemic Short BSG Results (Last 24 hours): 06/02/20 06/02/20 06/03/20 15:34 22:26 07:12 Glucose 281 H POC Glucose 261 H 244 H 06/03/20 12:04 Glucose POC Glucose 183 H OUTPATIENT ANTIDIABETIC REGIMEN: * Novolog insulin pump (MiniMed) * Basal: 13 units/24 hours * TDD: 29 units * Average BSG at home: 196 mg/dL * HbA1c: 6.8% (05/25/20) * However, this result is likely somewhat unreliable in ESRD patients d/t interactions between the A1c analyzing technique and high levels of urea in ESRD, reduced RBC life span, iron deficiency anemia, and EPO administration. HbA1c > 7.5% in ESRD patient may overestimate the extent of hyperglycemia in ESRD patients. ASSESSMENT: * Type 2 diabetic admitted for seizure-like activity, altered mental status, and hallucinations * Patient is known to the Glycemic Management Service from recent hospitalization * I contacted RN this AM to confirm his insulin pump has been disconnected. We plan to keep pump disconnected until acute stressors and encephalopathy resolved. * Basal / bolus regimen will be based upon recent hospitalization data. On his prior admission it appeared that he required 18-20 units of basal insulin per day. This is above his out-pt needs, however acute stressors may have elevated his needs. Will begin 18 units daily and reassess tomorrow AM. His PO intake may be poor and empiric dose reduction may be required moving forward. * Novolog dosing will also be based upon prior hospitalization data. Doses will roughly coincide w/ weight based "moderate" stress dosing. * Of note, no dialysis has yet been ordered. PLAN FOR INPATIENT GLYCEMIC CONTROL: * Hold patient's insulin pump * Basal insulin * Lantus 18 units SQ BQ AM * Bolus insulin * NovoLog per scale ACHS and at 0200 tonight * Goal Range: Low 110 mg/dL - High 160 mg/dL * Correction Factor: 30 mg/dL/unit * Nutritional / Prandial insulin per carb ratio of 1 unit per 8 grams CHO consumed PLAN FOR DISCHARGE: * to be determined
--- NOTE | 2020-06-03 15:41 | Magnetic Resonance Report ---
MRI OF THE BRAIN WITHOUT CONTRAST the hippocampal formations appear symmetric. COMPARISON STUDY: Non contrast head CT dated 06/02/2020, MRI the brain dated 02/28/2020 FINDINGS: Sagittal T1, axial diffusion, proton density and T2 weighted axial, coronal FLAIR, and axial T1-weigh erma images were acquired. No intra or extra-axial mass lesions are visualized Axial diffusion-weighted images reveal no evidence of acute or subacute infarction. There is no evidence of ventricular dilatation. Proton density T2-weighted and FLAIR images reveal moderate foci of increased T2 and FLAIR signal wit hin the periventricular white matter likely on a small vessel ischemic basis. There are also cortical and subcortical foci of increased T2 and FLAIR signal within the right frontal and parietal lobes, l ikely secondary to prior ischemic infarction. There are no abnormal flow voids. The examination is motion degraded IMPRESSION: 1. No evidence of acute or subacute infarction 2. No evidence of intracranial mass given the limitations of a noncontrast study 3. Foci of prior right hemispheric ischemic infarction. Moderate foci of increased T2 and FLAIR signa l within the white matter, likely small vessel ischemic basis. ACT 112: Negative or not required by law. Electronically signed by: Chris Estrada M.D. 06/03/2020 3:40 PM
--- NOTE | 2020-06-03 19:28 | Electrocardiogram Report ---
Test Reason : Blood Pressure : / mmHG Vent. Rate : 073 BPM Atrial Rate : 073 BPM P-R Int : 200 ms QRS Dur : 156 ms QT Int : 466 ms P-R-T Axes : 006 -51 117 degrees QTc Int : 513 ms Normal sinus rhythm Left axis deviation Left bundle branch block Abnormal ECG When compared with ECG of 24-MAY-2020 08:02, No significant change was found Confirmed by Eleuterio Peguero ([id number]) on 06/03/2020 7:28:21 PM Referred By: [facility] Confirmed By:Eleuterio Peguero
[2020-06-03] MEDS: PRAVASTATIN SOD 40 MG TAB PO SCH ×2 (22:37)
[2020-06-04] MEDS: INSULIN ASPART 100 UNITS/ML 3 ML PEN SC SCH ×5 (02:18→20:40)
[2020-06-04] MEDS: hydrALAZINE HCL 20 MG/ML VIAL IV PRN (02:54)
[2020-06-04] MEDS: PANTOprazole 40 MG TAB PO SCH (08:27)
[2020-06-04] MEDS: DOCUSATE SODIUM 100 MG CAP PO SCH ×2 (08:27→20:29)
[2020-06-04] MEDS: FUROSEMIDE 40 MG TAB PO SCH ×2 (08:28→17:11)
[2020-06-04] MEDS: ASPIRIN 81 MG ECTAB PO SCH ×2 (08:28→20:29)
[2020-06-04] MEDS: FERROUS SULFATE 325 MG TAB PO SCH (08:28)
[2020-06-04] MEDS: CEROVITE ADV FORMULA TAB PO SCH (08:28)
[2020-06-04] MEDS: INSULIN GLARGINE SOLOSTAR 100 UNITS/ML 3 ML PEN SC SCH (08:30)
[2020-06-04 08:51] LABS: Albumin Globulin Ratio 0.7 (0.9-2); Albumin Level 2.7 gm/dl (3.4-5.0); BUN Creatinine Ratio 10.3 (10-20); Bilirubin,Total 0.7 mg/dl (0.2-1); Calcium 10.5 mg/dl (8.5-10.1); Creatinine Clr Calc Pharmacy 9.9 ml/min; Est GFR (African American) 6.7; Est GFR (Non-African American) 5.8; Globulin 3.9 gm/dl (2.5-4.0); Total Protein 6.6 gm/dl (6.4-8.2)
[2020-06-04 08:56] LABS: Hematocrit (blood only) 27.2 % (42-52); Hemoglobin 9.6 g/dL (14.0-18.0); Mean Corpuscular Hemoglobin 33.2 pg (25-34); Mean Corpuscular Hgb Conc 35.3 g/dL (32-36); Mean Corpuscular Volume 94.1 fL (80-100); Mean Platelet Volume 9.2 fL (7.4-10.4); Platelet Count 271 K/uL (130-400); RDW Coefficient of Variation 13.3 % (11.5-14.5); RDW Standard Deviation 44.8 fL (36.4-46.3); Red Blood Count 2.89 M/uL (4.7-6.1); White Blood Count 6.78 K/uL (4.8-10.8)
[2020-06-04 08:57] LABS: Basophils # (auto) 0.01 K/uL (0-0.2); Basophils % (auto) 0.1 %; Eosinophils # (auto) 0.29 K/uL (0-0.5); Eosinophils % (auto) 4.3 %; Immature Granulocytes # (auto) 0.07 K/uL (0.00-0.02); Lymphocytes # (auto) 1.34 K/uL (1.2-3.4); Lymphocytes % (auto) 19.8 %; Monocytes # (auto) 0.49 K/uL (0.11-0.59); Monocytes % (auto) 7.2 %; Neutrophils # (auto) 4.58 K/uL (1.4-6.5); Neutrophils % (auto) 67.6 %
[2020-06-04 08:58] LABS: Potassium 4.6 mmol/L (3.5-5.1)
[2020-06-04] MEDS ORDERED: FAMOTIDINE 20 MG TAB PO SCH (09:00)
[2020-06-04] MEDS ORDERED: SODIUM CHLORIDE 0.9% 1000ML 1,000 ML IV PRN (09:43)
[2020-06-04] MEDS ORDERED: HEPARIN SOD (PORCINE) 1000 UNIT/ML 10 ML VIAL IV ONE (09:43)
--- NOTE | 2020-06-04 09:49 | Electroencephalogram ---
EEG Procedure Note Date of Service June 04, 2020 Start / End Times Start Time: 6:30 AM End Time: 6:50 AM Referring Physician Matthew Alford MD History Encephalopathy, seizure-like episode Home Medication List Medication Instructions Recorded Confirmed Type ascorbic acid (vitamin C) 500 mg 500 mg PO QAM cap 01/23/19 06/02/20 History capsule ferrous sulfate 325 mg (65 mg 325 mg PO DAILY tab 01/23/19 06/02/20 History iron) tablet mometasone 0.1 % topical ointment 1 appln TOPICAL BID PRN #1 gm 01/23/19 06/02/20 History insulin syringe-needle U-100 0.3 #10 ea 04/19/19 05/09/20 Rx mL 31 gauge x 11/03" multivitamin 1 tab PO QDD 07/28/19 06/02/20 History pravastatin 40 mg PO HS 07/28/19 06/02/20 History cholecalciferol (vitamin D3) 1,250 50,000 units PO MONTHLY #3 cap 09/04/19 06/02/20 Rx mcg (50,000 unit) capsule Contour Next Test Strips #400 ea NS 11/20/19 05/09/20 Rx citalopram 40 mg tablet 40 mg PO QAM #90 tab 01/22/20 06/02/20 Rx furosemide 40 mg tablet 40 mg PO BID #90 tab 02/06/20 06/02/20 Rx cadexomer iodine 1 applic TOPICAL DIRECTED PRN 03/06/20 06/02/20 History metoprolol succinate 25 mg 50 mg PO DAILY 05/09/20 06/02/20 History tablet,extended release 24 hr aspirin 81 mg PO BID #60 tab 05/29/20 06/02/20 Rx acetaminophen 650 mg PO Q4H PRN 06/02/20 06/02/20 History colestipol 1 g PO Q OTHER DAY 06/02/20 06/02/20 History darbepoetin abe in polysorbat 100 mcg SUBCUT WK 06/02/20 06/02/20 History docusate sodium 100 mg PO BID 06/02/20 06/02/20 History famotidine 20 mg PO 3XWK 06/02/20 06/02/20 History insulin regular human [Humulin R 1 sliding scale dose SUBCUT 06/02/20 06/02/20 History Regular U-100 Insuln] USEASDIRECTD iron sucrose [Venofer] 100 mg IV ONCE 06/02/20 06/02/20 History melatonin 3 mg PO HS 06/02/20 06/02/20 History multivitamin with minerals 1 tab PO QAM 06/02/20 06/02/20 History ondansetron [Zofran ODT] 4 mg PO Q4H PRN 06/02/20 06/02/20 History pantoprazole 40 mg PO DAILYBB 06/02/20 06/02/20 History sodium chloride 0.9 % 1,000 ml IV DIRECTED PRN 06/02/20 06/02/20 History tramadol 50 mg PO Q4H PRN 06/02/20 06/02/20 History zinc sulfate 220 mg PO QAM 06/02/20 06/02/20 History Inpatient Medication List Aspirin (Aspirin 81 Mg Ectab) 81 mg PO BID ON LICENSE OF [facility] Stop: 07/02/20 22:31 Last Admin: 06/04/20 08:28 Dose: 81 mg Documented by: [id number] Admin: 06/03/20 22:37 Dose: 81 mg Documented by: [id number] Admin: 06/03/20 07:40 Dose: 81 mg Documented by: [id number] Admin: 06/03/20 00:01 Dose: 81 mg Documented by: [id number] Colestipol HCl (Colestipol Hcl 1 Gm Tab) 1 gm PO Q2D@1000 ON LICENSE OF [facility] Stop: 07/04/20 09:59 Last Admin: 06/04/20 08:29 Dose: 1 gm Documented by: [id number] Docusate Sodium (Docusate Sodium 100 Mg Cap) 100 mg PO BID ON LICENSE OF [facility] Stop: 07/02/20 22:31 Last Admin: 06/04/20 08:27 Dose: 100 mg Documented by: [id number] Admin: 06/03/20 22:37 Dose: 100 mg Documented by: [id number] Admin: 06/03/20 07:40 Dose: 100 mg Documented by: [id number] Admin: 06/03/20 00:00 Dose: 100 mg Documented by: [id number] Famotidine (Famotidine 20 Mg Tab) 20 mg PO TuThSa@0900 ON LICENSE OF [facility] Stop: 07/04/20 08:59 Last Admin: 06/04/20 08:29 Dose: 20 mg Documented by: [id number] Ferrous Sulfate (Ferrous Sulfate 325 Mg Tab) 325 mg PO DAILY ON LICENSE OF [facility] Stop: 07/03/20 08:59 Last Admin: 06/04/20 08:28 Dose: 325 mg Documented by: [id number] Admin: 06/03/20 07:41 Dose: 325 mg Documented by: [id number] Furosemide (Furosemide 40 Mg Tab) 40 mg PO BID17 ON LICENSE OF [facility] Stop: 07/02/20 22:31 Last Admin: 06/04/20 08:28 Dose: 40 mg Documented by: [id number] Admin: 06/03/20 16:59 Dose: 40 mg Documented by: [id number] Admin: 06/03/20 07:41 Dose: 40 mg Documented by: [id number] Admin: 06/03/20 00:01 Dose: Not Given Documented by: [id number] Hydralazine HCl (Hydralazine Hcl 20 Mg/Ml Vial) 5 mg IV Q4H PRN PRN Reason: SBP > 160 Stop: 07/02/20 23:21 Last Admin: 06/04/20 02:54 Dose: 5 mg Documented by: [id number] Admin: 06/03/20 02:48 Dose: 5 mg Documented by: [id number] Insulin Aspart (Insulin Aspart 100 Units/Ml 3 Ml Pen) 0 units SC ACHS ON LICENSE OF [facility] Stop: 07/03/20 07:29 Last Admin: 06/04/20 08:35 Dose: 7 units Documented by: [id number] Cosigned by: [id number] Admin: 06/03/20 22:16 Dose: 2 units Documented by: [id number] Cosigned by: [id number] Admin: 06/03/20 16:57 Dose: 2 units Documented by: [id number] Cosigned by: [id number] Admin: 06/03/20 12:07 Dose: 2 units Documented by: [id number] Cosigned by: [id number] Admin: 06/03/20 07:48 Dose: 4 units Documented by: [id number] Cosigned by: [id number] Insulin Aspart (Insulin Aspart 100 Units/Ml 3 Ml Pen) 0 units SC TODAY@0200 ON LICENSE OF [facility] Stop: 07/04/20 01:59 Last Admin: 06/04/20 02:18 Dose: 2 units Documented by: [id number] Cosigned by: [id number] Insulin Glargine (Insulin Glargine Solostar 100 Units/Ml 3 Ml Pen) 19 units SC QAM ON LICENSE OF [facility] Stop: 07/04/20 08:59 Last Admin: 06/04/20 08:30 Dose: 19 units Documented by: [id number] Cosigned by: [id number] Metoprolol Succinate (Metoprolol Succ 50mg Ext Rel Tab) 50 mg PO DAILY ON LICENSE OF [facility] Stop: 07/03/20 08:59 Last Admin: 06/03/20 07:41 Dose: 50 mg Documented by: [id number] Multivitamins/Minerals (Cerovite Adv Formula Tab) [facility] [place] Stop: 07/03/20 08:59 Last Admin: 06/04/20 08:28 Dose: 1 tab Documented by: [id number] Admin: 06/03/20 07:41 Dose: 1 tab Documented by: [id number] Pantoprazole Sodium (Pantoprazole 40 Mg Tab) 40 mg PO DAILYBB ON LICENSE OF [facility] Stop: 07/03/20 06:29 Last Admin: 06/04/20 08:27 Dose: 40 mg Documented by: [id number] Admin: 06/03/20 05:51 Dose: 40 mg Documented by: [id number] Pravastatin Sodium (Pravastatin Sod 40 Mg Tab) 40 mg PO HS ON LICENSE OF [facility] Stop: 07/02/20 22:31 Last Admin: 06/03/20 22:37 Dose: 40 mg Documented by: [id number] Admin: 06/03/20 00:00 Dose: 40 mg Documented by: [id number] Discontinued Medications Citalopram Hydrobromide (Citalopram 40 Mg Tab) 40 [facility] [place] Stop: 07/03/20 08:59 Last Admin: 06/03/20 07:40 Dose: 40 mg Documented by: [id number] Lorazepam (Ativan) 1 mg in 2 mls @ 0.5 mls/min IV Q2H PRN PRN Reason: Agitation Stop: 07/02/20 20:36 Last Admin: 06/03/20 14:46 Dose: 0.5 mls/min Documented by: [id number] Admin: 06/03/20 04:12 Dose: 0.5 mls/min Documented by: [id number] Lorazepam (Ativan) 1 mg in 2 mls @ 2 mls/min IV NOW STA Stop: 06/02/20 20:41 Last Admin: 06/02/20 23:37 Dose: Not Given Documented by: [id number] Insulin Glargine (Insulin Glargine Solostar 100 Units/Ml 3 Ml Pen) 18 units SC QAM ON LICENSE OF [facility] Stop: 07/03/20 08:59 Last Admin: 06/03/20 08:14 Dose: 18 units Documented by: [id number] Cosigned by: [id number] Description This is a 21 electrode EEG with a single channel dedicated to limited EKG. The electrodes were placed in accordance with the International 10-20 system. The background rhythm consists of a mix of 10 Hz alpha frequencies and generalized polymorphic 6 Hz theta activity. There is a symmetrical frontal beta rhythm. Photic stimulation is unremarkable. Hyperventilation is not per formed. There is no focal or lateralized slowing. No epileptiform or paroxysmal abnormalities are observed. There is intermittent movement artifact throughout the study. Interpretation This is an abnormal awake/drowsy EEG revealing findings consistent with a nonspecific mild encephalopathy. There are no epileptiform abnormalities. [facility] EEG Procedure Codes Indication for Procedure (1) Altered mental state: (2) Seizure-like activity: Neurology Neurology: 13286 EEG include record awake & drowsy
[2020-06-04] MEDS ORDERED: EPOETIN ALFA 20,000 UNITS/ML VIAL IV ONE (10:00)
[2020-06-04] MEDS ORDERED: IRON SUCROSE 50 MG in SYRINGE 0 ML IV ONE (10:00)
[2020-06-04] MEDS ORDERED: COLESTIPOL HCL 1 GM TAB PO SCH (10:00)
--- NOTE | 2020-06-04 10:11 | Neurology Progress Note ---
Date of Service June 04, 2020 Assessment & Plan (1) Altered mental state: (2) Seizure-like activity: Improving encephalopathy. Likely multifactorial, toxic/metabolic causes, tramadol and citalopram interaction possible and occurring in the context of end-stage renal disease. No further seizure-like episodes. Remain off tramadol. No need for an anticonvulsant at this time. As patient is clinically improving, does not appear to need lumbar puncture to rule out [employer] infection at this time. Patient's PCP or vascular surgery can monitor patient's moderate right internal carotid artery stenosis, does not require surgical consultation at this time, however. No further immediate recommendations. Continue supportive medical care. Admission and Anticipated Discharge Date Admission Date: June 03, 2020 Subjective Follow-up for encephalopathy, seizure-like episode The patient is a 69-year-old male who presented to the emergency department 2 days ago from [facility] with persistent alteration in mental status characterized by hallucinations, delusions, and agitation occurring several days after surgical treatment for a right femoral neck fracture requiring total hip arthroplasty. Several other notable chronic comorbidities noted including left foot diabetic ulcer/osteomyelitis, end-stage renal disease on hemodialysis, sleep apnea, and several other medical risk factors as identified previously. He had been receiving citalopram and tramadol while in rehab which may have contributed to his acute encephalopathy in the context of his chronic renal failure either due to a medication interaction or primarily due to tramadol. He did have an isolated seizure-like episode during his assessment in the emergency department characterized by bilateral arm shaking and decreased responsiveness. Given the above circumstances, however, he was not started on an anticonvulsant. Additional testing has been completed including MRI of the brain, carotid duplex, and EEG. There was no evidence of acute or subacute process on brain MRI. No hemodynamically significant lesion identified on carotid duplex. The EEG did reveal a mild nonspecific encephalopathy. This morning, the patient is quite a bit more alert, appropriate, and interactive as compared to yesterday. He has not had any further seizure-like episodes. He remains a little disoriented and lethargic, however. Review of Systems Constitutional: no fever Neurologic: no headache(s) Results & Data ([facility]) Vital Signs (Past 12 Hours) Vital Signs Temp Pulse Pulse Resp BP Pulse Ox 06/04/20 08:06 36.4 C L 81 17 171/64 H 100 06/04/20 03:30 148/62 H 06/04/20 02:43 36.5 C 68 12 174/68 H 99 06/03/20 23:24 80 06/03/20 23:17 36.5 C 79 22 157/60 H 97 Laboratory Results WBC 6.78, hemoglobin 9.6, hematocrit 27.2, platelet count 271, ESR 33, sodium 135, potassium 4.6, BUN 87, creatinine 8.45, glucose 186, calcium 10.5, AST 30, ALT 21, ammonia 21.2 Diagnostic Findings Brain MRI negative for acute or subacute stroke. There is evidence of prior right hemispheric ischemic infarct as well as chronic small vessel ischemic disease. These findings were identified by the interpreting radiologist. I reviewed the images and agree. A carotid ultrasound revealed moderate atherosclerotic plaque, 50 to 69% stenosis of the proximal right internal carotid artery. An EEG completed this morning reveal findings suggestive of a nonspecific mild encephalopathy, no epileptiform abnormalities. Exam (Neuro) Constitutional: + altered mental status; no acute distress Neurologic: Oriented to:: Person, Place and Time (Oriented to day of the week) Attention: negative Span Intact and Concentration Intact Speech Fluency: negative Dysarthria Speech Aphasia: negative Aphasia Fund of Knowledge: Vocabulary Cranial Nerves: Normal II, III, IV, and VII Motor Strength: Normal Lower Extremities and Normal Upper Extremities Muscle Bulk/Involuntary Movements: No Involuntary Movements Coordination: negative Finger-Nose Abnormal Coding Level of Care Code 56558 Subseq Hosp Care Lvl 2 Diagnoses Altered mental state R41.82 Seizure-like activity R56.9
--- NOTE | 2020-06-04 11:12 | Pharmacy Report ---
Pharmacy Glycemic Short Note 2 - Date of Service June 04, 2020 - Glycemic Short BSG Results (Last 24 hours): 06/03/20 06/03/20 06/03/20 12:04 16:20 20:08 Glucose POC Glucose 183 H 193 H 216 H 06/04/20 06/04/20 06/04/20 02:10 07:38 08:01 Glucose 186 H POC Glucose 197 H 195 H OUTPATIENT ANTIDIABETIC REGIMEN: * Novolog insulin pump ([employer]) * Basal: 13 units/24 hours * TDD: 29 units * Average BSG at home: 196 mg/dL * HbA1c: 6.8% (05/25/20) * However, this result is likely somewhat unreliable in ESRD patients d/t interactions between the A1c analyzing technique and high levels of urea in ESRD, reduced RBC life span, iron deficiency anemia, and EPO administration. HbA1c > 7.5% in ESRD patient may overestimate the extent of hyperglycemia in ESRD patients. ASSESSMENT: 06/04: * Yousif received a total of 28 units of SQ insulin yesterday * 18 units of basal * 10 units of bolus * BSGs: 244, 183, 193, 216 mg/dL * Patient continues to be a little disoriented and lethargic per provider and nursing reports. Will continue SQ basal + bolus regimen in place of insulin pump. * Fasting BSG remains above goal. Will slightly increase from 18 to 19 units daily. Conservative change due to current dose already being significantly greater than home basal usage. * Post prandial BSGs are above goal. Carb coverage will be tightened. 06/03: * Type 2 diabetic admitted for seizure-like activity, altered mental status, and hallucinations * Patient is known to the Glycemic Management Service from recent hospitalization * I contacted RN this AM to confirm his insulin pump has been disconnected. We plan to keep pump disconnected until acute stressors and encephalopathy resolved. * Basal / bolus regimen will be based upon recent hospitalization data. On his prior admission it appeared that he required 18-20 units of basal insulin per day. This is above his out-pt needs, however acute stressors may have elevated his needs. Will begin 18 units daily and reassess tomorrow AM. His PO intake may be poor and empiric dose reduction may be required moving forward. * Novolog dosing will also be based upon prior hospitalization data. Doses will roughly coincide w/ weight based "moderate" stress dosing. * Of note, no dialysis has yet been ordered. PLAN FOR INPATIENT GLYCEMIC CONTROL: * Hold patient's insulin pump * Basal insulin - increase * Lantus 19 units SQ qAM * Bolus insulin - tighten carb coverage * NovoLog per scale ACHS and at 0200 tonight * Goal Range: Low 110 mg/dL - High 160 mg/dL * Correction Factor: 30 mg/dL/unit * Nutritional / Prandial insulin per carb ratio of 1 unit per 7 grams CHO consumed PLAN FOR DISCHARGE: * Al1c indicates adequate glycemic control * If mental status returns to baseline, may resume Novolog insulin pump with close f/u with [facility]
[2020-06-04] MEDS: HEPARIN SOD (PORCINE) 1000 UNIT/ML 10 ML VIAL IV SCH ×2 (11:31→14:48)
[2020-06-04 12:48] LABS: Lyme Ab IgG w/WB Rflx Negative (Negative); Lyme Ab IgM w/WB Rflx Negative (Negative)
[2020-06-04] MEDS: METOPROLOL SUCC 50MG EXT REL TAB PO SCH (14:47)
--- NOTE | 2020-06-04 14:58 | Nephrology Consultation ---
Date of Consultation June 04, 2020 Assessment & Plan (1) ESRD on dialysis: Routine hemodialysis today per outpatient orders generally goal of 2.5 L fluid removal: Patient was hypertensive on presentation but the pressure did drop shortly after start of dialysis and fluid removal target cut back to 1 L. Chemistries acceptable. Erythropoietin given on dialysis to manage anemia of chronic disease. No iron indicated Next dialysis planned tentatively June 06 or as clinical needs dictate recommend basic metabolic panel and CBC no later than a.m. labs on June 06 if patient still in-house Present on Admission?: Yes (2) AMS (altered mental status): Per dialysis nurse clinically improving at the time I saw him and per other providers notes proving as well Present on Admission?: Yes History of Present Illness Reason for Consultation: ESRD on dialysis Requesting Physician: Dr. Langford Attending Physician: Viral Langford MD History of Present Illness 69-year-old male admitted from [facility] June 02 with concern for metabolic encephalopathy and seizure-like activity whom I'm asked to see for dialysis needs. Medical history includes chronic left diabetic foot wound, insulin-dependent diabetes, hypertension with history of hypertensive urgency July 2019, hyperlipidemia, chronic right cerebral infarct some moderate right ICA stenosis, Lyons's esophagus, admission here earlier this month for surgical repair of right hip fracture/right total hip arthroplasty after a fall. He dialyzes Wednesday via AV fistula for 4 hours at [facility] dialysis unit under care of the [facility] team. Generally follows 32 ounce fluid limit. Neurology has been following this admission. Medications have been adjusted and encephalopathy is improving, though not resolved: Suspicion that tramadol may have contributed to altered mental status. He had a one-time episode of bilateral arm shaking and decreased responsiveness observed for a few seconds in the emergency department. Per neurology after EEG and MRI and carotid duplex as well as further observation, no indication for anticonvulsant therapy at this time. Allergies Allergy/AdvReac Type Severity Reaction Status Date / Time adhesive Allergy Mild itchy and Verified 06/02/20 16:52 rash Home Medications Medication Instructions Recorded Confirmed Type ascorbic acid (vitamin C) 500 mg 500 mg PO QAM cap 01/23/19 06/02/20 History capsule ferrous sulfate 325 mg (65 mg 325 mg PO DAILY tab 01/23/19 06/02/20 History iron) tablet mometasone 0.1 % topical ointment 1 appln TOPICAL BID PRN #1 gm 01/23/19 06/02/20 History insulin syringe-needle U-100 0.3 #10 ea 04/19/19 05/09/20 Rx mL 31 gauge x 11/03" multivitamin 1 tab PO QDD 07/28/19 06/02/20 History pravastatin 40 mg PO HS 07/28/19 06/02/20 History cholecalciferol (vitamin D3) 1,250 50,000 units PO MONTHLY #3 cap 09/04/19 06/02/20 Rx mcg (50,000 unit) capsule Contour Next Test Strips #400 ea NS 11/20/19 05/09/20 Rx citalopram 40 mg tablet 40 mg PO QAM #90 tab 01/22/20 06/02/20 Rx furosemide 40 mg tablet 40 mg PO BID #90 tab 02/06/20 06/02/20 Rx cadexomer iodine 1 applic TOPICAL DIRECTED PRN 03/06/20 06/02/20 History metoprolol succinate 25 mg 50 mg PO DAILY 05/09/20 06/02/20 History tablet,extended release 24 hr aspirin 81 mg PO BID #60 tab 05/29/20 06/02/20 Rx acetaminophen 650 mg PO Q4H PRN 06/02/20 06/02/20 History colestipol 1 g PO Q OTHER DAY 06/02/20 06/02/20 History darbepoetin abe in polysorbat 100 mcg SUBCUT WK 06/02/20 06/02/20 History docusate sodium 100 mg PO BID 06/02/20 06/02/20 History famotidine 20 mg PO 3XWK 06/02/20 06/02/20 History insulin regular human [Humulin R 1 sliding scale dose SUBCUT 06/02/20 06/02/20 History Regular U-100 Insuln] USEASDIRECTD iron sucrose [Venofer] 100 mg IV ONCE 06/02/20 06/02/20 History melatonin 3 mg PO HS 06/02/20 06/02/20 History multivitamin with minerals 1 tab PO QAM 06/02/20 06/02/20 History ondansetron [Zofran ODT] 4 mg PO Q4H PRN 06/02/20 06/02/20 History pantoprazole 40 mg PO DAILYBB 06/02/20 06/02/20 History sodium chloride 0.9 % 1,000 ml IV DIRECTED PRN 06/02/20 06/02/20 History tramadol 50 mg PO Q4H PRN 06/02/20 06/02/20 History zinc sulfate 220 mg PO QAM 06/02/20 06/02/20 History Patient History Medical History Abnormal echocardiogram reports abnormality detected upon evaluation for kidney transplant at [facility]. Renal transplant team wishes for pt to have cardiac cath before proceeding with transplant. plans to have a cath but cardio requiring dialysis before scheduling. pt started dialysis 1 week ago. recent echo at [facility] 07/17/19 Anemia Arteriosclerosis of carotid artery ultrasound 06/2019 - no surgical intervention - monitoring - annual ultrasounds Arthritis Lyons's esophagus Lyons's esophagus CAD (coronary artery disease) Cerebrovascular disease Chest pain Degenerative disc disease Depression Diabetic nephropathy Dialysis patient fistula [facility] - FOLLOWS W/ Rico DM type 2 (diabetes mellitus, type 2) IDDM ESRD (end stage renal disease) [place] GERD (gastroesophageal reflux disease) Glaucoma Hemodialysis patient Hemoptysis Hemoptysis Herniated cervical disc Herniated intervertebral disc of lumbar spine Hiatal hernia History of basal cell carcinoma History of recent hospitalization [facility] - PNEUMONIA, PLEURAL EFFUSIONS, HEMOPTYSIS [place] (hard of hearing) HTN (hypertension) (07/25/13) Hyperlipidemia Hypertension Hypertensive urgency Insulin pump in place Left bundle-branch block Loss of sensation of skin Low back pain Macular degeneration Melena Melena Melena Osteoarthritis Peripheral vascular disease Pleural effusion Pneumonia Postural lightheadedness Proliferative diabetic retinopathy Right-sided lacunar infarction "old" per brain MRI 10/23/2016 - [facility] Secondary hyperparathyroidism Sensorineural hearing loss (SNHL) of both ears Sleep apnea non compliant w/ CPAP Surgical History Fistula functioning LUE; non functioning Lt wrist History of cardiac cath 2013 [place] - ABN STRESS TEST - NO STENTS 2009 - --> CABG History of cataract surgery History of colonoscopy History of coronary artery bypass graft 5 vessels - 2009 - [facility] - follows w/ Dr. Martinez History of detached retina repair History of esophagogastroduodenoscopy (EGD) History of eye surgery laser, injections History of hernia repair History of rotator cuff surgery History of spinal surgery lumbar History of tooth extraction Surgically constructed arteriovenous fistula Family History Family/Other Diabetes Coronary heart disease Brother Coronary heart disease Mother Diabetes Cardiac disorder Hypertension Aunt Breast cancer Other No family history of adverse response to anesthesia Denies family history of Crohn's disease Colorectal cancer Ulcerative colitis Social History Smoking Status: Never smoker Second Hand Exposure: No; Hx Alcohol Use: No Hx Substance Use: No Preferred Language: Greek Communication Ability: Effective Visual Impairment: Severely Limited Hearing Ability: Normal Doll Dresser Required: No Beliefs That Will Affect Care: None marital status: Current Living Situation: Spouse current occupational status: retired Feels Safe at Home: Yes Safety Concerns: Feels Safe At This Time Seatbelt Use: always Assistive Devices: None Review of Systems Review of Systems: Admitted by clinical condition: Patient answers 2-3 simple yes/no questions, less interactive/reliable thereafter Ear, Nose, Mouth, Throat: + sore throat (Since extubation last admission) and + dysphagia (Since extubation) Respiratory: no dyspnea Gastrointestinal: no abdominal pain, no nausea and no vomiting Neurologic: no tingling, no lack of coordination and no abnormal movements Physical Exam Constitutional: well developed, well nourished and + lethargic (On room air, answers briefly and does speak a few full sentences); no acute distress Eyes: EOM intact bilaterally ENMT: Ears: no external ear abnormality Nose: no external nose abnormality Mouth: + dry oral mucous membranes Neck: no nuchal rigidity Respiratory: normal respiratory effort Auscultation: + diminished lung sounds Cardiovascular: RRR, no murmur, no edema Extremities: + AV fistula Gastrointestinal (Abdomen): Inspection/Auscultation: normal bowel sounds Percussion/Palpation: abdomen soft; abdomen nontender Musculoskeletal: Extremities: + abnormal strength Skin: no rashes, warm and dry + wound (Left foot wound not examined) Neurologic: Motor/Sensory: + tremor (Right upper extremity briefly) flannery, fluent speech, no tremor Psychiatric: Orientation: oriented to person and oriented to place Eye Contact: + poor eye contact Affect: + flat affect Results & Data ([facility]) Vital Signs (Past 12 Hours) Vital Signs Temp Pulse Pulse Pulse Resp BP BP 06/04/20 14:32 36.5 C 90 18 118/57 L 06/04/20 14:10 36.6 C 93 H 117/51 L 06/04/20 13:40 96 H 104/54 L 06/04/20 13:20 98 H 89/51 L 06/04/20 13:00 97 H 91/41 L 06/04/20 12:40 97 H 92/48 L 06/04/20 12:20 94 H 105/47 L 06/04/20 12:00 93 H 96/57 L 06/04/20 11:40 98 H 105/50 L 06/04/20 11:20 95 H 97/41 L 06/04/20 11:00 94 H 101/51 L 06/04/20 10:40 90 106/51 L 06/04/20 10:20 89 96/45 L 06/04/20 09:55 36.6 C 77 06/04/20 08:06 36.4 C L 81 17 171/64 H 06/04/20 08:00 76 06/04/20 03:30 148/62 H Pulse Ox 06/04/20 14:32 92 06/04/20 14:10 06/04/20 13:40 06/04/20 13:20 06/04/20 13:00 06/04/20 12:40 06/04/20 12:20 06/04/20 12:00 06/04/20 11:40 06/04/20 11:20 06/04/20 11:00 06/04/20 10:40 06/04/20 10:20 06/04/20 09:55 06/04/20 08:06 100 06/04/20 08:00 06/04/20 03:30 Laboratory Results 06/04/20 08:01 06/04/20 08:01 Diagnostic Findings Admission chest x-ray: No acute cardiopulmonary process head CT, brain MRI, carotid Doppler studies reviewed (1) AMS (altered mental status) Altered mental status type: unspecified Qualified Code(s): R41.82 - Altered mental status, unspecified
--- NOTE | 2020-06-04 15:00 | Dialysis Progress Note ---
Date of Service June 04, 2020 Assessment & Plan (1) ESRD on dialysis: Routine hemodialysis today per outpatient orders generally goal of 2.5 L fluid removal: Patient was hypertensive on presentation but the pressure did drop shortly after start of dialysis and fluid removal target cut back to 1 L: Ultimately we were able to remove 500 mL. No tad volume overload on exam or review of chart. Chemistries acceptable. Erythropoietin given on dialysis to manage anemia of chronic disease. No iron indicated Next dialysis planned tentatively June 06 or as clinical needs dictate recommend basic metabolic panel and CBC no later than a.m. labs on June 06 if patient still in-house (2) AMS (altered mental status): Per dialysis nurse clinically improving at the time I saw him and per other providers notes proving as well my: Avoid tramadol and continue to follow per primary service and neurology Admission and Anticipated Discharge Date Admission Date: June 03, 2020 Subjective Seen on dialysis at approximately 1315; tolerating treatment well though have scaled back due to asymptomatic hypotension. Patient denies shortness of breath, nausea, abdominal pain. Endorses right hip pain and dry mouth, sore throat Review of Systems Review of Systems: All systems reviewed & are unremarkable except as noted in HPI & below Physical Exam Constitutional: well developed, well nourished and + lethargic (On room air, answers briefly and does speak a few full sentences); no acute distress Eyes: EOM intact bilaterally ENMT: Ears: no external ear abnormality Nose: no external nose abnormality Mouth: + dry oral mucous membranes Neck: no nuchal rigidity Respiratory: normal respiratory effort Auscultation: + diminished lung sounds Cardiovascular: RRR, no murmur, no edema Extremities: + AV fistula Gastrointestinal (Abdomen): Inspection/Auscultation: normal bowel sounds Percussion/Palpation: abdomen soft; abdomen nontender Musculoskeletal: Extremities: + abnormal strength Skin: no rashes, warm and dry + wound (Left foot wound not examined) Neurologic: Motor/Sensory: + tremor (Right upper extremity briefly) Psychiatric: Orientation: oriented to person and oriented to place Eye Contact: + poor eye contact Affect: + flat affect Results & Data ([facility]) Vital Signs (Past 12 Hours) Vital Signs Temp Pulse Pulse Pulse Resp BP BP 06/04/20 14:32 36.5 C 90 18 118/57 L 06/04/20 14:10 36.6 C 93 H 117/51 L 06/04/20 13:40 96 H 104/54 L 06/04/20 13:20 98 H 89/51 L 06/04/20 13:00 97 H 91/41 L 06/04/20 12:40 97 H 92/48 L 06/04/20 12:20 94 H 105/47 L 06/04/20 12:00 93 H 96/57 L 06/04/20 11:40 98 H 105/50 L 06/04/20 11:20 95 H 97/41 L 06/04/20 11:00 94 H 101/51 L 06/04/20 10:40 90 106/51 L 06/04/20 10:20 89 96/45 L 06/04/20 09:55 36.6 C 77 06/04/20 08:06 36.4 C L 81 17 171/64 H 06/04/20 08:00 76 06/04/20 03:30 148/62 H Pulse Ox 06/04/20 14:32 92 06/04/20 14:10 06/04/20 13:40 06/04/20 13:20 06/04/20 13:00 06/04/20 12:40 06/04/20 12:20 06/04/20 12:00 06/04/20 11:40 06/04/20 11:20 06/04/20 11:00 06/04/20 10:40 06/04/20 10:20 06/04/20 09:55 06/04/20 08:06 100 06/04/20 08:00 06/04/20 03:30 Laboratory Results Reviewed (1) AMS (altered mental status) Altered mental status type: unspecified Qualified Code(s): R41.82 - Altered mental status, unspecified
--- NOTE | 2020-06-04 16:51 | Hospitalist Progress Note ---
Date of Service June 04, 2020 Assessment & Plan (1) Seizure-like activity: Shaking of upper extremities and decreased responsiveness lasting for seconds in the ER. Resolved and not recurred Postictal state consistent with prior witnessed altered mental state. Suspect lowered seizure threshold due to tramadol given. He also was on Celexa which can lower seizure threshold Discussed with Neurology resolution manager - given offending medication tramadol likely responsible will hold off Keppra or further imaging currently Seizure precautions, pending EEG interpretation (2) Altered mental state: Ativan 1mg PRN for agitation if at risk to self or others as possibly could lead to increased hallucinations MRI brain 06/03 IMPRESSION: 1. No evidence of acute or subacute infarction 2. No evidence of intracranial mass given the limitations of a noncontrast study 3. Foci of prior right hemispheric ischemic infarction. Moderate foci of increased T2 and FLAIR signal within the white matter, likely small vessel ischemic basis. carotid Doppler negative 06/03/20 for stenosis blood cultures are negative, urine negative, leg wound appears typical, is tender but not fluctuant, no significant lab abnormalities (3) Displaced fracture of right femoral neck: discharged 05/29 after a fall and right hip arthroplasty 05/24, this resulted from fall for evaluation of non heaing foot ulcers and the pt did have ID consult during that stay , MRI of foot 05/25 did not confirm osteomyelitis, no antibiotics were recommeneded (4) Hallucinations: Avoid anti-psychotics as will also lower seizure threshold. (5) Coronary arteriosclerosis: Continue aspirin, metoprolol, pravastatin (6) ESRD on dialysis: Next due on Wednesday. Will need nephrology consult if staying beyond tomorrow. (7) Controlled diabetes mellitus with kidney complication, with long-term current use of insulin: HbA1C 6.8 [05/25/2020] Consult pharmacy for glycemic control with basal bolus insulin Admission and Anticipated Discharge Date Admission Date: June 03, 2020 Subjective Patient is much more awake and alert today. I did call his who had raises concerns that he was taking excess pain medications. If he does well in the next 24 hours he may likely be able to be transition to home along as he performed physical therapy satisfactorily Review of Systems Review of Systems: Mild distress and fatigue is still seems slightly altered. He is dry mucous membranes after dialysis no headache, blurry or double vision no speech or swallowing issues no chest pain, pressure or palpitations no shortness of breath, cough or wheezes no abdominal pain, nausea or vomiting, diarrhea or constipation no dysuria, hematuria or frequency Minor right hip discomfort but he is postoperative from 05/24 no back pain, CVA tenderness or radicular pain no bruising, bleeding or rashes no focal signs of weakness or numbness or altered sensation no complaints of anxiety or depression.. Physical Exam Physical Exam: The patient appeared confused and obtunded at times Vital signs as documented. Head exam is normocephalic atraumatic no scleral icterus Neck is without JVD, thyromegaly, or carotid bruits. Lungs are clear to auscultation still diminished at the bases Cardiac exam, Rhythm is regular.. No murmurs, rubs or gallops. Abdominal exam reveals normal bowel sounds, soft non tender, no masses Extremities right hip is tender wound appears to be typical healing [place] in place and look good Neurologic exam is alert and follows commands is much more oriented today still slightly groggy Skin is without bruises or rashes exception of the surgical site Psychologically is with concerns for clearing delirium Results & Data Results & Data ([facility]) Vital Signs (Past 12 Hours) Vital Signs Temp Pulse Pulse Pulse Resp BP BP 06/04/20 15:57 90 06/04/20 14:32 97.7 F 90 18 118/57 L 06/04/20 14:10 97.9 F 93 H 117/51 L 06/04/20 13:40 96 H 104/54 L 06/04/20 13:20 98 H 89/51 L 06/04/20 13:00 97 H 91/41 L 06/04/20 12:40 97 H 92/48 L 06/04/20 12:20 94 H 105/47 L 06/04/20 12:00 93 H 96/57 L 06/04/20 11:40 98 H 105/50 L 06/04/20 11:20 95 H 97/41 L 06/04/20 11:00 94 H 101/51 L 06/04/20 10:40 90 106/51 L 06/04/20 10:20 89 96/45 L 06/04/20 09:55 97.9 F 77 06/04/20 08:06 97.5 F L 81 17 171/64 H 06/04/20 08:00 76 Pulse Ox 06/04/20 15:57 06/04/20 14:32 92 06/04/20 14:10 06/04/20 13:40 06/04/20 13:20 06/04/20 13:00 06/04/20 12:40 06/04/20 12:20 06/04/20 12:00 06/04/20 11:40 06/04/20 11:20 06/04/20 11:00 06/04/20 10:40 06/04/20 10:20 06/04/20 09:55 06/04/20 08:06 100 06/04/20 08:00 PG Care Time/CCT Total # of Minutes Spent Total Time Spent with Patient: Total time spent is greater than 50% in coordination of care (as documented) at patient's floor/unit and/or counseling patient: Coding Level of Care Code 58495 Subseq Hosp Care Lvl 3 Diagnoses Seizure-like activity R56.9 Altered mental state R41.82 Displaced fracture of right femoral neck S72.001A Hallucinations R44.3 Coronary arteriosclerosis I25.10 ESRD on dialysis N18.6; Z99.2 Controlled diabetes mellitus with kidney complication, with long-term current use of insulin E11.21; Z79.4
[2020-06-04] MEDS: PRAVASTATIN SOD 40 MG TAB PO SCH (20:29)
[2020-06-05] MEDS: INSULIN ASPART 100 UNITS/ML 3 ML PEN SC SCH ×2 (03:05→09:09)
[2020-06-05] MEDS: PANTOprazole 40 MG TAB PO SCH (06:19)
[2020-06-05] MEDS: ASPIRIN 81 MG ECTAB PO SCH (09:06)
[2020-06-05] MEDS: METOPROLOL SUCC 50MG EXT REL TAB PO SCH (09:06)
[2020-06-05] MEDS: FERROUS SULFATE 325 MG TAB PO SCH (09:06)
[2020-06-05] MEDS: DOCUSATE SODIUM 100 MG CAP PO SCH (09:06)
[2020-06-05] MEDS: FUROSEMIDE 40 MG TAB PO SCH (09:06)
[2020-06-05] MEDS: CEROVITE ADV FORMULA TAB PO SCH (09:06)
[2020-06-05] MEDS: INSULIN GLARGINE SOLOSTAR 100 UNITS/ML 3 ML PEN SC SCH (09:10)
--- NOTE | 2020-06-05 19:48 | Discharge Summary ---
Date of Service June 05, 2020 Admission HPI Per Admitting Provider Yousif Walker is a 69 year old male with ESRD on dialysis and who presents to the ER from [facility] due to altered mental state, increased aggressiveness and hallucinations. The patient continues to insist everything he saw was real although changes his story frequently when I mention the inconsistencies. On occasion appears to understand that having hallucinations can be a side effect of the tramadol he had been getting (last dose 11/05, 7% dialyzable) however this thought process resets easily. Specific examples at [facility] was that he told me about construction that was going on and setting up fans which caused dust to go everywhere in his room that he couldn't breath - this appears to be his interpretation of a [employer] machine went past and he felt dust went everywhere including on his food and he pointed to the wall thinking there was someone there but saying "he had also seen everything". He also mentions the kids of the man and woman person who run [facility] were there not wearing masks and climbing up the schmidt (this story changes every time he says it). This is on a background of recent hospitalization from May 24 to due to a right sided hip fracture. He was started on oxycodone initially but was having hallucinations at [facility] with this. It was subsequently changed to tramadol and dialysis improved his symptoms. However today he continued to have hallucinations above despite not having tramadol since 05/31 and has been more aggressive and combative with staff which is out of character for him therefore was sent to the ER for further evaluation and treatment. In the ER he insisted several times he did not wish to return to [facility] because of how they treated him and he could manage himself at home but could not tell me how he would manage his dizziness etc... Initially he appeared to have reasonable capacity however was unable to remember potential risks of going home rather than back to [facility]. His initially was willing to sign him out against medical advice however in the ER the patient had a 3-5 second episode of seizure-like activity. This was after getting himself very worked up after I told him he did not demonstrate capacity to make his own decisions. While sitting on the edge of the bed he sudden had sudden decreased responsiveness with shaking of his both upper limbs, no lower limb activity was witnessed. He had a postictal state similar to what was described at [facility] with confusion, confabulation and hallucinations. Specifically he thought he had been putting on his boot and dragging the chair (he was sitting on his bed). Elenita aburto this I advised his strongly he should stay in hospital for observation overnight to which she agreed. Principal Diagnosis seizure like activity as adverse reaction to medication toxic encepahlopathy Discharge Exam The patient appeared well Vital signs as documented. Lungs are clear to auscultation and appear unlabored Cardiac exam, Rhythm is regular.. No murmurs, rubs or gallops. Abdominal exam reveals normal bowel sounds, soft non tender, no masses Extremities right hip is clean dry intact incision clark are in place he has good movement of his leg Neurologic exam is alert and oriented, no focal loss of strength or sensation Skin is without bruises or rashes Psychologically is without concerns for anxiety or depression. Discharge Data Allergies Allergy/AdvReac Type Severity Reaction Status Date / Time adhesive Allergy Mild itchy and Verified 06/02/20 16:52 rash Consultations 06/03/20 00:38 Consult Neurology Routine 06/04/20 09:07 Consult Nephrology Routine Ordered Studies 06/02/20 15:39 CT head/brain wo con Stat 06/03/20 09:06 MR brain seizure wo con Routine 06/03/20 11:00 US carotid doppler BI Routine Hospital Course (1) Seizure-like activity: Shaking of upper extremities and decreased responsiveness lasting for seconds in the ER. Resolved and not recurred Postictal state consistent with prior witnessed altered mental state. Suspect lowered seizure threshold due to tramadol given. 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 No evidence of acute or subacute infarction 2. No evidence of intracranial mass given the limitations of a noncontrast study 3. Foci of prior right hemispheric ischemic infarction. Moderate foci of increased T2 and FLAIR signal within the white matter, likely small vessel ischemic basis. carotid Doppler negative 06/03/20 for stenosis blood cultures are negative, urine negative, leg wound appears typical, is tender but not fluctuant, no significant lab abnormalities (3) Displaced fracture of right femoral neck: discharged 05/29 after a fall and right hip arthroplasty 05/24, this resulted from fall for evaluation of non heaing foot ulcers and the pt did have ID consult during that stay , MRI of foot 05/25 did not confirm osteomyelitis, no antibiotics were recommended Patient with home physical therapy and occupational therapy and following up with the surgeon (4) Coronary arteriosclerosis: Continue aspirin, metoprolol, pravastatin (5) ESRD on dialysis: Wednesday dialysis sessions (6) Controlled diabetes mellitus with kidney complication, with long-term current use of insulin: HbA1C 6.8 [05/25/2020] Resume home medication regiment Total Time Total Time Spent Total Time Spent (In Minutes): It required greater than 30 minutes to prepare this patient for discharge Discharge Plan Discharge Items Patient Disposition: Home - Home Health Services Reason For Visit: ALTERED MENTAL STATUS, SEIZURE LIKE ACTIVITY Discharge Diagnosis: medication side affects Activity: Per Instructions section Activity Comment: continue physical therapy Non-emergency contact: Primary Care Provider and Surgeon Call non-emergency contact if: you have any medication questions and your symptoms worsen Follow-up/Referrals: Ramo Uribe MD [Primary Care Provider] - 06/13/20 11:20 am Diet: Carb Consistent or DM2 Addtl Attending Provider Instructions: please follow up with orthopedics for staple removal please follow up with continued dialysis no pain medicine other than tylenol and ibuprofen Pending Studies at Discharge: No Stand-Alone Forms: My [employer], Smoking Cessation Medications and DC Order Prescriptions: Continued ascorbic acid (vitamin C) 500 mg capsule 500 mg PO QAM RF: 0 (DME) insulin syringe-needle U-100 [BD Insulin Syringe Ultra-Fine] 0.3 mL 31 gauge x 5/16" syringe See Dose Instructions .ROUTE .MEDSUPPLY Qty: 10 RF: 2 cholecalciferol (vitamin D3) 1,250 mcg (50,000 unit) capsule 50,000 units PO MONTHLY Qty: 3 RF: 3 (DME) blood sugar diagnostic [Contour Next Test Strips] Strip See Rx Instructions .ROUTE .MEDSUPPLY Qty: 400 RF: 3 cadexomer iodine 1 applic topical DIRECTED PRN (Reason: for wound) RF: 0 metoprolol succinate 25 mg tablet extended release 24 hr 50 mg PO DAILY RF: 0 ferrous sulfate 325 mg (65 mg iron) tablet 325 mg PO DAILY RF: 0 mometasone 0.1 % ointment 1 appln topical BID PRN (Reason: Rash) Qty: 1 RF: 0 furosemide 40 mg tablet 40 mg PO BID Qty: 90 RF: 3 melatonin 3 mg Tablet 3 mg PO HS RF: 0 zinc sulfate 220 mg Tablet 220 mg PO QAM RF: 0 famotidine 20 mg Tablet 20 mg PO 3XWK RF: 0 sodium chloride 0.9 % Solution 1,000 ml IV DIRECTED PRN (Reason: DIALYSIS) RF: 0 pantoprazole 40 mg Tablet,Delayed Release (Dr/Ec) 40 mg PO DAILYBB RF: 0 Humulin R Regular U-100 Insuln 100 unit/mL Solution 1 sliding scale dose SUBCUT USEASDIRECTD RF: 0 docusate sodium 100 mg Capsule 100 mg PO BID RF: 0 multivitamin with minerals Tablet 1 tab PO QAM RF: 0 darbepoetin abe in polysorbat 100 mcg/0.5 mL Syringe 100 mcg subcut WK RF: 0 acetaminophen 325 mg tablet 650 mg PO Q4H PRN (Reason: FEVER/PAIN) RF: 0 colestipol 1 gram tablet 1 g PO Q OTHER DAY RF: 0 multivitamin Tablet 1 tab PO QDD RF: 0 pravastatin 40 mg tablet 40 mg PO HS RF: 0 aspirin 81 mg Tablet,Delayed Release (Dr/Ec) 81 mg PO BID Qty: 60 RF: 0 Discontinued citalopram 40 mg tablet 40 mg PO QAM Qty: 90 RF: 3 tramadol 50 mg Tablet 50 mg PO Q4H PRN (Reason: Pain) RF: 0 Venofer 100 mg iron/5 mL Solution 100 mg IV ONCE RF: 0 ondansetron [Zofran ODT] 4 mg Tablet,Disintegrating 4 mg PO Q4H PRN (Reason: Nausea) RF: 0 Discharge Orders: Discharge Order (Routine); Ordered 06/05/20 Ordered By: Viral Langford Admission Data Admit Date/Time: 06/03/20 17:27 Attending Provider: Viral Langford Admit Provider: Enrique Lock Primary Care Provider: Ramo Uribe V. Other Providers: Tasneem Watts ; [facility] ; Rebeca Wisdom ; [facility] Other Interventions: Discharge Summary Assessment (RN) Last Done: 06/05/20 09:31 Coding Level of Care Code D/C Day Management >30 mins Diagnoses Seizure-like activity R56.9 Altered mental state R41.82 Displaced fracture of right femoral neck S72.001A Coronary arteriosclerosis I25.10 ESRD on dialysis N18.6; Z99.2 Controlled diabetes mellitus with kidney complication, with long-term current use of insulin E11.21; Z79.4
== END 2020-06-05 10:24 | disposition home health service (06) | DRG 100 ==
LOC: 2S 15:18 → ED 15:18 → SUATTDRO 19:51 → 2S 22:04